=== PATIENT | female | born 1985 | race African-American/Black ===

== ENCOUNTER 2016-07-13 16:32 | Emergency (ER) | payer MEDICARE, MEDICAID ==
[~2016-07-13] VITALS: Ht 170.2 cm; Wt 107.0 kg
[~2016-07-13 16:32] MED LIST: DOXY100C PO; MACR100C2 PO; SULF1TAB23 PO
[2016-07-13 16:35] VITALS: BP 120/84; PULSE 108; RESP 16; TEMP 99.7; O2SAT 99
[2016-07-13] MEDS ORDERED: SODIUM CHLOR 0.9% 1000 ML INJ 1,000 ML IV ONE (16:54)
[2016-07-13] MEDS ORDERED: SODIUM CHLORIDE 0.9% FLUSH 5 ML FLUSH IVF PRN (17:00)
[2016-07-13] MEDS ORDERED: HYDROmorphone HCL PF 2 MG/ML VIAL IVS ONE (17:00)
[2016-07-13] MEDS ORDERED: PROM25TA5 PO (17:01)
[2016-07-13] MEDS ORDERED: XARE15TA PO (17:01)
[2016-07-13] MEDS ORDERED: METH10TA PO (17:01)
[2016-07-13] MEDS ORDERED: OXYC1CAP PO (17:01)
[2016-07-13] MEDS ORDERED: AMIT25TA9 PO (17:01)
[2016-07-13 17:02] VITALS: RESP 16; O2SAT 99
--- NOTE | 2016-07-13 17:09 | PD ---
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 Presents to the emergency department complaining of pain all over. States the past 2 days. States is consistent with her previous sickle cell pain. Does endorse some foul-smelling urine, no dysuria. History of UTIs. She also had some cough. Temperature 99.7. Occasional dizziness. No other complaints. No shortness of breath. No nausea vomiting. No chest pain. PFSH Past Medical History Narrative Medical Hemoglobin SC disease Hx Anticoagulant Therapy: Yes (XARELTO - PE) Arthritis: Yes (spine l4,l5,l7) Asthma: No Autoimmune Disease: No Blood Disorders: Yes (SICKLE CELL) Anxiety: Yes Depression: No Heart Rhythm Problems: No Cancer: No Cardiac Catheterization: Yes Cardiovascular Problems: Yes (MURMUR) High Cholesterol: No Chemotherapy: No Chest Pain: No Congestive Heart Failure: No COPD: No Cerebrovascular Accident: No Diabetes: Yes Patient Takes Glucophage: No Diminished Hearing: No Endocrine: No Gastrointestinal Disorders: Yes (HX GALLSTONES--CHOLECYSTECTOMY) Genetic Disorder: Yes (SICKLE CELL) GERD: No Glaucoma: Yes Genitourinary: No Headaches: No Hepatitis: No Hiatal Hernia: No Heparin Induced Thrombocytopen: No Hypertension: No Immune Disorder: No Implanted Vascular Access Dvce: Yes (RIGHT CHEST INFUSAPORT: SEPTEMBER 2014) Kidney Stones: No Medical other: Yes (SICKLE CELL ANEMIA) Musculoskeletal: Yes (ARTHRITIS) Neurologic: No Psychiatric: No Reproductive: No Respiratory: Yes (PULMONARY EMBOLISM) Immunizations Current: Yes Migraines: No Myocardial Infarction: No Pneumonia: Yes Radiation Therapy: No Renal Failure: No Seizures: No Sickle Cell Disease: Yes Sleep Apnea: No Thyroid Disease: No Ulcer: No Tetanus Vaccination: < 5 Years ?: Not LMP: 07/11/2016 : 10 Para: 4 Miscarriage: 6 : 0 Ectopic : No Ovarian Cysts: No Tubal Ligation: Yes Past Surgical History Abdominal Surgery: Yes AICD: No Arteriovenous Shunt: No Body Medical Devices: RIGHT INFUSAPORT (REMOVED 2012), LEFT REMOVED 2014, RIGHT POWER PORT 2014 Cardiac Surgery: No Section: Yes Cholecystectomy: Yes Ear Surgery: No Endocrine Surgery: No Eye Surgery: Yes (CORRECTIVE EYE SURGERY-LEFT) Genitourinary Surgery: No Gynecologic Surgery: Yes ( X 2, 2007 AND 2012) Hysterectomy: No Insulin Pump: No Joint Replacement: No Neurologic Surgery: No Oral Surgery: No Pacemaker: No Thoracic Surgery: Yes (MRSA INFUSAPORT R SIDE REMOVED 05/2013, L SIDE INFUSAPORT REMOVED 07/20) Other Surgery: Yes Social History Alcohol Use: No Tobacco Use: No Substance Use: No Allergies-Medications (Allergen,Severity, Reaction): Coded Allergies: Morphine (Verified Allergy, Severe, RASH, 07/13/16) Reglan (Verified Allergy, Severe, RASH, 07/13/16) Toradol (Verified Allergy, Severe, RASH, 07/13/16) Zofran (Verified Allergy, Severe, RASH,ITCH, 07/13/16) *MDRO Multi-Drug Resistant Organism (Verified Adverse Reaction, Unknown, ) MRSA (blood) - 05/2013 MRSA PCR Screen negative - 03/20/15 & 03/22/15 MRSA (scalp-05/26/16) Uncoded Allergies: CEFEPIME (Allergy, Severe, Hives., 07/13/16) Reported Meds & Prescriptions Reported Meds & Active Scripts Active Reported Phenergan (Promethazine HCl) 25 Mg Tab 25 Mg PO Q6H PRN Amitriptyline (Amitriptyline HCl) 25 Mg Tab 25 Mg PO HS Methadone (Methadone HCl) 10 Mg Tab 10 Mg PO DAILY Oxycodone (Oxycodone HCl) 5 Mg Cap 5 Mg PO BID PRN Xarelto (Rivaroxaban) 15 Mg Tab 15 Mg PO DAILY Review of Systems Except as stated in HPI: all other systems reviewed are Neg Physical Exam Narrative GENERAL: 30-year-old woman, no acute distress. SKIN: Warm and dry. CARDIOVASCULAR: Regular rate and rhythm. No murmur appreciated. RESPIRATORY: No accessory muscle use. Clear to auscultation. Breath sounds equal bilaterally. GASTROINTESTINAL: Abdomen soft, non-tender, nondistended. Hepatic and splenic margins not palpable. MUSCULOSKELETAL: No obvious deformities. No clubbing. No cyanosis. No edema. NEUROLOGICAL: Awake and alert. No obvious cranial nerve deficits. Motor grossly within normal limits. Normal speech. PSYCHIATRIC: Appropriate mood and affect; insight and judgment normal. Data Data Last Documented VS Vital Signs Date Time Temp Pulse Resp B/P Pulse Ox O2 Delivery O2 Flow Rate FiO2 07/13/16 17:02 16 99 Room Air 07/13/16 16:35 99.7 108 120/84 Orders Complete Blood Count With Diff (07/13/16 16:54) Comprehensive Metabolic Panel (07/13/16 16:54) Retic Count (07/13/16 16:54) Urinalysis - C+S If Indicated (07/13/16 16:54) Ecg Monitoring (07/13/16 16:54) Iv Access Insert/Monitor (07/13/16 16:54) Oximetry (07/13/16 16:54) Hydromorphone Pf Inj (Dilaudid Pf Inj) (07/13/16 17:00) Sodium Chloride 0.9% Flush (Ns Flush) (07/13/16 17:00) Sodium Chlor 0.9% 1000 Ml Inj (Ns 1000 M (07/13/16 16:54) Heparin Central Flush (Heparin Central F (07/13/16 17:00) Urine Culture (07/13/16 17:00) Hydromorphone Pf Inj (Dilaudid Pf Inj) (07/13/16 18:00) Labs Laboratory Tests Test 07/13/16 07/13/16 17:00 17:30 Urine Collection Type CLEAN CATCH Urine Color YELLOW Urine Turbidity CLOUDY Urine pH 6.5 Urine Specific [place] 1.014 Urine Protein NEG mg/dL Urine Glucose (UA) NEG mg/dL Urine Ketones NEG mg/dL Urine Occult Blood LARGE Urine Nitrite POS Urine Bilirubin NEG Urine Leukocyte Esterase LARGE Urine RBC 0-3 /hpf Urine WBC 20-24 /hpf Urine Squamous Epithelial 0-5 /hpf Cells Urine Amorphous Sediment FEW Urine Bacteria FEW /hpf Microscopic Urinalysis Comment CULTURE INDICATED White Blood Count 10.5 TH/MM3 Red Blood Count 4.00 MIL/MM3 Hemoglobin 11.1 GM/DL Hematocrit 34.2 % Mean Corpuscular Volume 85.4 FL Mean Corpuscular Hemoglobin 27.7 PG Mean Corpuscular Hemoglobin 32.4 % Concent Red Cell Distribution Width 19.5 % Platelet Count 480 TH/MM3 Mean Platelet Volume 8.1 FL Neutrophils (%) (Auto) 68.3 % Lymphocytes (%) (Auto) 28.2 % Monocytes (%) (Auto) 2.1 % Eosinophils (%) (Auto) 0.9 % Basophils (%) (Auto) 0.5 % Neutrophils # (Auto) 7.1 TH/MM3 Lymphocytes # (Auto) 3.0 TH/MM3 Monocytes # (Auto) 0.2 TH/MM3 Eosinophils # (Auto) 0.1 TH/MM3 Basophils # (Auto) 0.1 TH/MM3 CBC Comment DIFF FINAL Differential Comment Sodium Level 142 MEQ/L Potassium Level 5.0 MEQ/L Chloride Level 105 MEQ/L Carbon Dioxide Level 27.4 MEQ/L Anion Gap 10 MEQ/L Blood Urea Nitrogen 6 MG/DL Creatinine 1.10 MG/DL Estimat Glomerular Filtration 70 ML/MIN Rate Random Glucose 112 MG/DL Calcium Level 8.9 MG/DL Total Bilirubin 1.0 MG/DL Aspartate Amino Transf 31 U/L (AST/SGOT) Alanine Aminotransferase 19 U/L (ALT/SGPT) Alkaline Phosphatase 94 U/L Total Protein 8.9 GM/DL Albumin 4.0 GM/DL [facility] Medical Decision Making Medical Screen Exam Complete: Yes Emergency Medical Condition: Yes Interpretation(s) LABS: CBC remarkable for mild anemia. CMP unremarkable. Differential Diagnosis Sickle cell crisis, dehydration, other Narrative Course Medical decision making 30-year-old woman hemoglobin SC disease, frequent visits for pain crises, looks well, here at the same. Some concern for UTI given malodorous urine. A little bit of some URI symptoms. Normal pulmonary exam, and no source of breath, No evidence of acute chest syndrome or pneumonia. Plan labs, urinalysis, symptomatic treatment. Diagnosis Primary Impression: Sickle cell disease Qualified Code: D57.00 - Hb-SS disease with crisis Additional Impression: UTI (urinary tract infection) Qualified Code: N30.00 - Acute cystitis without hematuria Additional Instructions: Take antibiotics as prescribed. Follow-up with your behavioral sciences department chair as planned. Return to the emergency department for any new or worsening symptoms. Med/Other Pt SpecificInfo: Prescription(s) given Scripts Nitrofurantoin Monohydrate Macrocrystals (Macrobid)100 Mg Hdl562 Mg PO BID 5 Days Prov:Anderson Monge MD 07/13/16 Disposition: 01 DISCHARGE HOME Anderson Monge MD Jul 13, 2016 17:08
[2016-07-13 17:22] LABS: BLOOD, URINE LARGE (NEG); GLUCOSE,URINE NEG (NEG); KETONE, URINE NEG (NEG); PH, URINE 6.5 (5.0-8.5)
[2016-07-13 17:23] LABS: NITRITE,URINE POS (NEG)
[2016-07-13 17:24] LABS: METHOD OF COLLECTION CLEAN CATCH; URINE COLOR YELLOW (YELLW/STRAW)
[2016-07-13 17:26] LABS: BACTERIA, URINE FEW /hpf; COMMENT (UR) CULTURE INDICATED; CULTURE IF INDICATED CULTURE INDICATED; RBC, URINE 0-3 /hpf (0-3); SQUAMOUS EPITHELIAL CELL URINE 0-5 /hpf (0-5)
[2016-07-13 17:50] LABS: AUTOMATED NEUTROPHIL # 7.1 TH/MM3 (1.8-7.7); BASOPHIL # 0.1 TH/MM3 (0-0.2); BASOPHIL % 0.5 % (0.0-2.0); EOSINOPHIL # 0.1 TH/MM3 (0-0.4); EOSINOPHIL % 0.9 % (0.0-4.0); HEMATOCRIT 34.2 % (35.0-46.0); LYMPH % 28.2 % (9.0-44.0); MEAN CELL VOLUME 85.4 FL (80.0-100.0); MEAN CORPUSCULAR HEMOGLOBIN 27.7 PG (27.0-34.0); MEAN CORPUSCULAR HGB CONC 32.4 % (32.0-36.0); MONO % 2.1 % (0.0-8.0); NEUT % 68.3 % (16.0-70.0); PLATELET COUNT 480 TH/MM3 (150-450); RED CELL DISTRIBUTION WIDTH 19.5 % (11.6-17.2); WHITE BLOOD COUNT 10.5 TH/MM3 (4.0-11.0)
[2016-07-13 17:51] LABS: HEMO FLAGS DIFF FINAL
[2016-07-13] MEDS ORDERED: HYDROmorphone HCL PF 2 MG/ML VIAL IV PUSH ONE (18:00)
[2016-07-13 18:08] LABS: CHLORIDE 105 MEQ/L (98-107); SODIUM (NA) 142 MEQ/L (136-145)
[2016-07-13 18:11] LABS: ANION GAP 10 MEQ/L (5-15); BICARBONATE 27.4 MEQ/L (21.0-32.0); BLOOD UREA NITROGEN 6 MG/DL (7-18)
[2016-07-13 18:14] LABS: ALT (GPT) 19 U/L (10-53); AST (GOT) 31 U/L (15-37); GLOMERULAR FILTRATION RATE 70 ML/MIN (>89)
[2016-07-13 18:17] LABS: ALKALINE PHOSPHATASE 94 U/L (45-117)
[2016-07-13] MEDS ORDERED: MACR100C2 PO (18:30)
[2016-07-13 18:42] VITALS: BP 102/60
[2016-07-13 18:42] LABS: RETIC % 3.7 % (0.4-3.0); REVIEW FLAG FINAL
== END 2016-07-13 18:54 | disposition home or self-care (01) ==
LOC: PHED 16:32
DX: D57.1 Sickle-cell disease without crisis (principal); N39.0 Urinary tract infection, site not specified; Z79.01 Long term (current) use of anticoagulants; F41.9 Anxiety disorder, unspecified; B96.20 Unspecified Escherichia coli [E. coli] as the cause of diseases classified elsewhere
CPT/HCPCS: 80053; 81001; 85025; 85044; 87077; 87086; 87186; 96374; 96376; 99284; J1170; J7030

== ENCOUNTER 2016-08-09 17:29 | Emergency (ER) | payer MEDICARE, MEDICAID ==
[~2016-08-09] VITALS: Ht 170.2 cm; Wt 104.7 kg
[~2016-08-09 17:29] MED LIST changes: +AMIT25TA9 PO; -DOXY100C PO; +METH10TA PO; +OXYC1CAP PO; +PROM25TA5 PO; -SULF1TAB23 PO; +XARE15TA PO
[2016-08-09 17:48] VITALS: BP 118/84; PULSE 109; RESP 16; TEMP 99.9; O2SAT 97
--- NOTE | 2016-08-09 18:10 | PD ---
HPI Chief Complaint: Sickle Cell Time Seen by Provider: 17:57 Travel History International Travel<30 days: No Contact w/Intl Traveler<30days: No Traveled to known affect area: No History of Present Illness HPI The patient was seen and examined in the presence of the nurse. This patient complains of pain all over. She has runny nose and congestion and nausea as well. No diarrhea. Symptoms severity is mild to moderate. Duration one day. No alleviating factors PFSH Past Medical History Hx Anticoagulant Therapy: Yes (XARELTO - PE) Arthritis: Yes (spine l4,l5,l7) Asthma: No Autoimmune Disease: No Blood Disorders: Yes (SICKLE CELL) Anxiety: Yes Depression: No Heart Rhythm Problems: No Cancer: No Cardiac Catheterization: Yes Cardiovascular Problems: Yes (MURMUR) High Cholesterol: No Chemotherapy: No Chest Pain: No Congestive Heart Failure: No COPD: No Cerebrovascular Accident: No Diabetes: Yes Patient Takes Glucophage: No Diminished Hearing: No Endocrine: No Gastrointestinal Disorders: Yes (HX GALLSTONES--CHOLECYSTECTOMY) Genetic Disorder: Yes (SICKLE CELL) GERD: No Glaucoma: Yes Genitourinary: No Headaches: No Hepatitis: No Hiatal Hernia: No Heparin Induced Thrombocytopen: No Hypertension: No Immune Disorder: No Implanted Vascular Access Dvce: Yes (RIGHT CHEST INFUSAPORT: SEPTEMBER 2014) Kidney Stones: No Medical other: Yes (SICKLE CELL ANEMIA) Musculoskeletal: Yes (ARTHRITIS) Neurologic: No Psychiatric: No Reproductive: No Respiratory: Yes (PULMONARY EMBOLISM) Immunizations Current: Yes Migraines: No Myocardial Infarction: No Pneumonia: Yes Radiation Therapy: No Renal Failure: No Seizures: No Sickle Cell Disease: Yes Sleep Apnea: No Thyroid Disease: No Ulcer: No ?: Not LMP: 1 1/2 weeks ago : 10 Para: 4 Miscarriage: 6 : 0 Ectopic : No Ovarian Cysts: No Tubal Ligation: Yes Past Surgical History Abdominal Surgery: Yes AICD: No Arteriovenous Shunt: No Body Medical Devices: RIGHT INFUSAPORT (REMOVED 2012), LEFT REMOVED 2014, RIGHT POWER PORT 2014 Cardiac Surgery: No Section: Yes Cholecystectomy: Yes Ear Surgery: No Endocrine Surgery: No Eye Surgery: Yes (CORRECTIVE EYE SURGERY-LEFT) Genitourinary Surgery: No Gynecologic Surgery: Yes ( X 2, 2007 AND 2012) Hysterectomy: No Insulin Pump: No Joint Replacement: No Neurologic Surgery: No Oral Surgery: No Pacemaker: No Thoracic Surgery: Yes (MRSA INFUSAPORT R SIDE REMOVED 05/2013, L SIDE INFUSAPORT REMOVED 07/20) Other Surgery: Yes Social History Alcohol Use: No Tobacco Use: No Substance Use: No Allergies-Medications (Allergen,Severity, Reaction): Coded Allergies: Morphine (Verified Allergy, Severe, RASH, 08/09/16) Reglan (Verified Allergy, Severe, RASH, 08/09/16) Toradol (Verified Allergy, Severe, RASH, 08/09/16) Zofran (Verified Allergy, Severe, RASH,ITCH, 08/09/16) *MDRO Multi-Drug Resistant Organism (Verified Adverse Reaction, Unknown, ) 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 Reported Meds & Prescriptions Reported Meds & Active Scripts Active Reported Phenergan (Promethazine HCl) 25 Mg Tab 25 Mg PO Q6H PRN Amitriptyline (Amitriptyline HCl) 25 Mg Tab 25 Mg PO HS Methadone (Methadone HCl) 10 Mg Tab 10 Mg PO DAILY Oxycodone (Oxycodone HCl) 5 Mg Cap 5 Mg PO BID PRN Xarelto (Rivaroxaban) 15 Mg Tab 15 Mg PO DAILY Review of Systems General / Constitutional: No: Fever Eyes: No: Visual changes HENT: Positive: Rhinorrhea, Congestion, No: Headaches Cardiovascular: No: Chest Pain or Discomfort Respiratory: No: Shortness of Breath Gastrointestinal: Positive: Nausea, No: Abdominal Pain Genitourinary: No: Dysuria Musculoskeletal: Positive: Myalgias, Pain Skin: No Rash Neurologic: No: Weakness Psychiatric: No: Depression Endocrine: No: Polydipsia Hematologic/Lymphatic: No: Easy Bruising Physical Exam Narrative GENERAL: Well-nourished, well-developed patient in no apparent distress. SKIN: Warm and dry. HEAD: Atraumatic. Normocephalic. EYES: On the right is round and reactive. Her left cornea is clouded over. No scleral icterus. No injection or drainage. ENT: No nasal bleeding or discharge. Mucous membranes pink and moist. NECK: Trachea midline. No JVD. CARDIOVASCULAR: Regular rate and rhythm. No murmur appreciated. RESPIRATORY: No accessory muscle use. Clear to auscultation. Breath sounds equal bilaterally. GASTROINTESTINAL: Abdomen soft, non-tender, nondistended. Hepatic and splenic margins not palpable. MUSCULOSKELETAL: No obvious deformities. No clubbing. No cyanosis. No edema. NEUROLOGICAL: Awake and alert. No obvious cranial nerve deficits. Motor grossly within normal limits. Normal speech. PSYCHIATRIC: Appropriate mood and affect; insight and judgment normal. Data Data Last Documented VS Vital Signs Date Time Temp Pulse Resp B/P Pulse Ox O2 Delivery O2 Flow Rate FiO2 08/09/16 18:02 98 Nasal Cannula 2 08/09/16 17:48 99.9 109 16 118/84 Orders Complete Blood Count With Diff (08/09/16 18:05) Sodium Chlor 0.9% 1000 Ml Inj (Ns 1000 M (08/09/16 18:15) Heparin Central Flush (Heparin Central F (08/09/16 18:15) Promethazine Inj (Phenergan Inj) (08/09/16 18:15) Acetamin-Hydrocod 325-5 Mg ([place] 5-325 (08/09/16 18:15) Resp Lab Draw Arterial Punctur (08/09/16 ) Resp Lab Draw Arterial Punctur (08/09/16 ) Labs Laboratory Tests Test 08/09/16 19:05 White Blood Count 13.3 TH/MM3 Red Blood Count 4.00 MIL/MM3 Hemoglobin 11.3 GM/DL Hematocrit 35.1 % Mean Corpuscular Volume 87.8 FL Mean Corpuscular Hemoglobin 28.3 PG Mean Corpuscular Hemoglobin 32.3 % Concent Red Cell Distribution Width 19.7 % Platelet Count 525 TH/MM3 Mean Platelet Volume 8.1 FL Neutrophils (%) (Auto) 66.5 % Lymphocytes (%) (Auto) 27.1 % Monocytes (%) (Auto) 2.5 % Eosinophils (%) (Auto) 2.3 % Basophils (%) (Auto) 1.6 % Neutrophils # (Auto) 8.9 TH/MM3 Lymphocytes # (Auto) 3.6 TH/MM3 Monocytes # (Auto) 0.3 TH/MM3 Eosinophils # (Auto) 0.3 TH/MM3 Basophils # (Auto) 0.2 TH/MM3 CBC Comment AUTO DIFF MDM Medical Decision Making Medical Screen Exam Complete: Yes Emergency Medical Condition: Yes Medical Record Reviewed: Yes Differential Diagnosis Myalgias, chronic pain, flu syndrome, sickle cell crisis Narrative Course I have reviewed the patient's electronic medical record. Patient was seen here July 13 for similar presentation. She is a frequent visitor for pain complaints attributed to sickle cell Her port is accessed I gave her 1 L normal saline IV and intramuscular Phenergan CBC looks good for her with hemoglobin of 11.3 I gave HER-2 pain pills On recheck she appears asymptomatic. Stable for outpatient follow-up Diagnosis Primary Impression: Acute viral syndrome Additional Impression: Sickle cell disease Qualified Code: D57.1 - Hb-SS disease without crisis Additional Instructions: The patient was advised to follow up with their physician and return if they worsen. Med/Other Pt SpecificInfo: Other Disposition: 01 DISCHARGE HOME Condition: Stable Carlos Malagon MD Aug 09, 2016 18:10
[2016-08-09] MEDS ORDERED: SODIUM CHLOR 0.9% 1000 ML INJ 1,000 ML IV ONE (18:15)
[2016-08-09] MEDS ORDERED: ACETAMINOPHEN/HYDROcodone 325 MG/5 MG TAB PO ONE (18:15)
[2016-08-09] MEDS ORDERED: PROMETHAZINE INJ 25 MG/ML VIAL IM ONE (18:15)
[2016-08-09 19:20] LABS: AUTOMATED NEUTROPHIL # 8.9 TH/MM3 (1.8-7.7); BASOPHIL # 0.2 TH/MM3 (0-0.2); BASOPHIL % 1.6 % (0.0-2.0); EOSINOPHIL # 0.3 TH/MM3 (0-0.4); EOSINOPHIL % 2.3 % (0.0-4.0); HEMATOCRIT 35.1 % (35.0-46.0); LYMPH % 27.1 % (9.0-44.0); LYMPHOCYTE # 3.6 TH/MM3 (1.0-4.8); MEAN CELL VOLUME 87.8 FL (80.0-100.0); MEAN CORPUSCULAR HEMOGLOBIN 28.3 PG (27.0-34.0); MEAN CORPUSCULAR HGB CONC 32.3 % (32.0-36.0); MONO % 2.5 % (0.0-8.0); NEUT % 66.5 % (16.0-70.0); PLATELET COUNT 525 TH/MM3 (150-450); RED CELL DISTRIBUTION WIDTH 19.7 % (11.6-17.2); WHITE BLOOD COUNT 13.3 TH/MM3 (4.0-11.0)
[2016-08-09 19:26] LABS: HEMO FLAGS AUTO DIFF
[2016-08-09 19:56] LABS: OVALOCYTES 1+ (NORMAL); TARGET CELLS 3+ (NORMAL)
[2016-08-09 19:57] LABS: PLATELET ESTIMATE SMEAR HIGH (NORMAL); PLATELET MORPHOLOGY NORMAL (NORMAL); SCAN/DIFF AUTO DIFF CONFIRMED
[2016-08-09 20:43] VITALS: BP 119/78
== END 2016-08-09 20:47 | disposition home or self-care (01) ==
LOC: PHED 17:29
DX: B34.9 Viral infection, unspecified (principal); D57.1 Sickle-cell disease without crisis; R09.89 Other specified symptoms and signs involving the circulatory and respiratory systems; R11.0 Nausea; Z79.01 Long term (current) use of anticoagulants; E11.9 Type 2 diabetes mellitus without complications
CPT/HCPCS: 36600; 85025; 96360; 96372; 99283; J1642; J2550; J7030

== ENCOUNTER 2016-10-28 11:13 | Inpatient (IN) | payer MEDICARE, OTHER ==
[~2016-10-28] VITALS: Ht 170.2 cm; Wt 113.5 kg
[~2016-10-28 11:13] MED LIST changes: -MACR100C2 PO
[2016-10-28 11:17] VITALS: BP 138/89; PULSE 123; RESP 18; TEMP 99; O2SAT 92
[2016-10-28] MEDS ORDERED: SODIUM CHLOR 0.9% 1000 ML INJ 1,000 ML IV ONE (11:44)
[2016-10-28] MEDS ORDERED: HYDROmorphone HCL PF 1 MG/ML VIAL IVS ONE (11:45)
[2016-10-28] MEDS ORDERED: SODIUM CHLORIDE 0.9% FLUSH 10 ML FLUSH IVF PRN ×2 (11:45)
[2016-10-28] MEDS ORDERED: diphenhydrAMINE HCL 50 MG/ML VIAL IV PUSH ONE (11:45)
[2016-10-28 11:50] VITALS: RESP 22; O2SAT 92
[2016-10-28] MEDS ORDERED: PROCHLORPERAZINE INJ 10 MG/2 ML VIAL IV PUSH ONE (12:00)
--- NOTE | 2016-10-28 12:03 | PD ---
HPI Chief Complaint: Sickle Cell Time Seen by Provider: 11:36 Travel History International Travel<30 days: No Contact w/Intl Traveler<30days: No Traveled to known affect area: No History of Present Illness HPI The patient is a 30-year-old [place] female who presents to the emergency department for right arm and facial swelling. The patient notes a 2 day history of right arm and right facial swelling which is progressively worsening. 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 The patient does have a history of sickle cell disease and is followed by Dr. Silver. The patient notes increasing swelling of the right upper extremity and the right aspect of her face. The patient is currently anticoagulated with Xarelto for history of previous pulmonary embolism. The patient notes mild shortness of breath, a minimal dry nonproductive cough, but denies any fever. She denies any current nausea, vomiting, or abdominal pain. She does complain of mild chest tightness associated with her shortness of breath. 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 PFSH Past Medical History Hx Anticoagulant Therapy: Yes (XARELTO - PE) Asthma: No Autoimmune Disease: No Blood Disorders: Yes (SICKLE CELL) Anxiety: Yes Depression: No Heart Rhythm Problems: No Cancer: No Cardiac Catheterization: Yes Cardiovascular Problems: Yes (MURMUR) High Cholesterol: No Chemotherapy: No Chest Pain: No Congestive Heart Failure: No COPD: No Cerebrovascular Accident: No Diabetes: Yes Patient Takes Glucophage: No Diminished Hearing: No Endocrine: No Gastrointestinal Disorders: Yes (HX GALLSTONES--CHOLECYSTECTOMY) Genetic Disorder: Yes (SICKLE CELL) GERD: No Glaucoma: Yes Genitourinary: No Headaches: No Hepatitis: No Hiatal Hernia: No Heparin Induced Thrombocytopen: No Hypertension: No Immune Disorder: No Implanted Vascular Access Dvce: Yes (RIGHT CHEST INFUSAPORT: SEPTEMBER 2014) Kidney Stones: No Medical other: Yes (SICKLE CELL ANEMIA) Musculoskeletal: Yes (ARTHRITIS) Neurologic: No Psychiatric: No Reproductive: No Respiratory: Yes (PULMONARY EMBOLISM) Immunizations Current: Yes Migraines: No Myocardial Infarction: No Pneumonia: Yes Radiation Therapy: No Renal Failure: No Seizures: No Sickle Cell Disease: Yes Sleep Apnea: No Thyroid Disease: No Ulcer: No Tetanus Vaccination: > 5 Years Influenza Vaccination: No ?: Not LMP: 10/10/16 : 10 Para: 4 Miscarriage: 6 : 0 Ectopic : No Ovarian Cysts: No Tubal Ligation: Yes Past Surgical History Abdominal Surgery: Yes AICD: No Arteriovenous Shunt: No Body Medical Devices: RIGHT INFUSAPORT (REMOVED 2012), LEFT REMOVED 2014, RIGHT POWER PORT 2014 Cardiac Surgery: No Section: Yes Cholecystectomy: Yes Ear Surgery: No Endocrine Surgery: No Eye Surgery: Yes (CORRECTIVE EYE SURGERY-LEFT) Genitourinary Surgery: No Gynecologic Surgery: Yes ( X 2, 2007 AND 2012) Hysterectomy: No Insulin Pump: No Joint Replacement: No Neurologic Surgery: No Oral Surgery: No Pacemaker: No Thoracic Surgery: Yes (MRSA INFUSAPORT R SIDE REMOVED 05/2013, L SIDE INFUSAPORT REMOVED 07/20) Other Surgery: Yes Social History Alcohol Use: No Tobacco Use: No Substance Use: No Allergies-Medications (Allergen,Severity, Reaction): Coded Allergies: Morphine (Verified Allergy, Severe, RASH, 10/28/16) Reglan (Verified Allergy, Severe, RASH, 10/28/16) Toradol (Verified Allergy, Severe, RASH, 10/28/16) Zofran (Verified Allergy, Severe, RASH,ITCH, 10/28/16) *MDRO Multi-Drug Resistant Organism (Verified Adverse Reaction, Unknown, ) 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 Reported Meds & Prescriptions Reported Meds & Active Scripts Active Reported Phenergan (Promethazine HCl) 25 Mg Tab 25 Mg PO Q6H PRN Amitriptyline (Amitriptyline HCl) 25 Mg Tab 25 Mg PO HS Methadone (Methadone HCl) 10 Mg Tab 10 Mg PO DAILY Oxycodone (Oxycodone HCl) 5 Mg Cap 5 Mg PO BID PRN Review of Systems Except as stated in HPI: all other systems reviewed are Neg General / Constitutional: No: Fever HENT: No: Lightheadedness Cardiovascular: Positive: Chest Pain or Discomfort Respiratory: Positive: Cough, Shortness of Breath Gastrointestinal: No: Nausea, Vomiting, Abdominal Pain Musculoskeletal: Positive: Edema, Pain Neurologic: No: Paresthesia, Sensory Disturbance Physical Exam Narrative GENERAL: Awake, alert, pleasant 30-year-old female who appears her stated age and is in no acute respiratory distress. SKIN: Focused skin assessment warm/dry. HEAD: Atraumatic. Normocephalic. EYES: Right pupil is 3 mm and reactive. Left eye is blind. ENT: Patient has swelling of the right aspect of her face. NECK: Mild swelling to the right aspect of the neck. CARDIOVASCULAR: Regular, tachycardic with a heart rate of 105. RESPIRATORY: No accessory muscle use. Few scattered wheezes. GASTROINTESTINAL: Abdomen soft, non-tender, nondistended. No rebound tenderness. MUSCULOSKELETAL: Edema and swelling noted to the right upper extremity. Positive right radial pulse. NEUROLOGICAL: Awake and alert. No obvious cranial nerve deficits. Motor grossly within normal limits. Normal speech. Oriented 4. PSYCHIATRIC: Appropriate mood and affect; insight and judgment normal. Data Data Last Documented VS Vital Signs Date Time Temp Pulse Resp B/P Pulse Ox O2 Delivery O2 Flow Rate FiO2 10/28/16 11:50 22 92 Room Air 10/28/16 11:38 108 10/28/16 11:17 99.0 138/89 Orders Complete Blood Count With Diff (10/28/16 11:44) Comprehensive Metabolic Panel (10/28/16 11:44) Retic Count (10/28/16 11:44) Chest, Single Ap (10/28/16 11:44) Ecg Monitoring (10/28/16 11:44) Iv Access Insert/Monitor (10/28/16 11:44) Oximetry (10/28/16 11:44) Sodium Chloride 0.9% Flush (Ns Flush) (10/28/16 11:45) Sodium Chlor 0.9% 1000 Ml Inj (Ns 1000 M (10/28/16 11:44) Hydromorphone Pf Inj (Dilaudid Pf Inj) (10/28/16 11:45) Heparin Central Flush (Heparin Central F (10/28/16 11:45) Sodium Chloride 0.9% Flush (Ns Flush) (10/28/16 11:45) Heparin Central Flush (Heparin Central F (10/28/16 11:45) Diphenhydramine Inj (Benadryl Inj) (10/28/16 11:45) Prochlorperazine Inj (Compazine Inj) (10/28/16 12:00) Blood Culture (10/28/16 11:55) Admit Order (Ed Use Only) (10/28/16 12:50) Labs Laboratory Tests Test 10/28/16 10/28/16 12:00 12:20 White Blood Count 13.8 TH/MM3 Red Blood Count 3.30 MIL/MM3 Hemoglobin 9.3 GM/DL Hematocrit 28.8 % Mean Corpuscular Volume 87.3 FL Mean Corpuscular Hemoglobin 28.2 PG Mean Corpuscular Hemoglobin 32.3 % Concent Red Cell Distribution Width 20.6 % Platelet Count 398 TH/MM3 Mean Platelet Volume 8.4 FL Neutrophils (%) (Auto) 54.7 % Lymphocytes (%) (Auto) 30.5 % Monocytes (%) (Auto) 8.6 % Eosinophils (%) (Auto) 3.3 % Basophils (%) (Auto) 2.9 % Neutrophils # (Auto) 7.5 TH/MM3 Lymphocytes # (Auto) 4.2 TH/MM3 Monocytes # (Auto) 1.2 TH/MM3 Eosinophils # (Auto) 0.5 TH/MM3 Basophils # (Auto) 0.4 TH/MM3 CBC Comment AUTO DIFF Sodium Level 141 MEQ/L Potassium Level 4.9 MEQ/L Chloride Level 107 MEQ/L Carbon Dioxide Level 26.8 MEQ/L Anion Gap 7 MEQ/L Blood Urea Nitrogen 7 MG/DL Creatinine 1.00 MG/DL Estimat Glomerular Filtration 78 ML/MIN Rate Random Glucose 121 MG/DL Calcium Level 8.2 MG/DL Aspartate Amino Transf 41 U/L (AST/SGOT) Alanine Aminotransferase 26 U/L (ALT/SGPT) Albumin 3.4 GM/DL MDM Medical Decision Making Medical Screen Exam Complete: Yes Emergency Medical Condition: Yes Medical Record Reviewed: Yes Interpretation(s) Last Impressions Chest X-Ray 10/28/16 1144 Signed Impressions: Service Date/Time: Friday, October 28, 2016 11:47 - CONCLUSION: No acute disease. Chuy Li MD Differential Diagnosis Differential diagnosis includes SVC syndrome, DVT, pulmonary embolism, volume overload, pneumonia, pleural effusion, lymphoma, tumor. Narrative Course The patient's port was accessed, labs are drawn and sent, and the patient was placed on cardiac telemetry monitoring and continuous pulse oximetry monitoring. The patient was administered Dilaudid, Compazine, Benadryl, and IV fluids. Chest x-ray was obtained. I reviewed the EMR, the patient was seen by Dr. Medina, interventional radiologist, in September 2014 for superior vena cava syndrome. The patient had imaging performed and underwent angioplasty by interventional radiology for SVC syndrome. The patient has very similar symptoms with right upper extremity edema, right neck swelling, and right facial swelling. 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 I discussed the patient with Dr. Santana who states the patient has to be transferred to [facility], [facility], for intervention. The patient's hemoglobin was 9.3, chest x-ray is unremarkable. I discussed the patient with Dr. Almazan who agrees with admission , the patient will be transferred to [facility]. Physician Communication Physician Communication I discussed the patient with Dr. Almazan who agrees with admission. Diagnosis Primary Impression: SVC syndrome Additional Impression: Sickle cell disease Qualified Code: D57.00 - Hb-SS disease with crisis Admitting Information Admitting Physician Requests: Admit Condition: Stable Ari Conrad MD Oct 28, 2016 12:03
--- NOTE | 2016-10-28 12:26 | RADHPO ---
EXAM DATE/TIME: 10/28/2016 11:47 [facility] COMPARISON: CHEST SINGLE AP, October 27, 2015, 20:28. CHEST SINGLE AP, December 13, 2015, 18:08. INDICATIONS : Short of breath, wheezing, right upper extremity swelling. MEDICAL HISTORY : Sickle Cell disease. Renal calculi. Arthritis. Heart murmur. Pulmonary embolism. Diabetic. SURGICAL HISTORY : Cholecystectomy. section. Tubal ligation. Right infusaport. Left infusaport removal. Cardiac cath. ENCOUNTER: Initial ACUITY: 2 days PAIN SCORE: 5/10 LOCATION: chest FINDINGS: A single view of the chest demonstrates the lungs to be symmetrically aerated without evidence of mas s, infiltrate or effusion. The cardiomediastinal contours are unremarkable. Osseous structures are intact. The right-sided implantable port catheter remains in place. There are overlying electrocardio gram leads. CONCLUSION: No acute disease. Chuy Li MD on October 28, 2016 at 12:19 Board Certified Radiologist. This report was verified electronically.
[2016-10-28 12:34] LABS: AUTOMATED NEUTROPHIL # 7.5 TH/MM3 (1.8-7.7); BASOPHIL # 0.4 TH/MM3 (0-0.2); BASOPHIL % 2.9 % (0.0-2.0); EOSINOPHIL # 0.5 TH/MM3 (0-0.4); EOSINOPHIL % 3.3 % (0.0-4.0); HEMATOCRIT 28.8 % (35.0-46.0); LYMPH % 30.5 % (9.0-44.0); LYMPHOCYTE # 4.2 TH/MM3 (1.0-4.8); MEAN CELL VOLUME 87.3 FL (80.0-100.0); MEAN CORPUSCULAR HEMOGLOBIN 28.2 PG (27.0-34.0); MEAN CORPUSCULAR HGB CONC 32.3 % (32.0-36.0); MONO % 8.6 % (0.0-8.0); NEUT % 54.7 % (16.0-70.0); PLATELET COUNT 398 TH/MM3 (150-450); RED CELL DISTRIBUTION WIDTH 20.6 % (11.6-17.2); WHITE BLOOD COUNT 13.8 TH/MM3 (4.0-11.0)
[2016-10-28 12:36] LABS: HEMO FLAGS AUTO DIFF
[2016-10-28 12:44] LABS: CHLORIDE 107 MEQ/L (98-107); POTASSIUM 4.9 MEQ/L (3.5-5.1); SODIUM (NA) 141 MEQ/L (136-145)
[2016-10-28 12:47] LABS: ANION GAP 7 MEQ/L (5-15); BICARBONATE 26.8 MEQ/L (21.0-32.0)
[2016-10-28 12:48] LABS: BLOOD UREA NITROGEN 7 MG/DL (7-18)
[2016-10-28 12:50] LABS: ALT (GPT) 26 U/L (10-53); AST (GOT) 41 U/L (15-37)
[2016-10-28 12:51] LABS: GLOMERULAR FILTRATION RATE 78 ML/MIN (>89)
[2016-10-28 12:52] LABS: TOTAL BILIRUBIN ADULT 1.2 MG/DL (0.2-1.0)
[2016-10-28 12:53] LABS: ALKALINE PHOSPHATASE 102 U/L (45-117)
[2016-10-28] MEDS ORDERED: ACETAMINOPHEN 325 MG TAB PO PRN (13:00)
[2016-10-28] MEDS ORDERED: SODIUM CHLORIDE 0.9% FLUSH 10 ML FLUSH IV FLUSH PRN (13:00)
[2016-10-28] MEDS ORDERED: ONDANSETRON HCL 4 MG/2 ML VIAL IVP PRN (13:00)
[2016-10-28] MEDS ORDERED: NALOXONE HCL 0.4 MG/ML AMP IV PRN (13:00)
[2016-10-28] MEDS ORDERED: MAGNESIUM HYDROXIDE SUSP 30 ML CUP PO PRN (13:00)
[2016-10-28 13:05] VITALS: BP 102/82; PULSE 98; RESP 22; O2SAT 94
[2016-10-28 13:26] LABS: SICKLE CELLS 1+ (NORMAL); TARGET CELLS 2+ (NORMAL)
[2016-10-28 13:27] LABS: PLATELET ESTIMATE SMEAR NORMAL (NORMAL); PLATELET MORPHOLOGY NORMAL (NORMAL); SCAN/DIFF AUTO DIFF CONFIRMED
[2016-10-28 13:36] LABS: RETIC % 7.5 % (0.4-3.0)
[2016-10-28 13:38] LABS: REVIEW FLAG FINAL
[2016-10-28] MEDS ORDERED: PROCHLORPERAZINE INJ 10 MG/2 ML VIAL IM PRN (14:00)
--- NOTE | 2016-10-28 14:02 | HHI.HP ---
HPI Service [facility] Primary Care Physician Carline Silver MD Admission Diagnosis SVC syndrome, sickle cell disease Diagnoses: Chief Complaint: Right arm right side of the chest and right facial swelling. Travel History International Travel<30 Days: No Contact w/Intl Traveler <30 Da: No Traveled to Known Affected Are: No History of Present Illness Ms. Sullivan is a pleasant 30 year old female with a history of sickle cell disease, SVC syndrome who presented to the ED on 10/28/2016 due to right upper extremity swelling as well as right sided chest and facial swelling. She felt short of breath two days ago and this morning she felt her right hand was getting tight. She noticed also right side of her chest as well as right facial swelling. Patient denies any fever or chills. Denies any nausea vomiting or diarrhea. Denies any changes in bladder habits. Her scallop binder is Dr. Silver who she is is on a monthly basis. Patient had his visit syndrome 2 years ago and underwent angioplasty by interventional radiology. Emergency department contacted IR who advised ER to transfer patient to the main hospital for possible intervention. Review of Systems Except as stated in HPI: all other systems reviewed are Neg Past Family Social History Past Medical History Sickle cell disease SVC syndrome Pulmonary embolism Past Surgical History Corrective eye surgery on the left side due to sickle cell crisis. 2 Cholecystectomy Reported Medications Phenergan (Promethazine HCl) 25 Mg Tab 25 Mg PO Q6H PRN Amitriptyline (Amitriptyline HCl) 25 Mg Tab 25 Mg PO HS Methadone (Methadone HCl) 10 Mg Tab 10 Mg PO DAILY Oxycodone (Oxycodone HCl) 5 Mg Cap 5 Mg PO BID PRN Allergies: Coded Allergies: Morphine (Verified Allergy, Severe, RASH, 10/28/16) Reglan (Verified Allergy, Severe, RASH, 10/28/16) Toradol (Verified Allergy, Severe, RASH, 10/28/16) Zofran (Verified Allergy, Severe, RASH,ITCH, 10/28/16) *MDRO Multi-Drug Resistant Organism (Verified Adverse Reaction, Unknown, ) 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 Family History No family history of sickle cell disease. No family history of heart disease or diabetes. Social History Patient denies using alcohol, tobacco or illicit drugs. Physical Exam Vital Signs Vital Signs Date Time Temp Pulse Resp B/P Pulse Ox O2 Delivery O2 Flow Rate FiO2 10/28/16 13:05 98 22 102/82 94 Room Air 10/28/16 11:50 22 92 Room Air 10/28/16 11:38 108 22 92 Room Air 10/28/16 11:17 99.0 123 18 138/89 92 Physical Exam GENERAL: This is a well-nourished, well-developed patient, in no apparent distress. SKIN: No rashes, ecchymoses or lesions. Warm and dry. HEAD: Atraumatic. Normocephalic. No temporal or scalp tenderness. EYES: Right Pupil round and reactive. No injection or drainage. Left eye status post surgical correction. ENT: Nose without bleeding, purulent drainage or septal hematoma. Airway patent. NECK: Trachea midline. No lymphadenopathy. Supple, nontender, no meningeal signs. CARDIOVASCULAR: Regular rate and rhythm without murmurs, gallops, or rubs. No JVD. RESPIRATORY: Clear to auscultation. Breath sounds equal bilaterally. No wheezes , rales, or rhonchi. GASTROINTESTINAL: Abdomen soft, non-tender, nondistended. No guarding. MUSCULOSKELETAL: Extremities without clubbing, cyanosis. Right facial and right upper extremity swelling noted. NEUROLOGICAL: Awake and alert. Cranial nerves II through XII intact. No focal neurological deficits. Normal speech. Laboratory Laboratory Tests Test 10/28/16 10/28/16 12:00 12:20 White Blood Count 13.8 Red Blood Count 3.30 Hemoglobin 9.3 Hematocrit 28.8 Mean Corpuscular Volume 87.3 Mean Corpuscular Hemoglobin 28.2 Mean Corpuscular Hemoglobin 32.3 Concent Red Cell Distribution Width 20.6 Platelet Count 398 Mean Platelet Volume 8.4 Neutrophils (%) (Auto) 54.7 Lymphocytes (%) (Auto) 30.5 Monocytes (%) (Auto) 8.6 Eosinophils (%) (Auto) 3.3 Basophils (%) (Auto) 2.9 Neutrophils # (Auto) 7.5 Lymphocytes # (Auto) 4.2 Monocytes # (Auto) 1.2 Eosinophils # (Auto) 0.5 Basophils # (Auto) 0.4 CBC Comment AUTO DIFF Differential Comment AUTO DIFF CONFIRMED Platelet Estimate NORMAL Platelet Morphology Comment NORMAL Basophilic Stippling FAINT Sickle Cells 1+ Target Cells 2+ Sodium Level 141 Potassium Level 4.9 Chloride Level 107 Carbon Dioxide Level 26.8 Anion Gap 7 Blood Urea Nitrogen 7 Creatinine 1.00 Estimat Glomerular Filtration 78 Rate Random Glucose 121 Calcium Level 8.2 Total Bilirubin 1.2 Aspartate Amino Transf 41 (AST/SGOT) Alanine Aminotransferase 26 (ALT/SGPT) Alkaline Phosphatase 102 Total Protein 7.4 Albumin 3.4 Date/Time Procedure Status Source Growth 10/28/16 12:20 Aerobic Blood Culture Received Blood Peripheral Pending 10/28/16 12:20 Anaerobic Blood Culture Received Blood Peripheral Pending Result Diagram: 10/28/16 1200 10/28/16 1220 Imaging Last Impressions Chest X-Ray 10/28/16 1144 Signed Impressions: Service Date/Time: Friday, October 28, 2016 11:47 - CONCLUSION: No acute disease. Chuy Li MD Assessment and Plan Problem List: (1) SVC syndrome ICD Code: I87.1 Status: Acute (2) Sickle cell disease ICD Code: D57.1 Status: Chronic Assessment and Plan Ms. Sullivan is a pleasant 30-year-old female with a history of sickle cell disease, pulmonary embolism, SVC syndrome who presented to the emergency department today due to right-sided chest, upper extremity and facial swelling. Patient also reported shortness of breath 2 days ago. ED provider discussed with interventional radiology regarding SVC syndrome. IR performed angioplasty 2 years ago for similar symptoms. Patient is thus being transferred to the main hospital for possible intervention. - SVC syndrome - Sickle cell disease. - Patient is being transferred to the [facility] for possible intervention by IR. - Continue Methadone 10mg Qday and Oxycodone 5mg BID. - CXR reviewed by me on 10/28/2016. No acute findings. Mild leukocytosis could be reactive. - History of PE - Patient takes Xarelto which can be continued after IR procedure. Full code. Xarelto. Problem Qualifiers (1) Sickle cell disease: Qualified Code: D57.00 - Hb-SS disease with crisis Shira Almazan DO Oct 28, 2016 2:02 pm
[2016-10-28 14:59] VITALS: BP 112/72
[2016-10-28 15:30] VITALS: BP 109/67; PULSE 81; RESP 16; TEMP 97.3; O2SAT 94
[2016-10-28 20:00] VITALS: BP 120/68; PULSE 88; RESP 17; TEMP 97; O2SAT 95
[2016-10-28] MEDS: SODIUM CHLORIDE 0.9% FLUSH 10 ML FLUSH IV FLUSH SCH (22:24)
[2016-10-28] MEDS: AMITRIPTYLINE HCL 25 MG TAB PO SCH (23:57)
[2016-10-29] VITALS (7 sets, daily range): BP systolic 102–124; BP diastolic 56–77; PULSE 81–95; RESP 16–18; TEMP 96.2–98; O2SAT 95–100
[2016-10-29] MEDS: HEPARIN SODIUM - IV 10,000 UNITS/10 ML VIAL IV ONE ×2 (00:15→20:30)
[2016-10-29 06:20] LABS: AUTOMATED NEUTROPHIL # 5.5 TH/MM3 (1.8-7.7); BASOPHIL # 0.1 TH/MM3 (0-0.2); EOSINOPHIL # 0.4 TH/MM3 (0-0.4); HEMATOCRIT 29.3 % (35.0-46.0); LYMPH % 34.9 % (9.0-44.0); LYMPHOCYTE # 3.9 TH/MM3 (1.0-4.8); MEAN CELL VOLUME 84.9 FL (80.0-100.0); MEAN CORPUSCULAR HEMOGLOBIN 28.2 PG (27.0-34.0); MEAN CORPUSCULAR HGB CONC 33.3 % (32.0-36.0); MONO % 10.8 % (0.0-8.0); NEUT % 49.3 % (16.0-70.0); PLATELET COUNT 325 TH/MM3 (150-450); RED BLOOD COUNT 3.45 MIL/MM3 (4.00-5.30); RED CELL DISTRIBUTION WIDTH 20.7 % (11.6-17.2); WHITE BLOOD COUNT 11.2 TH/MM3 (4.0-11.0)
[2016-10-29 06:24] LABS: HEMO FLAGS AUTO DIFF
[2016-10-29 07:20] LABS: BICARBONATE 27.5 MEQ/L (21.0-32.0)
[2016-10-29 07:29] LABS: POTASSIUM 4.9 MEQ/L (3.5-5.1)
[2016-10-29 08:09] LABS: CORRECTED NUCLEATED RBC 3 /100 WBC (0-0); EOSINOPHILS 6 % (0-4); NEUTROPHIL # MANUAL DIFF 6.4 TH/MM3 (1.8-7.7); POLYS (SEG NEUTROPHILS) 57 % (16-70); WBC DIFF SAMPLE 100
[2016-10-29 08:10] LABS: PLATELET ESTIMATE SMEAR NORMAL (NORMAL); PLATELET MORPHOLOGY NORMAL (NORMAL); SCAN/DIFF FINAL DIFF MANUAL; SICKLE CELLS 1+ (NORMAL); TARGET CELLS 2+ (NORMAL)
[2016-10-29] MEDS: METHADONE HCL 10 MG TAB PO SCH (09:58)
[2016-10-29] MEDS: SODIUM CHLORIDE 0.9% FLUSH 10 ML FLUSH IV FLUSH SCH ×2 (09:59→20:30)
--- NOTE | 2016-10-29 15:48 | HHI.PR ---
Subjective Remarks F/u possible SVC. Complains of similar symptoms when she had SVC in the past with right upper extremity tingling sensation, swelling and pain as well as tightness involving the right chest and throat but no respiratory symptoms or swallowing difficulty. No fever, headache, dizziness, speech impediments. Discussed with RN and IR Objective Vitals Vital Signs Date Time Temp Pulse Resp B/P Pulse Ox O2 Delivery O2 Flow Rate FiO2 10/29/16 13:00 97.4 90 16 124/71 96 10/29/16 10:59 16 10/29/16 09:58 16 10/29/16 08:23 98 21 10/29/16 08:00 97.9 88 18 122/77 95 10/29/16 04:00 96.2 88 18 107/70 97 10/29/16 00:22 21 10/29/16 00:00 96.9 81 17 117/74 100 10/28/16 20:00 97.0 88 17 120/68 95 I/O 10/28/16 10/28/16 10/28/16 10/29/16 10/29/16 10/29/16 07:00 15:00 23:00 07:00 15:00 23:00 Intake Total 240 ml Balance 240 ml Intake Oral 240 ml # Voids 1 4 Result Diagram: 10/29/16 0534 10/29/16 0534 Imaging Last Impressions Chest X-Ray 10/28/16 1144 Signed Impressions: Service Date/Time: Friday, October 28, 2016 11:47 - CONCLUSION: No acute disease. Chuy Li MD Objective Remarks GENERAL: This is a well-nourished, well-developed patient, in no apparent distress. SKIN: No rashes, ecchymoses or lesions. Warm and dry. HEAD: Atraumatic. Normocephalic. No temporal or scalp tenderness. EYES: Right Pupil round and reactive. No injection or drainage. Left eye status post surgical correction. ENT: Nose without bleeding, purulent drainage or septal hematoma. Airway patent. NECK: Trachea midline. No lymphadenopathy. Supple, nontender, no meningeal signs. CARDIOVASCULAR: Regular rate and rhythm without murmurs, gallops, or rubs. No JVD. RESPIRATORY: Clear to auscultation. Breath sounds equal bilaterally. No wheezes , rales, or rhonchi. GASTROINTESTINAL: Abdomen soft, non-tender, nondistended. No guarding. MUSCULOSKELETAL: Extremities without clubbing, cyanosis. Right facial and right upper extremity swelling noted. NEUROLOGICAL: Awake and alert. Cranial nerves II through XII intact. No focal neurological deficits. Normal speech. A/P Problem List: (1) SVC syndrome ICD Code: I87.1 Status: Acute (2) Sickle cell disease ICD Code: D57.1 Status: Chronic Assessment and Plan Ms. Sullivan is a pleasant 30-year-old female with a history of sickle cell disease, pulmonary embolism, SVC syndrome who presented to the emergency department due to right upper extremity tingling sensation, pain and swelling, right-sided chest, and neck tightness similar to her symptoms when she had SVC that required stenting. - SVC syndrome, possible - Sickle cell disease. - Patient is being transferred to the [facility] for possible intervention by IR. Consult hematology - Continue Methadone 10mg Qday and Oxycodone 5mg BID. - CXR reviewed by me on 10/28/2016. No acute findings. Mild leukocytosis could be reactive. - History of PE - Patient takes Xarelto which can be continued after IR procedure. LMP 10/10/16 Problem Qualifiers (1) Sickle cell disease: Qualified Code: D57.00 - Hb-SS disease with crisis Onofre Vilchis MD Oct 29, 2016 15:48
[2016-10-29] MEDS ORDERED: HYDROmorphone HCL PF 2 MG/ML VIAL IV PUSH ONE (19:00)
[2016-10-29 20:11] LABS: PROTHROMBIN TIME - PATIENT 11.1 SEC (9.8-11.6)
[2016-10-29] MEDS: AMITRIPTYLINE HCL 25 MG TAB PO SCH (20:30)
[2016-10-30] VITALS (11 sets, daily range): BP systolic 107–132; BP diastolic 63–98; PULSE 86–100; RESP 16–20; TEMP 97.2–98.4; O2SAT 85–100
[2016-10-30] MEDS: HYDROmorphone HCL PF 1 MG/ML VIAL IV PUSH PRN ×5 (00:19→21:16)
[2016-10-30] MEDS: HEPARIN-D5W INJ 250 ML IV SCH (00:30)
[2016-10-30 02:30] LABS: APTT (PATIENT) 86.1 SEC (24.3-30.1)
--- NOTE | 2016-10-30 07:51 | MB ---
cc: ONOFRE VILCHIS MD, RUBY ANNE E. M.D. DATE OF CONSULTATION 10/29/2016 DATE OF [address] Onofre Vilchis CHIEF COMPLAINT Dr. Vilchis requested consultation for Ms. 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 HISTORY OF PRESENT ILLNESS Ms. Sullivan is a 30-year-old woman well-known patient with hemoglobin SC disease, unintentional weight gain/obesity, chronic anemia and history of venous thromboembolic event. Her course was complicated by a high-grade stenosis involving the low SVC situated above the tip of the patient's port catheter. This was diagnose September 18, 2014. She was admitted at that time and a radiology procedure was performed to confirm port patency in addition to angioplasty of the lesion. She did extremely well. She was on anticoagulant therapy for some time then stopped. On May 29, 2015, she had presentation of shortness of breath and nonocclusive subsegmental pulmonary emboli involving the right middle lobe and bilateral lower lobe pulmonary branches were noted. Since then, she was on anticoagulant therapy with Xarelto. Her Xarelto is held at times due to heavy menstrual bleeding. Otherwise, she has been compliant with her Xarelto and has had no recurrent event of her pulmonary embolism or superior vena cava syndrome. Over the last several weeks, Ms. Sullivan has had difficulty with her port. She required tPA infusion. She has had a problem with blood return. On the morning of presentation, she noted that her right arm was swelling. She noticed in the car that her face was swollen very similar to her presentation for the superior vena cava syndrome. He came into the emergency room, was seen by Dr. Conrad. She was transferred promptly to the [facility] for interventional radiology to evaluate her for angioplasty. She complains of crises type pain. She has chronic pain symptoms. She is on methadone. She denies any nausea or vomiting. She had some chest tightness earlier on. Her last dose of Xarelto was on Thursday. She did not take her Thursday dose as she was already in the hospital. She denies any other swelling. She denies any bleeding related to the Xarelto. She reports compliance with the Xarelto otherwise. PAST MEDICAL HISTORY 1. Hemoglobin SC disease 2. Chronic anemia 3. Depression 4. Glaucoma left eye 5. Chronic pain 6. Pulmonary embolism 7. 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 Port placement 2. Cholecystectomy 3. 4. Angioplasty superior vena cava stenosis ALLERGIES KETOROLAC, MORPHINE, REGLAN AND ZOFRAN CURRENT MEDICATIONS Include: 1. Methadone 1. Oxycodone p.r.n. 2. Phenergan 3. Amitriptyline FAMILY HISTORY A family history of hemoglobin S and hemoglobin C traits. SOCIAL HISTORY She lives with her fiance. She has five children. Denies any tobacco, alcohol or illicit drug use. PHYSICAL EXAMINATION VITAL SIGNS: Temperature 97.0, heart rate 95, respiratory rate 16, blood pressure 102/63, saturation 97%. GENERAL: Ms. Sullivan is a well-developed, well-nourished obese woman. She has facial swelling, neck swelling, bilateral arm swelling more prominent on the right. LUNGS: Clear to auscultation. CARDIOVASCULAR: Exam reveals mild tachycardia. ABDOMEN: Large and benign. EXTREMITIES: Lower extremities with no edema. Pneumatic compression stockings are in place. She has obesity. LABORATORY DATA Significant for a creatinine of 0.9, bilirubin mildly elevated at 1.2. Hemoglobin 9.7 slightly below her baseline, white blood cell count 11.2, platelet count is normal. ASSESSMENT/PLAN Ms. Sullivan is a 30-year-old woman with hemoglobin SC disease associated with chronic pain and chronic anemia. She comes in today with recurrence of her superior vena cava syndrome. She has abrupt onset of right arm swelling associated facial and neck swelling. She has some chest discomfort, tightness and shortness of breath. This is while on anticoagulant therapy with Xarelto. I had a lengthy discussion with Ms. Sullivan our plans to start on fractionated heparin. She is suspected to have recurrence of the stenosis versus a catheter related clot. This is quite concerning as she is already on anticoagulant therapy. I consider that she may have not been completely compliant with her anticoagulant therapy. There is no way for me to confirm that. We discussed proceeding with interventional radiology to assess the stenotic area. We will determine if there is stenosis versus development of clot. I defer to interventional radiology for angioplasty. I would like to defer stent placement given her young age. She is in need of the venous access in which case the port cannot be compromised as she will ultimately need some sort of axis eventually. No transfusion is needed. She has a rare need for transfusion for her sickle cell crises. Her chronic pain regimen will be continued. She has some more discomfort associated with the superior vena cava syndrome. The case will be discussed with radiology. MD SHELTON Fierro/STONEY /6:31 PM /7:36 AM MTDEne
[2016-10-30 08:13] LABS: APTT (PATIENT) 38.6 SEC (24.3-30.1)
[2016-10-30] MEDS: SODIUM CHLORIDE 0.9% FLUSH 10 ML FLUSH IV FLUSH SCH ×2 (08:40→21:00)
[2016-10-30] MEDS: METHADONE HCL 10 MG TAB PO SCH (08:40)
[2016-10-30] MEDS ORDERED: MIDAZOLAM HCL 5 MG/5 ML VIAL ONE (10:54)
[2016-10-30] MEDS ORDERED: fentaNYL CITRATE 250 MCG/5 ML AMP ONE (10:54)
[2016-10-30] MEDS ORDERED: HEPARIN SODIUM - IV 10,000 UNITS/10 ML VIAL ONE (11:40)
--- NOTE | 2016-10-30 11:59 | PD.RAD ---
Post Procedure Progress Note Pre Procedure Diagnosis: (1) Swelling Post Procedure Diagnosis: (1) Swelling Procedure Date: Oct 30, 2016 Supervising Radiologist: Harsh Santana Proceduralist/Assist: Rinku Lopez RT(R), RT Rashaun(R) Anesthesia: Conscious Sedation Plan of Activity Patient to Unit: Nursing Unit Patient Condition: Good See PACS Report for procedural detail/treatment Vascular-Venous Procedure Procedure 1 Procedure Site: Thoracic Procedure(s): Angioplasty (svc) Access Access Site(s): Right Jugular Vein Closure Site(s): Right manual pressure Harsh Santana MD Oct 30, 2016 11:59
[2016-10-30] MEDS ORDERED: IODIXANOL 320 MG/ML 10 ML VIAL (for RAD SPEC) IV ONE (12:06)
[2016-10-30] MEDS ORDERED: SODIUM CHLOR 0.9% 1000 ML INJ 1,000 ML IV SCH (13:00)
--- NOTE | 2016-10-30 14:58 | RADRPT ---
EXAM DATE/TIME: 10/30/2016 11:22 [facility] COMPARISON: VENOGRAM, SUPERIOR VENA CAVA, September 18, 2014, 9:43. INDICATIONS : Patient with a history of SVC syndrome. MEDICAL HISTORY : Hemoglobin SC disease Chronic anemia Depression Glaucome left eye Chronic pain PE SVC syndrome SURGICAL HISTORY : Port placement Cholecystectomy Angioplasty SVC ENCOUNTER: Subsequent ACUITY: 1 day PAIN SCORE: 7/10 LOCATION: Bilateral Low back FLUORO TIME: 6.4 minutes IMAGE SERIES: 10 ACCESS SITE: Right Internal jugular vein SEDATION TIME: 45 minutes CONTRAST: 1.) 40 cc Visipaque (iodixanol) MEDICATION(S): 1.) 4 mg midazolam (Versed) IV 2.) 200 mcg fentanyl (Sublimaze) IV DEVICE(S): 1.) Superior vena cava 12x4 PROBATION AGENT balloon 2.) Superior vena cava 16x4 PROBATION AGENT balloon PROCEDURE : 1. Ultrasound-guided puncture of the right jugular vein. 2. Conscious sedation with continuous EKG and Oximetry monitoring. 3. Angiography of the superior vena cava 4. angioplasty of the superior vena cava The risks, benefits and alternatives to the procedure were explained and verbal and written consent w as obtained. The site was prepped in sterile fashion. Full sterile technique was used, including ca p, mask, sterile gloves and gown and a large sterile sheet. Hand hygiene and 2% chlorhexidine and/or betadine/alcohol prep was utilized per protocol for cutaneous antisepsis. The skin and subcutaneous tissues were infiltrated with local anesthetic solution. With ultrasound and fluoroscopic guidance the right jugular vein was punctured and a vascular sheath was placed. Angiography of the superior cava demonstrates high-grade stenosis at the cavoatrial junction. Serial angioplasty was performed first with a 12 mm balloon and then with a 16 mm balloon. Followup angiogra phy demonstrates significant improvement in the flow rate following angioplasty. No extravasation of contrast was seen. The puncture site was closed with manual pressure and hemostasis was obtained. The patient tolerated the procedure well and there were no complications. Conscious sedation was performed with the prescribed dosages and duration as above in the presence of an independent trained radiology nurse to assist in the monitoring of the patient. EKG and oximetry remained stable throughout the procedure. CONCLUSION: Uncomplicated angioplasty of the superior vena cava Harsh Santana MD on October 30, 2016 at 14:54 Board Certified Radiologist. This report was verified electronically.
--- NOTE | 2016-10-30 17:19 | HHI.PR ---
Subjective Remarks Follow-up SPC. Tolerated angioplasty. Complains of improving throbbing discomfort of the chest and right upper extremity. Discussed with RN Objective Vitals Vital Signs Date Time Temp Pulse Resp B/P Pulse Ox O2 Delivery O2 Flow Rate FiO2 10/30/16 14:25 97.7 100 16 116/75 95 10/30/16 14:05 97.2 90 16 115/79 100 10/30/16 13:40 91 18 114/71 94 10/30/16 13:10 93 18 117/71 94 10/30/16 12:40 93 18 107/78 97 10/30/16 12:25 98.4 100 18 125/81 85 10/30/16 12:25 100 18 85 10/30/16 08:56 98.3 86 16 118/68 94 10/30/16 04:00 98.0 94 18 123/63 97 10/30/16 00:00 98.2 91 18 110/98 98 10/29/16 20:00 98.0 86 18 120/56 96 I/O 10/29/16 10/29/16 10/29/16 10/30/16 10/30/16 10/30/16 07:00 15:00 23:00 07:00 15:00 23:00 Intake Total 240 ml 360 ml Balance 240 ml 360 ml Intake Oral 240 ml 360 ml # Voids 4 3 2 # Bowel Movements 1 Result Diagram: 10/29/16 0534 10/29/16 0534 Imaging Last Impressions Vena Cavagram 10/30/16 0000 Signed Impressions: Service Date/Time: October 11:22 - CONCLUSION: Uncomplicated angioplasty of the superior vena cava Harsh Santana MD Chest X-Ray 10/28/16 1144 Signed Impressions: Service Date/Time: Friday, October 28, 2016 11:47 - CONCLUSION: No acute disease. Chuy Li MD Objective Remarks GENERAL: This is a well-nourished, well-developed patient, in no apparent distress. SKIN: No rashes, ecchymoses or lesions. Warm and dry. HEAD: Atraumatic. Normocephalic. No temporal or scalp tenderness. EYES: Right Pupil round and reactive. No injection or drainage. Left eye status post surgical correction. ENT: Nose without bleeding, purulent drainage or septal hematoma. Airway patent. NECK: Trachea midline. No lymphadenopathy. Supple, nontender, no meningeal signs. CARDIOVASCULAR: Regular rate and rhythm without murmurs, gallops, or rubs. No JVD. RESPIRATORY: Clear to auscultation. Breath sounds equal bilaterally. No wheezes , rales, or rhonchi. GASTROINTESTINAL: Abdomen soft, non-tender, nondistended. No guarding. MUSCULOSKELETAL: Extremities without clubbing, cyanosis. Right facial and right upper extremity swelling noted. NEUROLOGICAL: Awake and alert. Cranial nerves II through XII intact. No focal neurological deficits. Normal speech. Procedures Angioplasty A/P Problem List: (1) SVC syndrome ICD Code: I87.1 Status: Acute (2) Sickle cell disease ICD Code: D57.1 Status: Chronic Assessment and Plan Ms. Sullivan is a pleasant 30-year-old female with a history of sickle cell disease, pulmonary embolism, SVC syndrome who presented to the emergency department due to right upper extremity tingling sensation, pain and swelling, right-sided chest, and neck tightness similar to her symptoms when she had SVC that required stenting. - SVC syndrome - Sickle cell disease. - Status post angioplasty by IR. Consulted hematology - Continue Methadone 10mg Qday and Oxycodone 5mg BID. IV morphine for severe pain - CXR reviewed by me on 10/28/2016. No acute findings. Mild leukocytosis could be reactive. - History of PE - Patient takes Xarelto which can be continued after IR procedure. Continue IV heparin for now [facility] 10/10/16 Discharge Planning Discharge patient to home. She has significantly improved earlier than expected Condition on discharge: Improved Regular Diet as tolerated Ad Neyda activity no driving Rx written: None Follow-up with primary care physician in 3 days, hematology in one week Problem Qualifiers (1) Sickle cell disease: Qualified Code: D57.00 - Hb-SS disease with crisis Onofre Vilchis MD Oct 30, 2016 17:19
--- NOTE | 2016-10-30 17:21 | HHI.DCPOC ---
Discharge Care Plan Diagnosis: (1) SVC syndrome (2) Sickle cell disease Your Health Problems Are: Difficulty with ADL Exercise Tolerance Goals to Promote Your Health * To prevent worsening of your condition and complications * To maintain your health at the optimal level Directions to Meet Your Goals Take your medications as prescribed Follow your dietary instruction Follow activity as directed Keep your appointments as scheduled Take your immunizations and boosters as scheduled If your symptoms worsen call your PCP, if no PCP go to Urgent Care Center or Emergency Room Smoking is Dangerous to Your Health. Avoid second hand smoke Call the 24-hour hour crisis hotline for domestic abuse at Onofre Vilchis MD Oct 30, 2016 17:21
[2016-10-30] MEDS: AMITRIPTYLINE HCL 25 MG TAB PO SCH (21:16)
--- NOTE | 2016-10-30 22:45 | PD.ONC.PN ---
Subjective Subjective Remarks Pt still sleepy after procedure. Swelling decreased over arms and face. Objective Data Date Time Temp Pulse Resp B/P Pulse Ox O2 Delivery O2 Flow Rate FiO2 10/30/16 21:46 18 10/30/16 20:00 97.9 95 20 132/79 96 10/30/16 16:00 97.9 88 16 122/72 100 10/30/16 14:25 97.7 100 16 116/75 95 10/30/16 14:05 97.2 90 16 115/79 100 10/30/16 13:40 91 18 114/71 94 10/30/16 13:10 93 18 117/71 94 10/30/16 12:40 93 18 107/78 97 10/30/16 12:25 98.4 100 18 125/81 85 10/30/16 12:25 100 18 85 10/30/16 08:56 98.3 86 16 118/68 94 10/30/16 04:00 98.0 94 18 123/63 97 10/30/16 00:00 98.2 91 18 110/98 98 Result Diagram: 10/29/16 0534 10/29/16 0534 Laboratory Results Laboratory Tests Test 10/30/16 10/30/16 02:12 07:35 Activated Partial 86.1 SEC 38.6 SEC Thromboplast Time Culture Results Microbiology Date/Time Procedure Status Source Growth 10/28/16 12:00 Aerobic Blood Culture - Preliminary Resulted Blood Peripheral NO GROWTH IN 2 DAYS 10/28/16 12:00 Anaerobic Blood Culture - Preliminary Resulted Blood Peripheral NO GROWTH IN 2 DAYS 10/28/16 12:20 Aerobic Blood Culture - Preliminary Resulted Blood Peripheral NO GROWTH IN 2 DAYS 10/28/16 12:20 Anaerobic Blood Culture - Preliminary Resulted Blood Peripheral NO GROWTH IN 2 DAYS Imaging Studies Last 24 hours Impressions Vena Cavagram 10/30/16 0000 Signed Impressions: Service Date/Time: October 11:22 - CONCLUSION: Uncomplicated angioplasty of the superior vena cava Harsh Santana MD Administered Medications Medications (Trade) Dose Ordered Sig/Evi Route PRN Reason Start Time Stop Time Status Last Admin Dose Admin Heparin Sodium (Porcine) (Heparin Central Flush) 250 units UNSCH PRN IV FLUSH SEE PROTOCOL 10/28/16 11:45 10/29/16 22:36 Sodium Chloride (NS Flush) 2 ml BID IV FLUSH 10/28/16 21:00 10/30/16 08:40 Acetaminophen (Tylenol) 650 mg Q4H PRN PO FEVER, HEADACHE, PAIN 1-4 10/28/16 13:00 10/28/16 22:16 Amitriptyline HCl (Elavil) 25 mg HS PO 10/28/16 21:00 10/30/16 21:16 Methadone HCl (Dolophine) 10 mg DAILY PO 10/29/16 09:00 10/30/16 08:40 Oxycodone HCl 5 mg 5 mg BID PRN PO PAIN SCALE 1 TO 5 10/28/16 14:00 10/29/16 07:11 Heparin Sodium/ Dextrose (Heparin-D5W Inj) 250 ml @ 0 mls/hr TITRATE IV 10/29/16 18:45 10/30/16 00:30 Hydromorphone HCl 1 mg 1 mg Q4H PRN IV PUSH PAIN SCALE 6 TO 10 10/29/16 18:45 10/30/16 21:16 Sodium Chloride (NS 1000 ml Inj) 1,000 ml @ 100 mls/hr Q10H IV 10/30/16 13:00 10/30/16 22:59 10/30/16 14:05 Objective Remarks GENERAL: Well-nourished, well-developed patient. SKIN: Warm and dry. HEAD: Normocephalic. EYES: No scleral icterus. Opacified L eye. No injection or drainage. NECK: Supple, trachea midline. No JVD or lymphadenopathy. LYMPHATIC: No adenopathy. CARDIOVASCULAR: Regular rate and rhythm without murmurs. RESPIRATORY: Breath sounds equal bilaterally. No accessory muscle use. GASTROINTESTINAL: Abdomen soft, non-tender, nondistended. EXTREMITIES: No cyanosis, or edema. MUSCULOSKELETAL: Adequate muscle tone. Assessment/Plan Problem List: (1) SVC syndrome Status: Acute Plan: Recurrence of SVC syndrome. Discussed w/ Dr. Glover. Post procedule appear improved. Anticoagulant therapy with UFH. (2) Sickle cell disease Status: Chronic Plan: Hgb SC disease, chronic anemia. Chronic pain. Monitor for crisis exacerbation after procedure. Assessment 30 y/o woman with Hgb SC disease, chronic anemia, h/o VTE/PE, admitted with SVC syndrome. Plan 1. Monitor post procedure. 2. Cont UFH over night 3. Anticipate DC on LMWH rather than Xarelto. 4. Monitor for crisis symptoms. Problem Qualifiers (1) Sickle cell disease: Qualified Code: D57.00 - Hb-SS disease with crisis Carline Silver MD Oct 30, 2016 22:45
[2016-10-31] VITALS: BP 116/75; PULSE 56; RESP 17; TEMP 98.2; O2SAT 92
[2016-10-31] MEDS: HEPARIN-D5W INJ 250 ML IV SCH ×2 (01:25→14:50)
[2016-10-31] MEDS: HYDROmorphone HCL PF 1 MG/ML VIAL IV PUSH PRN ×5 (01:27→23:11)
[2016-10-31 04:00] VITALS: BP 112/71; PULSE 92; RESP 18; TEMP 97.7; O2SAT 92
[2016-10-31] MEDS: SODIUM CHLORIDE 0.9% FLUSH 10 ML FLUSH IV FLUSH SCH ×2 (09:00→20:34)
[2016-10-31 09:24] LABS: APTT (PATIENT) 52.3 SEC (24.3-30.1)
[2016-10-31] MEDS: METHADONE HCL 10 MG TAB PO SCH (09:35)
[2016-10-31 09:42] VITALS: BP 96/57; PULSE 98
--- NOTE | 2016-10-31 11:58 | PD.ONC.PN ---
Subjective Subjective Remarks Afebrile overnight. patient concerned that she still has significant upper extremity and facial and neck swelling. She states sometimes it appears the swelling is improving and other times it feels like it is worsening. complaining of foul odor to urination. denies dysuria frequency or urgency. Objective Data Date Time Temp Pulse Resp B/P Pulse Ox O2 Delivery O2 Flow Rate FiO2 10/31/16 09:42 98 96/57 10/31/16 04:27 18 10/31/16 04:00 97.7 92 18 112/71 92 10/31/16 01:57 18 10/31/16 00:00 98.2 56 17 116/75 92 10/30/16 20:00 97.9 95 20 132/79 96 10/30/16 16:00 97.9 88 16 122/72 100 10/30/16 14:25 97.7 100 16 116/75 95 10/30/16 14:05 97.2 90 16 115/79 100 10/30/16 13:40 91 18 114/71 94 10/30/16 13:10 93 18 117/71 94 10/30/16 12:40 93 18 107/78 97 10/30/16 12:25 98.4 100 18 125/81 85 10/30/16 12:25 100 18 85 10/31/16 10/31/16 10/31/16 07:00 15:00 23:00 Intake Total 480 ml Balance 480 ml Result Diagram: 10/29/16 0534 10/29/16 0534 Laboratory Results Laboratory Tests Test 10/31/16 09:06 Activated Partial 52.3 SEC Thromboplast Time Culture Results Microbiology Date/Time Procedure Status Source Growth 10/28/16 12:00 Aerobic Blood Culture - Preliminary Resulted Blood Peripheral NO GROWTH IN 3 DAYS 10/28/16 12:00 Anaerobic Blood Culture - Preliminary Resulted Blood Peripheral NO GROWTH IN 3 DAYS 10/28/16 12:20 Aerobic Blood Culture - Preliminary Resulted Blood Peripheral NO GROWTH IN 3 DAYS 10/28/16 12:20 Anaerobic Blood Culture - Preliminary Resulted Blood Peripheral NO GROWTH IN 3 DAYS Administered Medications Medications (Trade) Dose Ordered Sig/Evi Route PRN Reason Start Time Stop Time Status Last Admin Dose Admin Heparin Sodium (Porcine) (Heparin Central Flush) 250 units UNSCH PRN IV FLUSH SEE PROTOCOL 10/28/16 11:45 10/29/16 22:36 Sodium Chloride (NS Flush) 2 ml BID IV FLUSH 10/28/16 21:00 10/30/16 08:40 Acetaminophen (Tylenol) 650 mg Q4H PRN PO FEVER, HEADACHE, PAIN 1-4 10/28/16 13:00 10/28/16 22:16 Amitriptyline HCl (Elavil) 25 mg HS PO 10/28/16 21:00 10/30/16 21:16 Methadone HCl (Dolophine) 10 mg DAILY PO 10/29/16 09:00 10/31/16 09:35 Oxycodone HCl 5 mg 5 mg BID PRN PO PAIN SCALE 1 TO 5 10/28/16 14:00 10/31/16 03:27 Heparin Sodium/ Dextrose (Heparin-D5W Inj) 250 ml @ 0 mls/hr TITRATE IV 10/29/16 18:45 10/31/16 01:25 Hydromorphone HCl (Dilaudid Pf Inj) 1 mg Q4H PRN IV PUSH PAIN SCALE 6 TO 10 10/29/16 18:45 10/31/16 09:36 Objective Remarks GENERAL: Young woman with upper extremity and facial swelling SKIN: Warm and dry. HEAD: Normocephalic. EYES: left eye opacified. NECK: Supple, trachea midline. CARDIOVASCULAR: Regular rate and rhythm RESPIRATORY: Breath sounds equal bilaterally. No accessory muscle use. GASTROINTESTINAL: Abdomen soft, non-tender, nondistended. EXTREMITIES: No cyanosis MUSCULOSKELETAL: Adequate muscle tone. NEUROLOGICAL: awake and alert, normal speech. Assessment/Plan Problem List: (1) SVC syndrome Status: Acute Plan: Recurrence of SVC syndrome. s/p angioplasty on 10/30 in IR currently on heparin gtt (2) Sickle cell disease Status: Chronic Plan: Hgb SC disease, chronic anemia. Chronic pain. Monitor for crisis exacerbation after procedure. Assessment 30 y/o woman with Hgb SC disease, chronic anemia, h/o VTE/PE, admitted with SVC syndrome. Plan 1. monitor swelling 2. continue anticoagulation (plan to d/c home on Lovenox) 3. monitor for crisis symptoms 4. check u/a Problem Qualifiers (1) Sickle cell disease: Qualified Code: D57.00 - Hb-SS disease with crisis Crystal Mora Oct 31, 2016 11:58
[2016-10-31 12:00] VITALS: BP 115/73; PULSE 100; RESP 16; TEMP 97.3; O2SAT 90
[2016-10-31 13:02] LABS: AUTOMATED NEUTROPHIL # 6.7 TH/MM3 (1.8-7.7); BASOPHIL # 0.1 TH/MM3 (0-0.2); BASOPHIL % 0.9 % (0.0-2.0); EOSINOPHIL # 0.5 TH/MM3 (0-0.4); EOSINOPHIL % 4.1 % (0.0-4.0); HEMATOCRIT 24.9 % (35.0-46.0); LYMPHOCYTE # 4.3 TH/MM3 (1.0-4.8); MEAN CELL VOLUME 82.9 FL (80.0-100.0); MEAN CORPUSCULAR HGB CONC 33.8 % (32.0-36.0); MONO % 9.7 % (0.0-8.0); NEUT % 52.3 % (16.0-70.0); PLATELET COUNT 322 TH/MM3 (150-450); RED CELL DISTRIBUTION WIDTH 21.1 % (11.6-17.2); WHITE BLOOD COUNT 12.9 TH/MM3 (4.0-11.0)
[2016-10-31 13:05] LABS: HEMO FLAGS AUTO DIFF
[2016-10-31 13:32] LABS: BASOPHILS 1 % (0-2); CORRECTED NUCLEATED RBC 1 /100 WBC (0-0); EOSINOPHILS 3 % (0-4); NEUTROPHIL # MANUAL DIFF 6.7 TH/MM3 (1.8-7.7); POLYS (SEG NEUTROPHILS) 52 % (16-70); WBC DIFF SAMPLE 100
[2016-10-31 13:34] LABS: POLYCHROMASIA 2.5 % (0.0-1.9); TARGET CELLS 2+ (NORMAL)
[2016-10-31 13:35] LABS: PLATELET ESTIMATE SMEAR NORMAL (NORMAL); PLATELET MORPHOLOGY NORMAL (NORMAL); SCAN/DIFF FINAL DIFF MANUAL; SICKLE CELLS 1+ (NORMAL)
--- NOTE | 2016-10-31 14:43 | HHI.PR ---
Subjective Remarks Follow-up SVC. Tolerating heparin drip agrees with lovenox she used before. Discussed with the hematology, hold discharge today secondary to facial and right upper extremity swelling. Improving pain. Discussed with RN in case management Objective Vitals Vital Signs Date Time Temp Pulse Resp B/P Pulse Ox O2 Delivery O2 Flow Rate FiO2 10/31/16 09:42 98 96/57 10/31/16 04:27 18 10/31/16 04:00 97.7 92 18 112/71 92 10/31/16 01:57 18 10/31/16 00:00 98.2 56 17 116/75 92 10/30/16 20:00 97.9 95 20 132/79 96 10/30/16 16:00 97.9 88 16 122/72 100 I/O 10/30/16 10/30/16 10/30/16 10/31/16 10/31/16 10/31/16 07:00 15:00 23:00 07:00 15:00 23:00 Intake Total 480 ml Balance 480 ml Intake Oral 480 ml # Voids 2 2 Result Diagram: 10/31/16 1207 10/29/16 0534 Imaging Last Impressions Vena Cavagram 10/30/16 0000 Signed Impressions: Service Date/Time: October 11:22 - CONCLUSION: Uncomplicated angioplasty of the superior vena cava Harsh Santana MD Chest X-Ray 10/28/16 1144 Signed Impressions: Service Date/Time: Friday, October 28, 2016 11:47 - CONCLUSION: No acute disease. Chuy Li MD Objective Remarks GENERAL: This is a well-nourished, well-developed patient, in no apparent distress. SKIN: No rashes, ecchymoses or lesions. Warm and dry. HEAD: Atraumatic. Normocephalic. No temporal or scalp tenderness. EYES: Right Pupil round and reactive. No injection or drainage. Left eye status post surgical correction. ENT: Nose without bleeding, purulent drainage or septal hematoma. Airway patent. NECK: Trachea midline. No lymphadenopathy. Supple, nontender, no meningeal signs. CARDIOVASCULAR: Regular rate and rhythm without murmurs, gallops, or rubs. No JVD. RESPIRATORY: Clear to auscultation. Breath sounds equal bilaterally. No wheezes , rales, or rhonchi. GASTROINTESTINAL: Abdomen soft, non-tender, nondistended. No guarding. MUSCULOSKELETAL: Extremities without clubbing, cyanosis. Improving Right facial and right upper extremity swelling noted. NEUROLOGICAL: Awake and alert. Cranial nerves II through XII intact. No focal neurological deficits. Normal speech. Procedures Angioplasty A/P Problem List: (1) SVC syndrome ICD Code: I87.1 Status: Acute (2) Sickle cell disease ICD Code: D57.1 Status: Chronic Assessment and Plan Ms. Sullivan is a pleasant 30-year-old female with a history of sickle cell disease, pulmonary embolism, SVC syndrome who presented to the emergency department due to right upper extremity tingling sensation, pain and swelling, right-sided chest, and neck tightness similar to her symptoms when she had SVC that required stenting. - SVC syndrome - Sickle cell disease. - Status post angioplasty by IR. Consulted hematology who recommended IV heparin and transition to Lovenox - Continue Methadone 10mg Qday and Oxycodone 5mg BID. IV morphine for severe pain - CXR reviewed by me on 10/28/2016. No acute findings. Mild leukocytosis could be reactive. - History of PE - Patient takes Xarelto which she failed. As above - UTI suspected. Urinalysis ordered LMP 10/10/16 Discharge Planning Discharge in morning when cleared by hematology Problem Qualifiers (1) Sickle cell disease: Qualified Code: D57.00 - Hb-SS disease with crisis Onofre Vilchis MD Oct 31, 2016 14:43
[2016-10-31 16:00] VITALS: BP 122/77; PULSE 99; RESP 16; TEMP 97.9; O2SAT 95
[2016-10-31 19:10] LABS: APTT (PATIENT) 40.8 SEC (24.3-30.1); PROTHROMBIN TIME - PATIENT 11.1 SEC (9.8-11.6)
[2016-10-31 20:00] VITALS: BP 113/69; PULSE 101; RESP 20; TEMP 99; O2SAT 90
[2016-10-31] MEDS: AMITRIPTYLINE HCL 25 MG TAB PO SCH (20:37)
[2016-10-31 21:28] LABS: BACTERIA, URINE MOD /hpf; BLOOD, URINE TRACE (NEG); COMMENT (UR) CULTURE INDICATED; CULTURE IF INDICATED CULTURE INDICATED; GLUCOSE,URINE NEG (NEG); KETONE, URINE NEG (NEG); NITRITE,URINE NEG (NEG); PH, URINE 6.5 (5.0-8.5); SQUAMOUS EPITHELIAL CELL URINE 2 /hpf (0-5); URINE COLOR YELLOW (YELLW/STRAW)
[2016-11-01] VITALS: BP 123/76; PULSE 93; RESP 18; TEMP 98.3; O2SAT 93
[2016-11-01] MEDS: HEPARIN-D5W INJ 250 ML IV SCH (06:51)
[2016-11-01] MEDS: HYDROmorphone HCL PF 1 MG/ML VIAL IV PUSH PRN ×4 (06:56→21:19)
--- NOTE | 2016-11-01 09:11 | HHI.FPPN ---
Subjective Remarks No acute events overnight, vital signs have remained stable. Patient endorses continued left sided face and arm swelling w/o improvement s/p IR intervention. She does not feel these areas are worsening. She denies any warmth or redness. No difficulty breathing or reports of focal weakness. She does note a blister on the right side of her neck which has popped. She states she does not feel comfortable going home today because due to concern that her condition is not improving. Objective Vitals Vital Signs Date Time Temp Pulse Resp B/P Pulse Ox O2 Delivery O2 Flow Rate FiO2 11/01/16 00:00 98.3 93 18 123/76 93 10/31/16 23:40 18 10/31/16 21:40 18 10/31/16 20:00 99.0 101 20 113/69 90 10/31/16 16:00 97.9 99 16 122/77 95 10/31/16 12:00 97.3 100 16 115/73 90 10/31/16 09:42 98 96/57 I/O 10/31/16 10/31/16 10/31/16 11/01/16 11/01/16 11/01/16 07:00 15:00 23:00 07:00 15:00 23:00 Intake Total 480 ml 600 ml 480 ml 480 ml Balance 480 ml 600 ml 480 ml 480 ml Intake Oral 480 ml 600 ml 480 ml 480 ml # Voids 2 3 # Bowel Movements 0 Result Diagram: 10/31/16 1207 10/29/16 0534 Objective Remarks GENERAL: This is a well-nourished, well-developed patient, in no apparent distress. SKIN: No rashes, erythema, or ecchymoses. Warm and dry. One, very small blister near right port, ruptured and non-infected appearing. HEAD: Atraumatic. Normocephalic. Face appears symmetric. EYES: Right Pupil round and reactive. No injection or drainage. Left eye status post surgical correction. ENT: Nose without bleeding, purulent drainage or septal hematoma. Airway patent. NECK: Trachea midline. No lymphadenopathy. Supple, nontender, no meningeal signs. CARDIOVASCULAR: Regular rate and rhythm without murmurs, gallops, or rubs. No JVD. RESPIRATORY: Clear to auscultation. Breath sounds equal bilaterally. No wheezes , rales, or rhonchi. GASTROINTESTINAL: Abdomen soft, non-tender, nondistended. No guarding. MUSCULOSKELETAL: Extremities without clubbing, cyanosis. Moderate right facial and right upper extremity swelling noted when compared to left. NEUROLOGICAL: Awake and alert. Cranial nerves II through XII intact. No focal neurological deficits. Normal speech. 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 #) SVC syndrome: * Status post angioplasty on 10/30 by IR * Overall symptoms stable from yesterday, but patient denies any improvement and has persistence of right arm swelling * Hematology following, appreciate rec's #) Sickle Cell disease: * Chronic, stable * Continue Oxycodone prn pain * Monitor H&H's #) UTI * Follow culture * Cipro 500mg BID Discharge Planning Pending hematology rec's and management. If improvement in symptoms, could proceed with discharge as early as tomorrow New Dougherty MD R3 Nov 01, 2016 09:11
[2016-11-01 09:40] VITALS: BP 143/85; PULSE 120; RESP 18; TEMP 99.1; O2SAT 92
[2016-11-01] MEDS: ENOXAPARIN SODIUM 120 MG/0.8 ML SYRINGE SQ SCH ×2 (09:44→20:47)
[2016-11-01] MEDS: METHADONE HCL 10 MG TAB PO SCH (09:45)
[2016-11-01] MEDS: SODIUM CHLORIDE 0.9% FLUSH 10 ML FLUSH IV FLUSH SCH ×2 (11:08→20:47)
--- NOTE | 2016-11-01 12:16 | PD.ONC.PN ---
Subjective Subjective Remarks Afebrile overnight. Patient concerned swelling is worsening. She states it is not improving at all. She noticed a few blisters forming on her shoulders/ chest wall and has developed a right-sided headache. Objective Data Date Time Temp Pulse Resp B/P Pulse Ox O2 Delivery O2 Flow Rate FiO2 11/01/16 09:40 99.1 120 18 143/85 92 11/01/16 00:00 98.3 93 18 123/76 93 10/31/16 23:40 18 10/31/16 21:40 18 10/31/16 20:00 99.0 101 20 113/69 90 10/31/16 16:00 97.9 99 16 122/77 95 11/01/16 11/01/16 11/01/16 07:00 15:00 23:00 Intake Total 480 ml Balance 480 ml Result Diagram: 10/31/16 1207 10/29/16 0534 Laboratory Results Laboratory Tests Test 10/31/16 10/31/16 11/01/16 15:30 18:45 06:49 Urine Color YELLOW Urine Turbidity HAZY Urine pH 6.5 Urine Specific [place] 1.008 Urine Protein NEG mg/dL Urine Glucose (UA) NEG mg/dL Urine Ketones NEG mg/dL Urine Occult Blood TRACE Urine Nitrite NEG Urine Bilirubin NEG Urine Urobilinogen 4.0 MG/DL Urine Leukocyte Esterase LARGE Urine RBC 1 /hpf Urine WBC 75 /hpf Urine WBC Clumps RARE Urine Squamous Epithelial 2 /hpf Cells Urine Amorphous Sediment RARE Urine Bacteria MOD /hpf Microscopic Urinalysis Comment CULTURE INDICATED Prothrombin Time 11.1 SEC Prothromb Time International 1.0 RATIO Ratio Activated Partial 40.8 SEC 54.0 SEC Thromboplast Time Culture Results Microbiology Date/Time Procedure Status Source Growth 10/31/16 15:30 Urine Culture Received Urine Clean Catch Pending Administered Medications Medications (Trade) Dose Ordered Sig/Evi Route PRN Reason Start Time Stop Time Status Last Admin Dose Admin Heparin Sodium (Porcine) (Heparin Central Flush) 250 units UNSCH PRN IV FLUSH SEE PROTOCOL 10/28/16 11:45 10/29/16 22:36 Sodium Chloride (NS Flush) 2 ml BID IV FLUSH 10/28/16 21:00 11/01/16 11:08 Acetaminophen (Tylenol) 650 mg Q4H PRN PO FEVER, HEADACHE, PAIN 1-4 10/28/16 13:00 4/25/17 22:16 Amitriptyline HCl (Elavil) 25 mg HS PO 10/28/16 21:00 10/31/16 20:37 Methadone HCl (Dolophine) 10 mg DAILY PO 10/29/16 09:00 11/01/16 09:45 Oxycodone HCl (Roxicodone) 5 mg BID PRN PO PAIN SCALE 1 TO 5 10/28/16 14:00 10/31/16 20:40 Hydromorphone HCl (Dilaudid Pf Inj) 1 mg Q4H PRN IV PUSH PAIN SCALE 6 TO 10 10/29/16 18:45 11/01/16 11:08 Enoxaparin Sodium (Lovenox Inj) 110 mg Q12H SQ 11/01/16 09:00 11/01/16 09:44 Objective Remarks GENERAL: Young woman sitting up in bed, edema noted in face, neck and upper extremities. SKIN: Warm and dry. HEAD: Normocephalic. EYES: left eye opacification. NECK: Supple, trachea midline. CARDIOVASCULAR: Regular rate and rhythm RESPIRATORY: Breath sounds equal bilaterally. No accessory muscle use. GASTROINTESTINAL: Abdomen soft, non-tender, nondistended. EXTREMITIES: No cyanosis MUSCULOSKELETAL: Adequate muscle tone. NEUROLOGICAL: awake and alert, normal speech. moving all extremities. Assessment/Plan Problem List: (1) SVC syndrome Status: Acute Plan: 11/01: on Lovenox 110mg SQ BID. will d/w Dr. Santana of IR about whether the patient should have port removed, stent placed, or watchful waiting. Recurrence of SVC syndrome. s/p angioplasty on 10/30 in IR (2) Sickle cell disease Status: Chronic Plan: Hgb SC disease, chronic anemia. Chronic pain. Monitor for crisis exacerbation after procedure. (3) UTI (urinary tract infection) Status: Acute Plan: --on Cipro 500mg PO BID Assessment 30 y/o woman with Hgb SC disease, chronic anemia, h/o VTE/PE, admitted with SVC syndrome. Attending Statement c/o ALLEN, blisters of skin around the port. Head and face swelling same. d/w Dr Santana. He does not recommend to remove the port prior to stent. Dr Silver wants stent as last resort. Continue Lovenox and observe. will follow. Problem Qualifiers (1) Sickle cell disease: Qualified Code: D57.00 - Hb-SS disease with crisis Crystal Mora Nov 01, 2016 12:16 Carina Cheema MD Nov 01, 2016 17:36
[2016-11-01 13:35] LABS: AUTOMATED NEUTROPHIL # 8.3 TH/MM3 (1.8-7.7); BASOPHIL # 0.3 TH/MM3 (0-0.2); BASOPHIL % 1.9 % (0.0-2.0); EOSINOPHIL # 0.8 TH/MM3 (0-0.4); EOSINOPHIL % 5.2 % (0.0-4.0); HEMATOCRIT 24.3 % (35.0-46.0); HEMO FLAGS AUTO DIFF; LYMPHOCYTE # 4.8 TH/MM3 (1.0-4.8); MEAN CELL VOLUME 82.5 FL (80.0-100.0); MEAN CORPUSCULAR HEMOGLOBIN 28.9 PG (27.0-34.0); MONO % 8.8 % (0.0-8.0); NEUT % 53.1 % (16.0-70.0); PLATELET COUNT 318 TH/MM3 (150-450); RED BLOOD COUNT 2.95 MIL/MM3 (4.00-5.30); RED CELL DISTRIBUTION WIDTH 21.4 % (11.6-17.2); WHITE BLOOD COUNT 15.5 TH/MM3 (4.0-11.0)
[2016-11-01] MEDS: CIPROFLOXACIN 500 MG TAB PO SCH ×2 (14:12→20:47)
[2016-11-01 14:17] VITALS: BP 129/81; PULSE 90; RESP 16; TEMP 98; O2SAT 92
[2016-11-01 14:26] LABS: EOSINOPHILS 3 % (0-4); NEUTROPHIL # MANUAL DIFF 7.3 TH/MM3 (1.8-7.7); PLATELET ESTIMATE SMEAR NORMAL (NORMAL); POLYS (SEG NEUTROPHILS) 47 % (16-70); SICKLE CELLS 1+ (NORMAL); TARGET CELLS 1+ (NORMAL); WBC DIFF SAMPLE 100
[2016-11-01 14:27] LABS: PLATELET MORPHOLOGY NORMAL (NORMAL); SCAN/DIFF FINAL DIFF MANUAL
[2016-11-01 16:00] VITALS: BP 119/80; PULSE 84; RESP 20; TEMP 97.4; O2SAT 94
[2016-11-01 20:00] VITALS: BP 96/59; PULSE 85; RESP 17; TEMP 98; O2SAT 94
[2016-11-01] MEDS: AMITRIPTYLINE HCL 25 MG TAB PO SCH (20:47)
[2016-11-02] VITALS (7 sets, daily range): BP systolic 99–116; BP diastolic 52–72; PULSE 86–100; RESP 16–20; TEMP 97.3–98.6; O2SAT 90–96
[2016-11-02] MEDS: HYDROmorphone HCL PF 1 MG/ML VIAL IV PUSH PRN ×3 (03:25→20:48)
[2016-11-02] MEDS: ENOXAPARIN SODIUM 120 MG/0.8 ML SYRINGE SQ SCH ×2 (08:36→20:46)
[2016-11-02] MEDS: CIPROFLOXACIN 500 MG TAB PO SCH ×2 (08:36→20:46)
[2016-11-02] MEDS: SODIUM CHLORIDE 0.9% FLUSH 10 ML FLUSH IV FLUSH SCH ×2 (08:36→20:50)
[2016-11-02] MEDS: METHADONE HCL 10 MG TAB PO SCH (08:38)
--- NOTE | 2016-11-02 08:42 | HHI.PR ---
Subjective Remarks VSS. Pt reports right upper extremity swelling and right neck swelling is mildly improved from yesterday. No knew questions or concerns today. Denies chest pain, shortness of breath, difficulty swallowing, or calf pain. No fevers. Objective Vitals Vital Signs Date Time Temp Pulse Resp B/P Pulse Ox O2 Delivery O2 Flow Rate FiO2 11/02/16 04:53 98.6 100 20 116/72 92 11/02/16 00:53 98.3 96 18 113/61 90 11/01/16 20:00 98.0 85 17 96/59 94 11/01/16 16:00 97.4 84 20 119/80 94 11/01/16 14:17 98.0 90 16 129/81 92 11/01/16 09:40 99.1 120 18 143/85 92 I/O 11/01/16 11/01/16 11/01/16 11/02/16 11/02/16 11/02/16 07:00 15:00 23:00 07:00 15:00 23:00 Intake Total 480 ml 480 ml 480 ml 720 ml Balance 480 ml 480 ml 480 ml 720 ml Intake Oral 480 ml 480 ml 480 ml 720 ml # Voids 4 1 3 Result Diagram: 11/01/16 1315 10/29/16 0534 Objective Remarks GENERAL: This is a well-nourished, well-developed patient, in no apparent distress. SKIN: No rashes, erythema, or ecchymoses. Warm and dry. One, very small blister near right port, non-infected appearing. HEAD: Atraumatic. Normocephalic. Face appears symmetric. EYES: Right Pupil round and reactive. No injection or drainage. Left eye status post surgical correction. ENT: Nose without bleeding, purulent drainage or septal hematoma. Airway patent. NECK: Trachea midline. No lymphadenopathy. Supple, nontender, no meningeal signs. Right neck swelling appears slightly improved. CARDIOVASCULAR: Regular rate and rhythm without murmurs, gallops, or rubs. No JVD. RESPIRATORY: Clear to auscultation. Breath sounds equal bilaterally. No wheezes , rales, or rhonchi. GASTROINTESTINAL: Abdomen soft, non-tender, nondistended. No guarding. MUSCULOSKELETAL: Extremities without clubbing, cyanosis. Moderate right upper extremity swelling noted when compared to left, slightly improved from yesterday. NEUROLOGICAL: Awake and alert. Cranial nerves II through XII intact. No focal neurological deficits. Normal speech. 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 #) SVC syndrome: * Status post angioplasty on 10/30 by IR * Overall symptoms stable/improving from yesterday * Hematology following, appreciate rec's - Will continue to monitor closely - No stent or port removal at this time #) Sickle Cell disease: * Chronic, stable * Continue Oxycodone prn pain * Monitor H&H's #) UTI * Follow culture, gram neg rods, sensitivities pending * Continue cipro 500mg BID Discharge Planning Pending hematology rec's and clinical improvement by patient. If improvement in symptoms, could proceed with discharge as early as today or tomorrow. Problem Qualifiers (1) Sickle cell disease: Qualified Code: D57.00 - Hb-SS disease with crisis (2) UTI (urinary tract infection): Qualified Code: N30.00 - Acute cystitis without hematuria New Dougherty MD R3 Nov 02, 2016 08:42
[2016-11-02 10:36] LABS: AUTOMATED NEUTROPHIL # 8.3 TH/MM3 (1.8-7.7); BASOPHIL # 0.1 TH/MM3 (0-0.2); BASOPHIL % 0.6 % (0.0-2.0); EOSINOPHIL # 0.8 TH/MM3 (0-0.4); EOSINOPHIL % 5.4 % (0.0-4.0); LYMPH % 27.4 % (9.0-44.0); MEAN CELL VOLUME 83.7 FL (80.0-100.0); MEAN CORPUSCULAR HEMOGLOBIN 28.7 PG (27.0-34.0); MEAN CORPUSCULAR HGB CONC 34.3 % (32.0-36.0); MONO % 9.4 % (0.0-8.0); NEUT % 57.2 % (16.0-70.0); PLATELET COUNT 328 TH/MM3 (150-450); RED CELL DISTRIBUTION WIDTH 21.8 % (11.6-17.2); WHITE BLOOD COUNT 14.5 TH/MM3 (4.0-11.0)
[2016-11-02 10:47] LABS: HEMO FLAGS AUTO DIFF
[2016-11-02 11:07] LABS: BICARBONATE 31.2 MEQ/L (21.0-32.0); POTASSIUM 3.9 MEQ/L (3.5-5.1)
[2016-11-02 11:10] LABS: INDIRECT BILIRUBIN 0.9 MG/DL (0.0-0.8); TOTAL BILIRUBIN ADULT 1.1 MG/DL (0.2-1.0)
--- NOTE | 2016-11-02 12:21 | PD.ONC.PN ---
Subjective Subjective Remarks Afebrile overnight. Patient resting comfortably. She states she has seen a tiny amount of improvement in the swelling. Still has intermittent headache, no worsening. Objective Data Date Time Temp Pulse Resp B/P Pulse Ox O2 Delivery O2 Flow Rate FiO2 11/02/16 12:01 97.3 99 16 106/65 95 11/02/16 08:00 98.1 90 20 105/64 90 11/02/16 04:53 98.6 100 20 116/72 92 11/02/16 00:53 98.3 96 18 113/61 90 11/01/16 20:00 98.0 85 17 96/59 94 11/01/16 16:00 97.4 84 20 119/80 94 11/01/16 14:17 98.0 90 16 129/81 92 11/02/16 11/02/16 11/02/16 07:00 15:00 23:00 Intake Total 720 ml Balance 720 ml Result Diagram: 11/02/16 1000 11/02/16 1000 Laboratory Results Laboratory Tests Test 11/01/16 11/02/16 13:15 10:00 White Blood Count 15.5 TH/MM3 14.5 TH/MM3 Red Blood Count 2.95 MIL/MM3 3.10 MIL/MM3 Hemoglobin 8.5 GM/DL 8.9 GM/DL Hematocrit 24.3 % 26.0 % Mean Corpuscular Volume 82.5 FL 83.7 FL Mean Corpuscular Hemoglobin 28.9 PG 28.7 PG Mean Corpuscular Hemoglobin 35.0 % 34.3 % Concent Red Cell Distribution Width 21.4 % 21.8 % Platelet Count 318 TH/MM3 328 TH/MM3 Mean Platelet Volume 8.2 FL 8.0 FL Neutrophils (%) (Auto) 53.1 % 57.2 % Lymphocytes (%) (Auto) 31.0 % 27.4 % Monocytes (%) (Auto) 8.8 % 9.4 % Eosinophils (%) (Auto) 5.2 % 5.4 % Basophils (%) (Auto) 1.9 % 0.6 % Neutrophils # (Auto) 8.3 TH/MM3 8.3 TH/MM3 Lymphocytes # (Auto) 4.8 TH/MM3 4.0 TH/MM3 Monocytes # (Auto) 1.4 TH/MM3 1.4 TH/MM3 Eosinophils # (Auto) 0.8 TH/MM3 0.8 TH/MM3 Basophils # (Auto) 0.3 TH/MM3 0.1 TH/MM3 CBC Comment AUTO DIFF AUTO DIFF Differential Total Cells 100 Counted Neutrophils % (Manual) 47 % Lymphocytes % 41 % Monocytes % 9 % Eosinophils % 3 % Neutrophils # (Manual) 7.3 TH/MM3 Differential Comment FINAL DIFF MANUAL Platelet Estimate NORMAL Platelet Morphology Comment NORMAL Sickle Cells 1+ Target Cells 1+ Hematology Comments Sodium Level 137 MEQ/L Potassium Level 3.9 MEQ/L Chloride Level 100 MEQ/L Carbon Dioxide Level 31.2 MEQ/L Anion Gap 6 MEQ/L Blood Urea Nitrogen 5 MG/DL Creatinine 1.06 MG/DL Estimat Glomerular Filtration 73 ML/MIN Rate Random Glucose 139 MG/DL Calcium Level 8.8 MG/DL Total Bilirubin 1.1 MG/DL Direct Bilirubin 0.2 MG/DL Indirect Bilirubin 0.9 MG/DL Aspartate Amino Transf 14 U/L (AST/SGOT) Alanine Aminotransferase 24 U/L (ALT/SGPT) Alkaline Phosphatase 92 U/L Total Protein 7.6 GM/DL Albumin 3.6 GM/DL Culture Results Microbiology Date/Time Procedure Status Source Growth 10/31/16 15:30 Urine Culture - Final Complete Urine Clean Catch Escherichia Coli Administered Medications Medications (Trade) Dose Ordered Sig/Evi Route PRN Reason Start Time Stop Time Status Last Admin Dose Admin Heparin Sodium (Porcine) (Heparin Central Flush) 250 units UNSCH PRN IV FLUSH SEE PROTOCOL 10/28/16 11:45 10/29/16 22:36 Sodium Chloride (NS Flush) 2 ml BID IV FLUSH 10/28/16 21:00 11/02/16 08:36 Acetaminophen (Tylenol) 650 mg Q4H PRN PO FEVER, HEADACHE, PAIN 1-4 10/28/16 13:00 10/28/16 22:16 Amitriptyline HCl (Elavil) 25 mg HS PO 10/28/16 21:00 11/01/16 20:47 Methadone HCl (Dolophine) 10 mg DAILY PO 10/29/16 09:00 11/02/16 08:38 Oxycodone HCl (Roxicodone) 5 mg BID PRN PO PAIN SCALE 1 TO 5 10/28/16 14:00 11/02/16 12:04 Hydromorphone HCl (Dilaudid Pf Inj) 1 mg Q4H PRN IV PUSH PAIN SCALE 6 TO 10 10/29/16 18:45 11/02/16 07:22 Enoxaparin Sodium (Lovenox Inj) 110 mg Q12H SQ 11/01/16 09:00 11/02/16 08:36 Ciprofloxacin (Cipro) 500 mg Q12HR PO 11/01/16 13:00 11/02/16 08:36 Objective Remarks GENERAL: Young lady, sitting up in bed, watching TV. edema noted in face, neck and upper extremities. SKIN: Warm and dry. port in place, right chest wall. HEAD: Normocephalic. EYES: left eye opacification. NECK: Supple, trachea midline. CARDIOVASCULAR: Regular rate and rhythm RESPIRATORY: Breath sounds equal bilaterally. No accessory muscle use. GASTROINTESTINAL: Abdomen soft, non-tender, nondistended. EXTREMITIES: No cyanosis MUSCULOSKELETAL: Adequate muscle tone. NEUROLOGICAL: aox3. normal speech. moving all extremities. Assessment/Plan Problem List: (1) SVC syndrome Status: Acute Plan: 11/02: continue Lovenox. may need to have port removed tomorrow if edema persists. Recurrence of SVC syndrome. s/p angioplasty on 10/30 in IR (2) Sickle cell disease Status: Chronic Plan: Hgb SC disease, chronic anemia. Chronic pain. Monitor for crisis exacerbation after procedure. (3) UTI (urinary tract infection) Status: Acute Plan: --on Cipro 500mg PO BID Assessment 30 y/o woman with Hgb SC disease, chronic anemia, h/o VTE/PE, admitted with SVC syndrome. Attending Statement pt still has ALLEN but no more skin blisters. She noticed decrease face and arm swelling. Continue Lovenox. Port may need to come out. No sickle crisis. The exam, history, and the medical decision-making described in the above note were completed with the assistance of the mid-level provider. I reviewed and agree with the findings presented. I attest that I had a [id number] encounter with the patient on the same day, and personally performed and documented my assessment and findings in the medical record. Problem Qualifiers (1) Sickle cell disease: Qualified Code: D57.00 - Hb-SS disease with crisis (2) UTI (urinary tract infection): Qualified Code: N30.00 - Acute cystitis without hematuria Crystal Mora Nov 02, 2016 12:21 Carina Cheema MD Nov 02, 2016 22:51
[2016-11-02 12:24] LABS: APTT (PATIENT) 32.6 SEC (24.3-30.1)
[2016-11-02 16:35] LABS: CORRECTED NUCLEATED RBC 4 /100 WBC (0-0); EOSINOPHILS 6 % (0-4); MYELOCYTES 2 % (0-0); NEUTROPHIL # MANUAL DIFF 8.1 TH/MM3 (1.8-7.7); POLYS (SEG NEUTROPHILS) 54 % (16-70); WBC DIFF SAMPLE 100
[2016-11-02 16:36] LABS: KERATOCYTES 1+ (NORMAL); PLATELET ESTIMATE SMEAR NORMAL (NORMAL); PLATELET MORPHOLOGY NORMAL (NORMAL); SCAN/DIFF FINAL DIFF MANUAL; SICKLE CELLS 1+ (NORMAL); TARGET CELLS 1+ (NORMAL)
[2016-11-02] MEDS: AMITRIPTYLINE HCL 25 MG TAB PO SCH (20:46)
[2016-11-03] MEDS: HYDROmorphone HCL PF 1 MG/ML VIAL IV PUSH PRN ×5 (01:05→20:33)
[2016-11-03 04:00] VITALS: BP 116/64; PULSE 94; RESP 18; TEMP 98; O2SAT 96
[2016-11-03 06:17] LABS: HEMATOCRIT 24.3 % (35.0-46.0); MEAN CELL VOLUME 83.7 FL (80.0-100.0); MEAN CORPUSCULAR HEMOGLOBIN 29.1 PG (27.0-34.0); MEAN CORPUSCULAR HGB CONC 34.8 % (32.0-36.0); PLATELET COUNT 297 TH/MM3 (150-450); RED CELL DISTRIBUTION WIDTH 21.3 % (11.6-17.2); REVIEW FLAG FINAL; WHITE BLOOD COUNT 13.9 TH/MM3 (4.0-11.0)
[2016-11-03 06:37] LABS: BICARBONATE 28.4 MEQ/L (21.0-32.0); POTASSIUM 3.8 MEQ/L (3.5-5.1)
[2016-11-03 08:55] VITALS: BP 121/74; PULSE 98; RESP 16; TEMP 99; O2SAT 95
[2016-11-03] MEDS: ENOXAPARIN SODIUM 120 MG/0.8 ML SYRINGE SQ SCH (09:00)
[2016-11-03] MEDS: CIPROFLOXACIN 500 MG TAB PO SCH ×2 (09:00→20:28)
[2016-11-03] MEDS: METHADONE HCL 10 MG TAB PO SCH (09:00)
[2016-11-03] MEDS: SODIUM CHLORIDE 0.9% FLUSH 10 ML FLUSH IV FLUSH SCH ×2 (09:01→20:34)
--- NOTE | 2016-11-03 12:43 | PD.ONC.PN ---
Subjective Subjective Remarks Afebrile overnight. patient reports no improvement in swelling. intermittent right sided headache is persistent. No vomiting. blisters drying out. Objective Data Date Time Temp Pulse Resp B/P Pulse Ox O2 Delivery O2 Flow Rate FiO2 11/03/16 08:55 99.0 98 16 121/74 95 11/03/16 04:00 98.0 94 18 116/64 96 11/02/16 23:53 98.6 93 18 109/66 94 11/02/16 20:00 98.4 95 17 106/52 96 11/02/16 17:06 98.1 86 16 99/67 95 Result Diagram: 11/03/16 0538 11/03/16 0538 Laboratory Results Laboratory Tests Test 11/03/16 05:38 White Blood Count 13.9 TH/MM3 Red Blood Count 2.90 MIL/MM3 Hemoglobin 8.5 GM/DL Hematocrit 24.3 % Mean Corpuscular Volume 83.7 FL Mean Corpuscular Hemoglobin 29.1 PG Mean Corpuscular Hemoglobin 34.8 % Concent Red Cell Distribution Width 21.3 % Platelet Count 297 TH/MM3 Mean Platelet Volume 8.0 FL Sodium Level 139 MEQ/L Potassium Level 3.8 MEQ/L Chloride Level 103 MEQ/L Carbon Dioxide Level 28.4 MEQ/L Anion Gap 8 MEQ/L Blood Urea Nitrogen 5 MG/DL Creatinine 0.86 MG/DL Estimat Glomerular Filtration 93 ML/MIN Rate Random Glucose 136 MG/DL Calcium Level 8.1 MG/DL Culture Results Microbiology Date/Time Procedure Status Source Growth 10/31/16 15:30 Urine Culture - Final Complete Urine Clean Catch Escherichia Coli Administered Medications Medications (Trade) Dose Ordered Sig/Evi Route PRN Reason Start Time Stop Time Status Last Admin Dose Admin Heparin Sodium (Porcine) (Heparin Central Flush) 250 units UNSCH PRN IV FLUSH SEE PROTOCOL 10/28/16 11:45 10/29/16 22:36 Sodium Chloride (NS Flush) 2 ml BID IV FLUSH 10/28/16 21:00 11/03/16 09:01 Acetaminophen (Tylenol) 650 mg Q4H PRN PO FEVER, HEADACHE, PAIN 1-4 10/28/16 13:00 10/28/16 22:16 Amitriptyline HCl (Elavil) 25 mg HS PO 10/28/16 21:00 11/02/16 20:46 Methadone HCl (Dolophine) 10 mg DAILY PO 10/29/16 09:00 11/03/16 09:00 Oxycodone HCl (Roxicodone) 5 mg BID PRN PO PAIN SCALE 1 TO 5 10/28/16 14:00 11/02/16 12:04 Hydromorphone HCl (Dilaudid Pf Inj) 1 mg Q4H PRN IV PUSH PAIN SCALE 6 TO 10 10/29/16 18:45 11/03/16 10:02 Enoxaparin Sodium (Lovenox Inj) 110 mg Q12H SQ 11/01/16 09:00 11/03/16 09:00 Ciprofloxacin (Cipro) 500 mg Q12HR PO 11/01/16 13:00 11/03/16 09:00 Objective Remarks GENERAL: Young lady, lying in bed sleeping on approach. Edematous upper extremities face and neck SKIN: Warm and dry. port, right chest wall. HEAD: Normocephalic. EYES: left eye opacification. NECK: Supple, trachea midline. CARDIOVASCULAR: Regular rate and rhythm RESPIRATORY: Breath sounds equal bilaterally. No accessory muscle use. GASTROINTESTINAL: Abdomen soft, non-tender, nondistended. EXTREMITIES: No cyanosis MUSCULOSKELETAL: Adequate muscle tone. NEUROLOGICAL: awake and alert, normal speech. moving all extremities. Assessment/Plan Problem List: (1) SVC syndrome Status: Acute Plan: --on Lovenox 110kgSQ BID Recurrence of SVC syndrome. s/p angioplasty on 10/30 in IR (2) Sickle cell disease Status: Chronic Plan: Hgb SC disease, chronic anemia. Chronic pain. Monitor for crisis exacerbation after procedure. (3) UTI (urinary tract infection) Status: Acute Plan: --on Cipro 500mg PO BID Assessment 30 y/o woman with Hgb SC disease, chronic anemia, h/o VTE/PE, admitted with SVC syndrome. Plan 1. UPDATE: dr. silver d/w Dr. Peace. will stop Lovenox and start heparin gtt tonight. Remove port tomorrow. Attending Statement The exam, history, and the medical decision-making described in the above note were completed with the assistance of the mid-level provider. I reviewed and agree with the findings presented. I attest that I had a [id number] encounter with the patient on the same day, and personally performed and documented my assessment and findings in the medical record. Pt seen and examined. Discussed with Dr. Peace, few options for SVC syndrome associated with catheter and stenosis/thrombus. Pt agree to Port removal, possible angioplasty repeat which will be deferred to interventionalist. Trial anticoagulant therapy, when swelling resolved, it's possible to consider placement of port. Stop LMWH, start UFH. Problem Qualifiers (1) Sickle cell disease: Qualified Code: D57.00 - Hb-SS disease with crisis (2) UTI (urinary tract infection): Qualified Code: N30.00 - Acute cystitis without hematuria Crystal Mora November 03, 2016 12:43 Carline Silver MD November 03, 2016 18:27
[2016-11-03 13:03] VITALS: BP 92/56; PULSE 96; RESP 16; TEMP 97.8; O2SAT 95
[2016-11-03 15:32] VITALS: BP 148/82; PULSE 90; RESP 16; TEMP 97.8; O2SAT 99
[2016-11-03 15:48] VITALS: BP 99/58; PULSE 102; RESP 16; TEMP 98; O2SAT 95
--- NOTE | 2016-11-03 17:46 | HHI.PR ---
Subjective Remarks Patient reports right upper extremity swelling is unchanged. Still having intermittent headache. No other pain issues. No shortness of breath. Objective Vitals Vital Signs Date Time Temp Pulse Resp B/P Pulse Ox O2 Delivery O2 Flow Rate FiO2 11/03/16 15:48 98.0 102 16 99/58 95 11/03/16 13:03 97.8 96 16 92/56 95 11/03/16 08:55 99.0 98 16 121/74 95 11/03/16 04:00 98.0 94 18 116/64 96 11/02/16 23:53 98.6 93 18 109/66 94 11/02/16 20:00 98.4 95 17 106/52 96 I/O 11/02/16 11/02/16 11/02/16 11/03/16 11/03/16 11/03/16 07:00 15:00 23:00 07:00 15:00 23:00 Intake Total 720 ml 840 ml 480 ml 720 ml Balance 720 ml 840 ml 480 ml 720 ml Intake Oral 720 ml 840 ml 480 ml 720 ml # Voids 3 3 3 3 # Bowel Movements 0 0 Result Diagram: 11/03/16 0538 11/03/16 0538 Imaging Last Impressions Vena Cavagram 10/30/16 0000 Signed Impressions: Service Date/Time: October 11:22 - CONCLUSION: Uncomplicated angioplasty of the superior vena cava Harsh Santana MD Chest X-Ray 10/28/16 1144 Signed Impressions: Service Date/Time: Friday, October 28, 2016 11:47 - CONCLUSION: No acute disease. Chuy Li MD Objective Remarks GENERAL: Obese female in no apparent distress. CARDIOVASCULAR: Regular rate and rhythm without murmurs, gallops, or rubs. RESPIRATORY: Clear to auscultation. Breath sounds equal bilaterally. No wheezes , rales, or rhonchi. GASTROINTESTINAL: Abdomen soft, non-tender, nondistended. Normal active bowel sounds MUSCULOSKELETAL: RUE is edematous compared to the left. NEURO: Alert & Oriented x4 to person, place, time, situation. 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 SVC syndrome: -Status post angioplasty on 10/30 by IR without significant improvement. - Hematology following, appreciate rec's. Dr. Silver discussed with Dr. Peace, IR. Plan for port removal tomorrow. - Patient will be transitioned to Heparin Sickle Cell disease: -Chronic, stable -Continue Oxycodone prn pain -Monitor H&H's UTI, e. coli -Treated with CIproX3 days - DC antibiotics DVT PPx: On Heparin Discharge Planning Pending clinical improvement. Problem Qualifiers (1) Sickle cell disease: Qualified Code: D57.00 - Hb-SS disease with crisis (2) UTI (urinary tract infection): Qualified Code: N30.00 - Acute cystitis without hematuria Rachel Persaud MD November 03, 2016 17:46
[2016-11-03] MEDS: AMITRIPTYLINE HCL 25 MG TAB PO SCH (20:28)
[2016-11-03] MEDS: diphenhydrAMINE HCL 50 MG/ML VIAL IV PUSH PRN (20:28)
[2016-11-03 20:53] VITALS: BP 94/63; PULSE 92; RESP 18; TEMP 98.8; O2SAT 94
[2016-11-03 21:26] LABS: HEMATOCRIT 26.8 % (35.0-46.0); MEAN CELL VOLUME 84.4 FL (80.0-100.0); MEAN CORPUSCULAR HEMOGLOBIN 29.2 PG (27.0-34.0); MEAN CORPUSCULAR HGB CONC 34.6 % (32.0-36.0); PLATELET COUNT 332 TH/MM3 (150-450); RED BLOOD COUNT 3.18 MIL/MM3 (4.00-5.30); RED CELL DISTRIBUTION WIDTH 21.2 % (11.6-17.2); REVIEW FLAG FINAL; WHITE BLOOD COUNT 15.1 TH/MM3 (4.0-11.0)
[2016-11-03 21:35] LABS: APTT (PATIENT) 27.3 SEC (24.3-30.1); PROTHROMBIN TIME - PATIENT 10.6 SEC (9.8-11.6)
[2016-11-03] MEDS: HEPARIN-D5W INJ 250 ML IV SCH (21:46)
[2016-11-04] VITALS (13 sets, daily range): BP systolic 91–135; BP diastolic 50–82; PULSE 82–120; RESP 18–20; TEMP 97.8–99; O2SAT 92–100
[2016-11-04] MEDS: diphenhydrAMINE HCL 50 MG/ML VIAL IV PUSH PRN ×5 (03:36→22:04)
[2016-11-04] MEDS: HYDROmorphone HCL PF 1 MG/ML VIAL IV PUSH PRN ×5 (03:41→22:04)
[2016-11-04 03:48] LABS: MEAN CELL VOLUME 84.4 FL (80.0-100.0); MEAN CORPUSCULAR HEMOGLOBIN 29.5 PG (27.0-34.0); MEAN CORPUSCULAR HGB CONC 34.9 % (32.0-36.0); PLATELET COUNT 318 TH/MM3 (150-450); RED BLOOD COUNT 3.08 MIL/MM3 (4.00-5.30); RED CELL DISTRIBUTION WIDTH 21.6 % (11.6-17.2); REVIEW FLAG FINAL; WHITE BLOOD COUNT 17.1 TH/MM3 (4.0-11.0)
[2016-11-04 03:59] LABS: APTT (PATIENT) 74.4 SEC (24.3-30.1)
[2016-11-04 04:19] LABS: BICARBONATE 29.6 MEQ/L (21.0-32.0); POTASSIUM 4.1 MEQ/L (3.5-5.1)
[2016-11-04] MEDS: METHADONE HCL 10 MG TAB PO SCH (08:08)
[2016-11-04] MEDS: SODIUM CHLORIDE 0.9% FLUSH 10 ML FLUSH IV FLUSH SCH ×2 (08:10→20:15)
[2016-11-04] MEDS: HEPARIN-D5W INJ 250 ML IV SCH (09:32)
[2016-11-04 10:18] LABS: APTT (PATIENT) 60.4 SEC (24.3-30.1)
--- NOTE | 2016-11-04 12:06 | HHI.PR ---
Subjective Remarks RUE swelling unchanged. Awaiting port removal procedure today. She has no other complaints. Objective Vitals Vital Signs Date Time Temp Pulse Resp B/P Pulse Ox O2 Delivery O2 Flow Rate FiO2 11/04/16 08:00 98.1 97 20 91/50 94 11/04/16 04:53 98.9 95 18 115/59 92 11/04/16 04:11 16 11/04/16 00:53 98.7 120 20 106/69 92 11/03/16 20:53 98.8 92 18 94/63 94 11/03/16 15:48 98.0 102 16 99/58 95 11/03/16 13:03 97.8 96 16 92/56 95 I/O 11/03/16 11/03/16 11/03/16 11/04/16 11/04/16 11/04/16 07:00 15:00 23:00 07:00 15:00 23:00 Intake Total 720 ml 720 ml 720 ml 960 ml Balance 720 ml 720 ml 720 ml 960 ml Intake Oral 720 ml 720 ml 720 ml 960 ml # Voids 3 4 3 # Bowel Movements 0 1 Result Diagram: 11/04/16 0330 11/04/16 0330 Objective Remarks GENERAL: Obese female in no apparent distress. CARDIOVASCULAR: Regular rate and rhythm without murmurs, gallops, or rubs. RESPIRATORY: Clear to auscultation. Breath sounds equal bilaterally. No wheezes , rales, or rhonchi. GASTROINTESTINAL: Abdomen soft, non-tender, nondistended. Normal active bowel sounds MUSCULOSKELETAL: RUE is edematous compared to the left. NEURO: Alert & Oriented x4 to person, place, time, situation. 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 SVC syndrome: -Status post angioplasty on 10/30 by IR without significant improvement. - Hematology following, appreciate rec's. Dr. Silver discussed with Dr. Peace, IR. Plan for port removal today. - Patient currently on Heparin. DARIA RN. Sickle Cell disease: -Chronic, stable -Continue Oxycodone prn pain -Monitor H&H's UTI, e. coli -Treated with Cipro X3 days - DC antibiotics DVT PPx: On Heparin Discharge Planning Pending clinical improvement. Problem Qualifiers (1) Sickle cell disease: Qualified Code: D57.00 - Hb-SS disease with crisis (2) UTI (urinary tract infection): Qualified Code: N30.00 - Acute cystitis without hematuria Rachel Persaud MD November 04, 2016 12:06
[2016-11-04] MEDS ORDERED: MIDAZOLAM HCL 5 MG/5 ML VIAL ONE (13:31)
[2016-11-04] MEDS ORDERED: fentaNYL CITRATE 250 MCG/5 ML AMP ONE (13:31)
[2016-11-04] MEDS ORDERED: LIDOCAINE 1%/EPINEPHrine 1:100,000 SOLN 20 ML VIAL ONE (13:35)
[2016-11-04] MEDS ORDERED: LORazepam 2 MG/ML VIAL ONE (14:16)
--- NOTE | 2016-11-04 14:56 | PD.RAD ---
Post Procedure Progress Note Pre Procedure Diagnosis: (1) Sickle cell anemia (2) SVC syndrome Post Procedure Diagnosis: (1) Sickle cell anemia (2) SVC syndrome Procedure Date: November 04, 2016 Supervising Radiologist: Christo Glover Proceduralist/Assist: Martina Villela, RT(R), Liz Yeh RT(R)() Anesthesia: Local, Analgesia, Conscious Sedation Plan of Activity Patient to Unit: [facility] Patient Condition: Good See PACS Report for procedural detail/treatment Central Venous Access Device Procedure 1 Right Internal Jugular Infusaport Removal single lumen Christo Glover MD November 04, 2016 14:55
--- NOTE | 2016-11-04 15:27 | PD.ONC.PN ---
Subjective Subjective Remarks Afebrile overnight. Patient seen in [facility] after port removal. Resting comfortably without complaint. Objective Data Date Time Temp Pulse Resp B/P Pulse Ox O2 Delivery O2 Flow Rate FiO2 11/04/16 14:40 99.0 104 20 135/79 93 11/04/16 14:40 99.0 104 20 135/79 93 11/04/16 12:00 99.0 89 18 118/65 97 11/04/16 08:00 98.1 97 20 91/50 94 11/04/16 04:53 98.9 95 18 115/59 92 11/04/16 04:11 16 11/04/16 00:53 98.7 120 20 106/69 92 11/03/16 20:53 98.8 92 18 94/63 94 11/03/16 15:48 98.0 102 16 99/58 95 11/04/16 11/04/16 11/04/16 07:00 15:00 23:00 Intake Total 960 ml Balance 960 ml Result Diagram: 11/04/16 0330 11/04/16 0330 Laboratory Results Laboratory Tests Test 11/03/16 11/04/16 11/04/16 20:55 03:30 09:45 White Blood Count 15.1 TH/MM3 17.1 TH/MM3 Red Blood Count 3.18 MIL/MM3 3.08 MIL/MM3 Hemoglobin 9.3 GM/DL 9.1 GM/DL Hematocrit 26.8 % 26.0 % Mean Corpuscular Volume 84.4 FL 84.4 FL Mean Corpuscular Hemoglobin 29.2 PG 29.5 PG Mean Corpuscular Hemoglobin 34.6 % 34.9 % Concent Red Cell Distribution Width 21.2 % 21.6 % Platelet Count 332 TH/MM3 318 TH/MM3 Mean Platelet Volume 8.3 FL 8.0 FL Prothrombin Time 10.6 SEC Prothromb Time International 1.0 RATIO Ratio Activated Partial 27.3 SEC 74.4 SEC 60.4 SEC Thromboplast Time Sodium Level 137 MEQ/L Potassium Level 4.1 MEQ/L Chloride Level 101 MEQ/L Carbon Dioxide Level 29.6 MEQ/L Anion Gap 6 MEQ/L Blood Urea Nitrogen 5 MG/DL Creatinine 0.93 MG/DL Estimat Glomerular Filtration 85 ML/MIN Rate Random Glucose 154 MG/DL Calcium Level 8.5 MG/DL Culture Results Microbiology Date/Time Procedure Status Source Growth 11/03/16 23:25 Stool Occult Blood ([facility]AND) - Final Complete Stool Stool HEMOCCULT NEGATIVE Administered Medications Medications (Trade) Dose Ordered Sig/Evi Route PRN Reason Start Time Stop Time Status Last Admin Dose Admin Heparin Sodium (Porcine) (Heparin Central Flush) 250 units UNSCH PRN IV FLUSH SEE PROTOCOL 10/28/16 11:45 10/29/16 22:36 Sodium Chloride (NS Flush) 2 ml BID IV FLUSH 10/28/16 21:00 11/03/16 20:34 Acetaminophen (Tylenol) 650 mg Q4H PRN PO FEVER, HEADACHE, PAIN 1-4 10/28/16 13:00 10/28/16 22:16 Prochlorperazine Edisylate (Compazine Inj) 10 mg Q6H PRN IM NAUSEA OR VOMITING 10/28/16 14:00 11/03/16 15:43 Amitriptyline HCl (Elavil) 25 mg HS PO 10/28/16 21:00 11/03/16 20:28 Methadone HCl (Dolophine) 10 mg DAILY PO 10/29/16 09:00 11/04/16 08:08 Oxycodone HCl (Roxicodone) 5 mg BID PRN PO PAIN SCALE 1 TO 5 10/28/16 14:00 11/02/16 12:04 Hydromorphone HCl (Dilaudid Pf Inj) 1 mg Q4H PRN IV PUSH PAIN SCALE 6 TO 10 10/29/16 18:45 11/04/16 11:57 Diphenhydramine HCl 25 mg 25 mg Q4H PRN IV PUSH itching 11/03/16 12:30 11/04/16 11:56 Heparin Sodium/ Dextrose (Heparin-D5W Inj) 250 ml @ 0 mls/hr TITRATE IV 11/03/16 21:00 11/04/16 09:32 Objective Remarks GENERAL: Young woman, sitting [facility]. SKIN: Warm and dry. bandage, right chest wall HEAD: Normocephalic. EYES: No injection or drainage. NECK: Supple, trachea midline. CARDIOVASCULAR: Regular rate and rhythm RESPIRATORY: Breath sounds equal bilaterally. No accessory muscle use. GASTROINTESTINAL: Abdomen soft, non-tender, nondistended. EXTREMITIES: No cyanosis NEUROLOGICAL: No obvious focal deficit. Awake, alert, and oriented x3. Assessment/Plan Problem List: (1) SVC syndrome Status: Acute Plan: --on heparin gtt Recurrence of SVC syndrome. s/p angioplasty on 10/30 in IR s/p port removal 11/04 in IR (2) Sickle cell disease Status: Chronic Plan: Hgb SC disease, chronic anemia. Chronic pain. Monitor for crisis exacerbation after procedure. (3) UTI (urinary tract infection) Status: Acute Plan: --on Cipro 500mg PO BID Assessment 30 y/o woman with Hgb SC disease, chronic anemia, h/o VTE/PE, admitted with SVC syndrome. Plan 1. s/p port removal today. resume heparin this evening at 1800 per radiology 2. will keep overnight for further observation 3. monitor CBC 4. d/c home on Lovenox Attending Statement The exam, history, and the medical decision-making described in the above note were completed with the assistance of the mid-level provider. I reviewed and agree with the findings presented. I attest that I had a yhci-fm-[id number] encounter with the patient on the same day, and personally performed and documented my assessment and findings in the medical record. Pt seen and examined. Retold her hardship during port removal, she did not have access. Feels swelling better. No bleeding. Blister over neck resolved. Problem Qualifiers (1) Sickle cell disease: Qualified Code: D57.00 - Hb-SS disease with crisis (2) UTI (urinary tract infection): Qualified Code: N30.00 - Acute cystitis without hematuria Crystal Mora November 04, 2016 15:27 Carline Silver MD November 04, 2016 18:28
--- NOTE | 2016-11-04 17:07 | RADRPT ---
EXAM DATE/TIME: 11/04/2016 00:00 [place] COMPARISON: FOHGE-A-CJIN REMOVAL, W/O FLUORO, RIGHT, June 04, 2013, 18:29. INDICATIONS : Patient with history of sickle cell disease in need of Ystch-m-Mvzd removal. MEDICAL HISTORY : SVC Syndrome, Sickle cell disease, Pulmonary embolism, Anemia SURGICAL HISTORY : Cholecystectomy, Port placement and removal, SVC Angioplasty ENCOUNTER: Subsequent ACUITY: > 1 year PAIN SCORE: 0/10 SEDATION TIME: 40 minutes 1.) 4 mg midazolam (Versed) IV 2.) 200 mcg fentanyl (Sublimaze) IV 3.) 2 mg lorazepam (Ativan) IM Prophylactic antibiotics were administered with appropriate pre-procedure timing. Vancomycin within 2 hrs of procedure, Ancef (or alternative) within 1 hr of procedure. PROCEDURE : 1. Removal of Eltdwz-n-ueig. 2. Conscious sedation with continuous EKG and oximetry monitoring. The risk, benefits and potential complications of Llbehp-h-Buvv removal were discussed. Written conse nt was obtained. The patient was placed supine. The chest wall was prepped in sterile fashion. Full sterile techniqu e was used, including cap, mask, sterile gloves and gown, and a large sterile sheet. Hand hygiene an d 2% chlorhexidine and/or Betadine/alcohol prep was utilized per protocol for cutaneous antisepsis. The skin and subcutaneous tissues were infiltrated with local anesthetic solution. A small incision w as made, the subcutaneous pocket was opened. The port was dissected from the subcutaneous tissues and easily removed in one piece. The pocket incision was closed with subcuticular Vicryl suture. Steri -Strips were applied. Conscious sedation was performed with the prescribed dosages and duration as above in the presence of an independent trained radiology nurse to assist in the monitoring of the patient. EKG and oximetry remained stable throughout the procedure. The patient tolerated the procedure well and there were no complications. The patient was sent to post anesthesia recovery in stable condition. CONCLUSION: Uncomplicated port removal as above. Christo Glover MD on November 04, 2016 at 17:04 Board Certified Radiologist. This report was verified electronically.
[2016-11-04] MEDS: AMITRIPTYLINE HCL 25 MG TAB PO SCH (20:15)
[2016-11-04 21:16] LABS: APTT (PATIENT) 40.8 SEC (24.3-30.1)
[2016-11-05 00:10] VITALS: BP 95/65; PULSE 96; RESP 16; TEMP 98.8; O2SAT 93
[2016-11-05 00:34] LABS: APTT (PATIENT) 45.6 SEC (24.3-30.1)
[2016-11-05] MEDS: HYDROmorphone HCL PF 1 MG/ML VIAL IV PUSH PRN ×5 (03:30→20:51)
[2016-11-05] MEDS: diphenhydrAMINE HCL 50 MG/ML VIAL IV PUSH PRN ×5 (03:30→20:51)
[2016-11-05 03:44] LABS: HEMATOCRIT 28.3 % (35.0-46.0); MEAN CELL VOLUME 84.5 FL (80.0-100.0); MEAN CORPUSCULAR HEMOGLOBIN 29.1 PG (27.0-34.0); MEAN CORPUSCULAR HGB CONC 34.5 % (32.0-36.0); PLATELET COUNT 314 TH/MM3 (150-450); RED BLOOD COUNT 3.35 MIL/MM3 (4.00-5.30); REVIEW FLAG FINAL; WHITE BLOOD COUNT 18.4 TH/MM3 (4.0-11.0)
[2016-11-05 03:51] LABS: BICARBONATE 28.6 MEQ/L (21.0-32.0); POTASSIUM 4.4 MEQ/L (3.5-5.1)
[2016-11-05 04:20] VITALS: BP 107/66; PULSE 99; RESP 16; TEMP 97.5; O2SAT 95
[2016-11-05 05:31] LABS: APTT (PATIENT) 51.2 SEC (24.3-30.1)
[2016-11-05] MEDS: HEPARIN-D5W INJ 250 ML IV SCH (05:47)
[2016-11-05 08:00] VITALS: BP 118/69; PULSE 100; RESP 18; TEMP 98.1; O2SAT 94
[2016-11-05] MEDS: SODIUM CHLORIDE 0.9% FLUSH 10 ML FLUSH IV FLUSH SCH ×2 (09:00→20:51)
[2016-11-05] MEDS: METHADONE HCL 10 MG TAB PO SCH (09:05)
[2016-11-05 12:00] VITALS: BP 92/68; PULSE 102; RESP 18; TEMP 97.8; O2SAT 95
--- NOTE | 2016-11-05 12:15 | HHI.PR ---
Subjective Remarks comfortable, denies any nausea or vomiting no pain complains related to me Objective Vitals Vital Signs Date Time Temp Pulse Resp B/P Pulse Ox O2 Delivery O2 Flow Rate FiO2 11/05/16 08:00 98.1 100 18 118/69 94 11/05/16 04:20 97.5 99 16 107/66 95 11/05/16 00:10 98.8 96 16 95/65 93 11/04/16 20:50 97.8 101 18 115/64 97 11/04/16 17:44 98.2 88 18 120/78 100 11/04/16 17:00 98.6 82 18 118/82 99 11/04/16 16:30 98.6 86 18 118/68 11/04/16 16:00 98.2 117 20 117/82 95 11/04/16 15:30 98 20 122/63 95 11/04/16 15:15 20 93 11/04/16 15:00 103 20 122/66 93 11/04/16 14:40 99.0 104 20 135/79 93 11/04/16 14:40 99.0 104 20 135/79 93 I/O 11/04/16 11/04/16 11/04/16 11/05/16 11/05/16 11/05/16 07:00 15:00 23:00 07:00 15:00 23:00 Intake Total 960 ml 450 ml 450 ml 216 ml Balance 960 ml 450 ml 450 ml 216 ml Intake Oral 960 ml 400 ml 450 ml IV Total 50 ml 216 ml # Voids 3 1 1 # Bowel Movements 1 0 0 Result Diagram: 11/05/16 0322 11/05/16 0322 Imaging Last Impressions Port Line Revision 11/04/16 0000 Signed Impressions: Service Date/Time: Friday, November 04, 2016 00:00 - CONCLUSION: Uncomplicated port removal as above. Christo Glover MD Vena Cavagram 10/30/16 0000 Signed Impressions: Service Date/Time: October 11:22 - CONCLUSION: Uncomplicated angioplasty of the superior vena cava Harsh Santana MD Chest X-Ray 10/28/16 1144 Signed Impressions: Service Date/Time: Friday, October 28, 2016 11:47 - CONCLUSION: No acute disease. Chuy Li MD Objective Remarks awake and alert, lungs clear right chest wall- post port removal site- no erythema regular rhythm abdomen soft, nontender extremities no edema, no calf swelling or tenderness Procedures Angioplasty 11/04- port removal A/P Problem List: (1) SVC syndrome ICD Code: I87.1 Status: Acute (2) Sickle cell disease ICD Code: D57.1 Status: Chronic (3) UTI (urinary tract infection) ICD Code: N39.0 Status: Acute Assessment and Plan 30-year-old female with PMH of sickle cell disease presents with SVC syndrome. SVC syndrome: -Status post angioplasty on 10/30 by IR without significant improvement. S/P Port removal 11/04 - Hematology following, - Patient currently on Heparin. Lovenox on DC Sickle Cell disease: -Chronic, stable -Continue Oxycodone prn pain -Monitor H&H's Leukocytosis- reactive UTI, e. coli -Levaquin x 4 more days advise increase activity Per patient- Dr. Silver is her PCP since she was 15 years old Problem Qualifiers (1) Sickle cell disease: Qualified Code: D57.00 - Hb-SS disease with crisis (2) UTI (urinary tract infection): Qualified Code: N30.00 - Acute cystitis without hematuria Brittany Renae MD November 05, 2016 12:15
[2016-11-05] MEDS: LEVOFLOXACIN 500 MG TAB PO SCH (12:33)
[2016-11-05 16:00] VITALS: BP 90/54; PULSE 101; TEMP 98.2; O2SAT 93
--- NOTE | 2016-11-05 20:04 | PD.ONC.PN ---
Subjective Subjective Remarks Feel better. Swelling in ARm still present. Ready to go home. Objective Data Date Time Temp Pulse Resp B/P Pulse Ox O2 Delivery O2 Flow Rate FiO2 11/05/16 16:00 98.2 101 90/54 93 11/05/16 12:00 97.8 102 18 92/68 95 11/05/16 08:00 98.1 100 18 118/69 94 11/05/16 04:20 97.5 99 16 107/66 95 11/05/16 00:10 98.8 96 16 95/65 93 11/04/16 20:50 97.8 101 18 115/64 97 11/05/16 11/05/16 11/05/16 07:00 15:00 23:00 Intake Total 450 ml 1176 ml 200 ml Balance 450 ml 1176 ml 200 ml Result Diagram: 11/05/16 0322 11/05/16 0322 Laboratory Results Laboratory Tests Test 11/04/16 11/04/16 11/05/16 11/05/16 20:50 23:43 03:22 04:37 Activated Partial 40.8 SEC 45.6 SEC 51.2 SEC Thromboplast Time White Blood Count 18.4 TH/MM3 Red Blood Count 3.35 MIL/MM3 Hemoglobin 9.7 GM/DL Hematocrit 28.3 % Mean Corpuscular Volume 84.5 FL Mean Corpuscular Hemoglobin 29.1 PG Mean Corpuscular Hemoglobin 34.5 % Concent Red Cell Distribution Width 22.0 % Platelet Count 314 TH/MM3 Mean Platelet Volume 8.6 FL Hematology Comments Sodium Level 137 MEQ/L Potassium Level 4.4 MEQ/L Chloride Level 99 MEQ/L Carbon Dioxide Level 28.6 MEQ/L Anion Gap 9 MEQ/L Blood Urea Nitrogen 4 MG/DL Creatinine 0.91 MG/DL Estimat Glomerular Filtration 87 ML/MIN Rate Random Glucose 190 MG/DL Calcium Level 8.6 MG/DL Culture Results Microbiology Date/Time Procedure Status Source Growth 11/03/16 23:25 Stool Occult Blood ([facility]) - Final Complete Stool Stool HEMOCCULT NEGATIVE Administered Medications Medications (Trade) Dose Ordered Sig/Evi Route PRN Reason Start Time Stop Time Status Last Admin Dose Admin Heparin Sodium (Porcine) (Heparin Central Flush) 250 units UNSCH PRN IV FLUSH SEE PROTOCOL 10/28/16 11:45 10/29/16 22:36 Sodium Chloride (NS Flush) 2 ml BID IV FLUSH 10/28/16 21:00 11/03/16 20:34 Acetaminophen (Tylenol) 650 mg Q4H PRN PO FEVER, HEADACHE, PAIN 1-4 10/28/16 13:00 10/28/16 22:16 Prochlorperazine Edisylate (Compazine Inj) 10 mg Q6H PRN IM NAUSEA OR VOMITING 10/28/16 14:00 11/03/16 15:43 Amitriptyline HCl (Elavil) 25 mg HS PO 10/28/16 21:00 11/04/16 20:15 Methadone HCl (Dolophine) 10 mg DAILY PO 10/29/16 09:00 11/05/16 09:05 Oxycodone HCl (Roxicodone) 5 mg BID PRN PO PAIN SCALE 1 TO 5 10/28/16 14:00 11/02/16 12:04 Hydromorphone HCl (Dilaudid Pf Inj) 1 mg Q4H PRN IV PUSH PAIN SCALE 6 TO 10 10/29/16 18:45 11/05/16 16:56 Diphenhydramine HCl 25 mg 25 mg Q4H PRN IV PUSH itching 11/03/16 12:30 11/05/16 16:56 Heparin Sodium/ Dextrose (Heparin-D5W Inj) 250 ml @ 0 mls/hr TITRATE IV 11/03/16 21:00 11/05/16 05:47 Levofloxacin (Levaquin) 500 mg DAILY PO 11/05/16 12:00 11/09/16 11:59 11/05/16 12:33 Objective Remarks GENERAL: Obese, well-developed patient. SKIN: Warm and dry. HEAD: Normocephalic. EYES: No scleral icterus. L opacified sclera. NECK: Supple, trachea midline. No JVD or lymphadenopathy. LYMPHATIC: No adenopathy. CARDIOVASCULAR: Regular rate and rhythm without murmurs. RESPIRATORY: Breath sounds equal bilaterally. No accessory muscle use. GASTROINTESTINAL: Abdomen soft, non-tender, nondistended. EXTREMITIES: R arm swelling decreased but still present, facial swelling less. MUSCULOSKELETAL: Adequate muscle tone. NEUROLOGICAL: No obvious focal deficit. Awake, alert, and oriented x3. PSYCHIATRIC: Appropriate mood and affect; insight and judgment normal. Assessment/Plan Problem List: (1) SVC syndrome Status: Acute Plan: 11/05/16. s/p port removal, swelling improve. Switch to LMWH. Anticipate cont LMWh at home. Follow up in clinic. --on heparin gtt Recurrence of SVC syndrome. s/p angioplasty on 10/30 in IR s/p port removal 11/04 in IR (2) Sickle cell disease Status: Chronic Plan: 11/05/16. Pt pain controlled. Hgb SC disease stable. Hgb stable. No acute exacerbation. Hgb SC disease, chronic anemia. Chronic pain. Monitor for crisis exacerbation after procedure. Assessment 30 y/o woman with Hgb SC disease, chronic anemia, h/o VTE/PE, admitted with SVC syndrome. Plan 1. s/p port removal 2. Switch to LMWH 3. monitor CBC 4. OK to DC home w/ hematology follow up on Thursday at [facility] Problem Qualifiers (1) Sickle cell disease: Qualified Code: D57.00 - Hb-SS disease with crisis Carline Silver MD November 05, 2016 20:04
[2016-11-05 20:28] VITALS: BP 105/64; PULSE 94; RESP 16; TEMP 98.6; O2SAT 92
[2016-11-05] MEDS: AMITRIPTYLINE HCL 25 MG TAB PO SCH (20:51)
[2016-11-05] MEDS: ENOXAPARIN SODIUM 100 MG/ML SYRINGE SQ SCH (22:31)
[2016-11-06 00:04] VITALS: BP 111/62; PULSE 102; RESP 16; TEMP 98.3; O2SAT 94
[2016-11-06] MEDS: diphenhydrAMINE HCL 50 MG/ML VIAL IV PUSH PRN ×4 (01:23→13:55)
[2016-11-06] MEDS: HYDROmorphone HCL PF 1 MG/ML VIAL IV PUSH PRN ×4 (01:23→13:55)
[2016-11-06 05:27] VITALS: BP 109/78; PULSE 108; RESP 16; TEMP 98.8; O2SAT 94
[2016-11-06 08:00] VITALS: BP 110/69; PULSE 98; RESP 16; TEMP 97.9; O2SAT 95
[2016-11-06] MEDS: METHADONE HCL 10 MG TAB PO SCH (09:29)
[2016-11-06] MEDS: LEVOFLOXACIN 500 MG TAB PO SCH (09:29)
[2016-11-06] MEDS: SODIUM CHLORIDE 0.9% FLUSH 10 ML FLUSH IV FLUSH SCH (09:30)
[2016-11-06] MEDS: ENOXAPARIN SODIUM 100 MG/ML SYRINGE SQ SCH (09:31)
[2016-11-06 12:00] VITALS: BP 105/61; PULSE 98; RESP 16; TEMP 98.1; O2SAT 91
--- NOTE | 2016-11-06 13:55 | HHI.PR ---
Subjective Remarks no complains right upper arm- swelling decreased and softer good pulses Objective Vitals Vital Signs Date Time Temp Pulse Resp B/P Pulse Ox O2 Delivery O2 Flow Rate FiO2 11/06/16 12:00 98.1 98 16 105/61 91 11/06/16 08:00 97.9 98 16 110/69 95 11/06/16 05:27 98.8 108 16 109/78 94 11/06/16 00:04 98.3 102 16 111/62 94 11/05/16 20:28 98.6 94 16 105/64 92 11/05/16 16:00 98.2 101 90/54 93 I/O 11/05/16 11/05/16 11/05/16 11/06/16 11/06/16 11/06/16 07:00 15:00 23:00 07:00 15:00 23:00 Intake Total 450 ml 1176 ml 700 ml 600 ml Balance 450 ml 1176 ml 700 ml 600 ml Intake Oral 450 ml 960 ml 500 ml 600 ml IV Total 216 ml 200 ml # Voids 1 3 2 2 # Bowel Movements 0 1 0 0 Result Diagram: 11/05/16 0322 11/05/16 0322 Imaging Last Impressions Port Line Revision 11/04/16 0000 Signed Impressions: Service Date/Time: Friday, November 04, 2016 00:00 - CONCLUSION: Uncomplicated port removal as above. Christo Glover MD Vena Cavagram 10/30/16 0000 Signed Impressions: Service Date/Time: October 11:22 - CONCLUSION: Uncomplicated angioplasty of the superior vena cava Harsh Santana MD Chest X-Ray 10/28/16 1144 Signed Impressions: Service Date/Time: Friday, October 28, 2016 11:47 - CONCLUSION: No acute disease. Chuy Li MD Objective Remarks awake and alert, lungs clear right chest wall- post port removal site- no erythema regular rhythm abdomen soft, nontender Right UE- decrease induration, no erythema lower extremities no edema, no calf swelling or tenderness Procedures Angioplasty 11/04- port removal A/P Problem List: (1) SVC syndrome ICD Code: I87.1 Status: Acute (2) Sickle cell disease ICD Code: D57.1 Status: Chronic (3) UTI (urinary tract infection) ICD Code: N39.0 Status: Acute Assessment and Plan 30-year-old female with PMH of sickle cell disease presents with SVC syndrome. SVC syndrome: -Status post angioplasty on 10/30 by IR without significant improvement. S/P Port removal 11/04 - Hematology following, - Patient currently on Heparin. Lovenox 100 mg SQ q12 on DC x 2 weeks then switch to Xarelto as OP Sickle Cell disease: -Chronic, stable -Continue Oxycodone prn pain -Monitor H&H's Leukocytosis- reactive UTI, e. coli -Levaquin x 3 more days advise increase activity Per patient- Dr. Silver is her PCP since she was 15 years old DC today once clered with hematology Problem Qualifiers (1) Sickle cell disease: Qualified Code: D57.00 - Hb-SS disease with crisis (2) UTI (urinary tract infection): Qualified Code: N30.00 - Acute cystitis without hematuria Brittany Renae MD November 06, 2016 13:55
[2016-11-06] MEDS ORDERED: LEVA500T PO (13:56)
[2016-11-06] MEDS ORDERED: ENOX100P SQ (14:26)
[2016-11-06] MEDS ORDERED: HYDROmorphone HCL PF 1 MG/ML VIAL IV PUSH PRN (14:45)
--- NOTE | 2016-11-06 18:42 | PD.ONC.PN ---
Subjective Subjective Remarks Wants to go home. Feels better. Objective Data Date Time Temp Pulse Resp B/P Pulse Ox O2 Delivery O2 Flow Rate FiO2 11/06/16 12:00 98.1 98 16 105/61 91 11/06/16 08:00 97.9 98 16 110/69 95 11/06/16 05:27 98.8 108 16 109/78 94 11/06/16 00:04 98.3 102 16 111/62 94 11/05/16 20:28 98.6 94 16 105/64 92 11/06/16 11/06/16 11/06/16 07:00 15:00 23:00 Intake Total 600 ml 720 ml Balance 600 ml 720 ml Result Diagram: 11/05/16 0322 11/05/16 0322 Culture Results Microbiology Date/Time Procedure Status Source Growth 11/03/16 23:25 Stool Occult Blood (ROLAND) - Final Complete Stool Stool HEMOCCULT NEGATIVE Administered Medications Medications (Trade) Dose Ordered Sig/Evi Route PRN Reason Start Time Stop Time Status Last Admin Dose Admin Heparin Sodium (Porcine) (Heparin Central Flush) 250 units UNSCH PRN IV FLUSH SEE PROTOCOL 10/28/16 11:45 10/29/16 22:36 Sodium Chloride (NS Flush) 2 ml BID IV FLUSH 10/28/16 21:00 11/06/16 09:30 Acetaminophen (Tylenol) 650 mg Q4H PRN PO FEVER, HEADACHE, PAIN 1-4 10/28/16 13:00 10/28/16 22:16 Prochlorperazine Edisylate (Compazine Inj) 10 mg Q6H PRN IM NAUSEA OR VOMITING 10/28/16 14:00 11/03/16 15:43 Amitriptyline HCl (Elavil) 25 mg HS PO 10/28/16 21:00 11/05/16 20:51 Methadone HCl (Dolophine) 10 mg DAILY PO 10/29/16 09:00 11/06/16 09:29 Oxycodone HCl (Roxicodone) 5 mg BID PRN PO PAIN SCALE 1 TO 5 10/28/16 14:00 11/02/16 12:04 Diphenhydramine HCl (Benadryl Inj) 25 mg Q4H PRN IV PUSH itching 11/03/16 12:30 11/06/16 13:55 Levofloxacin (Levaquin) 500 mg DAILY PO 11/05/16 12:00 11/09/16 11:59 11/06/16 09:29 Enoxaparin Sodium (Lovenox Inj) 100 mg Q12H SQ 11/05/16 22:00 11/06/16 09:31 Objective Remarks GENERAL: Obese, well-developed patient. SKIN: Warm and dry. Facial swelling improve. HEAD: Normocephalic. EYES: No scleral icterus. L opacified sclera. NECK: Supple, trachea midline. No JVD or lymphadenopathy. LYMPHATIC: No adenopathy. CARDIOVASCULAR: Regular rate and rhythm without murmurs. RESPIRATORY: Breath sounds equal bilaterally. No accessory muscle use. GASTROINTESTINAL: Abdomen soft, non-tender, nondistended. EXTREMITIES: R arm swelling decreased but still present, facial swelling less. MUSCULOSKELETAL: Adequate muscle tone. NEUROLOGICAL: No obvious focal deficit. Awake, alert, and oriented x3. Assessment/Plan Problem List: (1) SVC syndrome Status: Acute Plan: 11/06/16. Feels ready to go home. Discussed w/Dr. Renae. Cont Lovenox for ~2 weeks. FU with hematology at PO in 1 week. Monitor facial swelling. 11/05/16. s/p port removal, swelling improve. Switch to LMWH. Anticipate cont LMWh at home. Follow up in clinic. --on heparin gtt Recurrence of SVC syndrome. s/p angioplasty on 10/30 in IR s/p port removal 11/04 in IR (2) Sickle cell disease Status: Chronic Plan: 11/06/16. No acute exacerbation. Pt comfortable. Stable hgb. Ok to Dc home. 11/05/16. Pt pain controlled. Hgb SC disease stable. Hgb stable. No acute exacerbation. Hgb SC disease, chronic anemia. Chronic pain. Monitor for crisis exacerbation after procedure. Assessment 30 y/o woman with Hgb SC disease, chronic anemia, h/o VTE/PE, admitted with SVC syndrome. Plan 1. s/p port removal 2. Continue LMWH x 2 weeks, transition to Xarelto as out pt. 3.Ok to DC home. Problem Qualifiers (1) Sickle cell disease: Qualified Code: D57.00 - Hb-SS disease with crisis Carline Silver MD November 06, 2016 18:42
== END 2016-11-06 18:51 | disposition home or self-care (01) | DRG 300 ==
LOC: PHED 11:13 → PHEDA 12:52 → HOCB 15:29 → OBSVTOIN 10-29 09:02
PROVIDERS: ADMIT Internal Medicine; ATTEND Internal Medicine
DX: I87.1 Compression of vein (principal); N39.0 Urinary tract infection, site not specified; H40.9 Unspecified glaucoma; G89.29 Other chronic pain; D57.20 Sickle-cell/Hb-C disease without crisis; E66.9 Obesity, unspecified; B96.20 Unspecified Escherichia coli [E. coli] as the cause of diseases classified elsewhere; Z68.39 Body mass index [BMI] 39.0-39.9, adult; Z86.711 Personal history of pulmonary embolism
CPT/HCPCS: 36010; 36590; 71010; 75827; 76937; 80048; 80053; 80076; 81001; 82272; 85007; 85025; 85027; 85044; 85610; 85730; 87040; 87077; 87086; 87186; 96374; 96375; 99152; 99153; C1725; C1769; C1894; J0780; J1170; J1200; J1642; J1644; J1650; J2060; J2250; J3010; J7030; Q9967

== ENCOUNTER 2016-12-14 15:25 | Emergency (ER) | payer MEDICARE, OTHER ==
[~2016-12-14] VITALS: Ht 170.2 cm; Wt 105.0 kg
[~2016-12-14 15:25] MED LIST changes: +ENOX100P SQ; +LEVA500T PO; -XARE15TA PO
[2016-12-14 15:28] VITALS: BP 120/79; PULSE 106; RESP 16; TEMP 98.9; O2SAT 97
[2016-12-14] MEDS ORDERED: SODIUM CHLOR 0.9% 1000 ML INJ 1,000 ML IV ONE (15:49)
--- NOTE | 2016-12-14 15:55 | PD ---
HPI Chief Complaint: Sickle Cell Time Seen by Provider: 15:44 Travel History International Travel<30 days: No Contact w/Intl Traveler<30days: No Traveled to known affect area: No History of Present Illness HPI This 31-year-old female is complaining of pain all over. She has a history of sickle cell anemia and says this is her usual crisis. She has been taking methadone and oxycodone at home without much response. She is not aware of fever or chills. 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 She has a history of proliferative retinopathy involving her left eye which resulted in blindness PFSH Past Medical History Hx Anticoagulant Therapy: Yes (XARELTO - PE) Asthma: No Autoimmune Disease: No Blood Disorders: Yes (SICKLE CELL) Anxiety: Yes Depression: No Heart Rhythm Problems: No Cancer: No Cardiac Catheterization: Yes Cardiovascular Problems: Yes (MURMUR) High Cholesterol: No Chemotherapy: No Chest Pain: No Congestive Heart Failure: No COPD: No Cerebrovascular Accident: No Diabetes: Yes Patient Takes Glucophage: No Diminished Hearing: No Endocrine: No Gastrointestinal Disorders: Yes (HX GALLSTONES--CHOLECYSTECTOMY) Genetic Disorder: Yes (SICKLE CELL) GERD: No Glaucoma: Yes Genitourinary: No Headaches: No Hepatitis: No Hiatal Hernia: No Heparin Induced Thrombocytopen: No Hypertension: No Immune Disorder: No Implanted Vascular Access Dvce: Yes (RIGHT CHEST INFUSAPORT: SEPTEMBER 2014) Kidney Stones: No Medical other: Yes (SICKLE CELL ANEMIA) Musculoskeletal: Yes (ARTHRITIS) Neurologic: No Psychiatric: No Reproductive: No Respiratory: Yes (PULMONARY EMBOLISM) Immunizations Current: Yes Migraines: No Myocardial Infarction: No Pneumonia: Yes Radiation Therapy: No Renal Failure: No Seizures: No Sickle Cell Disease: Yes Sleep Apnea: No Thyroid Disease: No Ulcer: No Tetanus Vaccination: < 5 Years ?: Not LMP: 11/24/2016 : 10 Para: 4 Miscarriage: 6 : 0 Ectopic : No Ovarian Cysts: No Tubal Ligation: Yes Past Surgical History Abdominal Surgery: Yes AICD: No Arteriovenous Shunt: No Body Medical Devices: RIGHT INFUSAPORT (REMOVED 2012), LEFT REMOVED 2014, RIGHT POWER PORT 2014 Cardiac Surgery: No Section: Yes Cholecystectomy: Yes Ear Surgery: No Endocrine Surgery: No Eye Surgery: Yes (CORRECTIVE EYE SURGERY-LEFT) Genitourinary Surgery: No Gynecologic Surgery: Yes ( X 2, 2007 AND 2012) Hysterectomy: No Insulin Pump: No Joint Replacement: No Neurologic Surgery: No Oral Surgery: No Pacemaker: No Thoracic Surgery: Yes (MRSA INFUSAPORT R SIDE REMOVED 05/2013, L SIDE INFUSAPORT REMOVED 07/20) Other Surgery: Yes Social History Alcohol Use: No Tobacco Use: No Substance Use: No Allergies-Medications (Allergen,Severity, Reaction): Coded Allergies: Morphine (Verified Allergy, Severe, RASH, 12/14/16) Reglan (Verified Allergy, Severe, RASH, 12/14/16) Toradol (Verified Allergy, Severe, RASH, 12/14/16) Zofran (Verified Allergy, Severe, RASH,ITCH, 12/14/16) *MDRO Multi-Drug Resistant Organism (Verified Adverse Reaction, Unknown, ) 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 Reported Meds & Prescriptions Reported Meds & Active Scripts Active Lovenox Inj (Enoxaparin Sodium) 100 Mg/Ml Syr 100 Mg SQ Q12H 14 Days Reported Amitriptyline (Amitriptyline HCl) 25 Mg Tab 25 Mg PO HS Methadone (Methadone HCl) 10 Mg Tab 10 Mg PO DAILY Oxycodone (Oxycodone HCl) 5 Mg Cap 5 Mg PO BID PRN Review of Systems General / Constitutional: No: Fever, Chills Eyes: No: Diploplia HENT: No: Headaches, Vertigo Cardiovascular: No: Chest Pain or Discomfort, Palpitations Respiratory: No: Shortness of Breath Gastrointestinal: No: Nausea, Vomiting Genitourinary: No: Urgency Musculoskeletal: Positive: Myalgias, Pain Skin: No Itching, No Dryness Neurologic: No: Dizziness Physical Exam Narrative GENERAL: Well-developed female SKIN: Focused skin assessment warm/dry. HEAD: Atraumatic. Normocephalic. EYES: Left cornea is opacified ENT: No nasal bleeding or discharge. Mucous membranes pink and moist. NECK: Trachea midline. No JVD. CARDIOVASCULAR: Regular rate and rhythm. No murmur appreciated. RESPIRATORY: No accessory muscle use. Clear to auscultation. Breath sounds equal bilaterally. GASTROINTESTINAL: Abdomen soft, non-tender, nondistended. Hepatic and splenic margins not palpable. MUSCULOSKELETAL: No obvious deformities. No clubbing. No cyanosis. No edema. NEUROLOGICAL: Awake and alert. No obvious cranial nerve deficits. Motor grossly within normal limits. Normal speech. PSYCHIATRIC: Appropriate mood and affect; insight and judgment normal. Data Data Last Documented VS Vital Signs Date Time Temp Pulse Resp B/P Pulse Ox O2 Delivery O2 Flow Rate FiO2 12/14/16 16:30 103 16 160/74 95 Room Air 12/14/16 15:28 98.9 Orders Complete Blood Count With Diff (12/14/16 15:49) Comprehensive Metabolic Panel (12/14/16 15:49) Urinalysis - C+S If Indicated (12/14/16 15:49) Ecg Monitoring (12/14/16 15:49) Iv Access Insert/Monitor (12/14/16 15:49) Oximetry (12/14/16 15:49) Hydromorphone Pf Inj (Dilaudid Pf Inj) (12/14/16 16:00) Sodium Chloride 0.9% Flush (Ns Flush) (12/14/16 16:00) Sodium Chlor 0.9% 1000 Ml Inj (Ns 1000 M (12/14/16 15:49) Diphenhydramine Inj (Benadryl Inj) (12/14/16 16:00) Prochlorperazine Inj (Compazine Inj) (12/14/16 16:00) Hydromorphone Pf Inj (Dilaudid Pf Inj) (12/14/16 17:45) Prochlorperazine Inj (Compazine Inj) (12/14/16 17:45) Diphenhydramine Inj (Benadryl Inj) (12/14/16 17:45) Labs Laboratory Tests Test 12/14/16 16:15 White Blood Count 10.8 TH/MM3 Red Blood Count 3.80 MIL/MM3 Hemoglobin 10.7 GM/DL Hematocrit 32.6 % Mean Corpuscular Volume 85.8 FL Mean Corpuscular Hemoglobin 28.2 PG Mean Corpuscular Hemoglobin 32.8 % Concent Red Cell Distribution Width 19.3 % Platelet Count 448 TH/MM3 Mean Platelet Volume 8.4 FL Neutrophils (%) (Auto) 52.8 % Lymphocytes (%) (Auto) 36.2 % Monocytes (%) (Auto) 6.5 % Eosinophils (%) (Auto) 1.1 % Basophils (%) (Auto) 3.4 % Neutrophils # (Auto) 5.7 TH/MM3 Lymphocytes # (Auto) 3.9 TH/MM3 Monocytes # (Auto) 0.7 TH/MM3 Eosinophils # (Auto) 0.1 TH/MM3 Basophils # (Auto) 0.4 TH/MM3 CBC Comment AUTO DIFF Differential Total Cells 100 Counted Neutrophils % (Manual) 55 % Lymphocytes % 38 % Monocytes % 6 % Basophils % 1 % Neutrophils # (Manual) 5.9 TH/MM3 Nucleated Red Blood Cells 2 /100 WBC Differential Comment FINAL DIFF MANUAL Platelet Estimate HIGH Platelet Morphology Comment NORMAL Sickle Cells 1+ Target Cells 2+ Tear Drop Cells 1+ Ovalocytes 1+ Rouleau PRESENT Keratocytes OCC Sodium Level 142 MEQ/L Potassium Level 4.6 MEQ/L Chloride Level 111 MEQ/L Carbon Dioxide Level 22.4 MEQ/L Anion Gap 9 MEQ/L Blood Urea Nitrogen 8 MG/DL Creatinine 1.20 MG/DL Estimat Glomerular Filtration 63 ML/MIN Rate Random Glucose 94 MG/DL Calcium Level 9.1 MG/DL Total Bilirubin 0.9 MG/DL Aspartate Amino Transf 31 U/L (AST/SGOT) Alanine Aminotransferase 25 U/L (ALT/SGPT) Alkaline Phosphatase 93 U/L Total Protein 8.6 GM/DL Albumin 4.1 GM/DL [facility] Medical Decision Making Medical Screen Exam Complete: Yes Emergency Medical Condition: Yes Medical Record Reviewed: Yes Differential Diagnosis Differential includes sickle cell crisis, anemia Narrative Course Hemoglobin today is 10.7. White count is 10.8. Patient is given IV fluids and pain medication. She reports improvement in symptoms. She is stable for discharge Diagnosis Primary Impression: Sickle cell disease Qualified Code: D57.00 - Hb-SS disease with crisis Additional Impression: Vaso-occlusive sickle cell crisis Disposition: 01 DISCHARGE HOME Condition: Stable Daniel Mon MD Dec 14, 2016 15:55
[2016-12-14] MEDS ORDERED: diphenhydrAMINE HCL 50 MG/ML VIAL IV ONE (16:00)
[2016-12-14] MEDS ORDERED: SODIUM CHLORIDE 0.9% FLUSH 10 ML FLUSH IVF PRN (16:00)
[2016-12-14] MEDS ORDERED: HYDROmorphone HCL PF 2 MG/ML VIAL IVS ONE (16:00)
[2016-12-14] MEDS ORDERED: PROCHLORPERAZINE INJ 10 MG/2 ML VIAL IV PUSH ONE ×2 (16:00→17:45)
[2016-12-14 16:29] VITALS: RESP 16; O2SAT 98
[2016-12-14 16:30] VITALS: BP 160/74; PULSE 103; RESP 16; O2SAT 95
[2016-12-14 16:39] LABS: CHLORIDE 111 MEQ/L (98-107); SODIUM (NA) 142 MEQ/L (136-145)
[2016-12-14 16:42] LABS: ANION GAP 9 MEQ/L (5-15); BICARBONATE 22.4 MEQ/L (21.0-32.0); BLOOD UREA NITROGEN 8 MG/DL (7-18)
[2016-12-14 16:44] LABS: POTASSIUM 4.6 MEQ/L (3.5-5.1)
[2016-12-14 16:45] LABS: ALT (GPT) 25 U/L (10-53); AST (GOT) 31 U/L (15-37)
[2016-12-14 16:46] LABS: GLOMERULAR FILTRATION RATE 63 ML/MIN (>89)
[2016-12-14 16:47] LABS: TOTAL BILIRUBIN ADULT 0.9 MG/DL (0.2-1.0)
[2016-12-14 16:48] LABS: ALKALINE PHOSPHATASE 93 U/L (45-117)
[2016-12-14 16:52] LABS: AUTOMATED NEUTROPHIL # 5.7 TH/MM3 (1.8-7.7); BASOPHIL # 0.4 TH/MM3 (0-0.2); BASOPHIL % 3.4 % (0.0-2.0); EOSINOPHIL # 0.1 TH/MM3 (0-0.4); EOSINOPHIL % 1.1 % (0.0-4.0); HEMATOCRIT 32.6 % (35.0-46.0); LYMPH % 36.2 % (9.0-44.0); LYMPHOCYTE # 3.9 TH/MM3 (1.0-4.8); MEAN CELL VOLUME 85.8 FL (80.0-100.0); MEAN CORPUSCULAR HEMOGLOBIN 28.2 PG (27.0-34.0); MEAN CORPUSCULAR HGB CONC 32.8 % (32.0-36.0); MONO % 6.5 % (0.0-8.0); NEUT % 52.8 % (16.0-70.0); PLATELET COUNT 448 TH/MM3 (150-450); RED CELL DISTRIBUTION WIDTH 19.3 % (11.6-17.2); WHITE BLOOD COUNT 10.8 TH/MM3 (4.0-11.0)
[2016-12-14 17:05] LABS: HEMO FLAGS AUTO DIFF
[2016-12-14 17:20] LABS: BASOPHILS 1 % (0-2); CORRECTED NUCLEATED RBC 2 /100 WBC (0-0); NEUTROPHIL # MANUAL DIFF 5.9 TH/MM3 (1.8-7.7); POLYS (SEG NEUTROPHILS) 55 % (16-70); WBC DIFF SAMPLE 100
[2016-12-14 17:22] LABS: KERATOCYTES OCC (NORMAL); OVALOCYTES 1+ (NORMAL); ROULEAUX PRESENT (NORMAL); SICKLE CELLS 1+ (NORMAL); TARGET CELLS 2+ (NORMAL); TEARDROP RBCS 1+ (NORMAL)
[2016-12-14 17:23] LABS: PLATELET ESTIMATE SMEAR HIGH (NORMAL); PLATELET MORPHOLOGY NORMAL (NORMAL); SCAN/DIFF FINAL DIFF MANUAL
[2016-12-14] MEDS ORDERED: diphenhydrAMINE HCL 50 MG/ML VIAL IV PUSH ONE (17:45)
[2016-12-14] MEDS ORDERED: HYDROmorphone HCL PF 2 MG/ML VIAL IV PUSH ONE (17:45)
[2016-12-14 18:39] VITALS: BP 135/72
== END 2016-12-14 18:54 | disposition home or self-care (01) ==
LOC: PHED 15:25
DX: D57.00 Hb-SS disease with crisis, unspecified (principal); R01.1 Cardiac murmur, unspecified; E11.9 Type 2 diabetes mellitus without complications; Z79.01 Long term (current) use of anticoagulants; Z86.711 Personal history of pulmonary embolism
CPT/HCPCS: 80053; 85007; 85027; 96361; 96374; 96375; 96376; 99284; J0780; J1170; J1200; J7030

== ENCOUNTER 2016-12-18 07:07 | Day surgery (SDC) | payer MEDICARE, OTHER ==
[~2016-12-18 07:07] MED LIST changes: -LEVA500T PO; -PROM25TA5 PO
[2016-12-18 07:19] VITALS: BP 135/99; PULSE 100; RESP 20; TEMP 98.5; O2SAT 97
[2016-12-18] MEDS ORDERED: SODIUM CHLORIDE 0.9% 1000 ML IV SCH (07:30)
[2016-12-18] MEDS ORDERED: VANCOMYCIN 1000 MG/NS 250 ML - implanted port/tunneled catheter IV SCH ×2 (07:30)
[2016-12-18] MEDS ORDERED: CHLORHEXIDINE GLUCONATE 2 % 1 PACK (2 CLOTHS) TOPICAL SCH (07:30)
[2016-12-18] MEDS ORDERED: POVIDONE IODINE 5% (ANTISEPSIS KIT) 4 APPLICATIONS EACH NARE SCH (07:30)
[2016-12-19] MEDS ORDERED: XARE15TA PO (09:44)
[2016-12-19] MEDS ORDERED: PROM25TA10 PO (09:44)
== END 2016-12-18 07:40 | disposition home or self-care (01) ==
LOC: HROP 07:07 → HRIP 07:10 → HROP 07:40
PROVIDERS: ATTEND Internal Medicine Hematology & Oncology
DX: I87.1 Compression of vein (principal)

== ENCOUNTER 2016-12-19 09:21 | Day surgery (SDC) | payer MEDICARE, OTHER ==
[2016-12-19 09:42] VITALS: BP 141/80; PULSE 120; RESP 20; TEMP 99.2; O2SAT 91
[2016-12-19] MEDS ORDERED: XARE15TA PO (09:44)
[2016-12-19] MEDS ORDERED: PROM25TA10 PO (09:44)
[2016-12-19 09:45] VITALS: BP 88/18; PULSE 84; RESP 18; O2SAT 93
[2016-12-19] MEDS ORDERED: VANCOMYCIN 1000 MG/NS 250 ML - implanted port/tunneled catheter IV SCH ×2 (09:45)
[2016-12-19] MEDS ORDERED: SODIUM CHLORIDE 0.9% 1000 ML IV SCH (09:45)
[2016-12-19] MEDS ORDERED: POVIDONE IODINE 5% (ANTISEPSIS KIT) 4 APPLICATIONS EACH NARE SCH (09:45)
[2016-12-19] MEDS ORDERED: CHLORHEXIDINE GLUCONATE 2 % 1 PACK (2 CLOTHS) TOPICAL SCH (09:45)
[2016-12-19] MEDS ORDERED: ceFAZolin 2 GM PREMIX 50 ML - implanted port/tunneled catheter insertion IV SCH (09:45)
[2016-12-19 10:00] VITALS: BP 98/50; PULSE 84; RESP 18; O2SAT 94
[2016-12-19] MEDS ORDERED: fentaNYL CITRATE 250 MCG/5 ML AMP ONE (10:29)
[2016-12-19] MEDS ORDERED: MIDAZOLAM HCL 5 MG/5 ML VIAL ONE (10:29)
--- NOTE | 2016-12-19 10:58 | PD.RAD ---
Post Procedure Progress Note Pre Procedure Diagnosis: (1) SVC syndrome Post Procedure Diagnosis: (1) SVC syndrome Procedure Date: Dec 19, 2016 Supervising Radiologist: Frank Rhodes Proceduralist/Assist: Radha Flores, RT(R)(), Addie Carlisle RT(R) Anesthesia: Conscious Sedation Plan of Activity Patient to Unit: ROPU Patient Condition: Good Additional Comments: Continued moderate distal SVC stenosis near the ACJ. No port was placed. See PACS Report for procedural detail/treatment Frank Rhodes MD Dec 19, 2016 10:58
[2016-12-19 11:00] VITALS: BP 125/79; PULSE 96; RESP 18; TEMP 99.2; O2SAT 100
[2016-12-19] MEDS ORDERED: IOHEXOL 350 MG/ML 50 ML BTL (for RAD DIAG) IV ONE (11:05)
[2016-12-19 11:30] VITALS: BP 131/78; PULSE 95; RESP 20; O2SAT 100
--- NOTE | 2016-12-19 13:19 | RADRPT ---
EXAM DATE/TIME: 12/19/2016 10:29 [facility] COMPARISON: VENOGRAM, SUPERIOR VENA CAVA, September 16, 2014, 10:19. VENOGRAM, JUGULAR, RIGHT, September 16, 2014, 0:00. INDICATIONS : 31-year-old female with history of sickle cell and frequent crisis with very difficult IV access. Pat ient has had a surgically placed left subclavian [id number]-f-[id number] which was removed due to poor function and a right internal jugular Vpjcyk-[id number] which was eventually removed due to recurrent SVC syndrom e despite SVC balloon angioplasty. Patient is referred for SVC angiography and possible port placemen t. MEDICAL HISTORY : 1. Sickle cell 2. lt eye blindness 3. glaucoma 4. PE 5. depression SURGICAL HISTORY : 1. Port insertion/removal. 2.Ashleigh 3. C sec. ENCOUNTER: Subsequent ACUITY: >1 year PAIN SCORE: 0/10 FLUORO TIME: 0.6 minutes IMAGE SERIES: 1 ACCESS SITE: Right Internal jugular vein SEDATION TIME: 30 minutes CONTRAST: 1.) 8 cc Omnipaque (iohexol) 350 MEDICATION(S): 1.) 1 mg midazolam (Versed) IV 2.) 50 mcg fentanyl (Sublimaze) IV PROCEDURE : 1. Ultrasound-guided puncture of the right jugular vein. 2. Conscious sedation with continuous EKG and Oximetry monitoring. 3. SVC cavogram The risks, benefits and alternatives to the procedure were explained and verbal and written consent w as obtained. The site was prepped in sterile fashion. Full sterile technique was used, including ca p, mask, sterile gloves and gown and a large sterile sheet. Hand hygiene and 2% chlorhexidine and/or betadine/alcohol prep was utilized per protocol for cutaneous antisepsis. The skin and subcutaneous tissues were infiltrated with local anesthetic solution. With ultrasound and fluoroscopic guidance the right jugular vein was punctured and a vascular sheath was placed. Contrast was then injected through the sheath and DSA images obtained centered over the c hest. This demonstrates an approximately 4 cm length region of moderate stenosis in the central SVC a t the atriocaval junction. No significant chest wall collaterals are demonstrated. Therefore, decisio n was made not to proceed with port placement. Intervention was also not performed as patient is curr ently asymptomatic and there is lack of collateral vessels suggesting sufficient outflow. Sheath was then removed and hemostasis obtained with manual compression. The patient tolerated the procedure wel l and there were no complications. Conscious sedation was performed with the prescribed dosages and duration as above in the presence of an independent trained radiology nurse to assist in the monitoring of the patient. EKG and oximetry remained stable throughout the procedure. CONCLUSION: 1. Approximately 4 cm length moderate stenosis of the central SVC at the atriocaval junction, therefo re port placement was deferred. 2. SVC intervention was not performed as patient is currently asymptomatic and there are no significa nt chest wall collaterals suggesting adequate outflow. 1. Findings and management plan were personally discussed with Dr. Silver. Frank Rhodes MD on December 19, 2016 at 12:08 Board Certified Radiologist. This report was verified electronically.
== END 2016-12-19 11:30 | disposition home or self-care (01) ==
LOC: HROP 09:21 → HRIP 09:25 → HROP 11:30
PROVIDERS: ATTEND Internal Medicine Hematology & Oncology
DX: I87.1 Compression of vein (principal); D57.00 Hb-SS disease with crisis, unspecified; F32.9 Major depressive disorder, single episode, unspecified; H54.42 Blindness, left eye, normal vision right eye; Z86.711 Personal history of pulmonary embolism
CPT/HCPCS: 36005; 36010; 75827; 75860; 76937; 99152; 99153; C1894; J2250; J3010; Q9967

== ENCOUNTER 2017-01-19 08:05 | Emergency (ER) | payer MEDICARE, OTHER ==
[~2017-01-19] VITALS: Ht 170.2 cm; Wt 109.0 kg
[~2017-01-19 08:05] MED LIST changes: -ENOX100P SQ; +PROM25TA10 PO; +XARE15TA PO
[2017-01-19 08:12] VITALS: BP 106/80; PULSE 98; RESP 14; TEMP 99.2; O2SAT 97
[2017-01-19] MEDS ORDERED: SODIUM CHLOR 0.9% 1000 ML INJ 1,000 ML IV ONE (08:33)
[2017-01-19 08:39] VITALS: O2SAT 98
--- NOTE | 2017-01-19 08:42 | PD ---
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 Silver, here for evaluation of sickle cell pain. The patient reports that pain has been going on for the last couple of days and is located in her joints and is typical for her usual sickle cell crisis. She tried her methadone and oxycodone at home without improvement in symptoms. Patient also reports that when she woke up this morning her left eye was closed shut and there was crusty discharge. She applied a warm compress and is now able to open her eye. She describes a and itchiness sensation in the left eye. Of note she is blind in this eye as she apparently had a competition with glaucoma and retinal surgery in 2004. She denies pain in this eye. Vision in her right eye is normal and she denies pain or burning in her right eye. She has not had fevers. No chest pain or dyspnea. No cough. She does report feeling nauseous and having vomiting and loose bowel movements yesterday. She was recently admitted to the hospital for SVC syndrome with stenosis of this vessel. At that time she had her Port-A- Cath removed as well as angioplasty of the SVC. PFSH Past Medical History Hx Anticoagulant Therapy: Yes (XARELTO - PE) Asthma: No Autoimmune Disease: No Blood Disorders: Yes (SICKLE CELL) Anxiety: Yes Depression: No Heart Rhythm Problems: No Cancer: No Cardiac Catheterization: Yes Cardiovascular Problems: Yes (MURMUR) High Cholesterol: No Chemotherapy: No Chest Pain: No Congestive Heart Failure: No COPD: No Cerebrovascular Accident: No Diabetes: Yes Patient Takes Glucophage: No Diminished Hearing: No Endocrine: No Gastrointestinal Disorders: Yes (HX GALLSTONES--CHOLECYSTECTOMY) Genetic Disorder: Yes (SICKLE CELL) GERD: No Glaucoma: Yes Genitourinary: No Headaches: No Hepatitis: No Hiatal Hernia: No Heparin Induced Thrombocytopen: No Hypertension: No Immune Disorder: No Implanted Vascular Access Dvce: Yes (RIGHT CHEST INFUSAPORT: SEPTEMBER 2014 REMOVED ) Kidney Stones: No Medical other: Yes (SICKLE CELL ANEMIA) Musculoskeletal: Yes (ARTHRITIS) Neurologic: No Psychiatric: No Reproductive: No Respiratory: Yes (PULMONARY EMBOLISM) Immunizations Current: Yes Migraines: No Myocardial Infarction: No Pneumonia: Yes Radiation Therapy: No Renal Failure: No Seizures: No Sickle Cell Disease: Yes Sleep Apnea: No Thyroid Disease: No Ulcer: No Tetanus Vaccination: < 5 Years Influenza Vaccination: Yes ?: Not : 10 Para: 4 Miscarriage: 6 : 0 Ectopic : No Ovarian Cysts: No Tubal Ligation: Yes Past Surgical History Abdominal Surgery: Yes AICD: No Arteriovenous Shunt: No Body Medical Devices: RIGHT INFUSAPORT (REMOVED 2012), LEFT REMOVED 2014, RIGHT POWER PORT 2015 R Cardiac Surgery: No Section: Yes Cholecystectomy: Yes Ear Surgery: No Endocrine Surgery: No Eye Surgery: Yes (CORRECTIVE EYE SURGERY-LEFT) Genitourinary Surgery: No Gynecologic Surgery: Yes ( X 2, 2007 AND 2012) Hysterectomy: No Insulin Pump: No Joint Replacement: No Neurologic Surgery: No Oral Surgery: No Pacemaker: No Thoracic Surgery: Yes (MRSA INFUSAPORT R SIDE REMOVED 05/2013, L SIDE INFUSAPORT REMOVED 07/20) Other Surgery: Yes Social History Alcohol Use: No Tobacco Use: No Substance Use: No Allergies-Medications (Allergen,Severity, Reaction): Coded Allergies: Morphine (Verified Allergy, Severe, RASH, 01/19/17) Reglan (Verified Allergy, Severe, RASH, 01/19/17) Toradol (Verified Allergy, Severe, RASH, 01/19/17) Zofran (Verified Allergy, Severe, RASH,ITCH, 01/19/17) *MDRO Multi-Drug Resistant Organism (Verified Adverse Reaction, Unknown, ) 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 Reported Meds & Prescriptions Reported Meds & Active Scripts Active Polytrim Opth Drops (Polymyxin/Trimethoprim Sulfate) 10,000-0.1 Unit/Ml-% Soln 1 Drop LEFT EYE Q6HR Reported Phenergan (Promethazine HCl) 25 Mg Tablet 25 Mg PO Q6H PRN Xarelto (Rivaroxaban) 15 Mg Tab 15 Mg PO Q12HR Amitriptyline (Amitriptyline HCl) 25 Mg Tab 25 Mg PO HS Methadone (Methadone HCl) 10 Mg Tab 10 Mg PO DAILY Oxycodone (Oxycodone HCl) 5 Mg Cap 5 Mg PO BID PRN Review of Systems Except as stated in HPI: all other systems reviewed are Neg Physical Exam Narrative GENERAL: Well-developed, well-nourished, comfortable, on cell phone, no apparent distress. SKIN: Focused skin assessment warm/dry. No rash. HEAD: Atraumatic. Normocephalic. EYES: Left eye with cornea with bluish hue and abnormal appearance to the iris with scleral injection and slight yellowish discharge. There is also slight periorbital edema on the left. No proptosis. Right eye with normal sclera, normal hernia, normal pupil. ENT: Mucous membranes pink and moist. NECK: Trachea midline. No JVD. CARDIOVASCULAR: Regular rate and rhythm. RESPIRATORY: No accessory muscle use. Clear to auscultation. Breath sounds equal bilaterally. GASTROINTESTINAL: Abdomen soft, non-tender, nondistended. MUSCULOSKELETAL: No obvious deformities. No clubbing. No cyanosis. No edema. No dactylitis. No warmth or erythema to any of her joints. NEUROLOGICAL: Awake and alert. No obvious cranial nerve deficits. Motor grossly within normal limits. Normal speech. PSYCHIATRIC: Appropriate mood and affect; insight and judgment normal. Data Data Last Documented VS Vital Signs Date Time Temp Pulse Resp B/P Pulse Ox O2 Delivery O2 Flow Rate FiO2 01/19/17 08:39 98 Room Air 01/19/17 08:31 01/19/17 08:12 99.2 98 14 Orders Complete Blood Count With Diff (01/19/17 08:33) Comprehensive Metabolic Panel (01/19/17 08:33) Retic Count (01/19/17 08:33) Chest, Single Ap (01/19/17 08:33) Ecg Monitoring (01/19/17 08:33) Iv Access Insert/Monitor (01/19/17 08:33) Oximetry (01/19/17 08:33) Sodium Chloride 0.9% Flush (Ns Flush) (01/19/17 08:45) Sodium Chlor 0.9% 1000 Ml Inj (Ns 1000 M (01/19/17 08:33) Hydromorphone Pf Inj (Dilaudid Pf Inj) (01/19/17 08:45) Diphenhydramine Inj (Benadryl Inj) (01/19/17 08:45) Beta Hcg (Quant/Titer) (01/19/17 08:33) Promethazine Inj (Phenergan Inj) (01/19/17 08:45) Polymyxin/Trimethop Opht Soln (Polytrim (01/19/17 09:15) Hydromorphone Pf Inj (Dilaudid Pf Inj) (01/19/17 10:15) Diphenhydramine Inj (Benadryl Inj) (01/19/17 10:15) Labs Laboratory Tests Test 01/19/17 08:55 White Blood Count 13.6 TH/MM3 Red Blood Count 3.47 MIL/MM3 Hemoglobin 9.8 GM/DL Hematocrit 30.3 % Mean Corpuscular Volume 87.2 FL Mean Corpuscular Hemoglobin 28.3 PG Mean Corpuscular Hemoglobin 32.5 % Concent Red Cell Distribution Width 18.1 % Platelet Count 384 TH/MM3 Mean Platelet Volume 8.4 FL Neutrophils (%) (Auto) 57.4 % Lymphocytes (%) (Auto) 29.7 % Monocytes (%) (Auto) 6.7 % Eosinophils (%) (Auto) 2.9 % Basophils (%) (Auto) 3.3 % Neutrophils # (Auto) 7.9 TH/MM3 Lymphocytes # (Auto) 4.0 TH/MM3 Monocytes # (Auto) 0.9 TH/MM3 Eosinophils # (Auto) 0.4 TH/MM3 Basophils # (Auto) 0.4 TH/MM3 CBC Comment AUTO DIFF Differential Comment AUTO DIFF CONFIRMED Platelet Estimate NORMAL Platelet Morphology Comment NORMAL Sickle Cells 1+ Target Cells 3+ Ovalocytes 1+ Reticulocyte Count 4.1 % Absolute Reticulocyte Count 141.8 MIL/L Sodium Level 140 MEQ/L Potassium Level 4.1 MEQ/L Chloride Level 106 MEQ/L Carbon Dioxide Level 26.0 MEQ/L Anion Gap 8 MEQ/L Blood Urea Nitrogen 11 MG/DL Creatinine 1.20 MG/DL Estimat Glomerular Filtration 63 ML/MIN Rate Random Glucose 177 MG/DL Calcium Level 8.3 MG/DL Total Bilirubin 0.7 MG/DL Aspartate Amino Transf 23 U/L (AST/SGOT) Alanine Aminotransferase 26 U/L (ALT/SGPT) Alkaline Phosphatase 124 U/L Total Protein 7.5 GM/DL Albumin 3.7 GM/DL Human Chorionic Gonadotropin, LESS THAN 1 Quant MIU/ML [facility] Medical Decision Making Medical Screen Exam Complete: Yes Emergency Medical Condition: Yes Medical Record Reviewed: Yes Differential Diagnosis Vaso-occlusive crisis, anemia, conjunctivitis, acute angle-closure glaucoma less likely, gastroenteritis, metabolic abnormality, preseptal cellulitis, orbital cellulitis unlikely Narrative Course Vital signs reviewed. CBC shows WBC 13.6, hemoglobin 9.8, hematocrit 30.3, platelets 384. CMP is remarkable for creatinine 1.2, GFR 63, random glucose 177, otherwise unremarkable. Beta hCG is negative. Reticulocyte count is 4.1% Chest x-ray: Bibasilar subsegmental atelectasis versus scarring. No consolidation. Patient was given a liter normal saline IV, IV Dilaudid, Benadryl, and IM Phenergan, and on reassessment she is sleeping comfortably. She is feeling a lot better, however is requesting another dose of pain medication. She was made aware of all findings. She was given Polytrim eyedrops in her left eye for likely conjunctivitis. Patient describes a itching/burning sensation in the left eye. No eye pain. There are chronic changes to the eye which the patient states are unchanged. She has no vision in this eye, and has not been able to see out of this eye since 2004. Patient is stable for discharge home with outpatient follow-up with her door machine operator Dr. Silver this week. She was informed on when to return to the emergency department. She verbalizes understanding and agreement with plan. Diagnosis Primary Impression: Vaso-occlusive sickle cell crisis Additional Impression: Conjunctivitis Qualified Code: H10.32 - Acute conjunctivitis of left eye, unspecified acute conjunctivitis type Referrals: Carline Silver MD 3 days Additional Instructions: Follow-up with your door machine operator Dr. Silver this week. Return to the emergency department for worsening symptoms or any other concerns. Scripts Polymyxin B-Trimethoprim Opth Drops (Polytrim Opth Drops)10,000-0.1 Unit/Ml-% Soln1 Drop LEFT EYE Q6HR #1 BOTTLE Ref 0 Prov:Rafy Ramirez MD 01/19/17 Disposition: 01 DISCHARGE HOME Condition: Stable Rafy Ramirez MD Jan 19, 2017 08:42
[2017-01-19] MEDS ORDERED: diphenhydrAMINE HCL 50 MG/ML VIAL IV ONE (08:45)
[2017-01-19] MEDS ORDERED: HYDROmorphone HCL PF 1 MG/ML VIAL IVS ONE (08:45)
[2017-01-19] MEDS ORDERED: PROMETHAZINE INJ 25 MG/ML VIAL IM ONE (08:45)
[2017-01-19] MEDS ORDERED: SODIUM CHLORIDE 0.9% FLUSH 10 ML FLUSH IVF PRN (08:45)
--- NOTE | 2017-01-19 09:00 | RADRPT ---
EXAM DATE/TIME: 01/19/2017 08:42 [facility] COMPARISON: CHEST SINGLE AP, October 28, 2016, 11:47. INDICATIONS : Short of breath. MEDICAL HISTORY : Cardiovascular disease. Sickle Cell disease. heart murmur SURGICAL HISTORY : Cholecystectomy. infusaport ENCOUNTER: Initial ACUITY: 3 days PAIN SCORE: 1/10 LOCATION: Bilateral chest FINDINGS: A single view of the chest demonstrates the lungs to be symmetrically aerated without evidence of mas s, infiltrate or effusion. Minimal scarring in the lower lobes. The cardiomediastinal contours are u nremarkable. Osseous structures are intact. CONCLUSION: 1. Bibasilar subsegmental atelectasis versus scarring. 2. No consolidation. Rene Villela MD on January 19, 2017 at 8:58 Board Certified Radiologist. This report was verified electronically.
[2017-01-19 09:01] LABS: AUTOMATED NEUTROPHIL # 7.9 TH/MM3 (1.8-7.7); BASOPHIL # 0.4 TH/MM3 (0-0.2); BASOPHIL % 3.3 % (0.0-2.0); EOSINOPHIL # 0.4 TH/MM3 (0-0.4); EOSINOPHIL % 2.9 % (0.0-4.0); HEMATOCRIT 30.3 % (35.0-46.0); LYMPH % 29.7 % (9.0-44.0); MEAN CELL VOLUME 87.2 FL (80.0-100.0); MEAN CORPUSCULAR HEMOGLOBIN 28.3 PG (27.0-34.0); MEAN CORPUSCULAR HGB CONC 32.5 % (32.0-36.0); MONO % 6.7 % (0.0-8.0); NEUT % 57.4 % (16.0-70.0); PLATELET COUNT 384 TH/MM3 (150-450); RED BLOOD COUNT 3.47 MIL/MM3 (4.00-5.30); RED CELL DISTRIBUTION WIDTH 18.1 % (11.6-17.2); WHITE BLOOD COUNT 13.6 TH/MM3 (4.0-11.0)
[2017-01-19 09:04] LABS: HEMO FLAGS AUTO DIFF
[2017-01-19 09:09] LABS: CHLORIDE 106 MEQ/L (98-107); POTASSIUM 4.1 MEQ/L (3.5-5.1); SODIUM (NA) 140 MEQ/L (136-145)
[2017-01-19 09:13] LABS: ANION GAP 8 MEQ/L (5-15); BLOOD UREA NITROGEN 11 MG/DL (7-18)
[2017-01-19] MEDS ORDERED: POLYMYXIN/TRIMETHOPRIM OPHT SOLN 10 ML BTL LEFT EYE ONE (09:15)
[2017-01-19 09:16] LABS: ALT (GPT) 26 U/L (10-53); AST (GOT) 23 U/L (15-37); GLOMERULAR FILTRATION RATE 63 ML/MIN (>89)
[2017-01-19 09:17] LABS: TOTAL BILIRUBIN ADULT 0.7 MG/DL (0.2-1.0)
[2017-01-19 09:19] LABS: ALKALINE PHOSPHATASE 124 U/L (45-117)
[2017-01-19 09:21] LABS: BETA HCG QUANT LESS THAN 1 MIU/ML (0-5)
[2017-01-19 10:07] LABS: OVALOCYTES 1+ (NORMAL); PLATELET ESTIMATE SMEAR NORMAL (NORMAL); PLATELET MORPHOLOGY NORMAL (NORMAL); SCAN/DIFF AUTO DIFF CONFIRMED; SICKLE CELLS 1+ (NORMAL); TARGET CELLS 3+ (NORMAL)
[2017-01-19] MEDS ORDERED: POLY10O LEFT EYE (10:12)
[2017-01-19 10:13] LABS: RETIC % 4.1 % (0.4-3.0); REVIEW FLAG FINAL
[2017-01-19] MEDS ORDERED: HYDROmorphone HCL PF 1 MG/ML VIAL IV PUSH ONE (10:15)
[2017-01-19] MEDS ORDERED: diphenhydrAMINE HCL 50 MG/ML VIAL IV PUSH ONE (10:15)
[2017-01-19 10:49] VITALS: BP 146/73; PULSE 98; RESP 16; O2SAT 94
== END 2017-01-19 11:05 | disposition home or self-care (01) ==
LOC: PHED 08:05
DX: D57.00 Hb-SS disease with crisis, unspecified (principal); H10.32 Unspecified acute conjunctivitis, left eye; E11.9 Type 2 diabetes mellitus without complications; H40.9 Unspecified glaucoma; Z86.711 Personal history of pulmonary embolism
CPT/HCPCS: 71010; 80053; 84702; 85025; 85044; 96361; 96372; 96374; 96375; 96376; 99284; J1170; J1200; J2550; J7030

== ENCOUNTER 2017-02-13 12:25 | Emergency (ER) | payer MEDICARE, OTHER ==
[~2017-02-13] VITALS: Ht 170.2 cm; Wt 105.2 kg
[~2017-02-13 12:25] MED LIST changes: +POLY10O LEFT EYE
[2017-02-13] MEDS ORDERED: SODIUM CHLOR 0.9% 1000 ML INJ 1,000 ML IV ONE ×2 (12:43→14:37)
[2017-02-13] MEDS ORDERED: ONDANSETRON HCL 4 MG/2 ML VIAL IVP ONE (12:45)
[2017-02-13] MEDS ORDERED: diphenhydrAMINE HCL 50 MG/ML VIAL IV ONE ×2 (12:45→14:45)
[2017-02-13] MEDS ORDERED: SODIUM CHLORIDE 0.9% FLUSH 10 ML FLUSH IVF PRN (12:45)
[2017-02-13] MEDS ORDERED: HYDROmorphone HCL PF 1 MG/ML VIAL IVS ONE ×2 (12:45→14:45)
[2017-02-13 12:49] VITALS: BP 119/78; PULSE 84; RESP 18; TEMP 99.3; O2SAT 98
[2017-02-13 12:52] VITALS: O2SAT 98
[2017-02-13 13:30] LABS: AUTOMATED NEUTROPHIL # 7.3 TH/MM3 (1.8-7.7); BASOPHIL # 0.1 TH/MM3 (0-0.2); BASOPHIL % 1.1 % (0.0-2.0); EOSINOPHIL # 0.1 TH/MM3 (0-0.4); HEMATOCRIT 34.6 % (35.0-46.0); LYMPH % 30.1 % (9.0-44.0); LYMPHOCYTE # 3.5 TH/MM3 (1.0-4.8); MEAN CELL VOLUME 86.4 FL (80.0-100.0); MEAN CORPUSCULAR HEMOGLOBIN 27.6 PG (27.0-34.0); MEAN CORPUSCULAR HGB CONC 31.9 % (32.0-36.0); NEUT % 63.8 % (16.0-70.0); PLATELET COUNT 525 TH/MM3 (150-450); RED BLOOD COUNT 4.01 MIL/MM3 (4.00-5.30); RED CELL DISTRIBUTION WIDTH 18.7 % (11.6-17.2); WHITE BLOOD COUNT 11.5 TH/MM3 (4.0-11.0)
[2017-02-13 13:32] LABS: HEMO FLAGS AUTO DIFF
--- NOTE | 2017-02-13 13:43 | PD ---
HPI Chief Complaint: Sickle Cell Time Seen by Provider: 12:39 Travel History International Travel<30 days: No Contact w/Intl Traveler<30days: No Traveled to known affect area: No History of Present Illness HPI 31-year-old female with history of sickle cell disease arrives complaining of total body pain though her dominantly in the region of the lumbar spine. She also describes pleuritic chest pain. Typically the sickle cell crises accompany menstruation as is the case with today's visit. She denies fever. There has been no cough. Patient states that more or less her symptoms today are typical for a sickle cell type pain crisis. She follows with Dr. Silver however was unable to go to her clinic today due to scheduling. PFSH Past Medical History Hx Anticoagulant Therapy: Yes (XARELTO - PE) Asthma: No Autoimmune Disease: No Blood Disorders: Yes (SICKLE CELL) Anxiety: Yes Depression: No Heart Rhythm Problems: No Cancer: No Cardiac Catheterization: Yes Cardiovascular Problems: Yes (MURMUR) High Cholesterol: No Chemotherapy: No Chest Pain: No Congestive Heart Failure: No COPD: No Cerebrovascular Accident: No Diabetes: Yes Patient Takes Glucophage: No Diminished Hearing: No Endocrine: No Gastrointestinal Disorders: Yes (HX GALLSTONES--CHOLECYSTECTOMY) Genetic Disorder: Yes (SICKLE CELL) GERD: No Glaucoma: Yes Genitourinary: No Headaches: No Hepatitis: No Hiatal Hernia: No Heparin Induced Thrombocytopen: No Hypertension: No Immune Disorder: No Implanted Vascular Access Dvce: Yes (RIGHT CHEST INFUSAPORT: SEPTEMBER 2014 REMOVED ) Kidney Stones: No Medical other: Yes (SICKLE CELL ANEMIA) Musculoskeletal: Yes (ARTHRITIS) Neurologic: No Psychiatric: No Reproductive: No Respiratory: Yes (PULMONARY EMBOLISM) Immunizations Current: Yes Migraines: No Myocardial Infarction: No Pneumonia: Yes Radiation Therapy: No Renal Failure: No Seizures: No Sickle Cell Disease: Yes Sleep Apnea: No Thyroid Disease: No Ulcer: No Influenza Vaccination: Yes ?: Not LMP: 02/13/17 : 10 Para: 4 Miscarriage: 6 : 0 Ectopic : No Ovarian Cysts: No Tubal Ligation: Yes Past Surgical History Abdominal Surgery: Yes AICD: No Arteriovenous Shunt: No Body Medical Devices: RIGHT INFUSAPORT (REMOVED 2012), LEFT REMOVED 2014, RIGHT POWER PORT 2014 R Cardiac Surgery: No Section: Yes (x2) Cholecystectomy: Yes Ear Surgery: No Endocrine Surgery: No Eye Surgery: Yes (CORRECTIVE EYE SURGERY-LEFT) Genitourinary Surgery: No Gynecologic Surgery: Yes ( X 2, 2007 AND 2012) Hysterectomy: No Insulin Pump: No Joint Replacement: No Neurologic Surgery: No Oral Surgery: No Pacemaker: No Thoracic Surgery: Yes (MRSA INFUSAPORT R SIDE REMOVED 05/2013, L SIDE INFUSAPORT REMOVED 07/20) Other Surgery: Yes Social History Alcohol Use: No Tobacco Use: No Substance Use: No Allergies-Medications (Allergen,Severity, Reaction): Coded Allergies: Morphine (Verified Allergy, Severe, RASH, 01/19/17) Reglan (Verified Allergy, Severe, RASH, 01/19/17) Toradol (Verified Allergy, Severe, RASH, 01/19/17) Zofran (Verified Allergy, Severe, RASH,ITCH, 01/19/17) *MDRO Multi-Drug Resistant Organism (Verified Adverse Reaction, Unknown, ) 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 Reported Meds & Prescriptions Reported Meds & Active Scripts Active Polytrim Opth Drops (Polymyxin/Trimethoprim Sulfate) 10,000-0.1 Unit/Ml-% Soln 1 Drop LEFT EYE Q6HR Reported Phenergan (Promethazine HCl) 25 Mg Tablet 25 Mg PO Q6H PRN Xarelto (Rivaroxaban) 15 Mg Tab 15 Mg PO Q12HR Amitriptyline (Amitriptyline HCl) 25 Mg Tab 25 Mg PO HS Methadone (Methadone HCl) 10 Mg Tab 10 Mg PO DAILY Oxycodone (Oxycodone HCl) 5 Mg Cap 5 Mg PO BID PRN Review of Systems Except as stated in HPI: all other systems reviewed are Neg General / Constitutional: No: Fever Cardiovascular: Positive: Chest Pain or Discomfort Respiratory: No: Shortness of Breath Physical Exam Narrative GENERAL: 31-year-old female well-nourished well-developed minimal distress due to pain SKIN: Warm and dry. HEAD: Atraumatic. Normocephalic. EYES: Pupils equal and round. No scleral icterus. No injection or drainage. ENT: No nasal bleeding or discharge. Mucous membranes pink and moist. NECK: Trachea midline. No JVD. CARDIOVASCULAR: Regular rate and rhythm. RESPIRATORY: No accessory muscle use. Clear to auscultation. Breath sounds equal bilaterally. GASTROINTESTINAL: Abdomen soft, non-tender, nondistended. Hepatic and splenic margins not palpable. MUSCULOSKELETAL: Extremities without clubbing, cyanosis, or edema. No obvious deformities. NEUROLOGICAL: Awake and alert. No obvious cranial nerve deficits. Motor grossly within normal limits. Five out of 5 muscle strength in the arms and legs. Normal speech. PSYCHIATRIC: Appropriate mood and affect; insight and judgment normal. Data Data Last Documented VS Vital Signs Date Time Temp Pulse Resp B/P Pulse Ox O2 Delivery O2 Flow Rate FiO2 02/13/17 14:48 77 16 111/74 96 Nasal Cannula 2 02/13/17 12:49 99.3 Vital signs reviewed Orders Basic Metabolic Panel (Bmp) (02/13/17 12:43) Complete Blood Count With Diff (02/13/17 12:43) Retic Count (02/13/17 12:43) Chest, Single Ap (02/13/17 12:43) Ecg Monitoring (02/13/17 12:43) Iv Access Insert/Monitor (02/13/17 12:43) Oximetry (02/13/17 12:43) Oxygen Administration (02/13/17 12:43) Ondansetron Inj (Zofran Inj) (02/13/17 12:45) Sodium Chloride 0.9% Flush (Ns Flush) (02/13/17 12:45) Sodium Chlor 0.9% 1000 Ml Inj (Ns 1000 M (02/13/17 12:43) Hydromorphone Pf Inj (Dilaudid Pf Inj) (02/13/17 12:45) Diphenhydramine Inj (Benadryl Inj) (02/13/17 12:45) Beta Hcg (Quant/Titer) (02/13/17 12:43) Sodium Chlor 0.9% 1000 Ml Inj (Ns 1000 M (02/13/17 14:37) Hydromorphone Pf Inj (Dilaudid Pf Inj) (02/13/17 14:45) Diphenhydramine Inj (Benadryl Inj) (02/13/17 14:45) Labs Laboratory Tests Test 02/13/17 13:15 White Blood Count 11.5 TH/MM3 Red Blood Count 4.01 MIL/MM3 Hemoglobin 11.1 GM/DL Hematocrit 34.6 % Mean Corpuscular Volume 86.4 FL Mean Corpuscular Hemoglobin 27.6 PG Mean Corpuscular Hemoglobin 31.9 % Concent Red Cell Distribution Width 18.7 % Platelet Count 525 TH/MM3 Mean Platelet Volume 8.4 FL Neutrophils (%) (Auto) 63.8 % Lymphocytes (%) (Auto) 30.1 % Monocytes (%) (Auto) 4.0 % Eosinophils (%) (Auto) 1.0 % Basophils (%) (Auto) 1.1 % Neutrophils # (Auto) 7.3 TH/MM3 Lymphocytes # (Auto) 3.5 TH/MM3 Monocytes # (Auto) 0.5 TH/MM3 Eosinophils # (Auto) 0.1 TH/MM3 Basophils # (Auto) 0.1 TH/MM3 CBC Comment AUTO DIFF Differential Comment AUTO DIFF CONFIRMED Sickle Cells 1+ Target Cells 3+ Reticulocyte Count 3.4 % Absolute Reticulocyte Count 134.0 MIL/L Sodium Level 139 MEQ/L Potassium Level 4.1 MEQ/L Chloride Level 105 MEQ/L Carbon Dioxide Level 25.4 MEQ/L Anion Gap 9 MEQ/L Blood Urea Nitrogen 7 MG/DL Creatinine 1.00 MG/DL Estimat Glomerular Filtration 78 ML/MIN Rate Random Glucose 108 MG/DL Calcium Level 9.0 MG/DL Human Chorionic Gonadotropin, LESS THAN 1 Quant MIU/ML MDM Medical Decision Making Medical Screen Exam Complete: Yes Emergency Medical Condition: Yes Medical Record Reviewed: Yes Differential Diagnosis Sepsis, pneumonia, acute anemia, septic arthritis, avascular necrosis, acute chest syndrome Narrative Course CBC & BMP Diagram 02/13/17 13:15 Beta hCG less than 1 Last 24 hours Impressions Chest X-Ray 02/13/17 1243 Signed Impressions: Service Date/Time: Monday, February 13, 2017 13:20 - CONCLUSION: No acute disease. Sam Medina MD Patient received 2 L saline coupled with 2 mg hydromorphone and 1 mg divided doses along with 25 mg 2 of Benadryl. The time of reassessment, 2:35 PM, patient reports marked improvement. She believes she should be okay to go home and that this presentation is began to feel more like a typical sickle cell pain -related crisis. She is to follow-up with hematology. Return precautions discussed. Diagnosis Primary Impression: Sickle cell disease Qualified Code: D57.00 - Hb-SS disease with crisis Referrals: Carline Silver MD 3 days Additional Instructions: You have a choice when it comes to health care, and we are glad that you chose [facility]. Hopefully, we have met your expectations on today's visit. You are welcome to return to [facility] at any time, as we are committed to meeting the health care needs of our community. You develop any fever or persistent chest pain or difficulty breathing please return to the ER right away. Med/Other Pt SpecificInfo: No Change to Meds Disposition: 01 DISCHARGE HOME Condition: Stable Adria Amezcua MD Feb 13, 2017 13:43
--- NOTE | 2017-02-13 13:46 | RADRPT ---
EXAM DATE/TIME: 02/13/2017 13:20 [facility] COMPARISON: CHEST SINGLE AP, January 19, 2017, 8:42. INDICATIONS : Chest pain, shortness of breath. MEDICAL HISTORY : Cardiovascular disease. Sickle Cell disease. heart murmur. SURGICAL HISTORY : Cholecystectomy. infusaport. ENCOUNTER: Initial ACUITY: 3 days PAIN SCORE: 8/10 LOCATION: Bilateral chest FINDINGS: A single view of the chest demonstrates the lungs to be symmetrically aerated without evidence of mas s, infiltrate or effusion. The cardiomediastinal contours are unremarkable. Osseous structures are intact. CONCLUSION: No acute disease. Sam Medina MD on February 13, 2017 at 13:44 Board Certified Radiologist. This report was verified electronically.
[2017-02-13 13:52] LABS: SCAN/DIFF AUTO DIFF CONFIRMED; SICKLE CELLS 1+ (NORMAL); TARGET CELLS 3+ (NORMAL)
[2017-02-13 14:23] LABS: RETIC % 3.4 % (0.4-3.0); REVIEW FLAG FINAL
[2017-02-13 14:25] LABS: CHLORIDE 105 MEQ/L (98-107); POTASSIUM 4.1 MEQ/L (3.5-5.1); SODIUM (NA) 139 MEQ/L (136-145)
[2017-02-13 14:28] LABS: ANION GAP 9 MEQ/L (5-15); BICARBONATE 25.4 MEQ/L (21.0-32.0); BLOOD UREA NITROGEN 7 MG/DL (7-18)
[2017-02-13 14:31] LABS: GLOMERULAR FILTRATION RATE 78 ML/MIN (>89)
[2017-02-13 14:36] LABS: BETA HCG QUANT LESS THAN 1 MIU/ML (0-5)
[2017-02-13 14:48] VITALS: BP 111/74; PULSE 77; RESP 16; O2SAT 96
[2017-02-13 15:57] VITALS: RESP 18
== END 2017-02-13 16:10 | disposition home or self-care (01) ==
LOC: PHED 12:25
DX: D57.00 Hb-SS disease with crisis, unspecified (principal); R07.81 Pleurodynia; Z79.01 Long term (current) use of anticoagulants
CPT/HCPCS: 71010; 80048; 84702; 85025; 85044; 96361; 96374; 96375; 96376; 99284; J1170; J1200; J7030

== ENCOUNTER 2017-02-25 07:16 | Day surgery (SDC) | payer MEDICARE, OTHER ==
[2017-02-25] VITALS (7 sets, daily range): BP systolic 102–150; BP diastolic 54–90; PULSE 88–117; RESP 18–20; TEMP 98.8–99.6; O2SAT 94–99
[~2017-02-25] VITALS: Ht 170.2 cm; Wt 105.0 kg
[2017-02-25] MEDS ORDERED: IOHEXOL 350 MG/ML 100 ML BTL (for RAD DIAG) IVCONTRAST ONE ×2 (07:17→11:00)
[2017-02-25] MEDS ORDERED: SODIUM CHLOR 0.9% 1000 ML INJ 1,000 ML IV SCH (08:00)
[2017-02-25 09:52] LABS: APTT (PATIENT) 26.5 SEC (24.3-30.1); PROTHROMBIN TIME - PATIENT 10.7 SEC (9.8-11.6)
[2017-02-25] MEDS ORDERED: MIDAZOLAM HCL 2 MG/2 ML VIAL ONE ×2 (10:36→11:00)
[2017-02-25] MEDS ORDERED: fentaNYL CITRATE 250 MCG/5 ML AMP ONE (10:36)
--- NOTE | 2017-02-25 11:30 | PD.RAD ---
Post Procedure Progress Note Pre Procedure Diagnosis: (1) Chest pain (2) SVC syndrome (3) Sickle cell disease Post Procedure Diagnosis: (1) Swelling (2) SVC syndrome (3) Sickle cell disease Procedure Date: Feb 25, 2017 Supervising Radiologist: Christo Glover Proceduralist/Assist: Daiana Giles, RT(R), Mojgan Terry RT(R)() Anesthesia: Local, Analgesia, Conscious Sedation Plan of Activity Patient to Unit: ROPU Patient Condition: Good See PACS Report for procedural detail/treatment Vascular-Venous Procedure Procedure 1 Procedure Site: Cervical (SVC) Procedure(s): Angioplasty, Venogram Access Access Site(s): Right Jugular Vein Closure Site(s): Right manual pressure Findings: Mild stenosis central SVC with no collaterals. HANDLE ROUNDER OPERATOR to 16mm with little change in diameter. Again, no collaterals Christo Glover MD Feb 25, 2017 11:30
--- NOTE | 2017-02-25 12:41 | RADRPT ---
EXAM DATE/TIME: 02/25/2017 10:40 [facility] COMPARISON: VENOGRAM, JUGULAR, RIGHT, December 19, 2016, 10:29. VENOGRAM, SUPERIOR VENA CAVA, December 19, 2016, 0:00. INDICATIONS : Patient is in need of a SVC venogram with angioplsty due to stenosis. MEDICAL HISTORY : History of SVC syndrome, sickle osn anemia, PE, DM, pneumonia, glaucoma, renal stones, thrombocytosis . SURGICAL HISTORY : History of cardiac catheterization, SVC venogram with angioplasty, cholecystectomy, caesarean section , port placement and removal. ENCOUNTER: Subsequent ACUITY: 4 - 6 months PAIN SCORE: 6/10 LOCATION: lower back FLUORO TIME: 3.2 minutes IMAGE SERIES: 10 ACCESS SITE: Right Internal jugular vein SEDATION TIME: 60 minutes CONTRAST: 50 cc Omnipaque (iohexol) 350 MEDICATION(S): 1.) 3.5 mg midazolam (Versed) IV 2.) 200 mcg fentanyl (Sublimaze) IV DEVICE(S): 1.) superior vena cava LANDSCAPE ARCHITECT AND PLANNER balloon BS XXL 16mm x 4mm x 75cm PROCEDURE : 1. Ultrasound-guided puncture of the right internal jugular vein. 2. Conscious sedation with continuous EKG and Oximetry monitoring. 3. Angiography of the SVC 4. 16 mm angioplasty of the SVC several for an no is sheath was The risks, benefits and alternatives to the procedure were explained and verbal and written consent w as obtained. The site was prepped in sterile fashion. Full sterile technique was used, including ca p, mask, sterile gloves and gown and a large sterile sheet. Hand hygiene and 2% chlorhexidine and/or betadine/alcohol prep was utilized per protocol for cutaneous antisepsis. The skin and subcutaneous tissues were infiltrated with local anesthetic solution. With ultrasound and fluoroscopic guidance the right internal jugular vein was punctured and a vascula r sheath was placed. Angiography of the brachiocephalic and SVC demonstrate a central stenosis of the SVC near the right a trial junction. However, there were no significant collateral vessels. Through an 8 [place] side-port sheath, a 16mm I4 centimeter balloon was introduced. Balloon angioplasty was performed until the ayden ent was symptomatic(complained of some fullness in her head). The balloon was deflated. Repeat venogr aphy showed minimal improvement but again, no significant collateral circulation suggesting insignifi cant stenosis The puncture site was closed with manual pressure and hemostasis was obtained. The patient tolerated the procedure well and there were no complications. Conscious sedation was performed with the prescribed dosages and duration as above in the presence of an independent trained radiology nurse to assist in the monitoring of the patient. EKG and oximetry remained stable throughout the procedure. CONCLUSION: 1. SVC stenosis. 2. 16mm balloon angioplasty the same with improvement of the luminal diameter. No collateral circulat ion pre-or post balloon angioplasty. Christo Glover MD on February 25, 2017 at 12:32 Board Certified Radiologist. This report was verified electronically.
== END 2017-02-25 14:13 | disposition home or self-care (01) ==
LOC: HROP 07:16 → HRIP 07:17 → HROP 14:13
PROVIDERS: ATTEND Internal Medicine Hematology & Oncology
DX: I87.1 Compression of vein (principal); M79.89 Other specified soft tissue disorders; D57.1 Sickle-cell disease without crisis; E11.9 Type 2 diabetes mellitus without complications; H40.9 Unspecified glaucoma; D47.3 Essential (hemorrhagic) thrombocythemia; Z87.442 Personal history of urinary calculi
CPT/HCPCS: 36010; 37248; 75820; 75827; 76937; 85610; 85730; 99152; 99153; C1725; C1769; C1894; J2250; J3010; J7030; Q9967

== ENCOUNTER 2017-03-21 11:13 | Emergency (ER) | payer MEDICARE, OTHER ==
[2017-03-21] VITALS (8 sets, daily range): BP systolic 97–139; BP diastolic 50–65; PULSE 82–96; RESP 16; TEMP 98.9; O2SAT 95–100
[~2017-03-21] VITALS: Ht 170.2 cm; Wt 107.0 kg
[~2017-03-21 11:13] MED LIST changes: -POLY10O LEFT EYE
[2017-03-21] MEDS ORDERED: SODIUM CHLOR 0.9% 1000 ML INJ 1,000 ML IV ONE (12:07)
[2017-03-21] MEDS ORDERED: diphenhydrAMINE HCL 50 MG/ML VIAL IV ONE (12:15)
[2017-03-21] MEDS ORDERED: HYDROmorphone HCL PF 1 MG/ML VIAL IVS ONE ×2 (12:15→15:30)
[2017-03-21 13:25] LABS: GLUCOSE,URINE NEG (NEG); KETONE, URINE NEG (NEG); NITRITE,URINE NEG (NEG)
[2017-03-21 13:26] LABS: AUTOMATED NEUTROPHIL # 6.7 TH/MM3 (1.8-7.7); BASOPHIL # 0.7 TH/MM3 (0-0.2); BASOPHIL % 5.7 % (0.0-2.0); EOSINOPHIL # 0.2 TH/MM3 (0-0.4); EOSINOPHIL % 1.7 % (0.0-4.0); HEMATOCRIT 31.8 % (35.0-46.0); LYMPHOCYTE # 4.2 TH/MM3 (1.0-4.8); MEAN CELL VOLUME 87.3 FL (80.0-100.0); MEAN CORPUSCULAR HGB CONC 32.1 % (32.0-36.0); MONO % 9.4 % (0.0-8.0); NEUT % 51.2 % (16.0-70.0); PLATELET COUNT 484 TH/MM3 (150-450); RED BLOOD COUNT 3.64 MIL/MM3 (4.00-5.30); RED CELL DISTRIBUTION WIDTH 18.7 % (11.6-17.2)
[2017-03-21 13:27] LABS: BLOOD, URINE TRACE (NEG)
[2017-03-21 13:28] LABS: METHOD OF COLLECTION CLEAN CATCH; URINE COLOR YELLOW (YELLW/STRAW)
[2017-03-21 13:29] LABS: BACTERIA, URINE MANY /hpf; COMMENT (UR) CULTURE INDICATED; CULTURE IF INDICATED CULTURE INDICATED; RBC, URINE 0-3 /hpf (0-3)
[2017-03-21 13:31] LABS: POTASSIUM 4.1 MEQ/L (3.5-5.1)
[2017-03-21 13:34] LABS: BICARBONATE 27.5 MEQ/L (21.0-32.0)
[2017-03-21 13:39] LABS: HEMO FLAGS AUTO DIFF
[2017-03-21] MEDS: SODIUM CHLORIDE 0.9% FLUSH 10 ML FLUSH IVF PRN ×2 (13:57→15:38)
[2017-03-21] MEDS ORDERED: CIPROFLOXACIN 500 MG TAB PO ONE (14:15)
[2017-03-21] MEDS ORDERED: CIPR-9 PO (14:23)
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
[2017-03-21 14:25] LABS: EOSINOPHILS 1 % (0-4); NEUTROPHIL # MANUAL DIFF 7.4 TH/MM3 (1.8-7.7); POLYS (SEG NEUTROPHILS) 57 % (16-70); SCAN/DIFF FINAL DIFF MANUAL; TARGET CELLS 2+ (NORMAL); WBC DIFF SAMPLE 100
== END 2017-03-21 16:30 | disposition home or self-care (01) ==
LOC: PHED 11:13 → PHEFT 16:30
DX: D57.1 Sickle-cell disease without crisis (principal); N39.0 Urinary tract infection, site not specified; R31.9 Hematuria, unspecified; H40.9 Unspecified glaucoma; Z86.711 Personal history of pulmonary embolism; M19.90 Unspecified osteoarthritis, unspecified site; B96.20 Unspecified Escherichia coli [E. coli] as the cause of diseases classified elsewhere
CPT/HCPCS: 80048; 81001; 85007; 85027; 87077; 87086; 87186; 96361; 96374; 96375; 99285; J1170; J1200; J7030

== ENCOUNTER 2017-04-14 16:33 | Emergency (ER) | payer MEDICARE, OTHER ==
[~2017-04-14] VITALS: Ht 170.2 cm; Wt 103.3 kg
[~2017-04-14 16:33] MED LIST changes: +CIPR-9 PO; -XARE15TA PO
[2017-04-14 16:36] VITALS: BP 133/73; PULSE 87; RESP 16; TEMP 99; O2SAT 96
[2017-04-14] MEDS ORDERED: SODIUM CHLOR 0.9% 1000 ML INJ 1,000 ML IV ONE (17:05)
[2017-04-14] MEDS ORDERED: HYDROmorphone HCL PF 1 MG/ML VIAL IVS ONE (17:15)
[2017-04-14] MEDS ORDERED: diphenhydrAMINE HCL 50 MG/ML VIAL IV PUSH ONE ×2 (17:15→19:30)
[2017-04-14] MEDS ORDERED: SODIUM CHLORIDE 0.9% FLUSH 10 ML FLUSH IVF PRN (17:15)
--- NOTE | 2017-04-14 17:23 | PD ---
HPI Chief Complaint: Sickle Cell Time Seen by Provider: 16:58 Travel History International Travel<30 days: No Contact w/Intl Traveler<30days: No Traveled to known affect area: No History of Present Illness HPI Patient is a 31-year-old female with history of chronic anemia, hemoglobin sickle cell disease, chronic pain, who was sent to the ER by her home appliance technician, Araceli Vázquez for treatment of sickle cell crisis. Patient reports that she has having a flareup of her sickle cell crisis over the past week. Reports that she was at Dr. Silver office today for treatment of sickle cell crisis, reports that they were unable to obtain IV line so they were unable to give her her Dilaudid, IV fluids as well as Benadryl. She reports that she has typical sickle cell pain today. She reports that her joints are achy, patient denies any fevers or chills. Patient denies any chest pain or shortness of breath. 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 Patient reports that she is here for treatment of her typical sickle cell crisis pain PFSH Past Medical History Hx Anticoagulant Therapy: Yes (XARELTO - PE) Asthma: No Autoimmune Disease: No Blood Disorders: Yes (SICKLE CELL) Anxiety: Yes Depression: No Heart Rhythm Problems: No Cancer: No Cardiac Catheterization: Yes Cardiovascular Problems: Yes (MURMUR) High Cholesterol: No Chemotherapy: No Chest Pain: No Congestive Heart Failure: No COPD: No Cerebrovascular Accident: No Diabetes: No Diminished Hearing: No Endocrine: No Gastrointestinal Disorders: Yes (HX GALLSTONES--CHOLECYSTECTOMY) Genetic Disorder: Yes (SICKLE CELL) GERD: No Glaucoma: Yes Genitourinary: No Headaches: No Hepatitis: No Hiatal Hernia: No Heparin Induced Thrombocytopen: No Hypertension: No Immune Disorder: No Implanted Vascular Access Dvce: Yes (RIGHT CHEST INFUSAPORT: SEPTEMBER 2014 REMOVED ) Kidney Stones: No Medical other: Yes (SICKLE CELL ANEMIA) Musculoskeletal: Yes (ARTHRITIS) Neurologic: No Psychiatric: No Reproductive: No Respiratory: Yes (PULMONARY EMBOLISM) Immunizations Current: Yes Migraines: No Myocardial Infarction: No Pneumonia: Yes Radiation Therapy: No Renal Failure: No Seizures: No Sickle Cell Disease: Yes Sleep Apnea: No Thyroid Disease: No Ulcer: No ?: Not : 10 Para: 4 Miscarriage: 6 : 0 Ectopic : No Ovarian Cysts: No Tubal Ligation: Yes Past Surgical History Abdominal Surgery: Yes AICD: No Arteriovenous Shunt: No Body Medical Devices: RIGHT INFUSAPORT (REMOVED 2012), LEFT REMOVED 2014, RIGHT POWER PORT 2014 R Cardiac Surgery: No Section: Yes (x2) Cholecystectomy: Yes Ear Surgery: No Endocrine Surgery: No Eye Surgery: Yes (CORRECTIVE EYE SURGERY-LEFT) Genitourinary Surgery: No Gynecologic Surgery: Yes ( X 2, 2007 AND 2012) Hysterectomy: No Insulin Pump: No Joint Replacement: No Neurologic Surgery: No Oral Surgery: No Pacemaker: No Thoracic Surgery: Yes (MRSA INFUSAPORT R SIDE REMOVED 05/2013, L SIDE INFUSAPORT REMOVED 07/20) Other Surgery: Yes (balloon to open up subclavian ?) Social History Alcohol Use: Yes (occas. wine) Tobacco Use: No Substance Use: No Allergies-Medications (Allergen,Severity, Reaction): Coded Allergies: ketorolac (Unverified Allergy, Severe, RASH, 04/14/17) metoclopramide (Unverified Allergy, Severe, RASH, 04/14/17) morphine (Unverified Allergy, Severe, RASH, 04/14/17) ondansetron (Unverified Allergy, Severe, RASH,ITCH, 04/14/17) *MDRO Multi-Drug Resistant Organism (Verified Adverse Reaction, Unknown, 04/14/17) 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 Reported Meds & Prescriptions Reported Meds & Active Scripts Active Reported Phenergan (Promethazine HCl) 25 Mg Tablet 25 Mg PO Q6H PRN Amitriptyline (Amitriptyline HCl) 25 Mg Tab 25 Mg PO HS Methadone (Methadone HCl) 10 Mg Tab 10 Mg PO DAILY Oxycodone (Oxycodone HCl) 5 Mg Cap 5 Mg PO BID PRN Review of Systems General / Constitutional: No: Fever Eyes: No: Visual changes HENT: No: Headaches Cardiovascular: No: Chest Pain or Discomfort Respiratory: No: Shortness of Breath Gastrointestinal: No: Abdominal Pain Genitourinary: No: Dysuria Musculoskeletal: Positive: Other (joint pain), No: Pain Skin: No Rash Neurologic: No: Weakness Psychiatric: No: Depression Endocrine: No: Polydipsia Hematologic/Lymphatic: No: Easy Bruising Physical Exam Narrative GENERAL: mild distress SKIN: Focused skin assessment warm/dry. HEAD: Atraumatic. Normocephalic. EYES: Pupils equal and round. No scleral icterus. No injection or drainage. ENT: No nasal bleeding or discharge. Mucous membranes pink and moist. NECK: Trachea midline. No JVD. CARDIOVASCULAR: Regular rate and rhythm. No murmur appreciated. RESPIRATORY: No accessory muscle use. Clear to auscultation. Breath sounds equal bilaterally. GASTROINTESTINAL: Abdomen soft, non-tender, nondistended. Hepatic and splenic margins not palpable. MUSCULOSKELETAL: No obvious deformities. No clubbing. No cyanosis. No edema. NEUROLOGICAL: Awake and alert. No obvious cranial nerve deficits. Motor grossly within normal limits. Normal speech. PSYCHIATRIC: Appropriate mood and affect; insight and judgment normal. Data Data Last Documented VS Vital Signs Date Time Temp Pulse Resp B/P (MAP) Pulse Ox O2 Delivery O2 Flow Rate FiO2 04/14/17 16:36 99.0 87 16 133/73 (93) 96 Orders Orders Basic Metabolic Panel (Bmp) (04/14/17 17:05) Complete Blood Count With Diff (04/14/17 17:05) Retic Count (04/14/17 17:05) Urinalysis - C+S If Indicated (04/14/17 17:05) Ecg Monitoring (04/14/17 17:05) Iv Access Insert/Monitor (04/14/17 17:05) Oximetry (04/14/17 17:05) Sodium Chloride 0.9% Flush (Ns Flush) (04/14/17 17:15) Sodium Chlor 0.9% 1000 Ml Inj (Ns 1000 M (04/14/17 17:05) Hydromorphone Pf Inj (Dilaudid Pf Inj) (04/14/17 17:15) Diphenhydramine Inj (Benadryl Inj) (04/14/17 17:15) MDM Medical Decision Making Medical Screen Exam Complete: Yes Emergency Medical Condition: Yes Medical Record Reviewed: Yes Interpretation(s) Vital Signs Date Time Temp Pulse Resp B/P (MAP) Pulse Ox O2 Delivery O2 Flow Rate FiO2 04/14/17 16:36 99.0 87 16 133/73 (93) 96 Differential Diagnosis Differential includes acute chest syndrome though unlikely, sickle cell crisis, anemia, electrolyte abnormality Narrative Course 31-year-old female who presents to emergency room with complaints of typical sickle cell crisis. Patient was placed on a insulation worker apprentice upon arrival to the emergency room. Lab work including retic count ordered. IV fluids, IV Benadryl as well as IV Dilaudid ordered for patient. Vital Signs Date Time Temp Pulse Resp B/P (MAP) Pulse Ox O2 Delivery O2 Flow Rate FiO2 04/14/17 16:36 99.0 87 16 133/73 (93) 96 Patient signed out to oncoming physician at change of shift. Patient pending re- evaluation and disposition. Procedures Procedure Narrative ultrasound guided peripheral line Using ultrasonic guidance, a 20-gauge IV needle was placed to the right AC without any difficulty. Patient tolerated procedure well Diagnosis Primary Impression: Vaso-occlusive sickle cell crisis Patient Instructions: General Instructions, Narcotic given in the ED Additional Instructions: Please follow up with Dr. Silver in the office Return to ER as needed Rochelle Gee DO Apr 14, 2017 17:23
[2017-04-14 18:00] VITALS: BP 116/74; PULSE 82; RESP 18; O2SAT 97
[2017-04-14 19:06] LABS: BLOOD, URINE NEG (NEG); GLUCOSE,URINE NEG (NEG); HEMATOCRIT 32.5 % (35.0-46.0); KETONE, URINE NEG (NEG); MEAN CELL VOLUME 85.5 FL (80.0-100.0); MEAN CORPUSCULAR HEMOGLOBIN 28.6 PG (27.0-34.0); MEAN CORPUSCULAR HGB CONC 33.4 % (32.0-36.0); NITRITE,URINE POS (NEG); PLATELET COUNT 494 TH/MM3 (150-450); WHITE BLOOD COUNT 11.9 TH/MM3 (4.0-11.0)
[2017-04-14 19:08] LABS: HEMO FLAGS AUTO DIFF
[2017-04-14 19:15] LABS: POTASSIUM 3.5 MEQ/L (3.5-5.1)
[2017-04-14 19:18] LABS: BICARBONATE 28.4 MEQ/L (21.0-32.0)
[2017-04-14 19:26] LABS: URINE COLOR YELLOW (YELLW/STRAW)
[2017-04-14 19:27] LABS: BACTERIA, URINE MANY /hpf; SQUAMOUS EPITHELIAL CELL URINE > 8 /hpf (0-5)
[2017-04-14 19:28] LABS: COMMENT (UR) CULTURE INDICATED; CULTURE IF INDICATED CULTURE INDICATED
[2017-04-14] MEDS ORDERED: HYDROmorphone HCL PF 1 MG/ML VIAL IV PUSH ONE (19:30)
[2017-04-14] MEDS ORDERED: PROCHLORPERAZINE INJ 10 MG/2 ML VIAL IV PUSH ONE (20:00)
[2017-04-14 20:12] VITALS: RESP 16
[2017-04-14 20:14] LABS: REVIEW FLAG FINAL
[2017-04-14] MEDS ORDERED: MACR100C2 PO (20:45)
--- NOTE | 2017-04-14 20:45 | PD ---
Physical Exam Time Seen by Provider: 20:[address] Gee left this patient with me to check the laboratory, administer more pain medications if necessary and likely discharge. Data Data Last Documented VS Vital Signs Date Time Temp Pulse Resp B/P (MAP) Pulse Ox O2 Delivery O2 Flow Rate FiO2 04/14/17 20:12 16 04/14/17 18:47 Room Air 04/14/17 18:00 82 116/74 (88) 97 04/14/17 16:36 99.0 Orders Orders Basic Metabolic Panel (Bmp) (04/14/17 17:05) Complete Blood Count With Diff (04/14/17 17:05) Retic Count (04/14/17 17:05) Urinalysis - C+S If Indicated (04/14/17 17:05) Ecg Monitoring (04/14/17 17:05) Iv Access Insert/Monitor (04/14/17 17:05) Oximetry (04/14/17 17:05) Sodium Chloride 0.9% Flush (Ns Flush) (04/14/17 17:15) Sodium Chlor 0.9% 1000 Ml Inj (Ns 1000 M (04/14/17 17:05) Hydromorphone Pf Inj (Dilaudid Pf Inj) (04/14/17 17:15) Diphenhydramine Inj (Benadryl Inj) (04/14/17 17:15) Hydromorphone Pf Inj (Dilaudid Pf Inj) (04/14/17 19:30) Diphenhydramine Inj (Benadryl Inj) (04/14/17 19:30) Urine Culture (04/14/17 18:30) Prochlorperazine Inj (Compazine Inj) (04/14/17 20:00) Labs Laboratory Tests Test 04/14/17 18:30 White Blood Count 11.9 TH/MM3 Red Blood Count 3.80 MIL/MM3 Hemoglobin 10.8 GM/DL Hematocrit 32.5 % Mean Corpuscular Volume 85.5 FL Mean Corpuscular Hemoglobin 28.6 PG Mean Corpuscular Hemoglobin Concent 33.4 % Red Cell Distribution Width 18.0 % Platelet Count 494 TH/MM3 Mean Platelet Volume 8.4 FL CBC Comment AUTO DIFF Reticulocyte Count 3.0 % Absolute Reticulocyte Count 114.8 MIL/L Urine Color YELLOW Urine Turbidity MOD Urine pH 6.0 Urine Specific [place] 1.010 Urine Protein NEG mg/dL Urine Glucose (UA) NEG mg/dL Urine Ketones NEG mg/dL Urine Occult Blood NEG Urine Nitrite POS Urine Bilirubin NEG Urine Leukocyte Esterase NEG Urine WBC 3-5 /hpf Urine WBC Clumps RARE Urine Squamous Epithelial Cells > 8 /hpf Urine Bacteria MANY /hpf Microscopic Urinalysis Comment CULTURE INDICATED Blood Urea Nitrogen 5 MG/DL Creatinine 1.00 MG/DL Random Glucose 95 MG/DL Calcium Level 8.8 MG/DL Sodium Level 137 MEQ/L Potassium Level 3.5 MEQ/L Chloride Level 103 MEQ/L Carbon Dioxide Level 28.4 MEQ/L Anion Gap 6 MEQ/L Estimat Glomerular Filtration Rate 78 ML/MIN MDM Medical Record Reviewed: Yes Supervised Visit with HÉCTOR: No Differential Diagnosis Sickle cell pain crisis, drug seeking behavior, urinary tract infection, electrolyte disorder, dehydration, anemia, renal insufficiency Narrative Course It is now 845 and the patient wants to go home, she feels much better. She says she does have frequency and urgency of urination. He denies any dysuria, nausea, vomiting, flank pain or fever. Impressions: Sickle cell with vaso-occlusive crisis and cystitis Diagnosis Primary Impression: Vaso-occlusive sickle cell crisis Additional Impression: Cystitis Patient Instructions: General Instructions, Narcotic given in the ED Additional Instruction: Please follow up with Dr. Silver in the office Return to ER as needed Increase your liquid intake both for your sickle cell disease and for your urinary tract infection. It is important to establish a good urine flow across her kidneys when you have a urinary infection. The Macrobid is one tablet twice daily for 10 days. Med/Other Pt SpecificInfo: Prescription(s) given Scripts Nitrofurantoin Monohydrate Macrocrystals (Macrobid) 100 Mg Capsule 100 MG PO BID for Infection for 10 Days, #20 CAP 0 Refills Prov: Stone Tapia MD 04/14/17 Disposition: 01 DISCHARGE HOME Condition: Stable Stone Tapia MD Apr 14, 2017 20:45
[2017-04-14 20:54] LABS: CORRECTED NUCLEATED RBC 2 /100 WBC (0-0); KERATOCYTES 1+ (NORMAL); OVALOCYTES 1+ (NORMAL); POLYS (SEG NEUTROPHILS) 42 % (16-70); SICKLE CELLS 1+ (NORMAL); TARGET CELLS 2+ (NORMAL); TEARDROP RBCS 1+ (NORMAL); WBC DIFF SAMPLE 100
[2017-04-14 20:55] LABS: PLATELET ESTIMATE SMEAR HIGH (NORMAL); PLATELET MORPHOLOGY NORMAL (NORMAL); SCAN/DIFF FINAL DIFF MANUAL
[2017-04-14 20:59] VITALS: BP 114/71
[2017-04-14] MEDS ORDERED: NITROFURANTOIN MONOHYD MACROCR 100 MG CAP PO ONE (21:00)
== END 2017-04-14 21:02 | disposition home or self-care (01) ==
LOC: PHED 16:33
DX: D57.00 Hb-SS disease with crisis, unspecified (principal); N30.90 Cystitis, unspecified without hematuria; H40.9 Unspecified glaucoma; Z86.711 Personal history of pulmonary embolism; Z79.01 Long term (current) use of anticoagulants; Z79.899 Other long term (current) drug therapy; N39.0 Urinary tract infection, site not specified
CPT/HCPCS: 80048; 81001; 85007; 85027; 85044; 87077; 87086; 87186; 96361; 96374; 96375; 96376; 99284; J0780; J1170; J1200; J7030

== ENCOUNTER 2017-04-18 15:25 | Inpatient (IN) | payer MEDICARE, OTHER ==
[~2017-04-18] VITALS: Ht 170.2 cm; Wt 114.0 kg
[~2017-04-18 15:25] MED LIST changes: -CIPR-9 PO; +MACR100C2 PO
[2017-04-18 15:33] VITALS: BP 131/84; PULSE 111; RESP 20; TEMP 99.9; O2SAT 95
[2017-04-18] MEDS ORDERED: HYDR500C PO (16:37)
[2017-04-18 16:47] LABS: HEMATOCRIT 35.5 % (35.0-46.0); MEAN CELL VOLUME 85.7 FL (80.0-100.0); MEAN CORPUSCULAR HEMOGLOBIN 27.2 PG (27.0-34.0); MEAN CORPUSCULAR HGB CONC 31.7 % (32.0-36.0); PLATELET COUNT 358 TH/MM3 (150-450); RED BLOOD COUNT 4.14 MIL/MM3 (4.00-5.30)
[2017-04-18 16:51] LABS: HEMO FLAGS AUTO DIFF
[2017-04-18 16:58] LABS: CHLORIDE 103 MEQ/L (98-107); SODIUM (NA) 135 MEQ/L (136-145)
[2017-04-18 17:02] LABS: ANION GAP 7 MEQ/L (5-15); BICARBONATE 24.9 MEQ/L (21.0-32.0); BLOOD UREA NITROGEN 11 MG/DL (7-18)
[2017-04-18 17:04] LABS: POTASSIUM 5.1 MEQ/L (3.5-5.1)
[2017-04-18 17:05] LABS: ALT (GPT) 28 U/L (10-53)
[2017-04-18 17:07] LABS: AST (GOT) 49 U/L (15-37); GLOMERULAR FILTRATION RATE 70 ML/MIN (>89); TOTAL BILIRUBIN ADULT 1.2 MG/DL (0.2-1.0)
[2017-04-18 17:08] LABS: ALKALINE PHOSPHATASE 98 U/L (45-117)
[2017-04-18 17:28] LABS: BANDS 1 % (0-6); EOSINOPHILS 5 % (0-4); NEUTROPHIL # MANUAL DIFF 10.6 TH/MM3 (1.8-7.7); POLYS (SEG NEUTROPHILS) 58 % (16-70); WBC DIFF SAMPLE 100
[2017-04-18 17:30] LABS: ACANTHOCYTES OCC (NORMAL); KERATOCYTES 1+ (NORMAL); OVALOCYTES 1+ (NORMAL); ROULEAUX PRESENT (NORMAL); SICKLE CELLS 1+ (NORMAL); SPHEROCYTES OCC (NORMAL); STOMATOCYTES 1+ (NORMAL); TARGET CELLS 3+ (NORMAL)
[2017-04-18 17:31] LABS: PLATELET ESTIMATE SMEAR NORMAL (NORMAL); PLATELET MORPHOLOGY NORMAL (NORMAL); SCAN/DIFF FINAL DIFF MANUAL
[2017-04-18 17:44] LABS: RETIC % 2.8 % (0.4-3.0)
[2017-04-18 17:45] LABS: REVIEW FLAG FINAL
[2017-04-18 17:55] VITALS: BP 101/71; PULSE 99; RESP 18; O2SAT 96
--- NOTE | 2017-04-18 18:19 | PD ---
HPI Chief Complaint: Sickle Cell Time Seen by Provider: 16:24 Travel History International Travel<30 days: No Contact w/Intl Traveler<30days: No Traveled to known affect area: No History of Present Illness HPI This is a 31-year-old female who presents to the emergency department with a history of sickle cell disease and superior vena cava syndrome who presents to the emergency department with 2 days of increasing pain and swelling in her right upper extremity, constant, moderate severity with no numbness or tingling of the hand. She says this feels very similar to when she's had exacerbations of SVC syndrome in the past. The last exacerbation was in February. She had angioplasty and her symptoms improved after. PFSH Past Medical History Hx Anticoagulant Therapy: Yes (XARELTO - PE) Asthma: No Autoimmune Disease: No Blood Disorders: Yes (SICKLE CELL) Anxiety: Yes Depression: No Heart Rhythm Problems: No Cancer: No Cardiac Catheterization: Yes Cardiovascular Problems: Yes (heart murmur) High Cholesterol: No Chemotherapy: No Chest Pain: No Congestive Heart Failure: No COPD: No Cerebrovascular Accident: No Diabetes: No Diminished Hearing: No Endocrine: No Gastrointestinal Disorders: Yes (HX GALLSTONES--CHOLECYSTECTOMY) Genetic Disorder: Yes (SICKLE CELL) GERD: No Glaucoma: Yes Genitourinary: No Headaches: No Hepatitis: No Hiatal Hernia: No Heparin Induced Thrombocytopen: No Hypertension: No Immune Disorder: No Implanted Vascular Access Dvce: Yes (RIGHT CHEST INFUSAPORT: SEPTEMBER 2014 REMOVED ) Kidney Stones: No Medical other: Yes (SICKLE CELL ANEMIA) Musculoskeletal: Yes (ARTHRITIS) Neurologic: No Psychiatric: No Reproductive: No Respiratory: Yes (PULMONARY EMBOLISM) Immunizations Current: Yes Migraines: No Myocardial Infarction: No Pneumonia: Yes Radiation Therapy: No Renal Failure: No Seizures: No Sickle Cell Disease: Yes Sleep Apnea: No Thyroid Disease: No Ulcer: No ?: Not LMP: 04/08/17 : 10 Para: 4 Miscarriage: 6 : 0 Ectopic : No Ovarian Cysts: No Tubal Ligation: Yes Past Surgical History Abdominal Surgery: Yes AICD: No Arteriovenous Shunt: No Body Medical Devices: RIGHT INFUSAPORT (REMOVED 2012), LEFT REMOVED 2014, RIGHT POWER PORT 2014 R Cardiac Surgery: No Section: Yes (x2) Cholecystectomy: Yes Ear Surgery: No Endocrine Surgery: No Eye Surgery: Yes (CORRECTIVE EYE SURGERY-LEFT) Genitourinary Surgery: No Gynecologic Surgery: Yes ( X 2, 2007 AND 2012) Hysterectomy: No Insulin Pump: No Joint Replacement: No Neurologic Surgery: No Oral Surgery: No Pacemaker: No Thoracic Surgery: Yes (MRSA INFUSAPORT R SIDE REMOVED 05/2013, L SIDE INFUSAPORT REMOVED 07/20) Other Surgery: Yes (balloon to open up subclavian ?) Social History Alcohol Use: Yes (occas. wine) Tobacco Use: No Substance Use: No Allergies-Medications (Allergen,Severity, Reaction): Coded Allergies: ketorolac (Verified Allergy, Severe, RASH, 04/18/17) metoclopramide (Verified Allergy, Severe, RASH, 04/18/17) morphine (Verified Allergy, Severe, RASH, 04/18/17) ondansetron (Verified Allergy, Severe, RASH,ITCH, 04/18/17) *MDRO Multi-Drug Resistant Organism (Verified Adverse Reaction, Unknown, 04/18/17) 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 Reported Meds & Prescriptions Reported Meds & Active Scripts Active Macrobid (Nitrofurantoin Monohydrate Macrocrystals) 100 Mg Capsule 100 Mg PO BID 10 Days Reported Hydrea (Hydroxyurea) 500 Mg Cap 500 Mg PO DAILY Phenergan (Promethazine HCl) 25 Mg Tablet 25 Mg PO Q6H PRN Amitriptyline (Amitriptyline HCl) 25 Mg Tab 25 Mg PO HS Methadone (Methadone HCl) 10 Mg Tab 10 Mg PO DAILY Oxycodone (Oxycodone HCl) 5 Mg Cap 5 Mg PO BID PRN Review of Systems Except as stated in HPI: all other systems reviewed are Neg Physical Exam Narrative GENERAL:Well appearing, no acute distress SKIN: Focused skin assessment warm and dry. HEAD: Atraumatic. Normocephalic. EYES: Pupils equal and round. No injection or drainage. ENT: Moist mucous membranes NECK: Trachea midline. CARDIOVASCULAR: Regular rate and rhythm. No murmur appreciated. Plus right radial pulse with normal capillary refill. RESPIRATORY: Clear to auscultation. Breath sounds equal bilaterally. GASTROINTESTINAL: Abdomen soft, non-tender, nondistended. MUSCULOSKELETAL: Edema and swelling of the right upper extremity. NEUROLOGICAL: Awake and alert. No obvious cranial nerve deficits. Moving all extremities. PSYCHIATRIC: Appropriate mood and affect; insight and judgment normal. Data Data Last Documented VS Vital Signs Date Time Temp Pulse Resp B/P (MAP) Pulse Ox O2 Delivery O2 Flow Rate FiO2 04/18/17 19:15 16 04/18/17 19:00 98 Room Air 04/18/17 19:00 98 109/63 (78) 04/18/17 15:33 99.9 Orders Orders Complete Blood Count With Diff (04/18/17 16:29) Comprehensive Metabolic Panel (04/18/17 16:29) ^ Insert Iv (04/18/17 16:29) Retic Count (04/18/17 16:29) Prothrombin Time / Inr (Pt) (04/18/17 16:29) Act Partial Throm Time (Ptt) (04/18/17 16:29) Vascular Access Team Consult/P PRN (04/18/17 17:01) Vascular Poc Ultrasound (04/18/17 ) Hydromorphone Pf Inj (Dilaudid Pf Inj) (04/18/17 18:45) Promethazine Inj (Phenergan Inj) (04/18/17 18:45) Diphenhydramine Inj (Benadryl Inj) (04/18/17 18:45) Admit Order (Ed Use Only) (04/18/17 19:18) Labs Laboratory Tests Test 04/18/17 16:20 04/18/17 18:34 White Blood Count 18.0 TH/MM3 Red Blood Count 4.14 MIL/MM3 Hemoglobin 11.3 GM/DL Hematocrit 35.5 % Mean Corpuscular Volume 85.7 FL Mean Corpuscular Hemoglobin 27.2 PG Mean Corpuscular Hemoglobin Concent 31.7 % Red Cell Distribution Width 19.0 % Platelet Count 358 TH/MM3 Mean Platelet Volume 9.0 FL CBC Comment AUTO DIFF Differential Total Cells Counted 100 Neutrophils % (Manual) 58 % Band Neutrophils % 1 % Lymphocytes % 28 % Monocytes % 8 % Eosinophils % 5 % Neutrophils # (Manual) 10.6 TH/MM3 Differential Comment FINAL DIFF MANUAL Platelet Estimate NORMAL Platelet Morphology Comment NORMAL Spherocytes OCC Sickle Cells 1+ Target Cells 3+ Ovalocytes 1+ Stomatocytes 1+ Acanthocytes OCC Rouleau PRESENT Keratocytes 1+ Reticulocyte Count 2.8 % Absolute Reticulocyte Count 108.6 MIL/L Blood Urea Nitrogen 11 MG/DL Creatinine 1.10 MG/DL Random Glucose 78 MG/DL Total Protein 9.1 GM/DL Albumin 4.4 GM/DL Calcium Level 8.8 MG/DL Alkaline Phosphatase 98 U/L Aspartate Amino Transf (AST/SGOT) 49 U/L Alanine Aminotransferase (ALT/SGPT) 28 U/L Total Bilirubin 1.2 MG/DL Sodium Level 135 MEQ/L Potassium Level 5.1 MEQ/L Chloride Level 103 MEQ/L Carbon Dioxide Level 24.9 MEQ/L Anion Gap 7 MEQ/L Estimat Glomerular Filtration Rate 70 ML/MIN Prothrombin Time 10.9 SEC Prothromb Time International Ratio 1.0 RATIO Activated Partial Thromboplast Time 28.2 SEC MDM Medical Decision Making Medical Screen Exam Complete: Yes Emergency Medical Condition: Yes Interpretation(s) Low-grade temperature, tachycardia, no hypoxia Leukocytosis Electrolytes are reassuring Chest x-rays reassuring Urinalysis is negative for infection Differential Diagnosis Pneumonia, acute chest syndrome, SVC syndrome, DVT Narrative Course This is a 31-year-old female who has a history of sickle cell disease and SVC syndrome. She presents today with 2 days of increasing swelling in her right arm. She has required angioplasty to the SVC in the past. Labs were obtained which demonstrate a leukocytosis. She has a temperature 99.9 and is a little tachycardic. She doesn't localize any symptoms. I would observe this and if she develops a higher temperature than cultures can be obtained. I spoke to Dr. Bunch who recommended the patient be transported to the [facility] for intervention tomorrow morning by interventional radiology. Physician Communication Physician Communication Discussed with Dr. Bunch and Dr. Kothari Diagnosis Primary Impression: SVC syndrome Admitting Information Admitting Physician Requests: Admit Neetu Fink MD Apr 18, 2017 18:19
[2017-04-18] MEDS ORDERED: HYDROmorphone HCL PF 1 MG/ML VIAL IV PUSH ONE (18:45)
[2017-04-18] MEDS ORDERED: PROMETHAZINE INJ 25 MG/ML VIAL IM ONE (18:45)
[2017-04-18] MEDS ORDERED: diphenhydrAMINE HCL 50 MG/ML VIAL IV PUSH ONE (18:45)
[2017-04-18 19:00] VITALS: BP 109/63; PULSE 98; RESP 16; O2SAT 98
[2017-04-18 19:13] LABS: APTT (PATIENT) 28.2 SEC (24.3-30.1); PROTHROMBIN TIME - PATIENT 10.9 SEC (9.8-11.6)
[2017-04-18] MEDS ORDERED: HYDROmorphone HCL PF 1 MG/ML VIAL IV PUSH PRN (19:30)
[2017-04-18] MEDS ORDERED: MAGNESIUM HYDROXIDE SUSP 30 ML CUP PO PRN (19:30)
[2017-04-18] MEDS ORDERED: BISACODYL 10 MG SUPP RECTAL PRN (19:30)
[2017-04-18] MEDS ORDERED: ACETAMINOPHEN 325 MG TAB PO PRN (19:30)
[2017-04-18] MEDS ORDERED: LACTULOSE SYRUP 20 GM/30 ML CUP PO PRN (19:30)
[2017-04-18] MEDS ORDERED: SENNOSIDES 8.6 MG TAB PO PRN (19:30)
--- NOTE | 2017-04-18 20:16 | RADRPT ---
EXAM DATE/TIME: 04/18/2017 19:53 [facility] COMPARISON: CHEST SINGLE AP, February 13, 2017, 13:20. INDICATIONS : Swelling of right arm. MEDICAL HISTORY : Sickle Cell disease. Cardiovascular disease. SURGICAL HISTORY : Cholecystectomy. Infusaport ENCOUNTER: Initial ACUITY: 3 days PAIN SCORE: 2/10 LOCATION: Bilateral chest FINDINGS: A single view of the chest demonstrates the lungs to be symmetrically aerated without evidence of mas s, infiltrate or effusion. The cardiomediastinal contours are unremarkable. Osseous structures are intact. CONCLUSION: No acute disease. Antonio Bunch MD on April 18, 2017 at 20:14 Board Certified Radiologist. This report was verified electronically.
[2017-04-18] MEDS: SODIUM CHLOR 0.9% 1000 ML INJ 1,000 ML IV SCH (20:17)
[2017-04-18 20:24] LABS: BLOOD, URINE NEG (NEG); GLUCOSE,URINE NEG (NEG); KETONE, URINE NEG (NEG); NITRITE,URINE NEG (NEG); PH, URINE 5.5 (5.0-8.5)
[2017-04-18 20:34] VITALS: BP 113/66; PULSE 106; RESP 16; O2SAT 96
[2017-04-18 20:43] LABS: BETA HCG QUANT LESS THAN 1 MIU/ML (0-5)
[2017-04-18 20:55] LABS: METHOD OF COLLECTION CLEAN CATCH; URINE COLOR YELLOW (YELLW/STRAW)
[2017-04-18 21:00] LABS: COMMENT (UR) CULT NOT INDICATED; CULTURE IF INDICATED CULT NOT INDICATED
[2017-04-18] MEDS: AMITRIPTYLINE HCL 25 MG TAB PO SCH (21:33)
[2017-04-18] MEDS: DOCUSATE SODIUM 50 MG/SENNA 8.6 MG TAB PO SCH (21:33)
[2017-04-18] MEDS: SODIUM CHLORIDE 0.9% FLUSH 10 ML FLUSH IV FLUSH SCH (21:33)
[2017-04-19] VITALS (7 sets, daily range): BP systolic 102–118; BP diastolic 60–71; PULSE 87–102; RESP 16–18; TEMP 96.7–98.9; O2SAT 95–100
[2017-04-19] MEDS: diphenhydrAMINE HCL 50 MG/ML VIAL IV PUSH PRN ×4 (01:46→20:01)
[2017-04-19] MEDS: HYDROmorphone HCL PF 1 MG/ML VIAL IV PUSH PRN ×5 (01:47→20:01)
[2017-04-19] MEDS: SODIUM CHLOR 0.9% 1000 ML INJ 1,000 ML IV SCH ×3 (04:49→20:10)
[2017-04-19] MEDS: METHADONE HCL 10 MG TAB PO SCH (08:11)
[2017-04-19] MEDS: SODIUM CHLORIDE 0.9% FLUSH 10 ML FLUSH IV FLUSH SCH ×2 (08:13→20:01)
[2017-04-19 08:43] LABS: ANION GAP 9 MEQ/L (5-15); AST (GOT) 39 U/L (15-37); BICARBONATE 23.6 MEQ/L (21.0-32.0); CHLORIDE 104 MEQ/L (98-107); GLOMERULAR FILTRATION RATE 94 ML/MIN (>89); POTASSIUM 4.9 MEQ/L (3.5-5.1); SODIUM (NA) 137 MEQ/L (136-145)
--- NOTE | 2017-04-19 08:43 | HHI.HP ---
[facility] Carline Silver MD Admission Diagnosis svc syndrome Diagnoses: (1) SVC syndrome Diagnosis: Principal Chief Complaint: swelling and pain of the right upper extremity Travel History International Travel<30 Days: No Contact w/Intl Traveler <30 Da: No Traveled to Known Affected Are: No History of Present Illness patient is a 31 y/o female with history of sickle cell disease and SVC syndrome presented to ER with pain and swelling of the right upper extremity. she says that it's been going on for two days and it seems that the swelling is getting worse. pain was moderate. she's also complaining of generalized body ache. she denies any chest pain. is afebrile. Review of Systems Constitutional: DENIES: Fever, Weight loss, Chills, Night Sweats Eyes: DENIES: Blurred vision, Diplopia, Vision loss, Double Vision Ears, nose, mouth, throat: DENIES: Tinnitus, Vertigo, Throat pain, Epistaxis Respiratory: DENIES: Apneas, Cough, Snoring, Wheezing, Hemoptysis, Sputum production, Shortness of breath Cardiovascular: DENIES: Chest pain, Palpitations, Syncope, Dyspnea on Exertion , PND, Lower Extremity Edema, Orthopnea, Claudication Gastrointestinal: DENIES: Abdominal pain, Black stools, Bloody stools, Constipation, Diarrhea, Nausea, Vomiting, Difficulty Swallowing, Anorexia Genitourinary: DENIES: Urinary frequency, Urgency, Hematuria, Dysuria Musculoskeletal: COMPLAINS OF: Muscle aches (right arm), DENIES: Joint pain, Stiffness Integumentary: DENIES: Rash Neurologic: DENIES: Abnormal gait, Headache, Localized weakness, Paresthesias, Seizures, Speech Problems, Tremor, Poor Balance Psychiatric: DENIES: Anxiety, Confusion, Mood changes, Depression, Hallucinations, Agitation, Suicidal Ideation, Homicidal Ideation, Delusions swelling of the right arm. Past Family Social History Past Medical History sickle cell disease SVC syndrome PE retinal detachment Past Surgical History cholecystectomy port placement Reported Medications Hydrea (Hydroxyurea) 500 Mg Cap 500 Mg PO DAILY Phenergan (Promethazine HCl) 25 Mg Tablet 25 Mg PO Q6H PRN Amitriptyline (Amitriptyline HCl) 25 Mg Tab 25 Mg PO HS Methadone (Methadone HCl) 10 Mg Tab 10 Mg PO DAILY Oxycodone (Oxycodone HCl) 5 Mg Cap 5 Mg PO BID PRN Allergies: Coded Allergies: ketorolac (Verified Allergy, Severe, RASH, 04/18/17) metoclopramide (Verified Allergy, Severe, RASH, 04/18/17) morphine (Verified Allergy, Severe, RASH, 04/18/17) ondansetron (Verified Allergy, Severe, RASH,ITCH, 04/18/17) *MDRO Multi-Drug Resistant Organism (Verified Adverse Reaction, Unknown, 04/18/17) 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 Active Ordered Medications Current Medications Hydromorphone HCl (Dilaudid Pf Inj) 1 mg ONCE ONCE IV PUSH Last administered on 04/18/17 18:45; Start 04/18/17 at 18:45; Stop 04/18/17 at 18:46; Status DC Promethazine HCl (Phenergan Inj) 25 mg ONCE ONCE IM Last administered on 04/18 18:44; Start 04/18/17 at 18:45; Stop 04/18/17 at 18:46; Status DC Diphenhydramine HCl (Benadryl Inj) 25 mg ONCE ONCE IV PUSH Last administered on 04/18/17 18:44; Start 04/18/17 at 18:45; Stop 04/18/17 at 18:46; Status DC Diphenhydramine HCl (Benadryl Inj) 25 mg Q4H PRN IV PUSH ITCHING Last administered on 04/19/17 08:16; Start 04/18/17 at 19:30 Amitriptyline HCl (Elavil) 25 mg HS PO Last administered on 04/18/17 21:33; Start 04/18/17 at 21:00 Hydroxyurea (Hydrea) 500 mg DAILY PO ; Start 04/19/17 at 09:00 Methadone HCl (Dolophine) 10 mg DAILY PO Last administered on 04/19/17 08:11 ; Start 04/19/17 at 09:00 Sodium Chloride 1,000 ml @ 100 mls/hr Q10H IV Last administered on 04/19/17 04:49; Start 04/18/17 at 19:30 Sodium Chloride (NS Flush) 2 ml UNSCH PRN IV FLUSH FLUSH AFTER USING IV ACCESS ; Start 04/18/17 at 19:30 Sodium Chloride (NS Flush) 2 ml BID IV FLUSH Last administered on 04/19/17 08 :13; Start 04/18/17 at 21:00 Acetaminophen (Tylenol) 650 mg Q6H PRN PO FEVER/PAIN SCALE 1 TO 2; Start 04/18 at 19:30 Hydromorphone HCl (Dilaudid Pf Inj) 1 mg Q3H PRN IV PUSH Pain 3-5 Last administered on 04/18/17 22:49; Start 04/18/17 at 19:30 Hydromorphone HCl (Dilaudid Pf Inj) 2 mg Q3H PRN IV PUSH Pain 6-10 Last administered on 04/19/17 08:12; Start 04/18/17 at 19:30 Senna/Docusate Sodium (Mirna-Colace) 1 tab BID PO Last administered on 21:33; Start 04/18/17 at 21:00 Magnesium Hydroxide (Milk Of Magnesia Liq) 30 ml Q12H PRN PO Mild constipation ; Start 04/18/17 at 19:30 Sennosides (Senokot) 17.2 mg Q12H PRN PO Moderate constipation; Start at 19:30 Bisacodyl (Dulcolax Supp) 10 mg DAILY PRN RECTAL SEVERE CONSITIPATION; Start 04/18/17 at 19:30 Lactulose (Lactulose Liq) 30 ml DAILY PRN PO SEVERE CONSITIPATION; Start 04/18 at 19:30 Promethazine HCl (Phenergan Inj) 25 mg Q4H PRN IM NAUSEA/VOMITING; Start 04/18 at 19:30 Social History no smoking/ drinking. Physical Exam Vital Signs Vital Signs Date Time Temp Pulse Resp B/P (MAP) Pulse Ox O2 Delivery O2 Flow Rate FiO2 04/19/17 08:09 98.3 92 16 115/68 (84) 100 04/19/17 06:31 92 Nasal Cannula 2.00 04/19/17 01:00 98.5 102 16 118/71 (87) 98 04/19/17 01:00 92 04/19/17 00:00 97 16 102/60 (74) 95 04/18/17 23:19 16 04/18/17 20:34 106 16 113/66 (82) 96 Room Air 04/18/17 19:15 16 04/18/17 19:00 16 98 Room Air 04/18/17 19:00 98 16 109/63 (78) 98 Room Air 04/18/17 17:55 99 18 101/71 (81) 96 04/18/17 15:33 99.9 111 20 131/84 (100) 95 Physical Exam GENERAL: This is a well-nourished, well-developed patient, in no apparent distress. SKIN: No rashes, ecchymoses or lesions. Cool and dry. HEAD: Atraumatic. Normocephalic. No temporal or scalp tenderness. EYES: Pupils equal round and reactive. Extraocular motions intact. No scleral icterus. No injection or drainage. ENT: Nose without bleeding, purulent drainage or septal hematoma. Throat without erythema, tonsillar hypertrophy or exudate. Uvula midline. Airway patent. NECK: Trachea midline. No JVD or lymphadenopathy. Supple, nontender, no meningeal signs. CARDIOVASCULAR: Regular rate and rhythm without murmurs, gallops, or rubs. RESPIRATORY: Clear to auscultation. Breath sounds equal bilaterally. No wheezes , rales, or rhonchi. GASTROINTESTINAL: Abdomen soft, non-tender, nondistended. No hepato-splenomegaly , or palpable masses. No guarding. MUSCULOSKELETAL: swelling of the right upper extremity. NEUROLOGICAL: Awake and alert. Cranial nerves II through XII intact. Motor and sensory grossly within normal limits. Five out of 5 muscle strength in all muscle groups. Normal speech. Laboratory Laboratory Tests Test 04/18/17 16:20 04/18/17 18:34 04/18/17 19:54 04/18/17 20:05 White Blood Count 18.0 Red Blood Count 4.14 Hemoglobin 11.3 Hematocrit 35.5 Mean Corpuscular Volume 85.7 Mean Corpuscular Hemoglobin 27.2 Mean Corpuscular Hemoglobin Concent 31.7 Red Cell Distribution Width 19.0 Platelet Count 358 Mean Platelet Volume 9.0 CBC Comment AUTO DIFF Differential Total Cells Counted 100 Neutrophils % (Manual) 58 Band Neutrophils % 1 Lymphocytes % 28 Monocytes % 8 Eosinophils % 5 Neutrophils # (Manual) 10.6 Differential Comment FINAL DIFF MANUAL Platelet Estimate NORMAL Platelet Morphology Comment NORMAL Spherocytes OCC Sickle Cells 1+ Target Cells 3+ Ovalocytes 1+ Stomatocytes 1+ Acanthocytes OCC Rouleau PRESENT Keratocytes 1+ Reticulocyte Count 2.8 Absolute Reticulocyte Count 108.6 Blood Urea Nitrogen 11 Creatinine 1.10 Random Glucose 78 Total Protein 9.1 Albumin 4.4 Calcium Level 8.8 Alkaline Phosphatase 98 Aspartate Amino Transf (AST/SGOT) 49 Alanine Aminotransferase (ALT/SGPT) 28 Total Bilirubin 1.2 Sodium Level 135 Potassium Level 5.1 Chloride Level 103 Carbon Dioxide Level 24.9 Anion Gap 7 Estimat Glomerular Filtration Rate 70 Prothrombin Time 10.9 Prothromb Time International Ratio 1.0 Activated Partial Thromboplast Time 28.2 Human Chorionic Gonadotropin, Quant LESS THAN 1 Urine Collection Type CLEAN CATCH Urine Color YELLOW Urine Turbidity CLEAR Urine pH 5.5 Urine Specific [place] 1.010 Urine Protein NEG Urine Glucose (UA) NEG Urine Ketones NEG Urine Occult Blood NEG Urine Nitrite NEG Urine Bilirubin NEG Urine Leukocyte Esterase NEG Urine WBC 3-5 Urine Squamous Epithelial Cells 3-5 Microscopic Urinalysis Comment CULT NOT INDICATED Test 04/19/17 01:12 04/19/17 08:00 Nasal Screen MRSA (PCR) MRSA NOT DETECTED Result Diagram: 04/18/17 16204/[id number]/171619 Caprini VTE Risk Assessment Caprini VTE Risk Assessment: Mod/High Risk (score >= 2) Caprini Risk Assessment Model Point Value = 1 Point Value = 2 Point Value = 3 Point Value = 5 Age 41-60 Minor surgery BMI > 25 kg/m2 Swollen legs Varicose veins or History of unexplained or recurrent spontaneous Oral contraceptives or hormone replacement Sepsis (< 1 month) Serious lung disease, including pneumonia (< 1 month) Abnormal pulmonary function Acute myocardial infarction Congestive heart failure (< 1 month) History of inflammatory bowel disease Medical patient at bed rest Age 61-74 Arthroscopic surgery Major open surgery (> 45 min) Laparoscopic surgery (> 45 min) Malignancy Confined to bed (> 72 hours) Immobilizing plaster cast Central venous access Age >= 75 History of VTE Family history of VTE Factor V Leiden Prothrombin [id number] Lupus anticoagulant Anticardiolipin antibodies Elevated serum homocysteine Heparin-induced thrombocytopenia Other congenital or acquired thrombophilia Stroke (< 1 month) Elective arthroplasty Hip, pelvis, or leg fracture Acute spinal cord injury (< 1 month) Prophylaxis Regimen Total Risk Factor Score Risk Level Prophylaxis Regimen 0-1 Low Early ambulation 2 Moderate Order ONE of the following: *Sequential Compression Device (SCD) *Heparin 5000 units SQ BID 3-4 Higher Order ONE of the following medications: *Heparin 5000 units SQ TID *Enoxaparin/Lovenox 40 mg SQ daily (WT < 150 kg, CrCl > 30 mL/min) *Enoxaparin/Lovenox 30 mg SQ daily (WT < 150 kg, CrCl > 10-29 mL/min) *Enoxaparin/Lovenox 30 mg SQ BID (WT < 150 kg, CrCl > 30 mL/min) AND/OR *Sequential Compression Device (SCD) 5 or more Highest Order ONE of the following medications: *Heparin 5000 units SQ TID (Preferred with Epidurals) *Enoxaparin/Lovenox 40 mg SQ daily (WT < 150 kg, CrCl > 30 mL/min) *Enoxaparin/Lovenox 30 mg SQ daily (WT < 150 kg, CrCl > 10-29 mL/min) *Enoxaparin/Lovenox 30 mg SQ BID (WT < 150 kg, CrCl > 30 mL/min) AND *Sequential Compression Device (SCD) Assessment and Plan Assessment and Plan A/P - SVC syndrome IR consulted. continue with pain control. -sickle cell disease continue Hydroxyurea and pain control with methadone. hematology consulted. -DVT prophylaxis; SCD's for now- awaiting IR procedure- Discussed Condition With the patient and RN. Physician Certification 2 Midnight Certification Type: Admission for Inpatient Services Order for Inpatient Services The services are ordered in accordance with Medicare regulations or non- Medicare payer requirements, as applicable. In the case of services not specified as inpatient-only, they are appropriately provided as inpatient services in accordance with the 2-midnight benchmark. Estimated LOS (days): 2 days is the estimated time the patient will need to remain in the hospital, assuming treatment plan goals are met and no additional complications. Post-Hospital Plan: Home Physician Certification 2 Midnight Certification Type: Admission for Inpatient Services Order for Inpatient Services The services are ordered in accordance with Medicare regulations or non- Medicare payer requirements, as applicable. In the case of services not specified as inpatient-only, they are appropriately provided as inpatient services in accordance with the 2-midnight benchmark. Estimated LOS (days): 2 days is the estimated time the patient will need to remain in the hospital, assuming treatment plan goals are met and no additional complications. Post-Hospital Plan: Home Juan Salinas MD Apr 19, 2017 08:43
[2017-04-19 08:44] LABS: ALT (GPT) 28 U/L (10-53)
[2017-04-19 08:46] LABS: ALKALINE PHOSPHATASE 83 U/L (45-117)
[2017-04-19 08:47] LABS: BLOOD UREA NITROGEN 7 MG/DL (7-18)
[2017-04-19] MEDS: HYDROXYUREA 500 MG CAP PO SCH (08:50)
[2017-04-19] MEDS: DOCUSATE SODIUM 50 MG/SENNA 8.6 MG TAB PO SCH ×2 (09:00→20:01)
[2017-04-19 09:57] LABS: AUTOMATED NEUTROPHIL # 9.5 TH/MM3 (1.8-7.7); BASOPHIL # 0.1 TH/MM3 (0-0.2); BASOPHIL % 0.8 % (0.0-2.0); EOSINOPHIL # 0.2 TH/MM3 (0-0.4); EOSINOPHIL % 1.8 % (0.0-4.0); HEMATOCRIT 26.6 % (35.0-46.0); LYMPH % 17.6 % (9.0-44.0); LYMPHOCYTE # 2.4 TH/MM3 (1.0-4.8); MEAN CELL VOLUME 80.5 FL (80.0-100.0); MEAN CORPUSCULAR HEMOGLOBIN 27.6 PG (27.0-34.0); MEAN CORPUSCULAR HGB CONC 34.4 % (32.0-36.0); MONO % 10.6 % (0.0-8.0); NEUT % 69.2 % (16.0-70.0); PLATELET COUNT 382 TH/MM3 (150-450); RED BLOOD COUNT 3.31 MIL/MM3 (4.00-5.30); RED CELL DISTRIBUTION WIDTH 19.7 % (11.6-17.2); WHITE BLOOD COUNT 13.7 TH/MM3 (4.0-11.0)
[2017-04-19 10:03] LABS: HEMO FLAGS AUTO DIFF
[2017-04-19 11:06] LABS: TARGET CELLS 3+ (NORMAL)
[2017-04-19 11:07] LABS: KERATOCYTES OCC (NORMAL); SCAN/DIFF AUTO DIFF CONFIRMED
--- NOTE | 2017-04-19 19:38 | MB ---
cc: HAWA CARMICHAEL M.D., ABDUL J. M.D. DATE OF CONSULTATION: 04/19/2017. REASON FOR CONSULTATION: Consult requested by the hospitalist for followup of sickle-cell anemia in a patient who is admitted with swelling of the right upper extremity. HISTORY OF PRESENT ILLNESS: This is a 31-year-old very pleasant female. She is under the care of Dr. Carmichael for sickle-cell anemia. She was recently found to have SVC syndrome due to SVC stenosis. She underwent angioplasty by the interventional radiologist. However, there was no significant change noted. She was also evaluated by vascular surgeon Dr. Solano. The patient was recommended for observation. The patient came to the emergency room with severe swelling of the right upper extremity. She stated that she cannot even bend her elbow and it is so painful. The patient came to the [facility] Emergency Room where she was transferred to the [facility] hospital for the interventional radiologist to do the procedure. The patient has been n.p.o. since yesterday and she has been waiting for interventional radiology to do the procedure. She states she is very hungry and she wants to know when the procedure would be done. She has been complaining of headaches and heaviness. She is c/o swelling of the face. She denies any nausea or vomiting. Her appetite is poor. She denies any nausea, vomiting or weight loss. She denies any bleeding episodes. PAST MEDICAL HISTORY: 1. Sickle-cell anemia with multiple painful crises. 2. 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 3. Glaucoma. PAST SURGICAL HISTORY: 1. section. 2. Cholecystectomy. 3. Angioplasty. 4. Infusaport placement which was subsequently removed. ALLERGIES: 1. CEFEPIME. 2. TITRALAC. 3. MORPHINE. 4. REGLAN. 5. ZOFRAN. MEDICATIONS: 1. Amitriptyline. 2. Methadone. 3. Naprosyn. 4. Oxycodone. 5. Promethazine. FAMILY HISTORY: Family history is noncontributory. SOCIAL HISTORY: The patient does not smoke cigarettes and does not drink alcohol. PHYSICAL EXAMINATION: GENERAL: This is a well-developed, well-nourished -[place] female. VITAL SIGNS: Temperature 98.9, heart rate is 88, blood pressure 107/62, 02 saturation 95%. HEAD, EYES, EARS, NOSE, THROAT: The left pupil is opacified. No oral lesions noted. Face is swollen NECK: No lymphadenopathy. LUNGS: Clear. No wheezes, rales or rhonchi. HEART: Regular rate and rhythm. ABDOMEN: Abdomen soft and nontender. EXTREMITIES: Significant swelling noted in the right upper extremity which is very tender to touch. NEUROLOGY: Awake, alert and oriented times three. SKIN: No significant lesions noted. ASSESSMENT: 1. Severe swelling of the right upper extremity and face due to superior vena cava syndrome. 2. Sickle-cell disease with no painful crisis at the present time. PLAN: I have discussed with the patient and her caregiver regarding further treatment plan. The patient is waiting for interventional radiology to do the angioplasty today. She has been NPO since yesterday and she is very hungry. I have notified the nurse to find out what time the procedure would be done by the interventional radiologist. If they are not going to do it today, then the patient can eat. She had a blood test today, which showed white count 13.7, hemoglobin 9.1, hematocrit 26.6 and platelet count 382,000. The patient does not require any blood transfusions. She is not in painful crisis. The patient needs the interventional radiologist's help to do the angioplasty and improve the superior vena cava stenosis. Dr. Carmichael, her combination saw operator, will see her tomorrow and will make further recommendations. Thank you for asking my opinion. MD MIGUEL Beal/HAM /6:26 PM /7:25 PM ZA
[2017-04-19] MEDS: AMITRIPTYLINE HCL 25 MG TAB PO SCH (20:01)
[2017-04-19] MEDS: PROMETHAZINE INJ 25 MG/ML VIAL IM PRN (20:57)
[2017-04-20] VITALS (7 sets, daily range): BP systolic 103–127; BP diastolic 64–77; PULSE 74–100; RESP 18–20; TEMP 98.4–98.8; O2SAT 94–100
[2017-04-20] MEDS: diphenhydrAMINE HCL 50 MG/ML VIAL IV PUSH PRN ×5 (01:34→21:14)
[2017-04-20] MEDS: HYDROmorphone HCL PF 1 MG/ML VIAL IV PUSH PRN ×5 (01:35→21:13)
[2017-04-20] MEDS: SODIUM CHLOR 0.9% 1000 ML INJ 1,000 ML IV SCH ×2 (05:13→21:15)
[2017-04-20] MEDS: PROMETHAZINE INJ 25 MG/ML VIAL IM PRN ×2 (05:37→21:20)
--- NOTE | 2017-04-20 08:39 | HHI.PR ---
Subjective Remarks f/u; SVC syndrome still complaining of some swelling and pain to the right am. d/w the RN; noted that her O2 sat dropped to 88 on RA last night and the patient mentions that while walking she's having exertional dyspnea. remains afebrile. Objective Vitals Vital Signs Date Time Temp Pulse Resp B/P (MAP) Pulse Ox O2 Delivery O2 Flow Rate FiO2 04/20/17 05:59 18 04/20/17 04:05 98.6 96 18 107/64 (78) 100 04/20/17 00:05 98.7 100 20 120/71 (87) 96 04/19/17 21:31 91 04/19/17 21:26 Nasal Cannula 2.00 04/19/17 20:00 96.7 91 18 111/66 (81) 95 04/19/17 18:04 98.9 88 16 107/62 (77) 95 04/19/17 09:30 87 I/O 04/19/17 04/19/17 04/19/17 04/20/17 04/20/17 04/20/17 07:00 15:00 23:00 07:00 15:00 23:00 Intake Total 1460 ml 500 ml 2440 ml Output Total 2000 ml Balance 1460 ml 500 ml 440 ml Intake Oral 1440 ml IV Total 1460 ml 500 ml 1000 ml Output Urine Total 2000 ml # Voids 2 Result Diagram: 04/19/17 0943 04/19/17 0800 Imaging Last Impressions Chest X-Ray 04/18/17 0000 Signed Impressions: Service Date/Time: Tuesday, April 18, 2017 19:53 - CONCLUSION: No acute disease. Antonio Bunch MD Objective Remarks GENERAL: This is a well-nourished, well-developed patient, in no apparent distress. CARDIOVASCULAR: Regular rate and regular rhythm without murmurs, gallops, or rubs. RESPIRATORY: Clear to auscultation. Breath sounds equal bilaterally. No wheezes , rales, or rhonchi. GASTROINTESTINAL: Abdomen soft, non-tender, nondistended. Normal, active bowel sounds MUSCULOSKELETAL: right arm is swollen and tender NEURO: Alert & Oriented x4 to person, place, time, situation. Moves all ext x4 Medications and IVs Current Medications Hydromorphone HCl (Dilaudid Pf Inj) 1 mg ONCE ONCE IV PUSH Last administered on 04/18/17 18:45; Start 04/18/17 at 18:45; Stop 04/18/17 at 18:46; Status DC Promethazine HCl (Phenergan Inj) 25 mg ONCE ONCE IM Last administered on 04/18 18:44; Start 04/18/17 at 18:45; Stop 04/18/17 at 18:46; Status DC Diphenhydramine HCl (Benadryl Inj) 25 mg ONCE ONCE IV PUSH Last administered on 04/18/17 18:44; Start 04/18/17 at 18:45; Stop 04/18/17 at 18:46; Status DC Diphenhydramine HCl (Benadryl Inj) 25 mg Q4H PRN IV PUSH ITCHING Last administered on 04/20/17 05:29; Start 04/18/17 at 19:30 Amitriptyline HCl (Elavil) 25 mg HS PO Last administered on 04/19/17 20:01; Start 04/18/17 at 21:00 Hydroxyurea (Hydrea) 500 mg DAILY PO Last administered on 04/19/17 08:50; Start 04/19/17 at 09:00 Methadone HCl (Dolophine) 10 mg DAILY PO Last administered on 04/19/17 08:11 ; Start 04/19/17 at 09:00 Sodium Chloride 1,000 ml @ 100 mls/hr Q10H IV Last administered on 04/20/17 05:13; Start 04/18/17 at 19:30 Sodium Chloride (NS Flush) 2 ml UNSCH PRN IV FLUSH FLUSH AFTER USING IV ACCESS ; Start 04/18/17 at 19:30 Sodium Chloride (NS Flush) 2 ml BID IV FLUSH Last administered on 04/19/17 20 :01; Start 04/18/17 at 21:00 Acetaminophen (Tylenol) 650 mg Q6H PRN PO FEVER/PAIN SCALE 1 TO 2; Start 04/18 at 19:30 Hydromorphone HCl (Dilaudid Pf Inj) 1 mg Q3H PRN IV PUSH Pain 3-5 Last administered on 04/18/17 22:49; Start 04/18/17 at 19:30 Hydromorphone HCl (Dilaudid Pf Inj) 2 mg Q3H PRN IV PUSH Pain 6-10 Last administered on 04/20/17 05:29; Start 04/18/17 at 19:30 Senna/Docusate Sodium (Mirna-Colace) 1 tab BID PO Last administered on 20:01; Start 04/18/17 at 21:00 Magnesium Hydroxide (Milk Of Magnesia Liq) 30 ml Q12H PRN PO Mild constipation ; Start 04/18/17 at 19:30 Sennosides (Senokot) 17.2 mg Q12H PRN PO Moderate constipation; Start at 19:30 Bisacodyl (Dulcolax Supp) 10 mg DAILY PRN RECTAL SEVERE CONSITIPATION; Start 04/18/17 at 19:30 Lactulose (Lactulose Liq) 30 ml DAILY PRN PO SEVERE CONSITIPATION; Start 04/18 at 19:30 Promethazine HCl (Phenergan Inj) 25 mg Q4H PRN IM NAUSEA/VOMITING Last administered on 04/20/17 05:37; Start 04/18/17 at 19:30 A/P Assessment and Plan A/P - SVC syndrome IR consulted. continue with pain control. -sickle cell disease continue Hydroxyurea and pain control with methadone. hematology consulted. -hypoxemia with history of PE; will check CTA chest- keep on oxygen via N/C to keep O2 sat >90%- will add neb treatment as needed. -DVT prophylaxis; SCD's for now- awaiting IR procedure- d/w the RN and hematology. Juan Salinas MD Apr 20, 2017 08:39
[2017-04-20] MEDS ORDERED: RESP: ALBUTEROL 0.63 MG/3 ML NEB (PRN) NEB (08:45)
[2017-04-20] MEDS: SODIUM CHLORIDE 0.9% FLUSH 10 ML FLUSH IV FLUSH SCH ×2 (09:00→19:34)
[2017-04-20] MEDS: HYDROXYUREA 500 MG CAP PO SCH (10:18)
[2017-04-20] MEDS: DOCUSATE SODIUM 50 MG/SENNA 8.6 MG TAB PO SCH ×2 (10:19→20:52)
[2017-04-20] MEDS: METHADONE HCL 10 MG TAB PO SCH (10:19)
--- NOTE | 2017-04-20 10:57 | PD.ONC.PN ---
Subjective Subjective Remarks Afebrile overnight. Patient resting in bed. Frustrated that she is having more incidences of SVC syndrome. Doesn't understand why it keeps happening. Continued swelling in RUQ. Reporting dyspnea with exertion. Objective Data Date Time Temp Pulse Resp B/P (MAP) Pulse Ox O2 Delivery O2 Flow Rate FiO2 04/20/17 05:59 18 04/20/17 04:05 98.6 96 18 107/64 (78) 100 04/20/17 00:05 98.7 100 20 120/71 (87) 96 04/19/17 21:31 91 04/19/17 21:26 Nasal Cannula 2.00 04/19/17 20:00 96.7 91 18 111/66 (81) 95 04/19/17 18:04 98.9 88 16 107/62 (77) 95 04/20/17 04/20/17 04/20/17 07:00 15:00 23:00 Intake Total 2440 ml Output Total 2000 ml Balance 440 ml Result Diagram: 04/19/17 0943 04/19/17 0800 Administered Medications Medications (Trade) Dose Ordered Sig/Evi Route PRN Reason Start Time Stop Time Status Last Admin Dose Admin Diphenhydramine HCl (Benadryl Inj) 25 mg Q4H PRN IV PUSH ITCHING 04/18/17 19:30 04/20/17 10:16 Amitriptyline HCl (Elavil) 25 mg HS PO 04/18/17 21:00 04/19/17 20:01 Hydroxyurea (Hydrea) 500 mg DAILY PO 04/19/17 09:00 04/20/17 10:18 Methadone HCl (Dolophine) 10 mg DAILY PO 04/19/17 09:00 04/20/17 10:19 Sodium Chloride 1,000 ml @ 100 mls/hr Q10H IV 04/18/17 19:30 04/20/17 05:13 Sodium Chloride (NS Flush) 2 ml BID IV FLUSH 04/18/17 21:00 04/20/17 09:00 Hydromorphone HCl (Dilaudid Pf Inj) 1 mg Q3H PRN IV PUSH Pain 3-5 04/18/17 19:30 04/18/17 22:49 Hydromorphone HCl (Dilaudid Pf Inj) 2 mg Q3H PRN IV PUSH Pain 6-10 04/18/17 19:30 04/20/17 10:16 Senna/Docusate Sodium (Mirna-Colace) 1 tab BID PO 04/18/17 21:00 04/20/17 10:19 Promethazine HCl (Phenergan Inj) 25 mg Q4H PRN IM NAUSEA/VOMITING 04/18/17 19:30 04/20/17 05:37 Objective Remarks GENERAL: Young woman, lying in bed in NAD. On 2L O2 via NC SKIN: Warm and dry. HEAD: Normocephalic. EYES: No injection or drainage. NECK: Supple, trachea midline. CARDIOVASCULAR: Regular rate and rhythm RESPIRATORY: Breath sounds equal bilaterally. No accessory muscle use. GASTROINTESTINAL: Abdomen soft, non-tender, nondistended. EXTREMITIES: No cyanosis. RUE with edema. fingertips warm and well perfused. NEUROLOGICAL: awake and alert, normal speech. Assessment/Plan Problem List: (1) Sickle cell anemia ICD Codes: D57.1 - Sickle cell anemia Status: Acute (2) SVC syndrome ICD Codes: I87.1 - SVC syndrome Status: Acute Plan: --Severe swelling of the right upper extremity and face due to superior vena cava syndrome. --(previous hospitalization) underwent angioplasty by the interventional radiologist. no significant change noted. --also evaluated by vascular surgeon Dr. Solano (past hospitalization). patient was recommended for observation. Assessment 31y/o female with sickle-cell anemia admitted with swelling of the right upper extremity. h/o Glaucoma. Plan 1. await invasive radiology assessment 2. monitor CBC 3. continue supportive care 4. CTA Attending Statement The exam, history, and the medical decision-making described in the above note were completed with the assistance of the mid-level provider. I reviewed and agree with the findings presented. I attest that I had a [id number] encounter with the patient on the same day, and personally performed and documented my assessment and findings in the medical record. Pt seen and examined. Last dose Xarelto on Thursday. Express her compliance. With missed dose Thu and Thursday in anticipate of angioplasty for SVC syndrome, pt developed PE and hypoxia. As discussed, UFH will be started to be stopped 2 hours prior to angioplasty procedure. Concerning symptoms of SVC obstruction, arm swelling while on Xarelto. Monitor hgb, chronic anemia secondary to sickle cell disease. Chronic pain , cont meds and breakthrough. Crystal Mora Apr 20, 2017 10:57 Carline Silver MD Apr 20, 2017 18:56
[2017-04-20 12:57] LABS: AUTOMATED NEUTROPHIL # 6.5 TH/MM3 (1.8-7.7); BASOPHIL # 0.1 TH/MM3 (0-0.2); BASOPHIL % 1.1 % (0.0-2.0); EOSINOPHIL # 0.4 TH/MM3 (0-0.4); EOSINOPHIL % 3.5 % (0.0-4.0); HEMATOCRIT 26.1 % (35.0-46.0); HEMO FLAGS DIFF FINAL; LYMPH % 31.1 % (9.0-44.0); LYMPHOCYTE # 3.6 TH/MM3 (1.0-4.8); MEAN CELL VOLUME 80.6 FL (80.0-100.0); MEAN CORPUSCULAR HEMOGLOBIN 28.2 PG (27.0-34.0); MONO % 8.4 % (0.0-8.0); NEUT % 55.9 % (16.0-70.0); PLATELET COUNT 409 TH/MM3 (150-450); RED BLOOD COUNT 3.24 MIL/MM3 (4.00-5.30); RED CELL DISTRIBUTION WIDTH 19.1 % (11.6-17.2); WHITE BLOOD COUNT 11.7 TH/MM3 (4.0-11.0)
[2017-04-20 13:16] LABS: ANION GAP 8 MEQ/L (5-15); BICARBONATE 27.4 MEQ/L (21.0-32.0); BLOOD UREA NITROGEN 5 MG/DL (7-18); CHLORIDE 104 MEQ/L (98-107); GLOMERULAR FILTRATION RATE 105 ML/MIN (>89); POTASSIUM 3.9 MEQ/L (3.5-5.1); SODIUM (NA) 139 MEQ/L (136-145)
[2017-04-20 13:18] LABS: ALT (GPT) 34 U/L (10-53); AST (GOT) 22 U/L (15-37)
[2017-04-20 13:20] LABS: ALKALINE PHOSPHATASE 104 U/L (45-117); TOTAL BILIRUBIN ADULT 0.7 MG/DL (0.2-1.0)
[2017-04-20] MEDS ORDERED: IOHEXOL 350 MG/ML 10 ML VIAL (for RAD DIAG) IVCONTRAST ONE (15:52)
--- NOTE | 2017-04-20 16:37 | RADRPT ---
EXAM DATE/TIME: 04/20/2017 15:39 [facility] COMPARISON: CT PULMONARY ANGIOGRAM, May 29, 2015, 14:33. INDICATIONS : Exertional dyspnea; evaluate for thrombosis. IV CONTRAST: 50 cc Omnipaque 350 (iohexol) IV RADIATION DOSE: 17.05 CTDIvol (mGy) MEDICAL HISTORY : Cardiovascular disease. Sickle Cell disease. SVC Syndrome. SURGICAL HISTORY : Tubal ligation. ENCOUNTER: Initial ACUITY: 2 days PAIN SCALE: 0/10 LOCATION: chest TECHNIQUE: Volumetric scanning of the chest was performed using a pulmonary embolism protocol MIP images were re constructed. Using automated exposure control and adjustment of the mA and/or kV according to patien t size, radiation dose was kept as low as reasonably achievable to obtain optimal diagnostic quality images. DICOM format image data is available electronically for review and comparison. Follow-up recommendations for detected pulmonary nodules are based at a minimum on nodule size and pa tient risk factors according to Fleischner Society Guidelines. FINDINGS: PULMONARY ARTERIES: There is less than optimal opacification of the pulmonary arteries. A single filling defect is visual ized centrally within the right lower lobe pulmonary artery. LUNGS: There is a stable scar in the right upper lobe. Mild atelectasis is present at the lung bases. PLEURAE: There is no pleural thickening or pleural effusion. MEDIASTINUM: Main pulmonary artery measures 3.4 cm compared to the adjacent ascending aorta which measures 3.3 cm. No lymphadenopathy is visualized. MUSCULOSKELETAL: There is stable sclerosis and lucency in the humeral heads bilaterally characteristic of osteonecrosi s. No acute osseous abnormality is identified. MISCELLANEOUS: The visualized upper abdominal organs demonstrate no acute abnormality. CONCLUSION: 1. There is a single filling defect in the right lower lobar pulmonary artery characteristic of acute PE. No other PE is visualized. 2. Main pulmonary arteries are at the upper limits for normal in size. 3. 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 Sam Arroyo MD on April 20, 2017 at 16:31 Board Certified Radiologist. This report was verified electronically.
[2017-04-20] MEDS ORDERED: HEPARIN SODIUM - IV 10,000 UNITS/10 ML VIAL IV ONE (18:30)
[2017-04-20] MEDS ORDERED: HEPARIN-D5W 25,000 U/250 ML 250 ML IV PRN (19:00)
[2017-04-20] MEDS ORDERED: HEPARIN SODIUM - IV 10,000 UNITS/10 ML VIAL IV PUSH ONE (19:00)
[2017-04-20 20:08] LABS: HEMATOCRIT 26.2 % (35.0-46.0); MEAN CELL VOLUME 81.6 FL (80.0-100.0); MEAN CORPUSCULAR HGB CONC 34.3 % (32.0-36.0); PLATELET COUNT 378 TH/MM3 (150-450); RED BLOOD COUNT 3.21 MIL/MM3 (4.00-5.30); RED CELL DISTRIBUTION WIDTH 19.8 % (11.6-17.2); REVIEW FLAG FINAL; WHITE BLOOD COUNT 12.1 TH/MM3 (4.0-11.0)
[2017-04-20 20:18] LABS: APTT (PATIENT) 27.4 SEC (24.3-30.1); PROTHROMBIN TIME - PATIENT 10.6 SEC (9.8-11.6)
[2017-04-20] MEDS: AMITRIPTYLINE HCL 25 MG TAB PO SCH (21:14)
[2017-04-21] VITALS (13 sets, daily range): BP systolic 102–165; BP diastolic 51–88; PULSE 79–104; RESP 18–20; TEMP 97.7–98.6; O2SAT 92–100
[2017-04-21 02:02] LABS: AUTOMATED NEUTROPHIL # 6.4 TH/MM3 (1.8-7.7); BASOPHIL # 0.1 TH/MM3 (0-0.2); BASOPHIL % 0.7 % (0.0-2.0); EOSINOPHIL # 0.5 TH/MM3 (0-0.4); EOSINOPHIL % 3.8 % (0.0-4.0); HEMATOCRIT 27.1 % (35.0-46.0); HEMO FLAGS DIFF FINAL; LYMPHOCYTE # 4.3 TH/MM3 (1.0-4.8); MEAN CELL VOLUME 81.1 FL (80.0-100.0); MEAN CORPUSCULAR HEMOGLOBIN 27.8 PG (27.0-34.0); MEAN CORPUSCULAR HGB CONC 34.3 % (32.0-36.0); MONO % 8.1 % (0.0-8.0); NEUT % 52.4 % (16.0-70.0); PLATELET COUNT 399 TH/MM3 (150-450); RED BLOOD COUNT 3.34 MIL/MM3 (4.00-5.30); RED CELL DISTRIBUTION WIDTH 19.6 % (11.6-17.2); WHITE BLOOD COUNT 12.2 TH/MM3 (4.0-11.0)
[2017-04-21 02:12] LABS: APTT (PATIENT) 41.5 SEC (24.3-30.1)
[2017-04-21 02:46] LABS: BICARBONATE 27.5 MEQ/L (21.0-32.0)
[2017-04-21] MEDS: diphenhydrAMINE HCL 50 MG/ML VIAL IV PUSH PRN ×4 (03:07→19:38)
[2017-04-21] MEDS: HYDROmorphone HCL PF 1 MG/ML VIAL IV PUSH PRN ×2 (03:08→07:26)
[2017-04-21 07:11] LABS: APTT (PATIENT) 30.2 SEC (24.3-30.1)
[2017-04-21] MEDS: PROMETHAZINE INJ 25 MG/ML VIAL IM PRN ×3 (07:25→19:38)
--- NOTE | 2017-04-21 07:52 | HHI.PR ---
Subjective Remarks f/u; SVC syndrome/ PE in no acute distress. however still with exertional dyspnea. on oxygen via N/C. still with pain and swelling of the right arm. Objective Vitals Vital Signs Date Time Temp Pulse Resp B/P (MAP) Pulse Ox O2 Delivery O2 Flow Rate FiO2 04/21/17 06:34 98.6 86 18 102/51 (68) 97 04/21/17 03:59 16 04/20/17 21:44 98.4 91 18 114/69 (84) 98 04/20/17 21:15 Nasal Cannula 2.00 04/20/17 16:00 95 20 127/77 (94) 98 04/20/17 14:50 Nasal Cannula 2.00 04/20/17 12:00 96 20 123/75 (91) 97 04/20/17 10:00 98.8 74 20 103/65 (78) 94 I/O 04/20/17 04/20/17 04/20/17 04/21/17 04/21/17 04/21/17 07:00 15:00 23:00 07:00 15:00 23:00 Intake Total 2440 ml 1460 ml 51 ml Output Total 2000 ml Balance 440 ml 1460 ml 51 ml Intake Oral 1440 ml 480 ml IV Total 1000 ml 980 ml 51 ml Output Urine Total 2000 ml Result Diagram: 04/21/17 0138 04/21/17 [address] Angiography 04/20/17 0000 Signed Impressions: Service Date/Time: Thursday, April 20, 2017 15:39 - CONCLUSION: 1. There is a single filling defect in the right lower lobar pulmonary artery characteristic of acute PE. No other PE is visualized. 2. Main pulmonary arteries are at the upper limits for normal in size. 3. 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 Sam Arroyo MD Chest X-Ray 04/18/17 0000 Signed Impressions: Service Date/Time: Tuesday, April 18, 2017 19:53 - CONCLUSION: No acute disease. Antonio Bunch MD Objective Remarks GENERAL: This is a well-nourished, well-developed patient, in no apparent distress. CARDIOVASCULAR: Regular rate and regular rhythm without murmurs, gallops, or rubs. RESPIRATORY: Clear to auscultation. Breath sounds equal bilaterally. No wheezes , rales, or rhonchi. GASTROINTESTINAL: Abdomen soft, non-tender, nondistended. Normal, active bowel sounds MUSCULOSKELETAL: right arm is swollen and tender NEURO: Alert & Oriented x4 to person, place, time, situation. Moves all ext x4 Medications and IVs Current Medications Hydromorphone HCl (Dilaudid Pf Inj) 1 mg ONCE ONCE IV PUSH Last administered on 04/18/17 18:45; Start 04/18/17 at 18:45; Stop 04/18/17 at 18:46; Status DC Promethazine HCl (Phenergan Inj) 25 mg ONCE ONCE IM Last administered on 04/18 18:44; Start 04/18/17 at 18:45; Stop 04/18/17 at 18:46; Status DC Diphenhydramine HCl (Benadryl Inj) 25 mg ONCE ONCE IV PUSH Last administered on 04/18/17 18:44; Start 04/18/17 at 18:45; Stop 04/18/17 at 18:46; Status DC Diphenhydramine HCl (Benadryl Inj) 25 mg Q4H PRN IV PUSH ITCHING Last administered on 04/21/17 07:25; Start 04/18/17 at 19:30 Amitriptyline HCl (Elavil) 25 mg HS PO Last administered on 04/20/17 21:14; Start 04/18/17 at 21:00 Hydroxyurea (Hydrea) 500 mg DAILY PO Last administered on 04/20/17 10:18; Start 04/19/17 at 09:00 Methadone HCl (Dolophine) 10 mg DAILY PO Last administered on 04/20/17 10:19 ; Start 04/19/17 at 09:00 Sodium Chloride 1,000 ml @ 100 mls/hr Q10H IV Last administered on 04/20/17 21:15; Start 04/18/17 at 19:30 Sodium Chloride (NS Flush) 2 ml UNSCH PRN IV FLUSH FLUSH AFTER USING IV ACCESS ; Start 04/18/17 at 19:30 Sodium Chloride (NS Flush) 2 ml BID IV FLUSH Last administered on 04/20/17 09 :00; Start 04/18/17 at 21:00 Acetaminophen (Tylenol) 650 mg Q6H PRN PO FEVER/PAIN SCALE 1 TO 2; Start 04/18 at 19:30 Hydromorphone HCl (Dilaudid Pf Inj) 1 mg Q3H PRN IV PUSH Pain 3-5 Last administered on 04/18/17 22:49; Start 04/18/17 at 19:30 Hydromorphone HCl (Dilaudid Pf Inj) 2 mg Q3H PRN IV PUSH Pain 6-10 Last administered on 04/21/17 07:26; Start 04/18/17 at 19:30 Senna/Docusate Sodium (Mirna-Colace) 1 tab BID PO Last administered on 10:19; Start 04/18/17 at 21:00 Magnesium Hydroxide (Milk Of Magnesia Liq) 30 ml Q12H PRN PO Mild constipation ; Start 04/18/17 at 19:30 Sennosides (Senokot) 17.2 mg Q12H PRN PO Moderate constipation; Start at 19:30 Bisacodyl (Dulcolax Supp) 10 mg DAILY PRN RECTAL SEVERE CONSITIPATION; Start 04/18/17 at 19:30 Lactulose (Lactulose Liq) 30 ml DAILY PRN PO SEVERE CONSITIPATION; Start 04/18 at 19:30 Promethazine HCl (Phenergan Inj) 25 mg Q4H PRN IM NAUSEA/VOMITING Last administered on 04/21/17 07:25; Start 04/18/17 at 19:30 Albuterol Sulfate (Albuterol Neb) 0.63 mg Q4HR NEB PRN NEB SHORTNESS OF BREATH ; Start 04/20/17 at 08:45 Iohexol (Omnipaque 350 Inj) 50 ml STK-MED ONCE IVCONTRAST Last administered on 04/20/17 15:52; Start 04/20/17 at 15:52; Stop 04/20/17 at 15:53; Status DC Heparin Sodium (Porcine) (Heparin Inj) 9,000 units NOW ONCE IV ; Start at 18:30; Stop 04/20/17 at 18:31; Status DC Heparin Sodium (Porcine) (Heparin Inj) 8,000 units ONCE ONCE IV PUSH Last administered on 04/20/17 21:13; Start 04/20/17 at 19:00; Stop 04/20/17 at 19 :18; Status DC Heparin Sodium/ Dextrose 250 ml @ 18 mls/hr TITRATE PRN IV Coagulation management Last administered on 04/21/17t 00:02; Start 04/20/17 at 19:00 A/P Assessment and Plan A/P - SVC syndrome IR consulted;awaiting angiogram. continue with pain control. -acute PE started on heparin drip- keep on oxygen to keep O2 sat > 90%. hematology following. -sickle cell disease continue Hydroxyurea and pain control with methadone. hematology following. -DVT prophylaxis;on Heparin drip. Juan Salinas MD Apr 21, 2017 07:52
[2017-04-21] MEDS: SODIUM CHLORIDE 0.9% FLUSH 10 ML FLUSH IV FLUSH SCH ×2 (09:00→19:39)
[2017-04-21] MEDS: DOCUSATE SODIUM 50 MG/SENNA 8.6 MG TAB PO SCH ×2 (09:00→19:40)
[2017-04-21] MEDS: METHADONE HCL 10 MG TAB PO SCH (09:09)
[2017-04-21] MEDS: HYDROXYUREA 500 MG CAP PO SCH (09:15)
[2017-04-21] MEDS: SODIUM CHLOR 0.9% 1000 ML INJ 1,000 ML IV SCH ×2 (09:16→17:30)
--- NOTE | 2017-04-21 10:15 | PD.ONC.PN ---
Subjective Subjective Remarks Afebrile overnight. Patient resting in bed. Continue swelling in upper extremities, RUE>LUE. short of breath with exertion. waiting to go for procedure today. Objective Data Date Time Temp Pulse Resp B/P (MAP) Pulse Ox O2 Delivery O2 Flow Rate FiO2 04/21/17 08:11 98.4 86 18 102/62 (75) 96 04/21/17 06:34 98.6 86 18 102/51 (68) 97 04/21/17 04:08 79 04/21/17 03:59 16 04/21/17 00:01 104 04/20/17 21:44 98.4 91 18 114/69 (84) 98 04/20/17 21:15 Nasal Cannula 2.00 04/20/17 20:09 89 04/20/17 16:00 95 20 127/77 (94) 98 04/20/17 14:50 Nasal Cannula 2.00 04/20/17 12:00 96 20 123/75 (91) 97 04/21/17 04/21/17 04/21/17 07:00 15:00 23:00 Intake Total 51 ml Balance 51 ml Result Diagram: 04/21/17 0138 04/21/17 0138 Laboratory Results Laboratory Tests Test 04/20/17 12:20 04/20/17 19:30 04/21/17 01:38 04/21/17 06:24 White Blood Count 11.7 TH/MM3 12.1 TH/MM3 12.2 TH/MM3 Red Blood Count 3.24 MIL/MM3 3.21 MIL/MM3 3.34 MIL/MM3 Hemoglobin 9.1 GM/DL 9.0 GM/DL 9.3 GM/DL Hematocrit 26.1 % 26.2 % 27.1 % Mean Corpuscular Volume 80.6 FL 81.6 FL 81.1 FL Mean Corpuscular Hemoglobin 28.2 PG 28.0 PG 27.8 PG Mean Corpuscular Hemoglobin Concent 35.0 % 34.3 % 34.3 % Red Cell Distribution Width 19.1 % 19.8 % 19.6 % Platelet Count 409 TH/MM3 378 TH/MM3 399 TH/MM3 Mean Platelet Volume 8.2 FL 8.1 FL 8.0 FL Neutrophils (%) (Auto) 55.9 % 52.4 % Lymphocytes (%) (Auto) 31.1 % 35.0 % Monocytes (%) (Auto) 8.4 % 8.1 % Eosinophils (%) (Auto) 3.5 % 3.8 % Basophils (%) (Auto) 1.1 % 0.7 % Neutrophils # (Auto) 6.5 TH/MM3 6.4 TH/MM3 Lymphocytes # (Auto) 3.6 TH/MM3 4.3 TH/MM3 Monocytes # (Auto) 1.0 TH/MM3 1.0 TH/MM3 Eosinophils # (Auto) 0.4 TH/MM3 0.5 TH/MM3 Basophils # (Auto) 0.1 TH/MM3 0.1 TH/MM3 CBC Comment DIFF FINAL DIFF FINAL Differential Comment Blood Urea Nitrogen 5 MG/DL 5 MG/DL Creatinine 0.77 MG/DL 0.86 MG/DL Random Glucose 124 MG/DL 124 MG/DL Total Protein 7.1 GM/DL Albumin 3.4 GM/DL Calcium Level 9.1 MG/DL 8.8 MG/DL Alkaline Phosphatase 104 U/L Aspartate Amino Transf (AST/SGOT) 22 U/L Alanine Aminotransferase (ALT/SGPT) 34 U/L Total Bilirubin 0.7 MG/DL Sodium Level 139 MEQ/L 138 MEQ/L Potassium Level 3.9 MEQ/L 4.0 MEQ/L Chloride Level 104 MEQ/L 104 MEQ/L Carbon Dioxide Level 27.4 MEQ/L 27.5 MEQ/L Anion Gap 8 MEQ/L 7 MEQ/L Estimat Glomerular Filtration Rate 105 ML/MIN 93 ML/MIN Prothrombin Time 10.6 SEC Prothromb Time International Ratio 1.0 RATIO Activated Partial Thromboplast Time 27.4 SEC 41.5 SEC 30.2 SEC Lactate Dehydrogenase 186 U/L Administered Medications Medications (Trade) Dose Ordered Sig/Evi Route PRN Reason Start Time Stop Time Status Last Admin Dose Admin Diphenhydramine HCl (Benadryl Inj) 25 mg Q4H PRN IV PUSH ITCHING 04/18/17 19:30 04/21/17 07:25 Amitriptyline HCl (Elavil) 25 mg HS PO 04/18/17 21:00 04/20/17 21:14 Hydroxyurea (Hydrea) 500 mg DAILY PO 04/19/17 09:00 04/21/17 09:15 Methadone HCl (Dolophine) 10 mg DAILY PO 04/19/17 09:00 04/21/17 09:09 Sodium Chloride 1,000 ml @ 100 mls/hr Q10H IV 04/18/17 19:30 04/21/17 09:16 Sodium Chloride (NS Flush) 2 ml BID IV FLUSH 04/18/17 21:00 04/20/17 09:00 Hydromorphone HCl (Dilaudid Pf Inj) 1 mg Q3H PRN IV PUSH Pain 3-5 04/18/17 19:30 04/18/17 22:49 Hydromorphone HCl (Dilaudid Pf Inj) 2 mg Q3H PRN IV PUSH Pain 6-10 04/18/17 19:30 04/21/17 07:26 Senna/Docusate Sodium (Mirna-Colace) 1 tab BID PO 04/18/17 21:00 04/20/17 10:19 Promethazine HCl (Phenergan Inj) 25 mg Q4H PRN IM NAUSEA/VOMITING 04/18/17 19:30 04/21/17 07:25 Heparin Sodium/ Dextrose 250 ml @ 18 mls/hr TITRATE PRN IV Coagulation management 04/20/17 19:00 04/21/17 00:02 Objective Remarks GENERAL: Young woman, lying in bed watching TV SKIN: Warm and dry. peripheral IV's noted in left arm without bleeding HEAD: Normocephalic. EYES: No injection or drainage. NECK: Supple, trachea midline. CARDIOVASCULAR: Regular rhythm, mildly tachycardic RESPIRATORY: diminished at bases, anterior garner clear. on 2L O2 via [place] GASTROINTESTINAL: Abdomen soft, non-tender, nondistended. EXTREMITIES: No cyanosis. bilateral upper extremity edema noted, right UE> left UE. fingertips warm and well perfused. NEUROLOGICAL: No obvious focal deficit. Awake, alert, and oriented x3. Assessment/Plan Problem List: (1) SVC syndrome ICD Codes: I87.1 - SVC syndrome Status: Acute Plan: 04/21: going to invasive radiology for angioplasty today. 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 --(previous hospitalization) underwent angioplasty by the interventional radiologist. no significant change noted. --also evaluated by vascular surgeon Dr. Solano (past hospitalization). patient was recommended for observation. (2) Sickle cell anemia ICD Codes: D57.1 - Sickle cell anemia Status: Acute Plan: --on hydrea Assessment 31y/o female with sickle-cell anemia admitted with swelling of the right upper extremity. h/o Glaucoma. Plan 1. monitor CBC 2. consult field case manager for assistance with social issues, patient needs notes for sons for school/work 3. angioplasty in invasive radiology today. Attending Statement The exam, history, and the medical decision-making described in the above note were completed with the assistance of the mid-level provider. I reviewed and agree with the findings presented. I attest that I had a [id number] encounter with the patient on the same day, and personally performed and documented my assessment and findings in the medical record. Pt feeling better, swelling less. Discussed plan to continue UFH until AM, anticipate DC and resume NOAC. Consider Eliquis which is twice a day which may improve anticoagulant effect in light of recurrent PE. Cont fu as out pt for sickle cell and chronic pain. HU started to increase hgb F levels, reduce end organ damage from chronic sickling, pending evaluation for response. Problem Qualifiers (1) Sickle cell anemia: Qualified Codes: D57.1 - Sickle-cell disease without crisis Crystal Mora Apr 21, 2017 10:15 Carline Silver MD Apr 21, 2017 19:08
[2017-04-21] MEDS ORDERED: MIDAZOLAM HCL 5 MG/5 ML VIAL ONE (11:34)
[2017-04-21] MEDS ORDERED: HYDROmorphone HCL PF 2 MG/ML VIAL IV PRN (11:45)
--- NOTE | 2017-04-21 12:48 | PD.RAD ---
Post Procedure Progress Note Pre Procedure Diagnosis: (1) SVC syndrome Post Procedure Diagnosis: (1) SVC syndrome Procedure Date: Apr 21, 2017 Supervising Radiologist: Christo Glover Proceduralist/Assist: Martina Villela RT(R), RT Darrick(R)() Anesthesia: Local, Analgesia, Conscious Sedation Plan of Activity Patient to Unit: ROPU Patient Condition: Good See PACS Report for procedural detail/treatment Vascular-Venous Procedure Procedure 1 Procedure Site: Thoracic (SVC) Procedure(s): Angioplasty (18mm), Venogram Access Access Site(s): Right Jugular Vein Closure Site(s): Right manual pressure Findings: Mild central SVC stenosis. No collaterals. MAIL PROCESSING CLERK to 18mm Christo Glover MD Apr 21, 2017 12:48
[2017-04-21] MEDS ORDERED: IOHEXOL 350 MG/ML 50 ML BTL (for RAD DIAG) OTHER ONE (13:38)
[2017-04-21] MEDS: HYDROmorphone HCL PF 2 MG/ML VIAL IV PRN ×2 (14:56→19:38)
--- NOTE | 2017-04-21 16:51 | RADRPT ---
EXAM DATE/TIME: 04/21/2017 11:33 [facility] COMPARISON: VENOGRAM, SUPERIOR VENA CAVA, February 25, 2017, 10:40. INDICATIONS : Patient with history of SVC syndrome in need of venogram with angioplasty. MEDICAL HISTORY : Sickle cell anemia, Diabetes, Renal stones, SVC syndrome, PE, Retinal detachment SURGICAL HISTORY : Cholecystectomy, Port placement and removal, SVC angioplasty, Cardiac cath ENCOUNTER: Subsequent ACUITY: 4 - 6 days PAIN SCORE: 6/10 LOCATION: Right upper arm FLUORO TIME: 2.6 minutes IMAGE SERIES: 2 ACCESS SITE: Right Internal jugular vein SEDATION TIME: 45 minutes CONTRAST: 1.) 20 cc Omnipaque (iohexol) 350 MEDICATION(S): 1.) 4 mg midazolam (Versed) IV 2.) 150 mcg fentanyl (Sublimaze) IV DEVICE(S): 1.) Superior vena cava XXL Balloon [id number] 75CM MOTEL MANAGER balloon PROCEDURE : 1. Ultrasound-guided puncture of the right femoral vein. 2. Conscious sedation with continuous EKG and Oximetry monitoring. 3. Angiography of the SVC 4. 18 mm balloon angioplasty, SVC The risks, benefits and alternatives to the procedure were explained and verbal and written consent w as obtained. The site was prepped in sterile fashion. Full sterile technique was used, including ca p, mask, sterile gloves and gown and a large sterile sheet. Hand hygiene and 2% chlorhexidine and/or betadine/alcohol prep was utilized per protocol for cutaneous antisepsis. Sterile gel and sterile p robe cover were utilized for ultrasound guidance. The skin and subcutaneous tissues were infiltrated with local anesthetic solution. With ultrasound and fluoroscopic guidance the right femoral vein was punctured and a vascular sheath was placed. Angiography of the SVC showed a mild central stenosis at the junction with the right atrium. No colla teral circulation to suggest a significant stenosis. However, as the patient reports return of SVC sy mptoms, 18 mm balloon angioplasty was performed with a small central waist which partially resolved. Postprocedural venography showed a small residual stenosis but again, no flow restriction. The puncture site was closed with manual pressure and hemostasis was obtained. The patient tolerated the procedure well and there were no complications. Conscious sedation was performed with the prescribed dosages and duration as above in the presence of an independent trained radiology nurse to assist in the monitoring of the patient. EKG and oximetry remained stable throughout the procedure. CONCLUSION: 1. 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 No collateral circulation. 2. 18 mm balloon angioplasty of the same stenosis with some interval improvement. Christo Glover MD on April 21, 2017 at 16:44 Board Certified Radiologist. This report was verified electronically.
[2017-04-21] MEDS: AMITRIPTYLINE HCL 25 MG TAB PO SCH (19:37)
[2017-04-22] VITALS (7 sets, daily range): BP systolic 102–148; BP diastolic 65–78; PULSE 90–101; RESP 14–18; TEMP 98–98.7; O2SAT 97–100
[2017-04-22] MEDS: PROMETHAZINE INJ 25 MG/ML VIAL IM PRN ×4 (00:42→22:42)
[2017-04-22] MEDS: diphenhydrAMINE HCL 50 MG/ML VIAL IV PUSH PRN ×6 (00:42→22:41)
[2017-04-22] MEDS: HYDROmorphone HCL PF 2 MG/ML VIAL IV PRN ×6 (00:43→22:41)
[2017-04-22 03:07] LABS: AUTOMATED NEUTROPHIL # 5.4 TH/MM3 (1.8-7.7); BASOPHIL # 0.1 TH/MM3 (0-0.2); BASOPHIL % 1.1 % (0.0-2.0); EOSINOPHIL # 0.5 TH/MM3 (0-0.4); HEMO FLAGS DIFF FINAL; LYMPH % 37.6 % (9.0-44.0); LYMPHOCYTE # 4.2 TH/MM3 (1.0-4.8); MEAN CELL VOLUME 80.7 FL (80.0-100.0); MEAN CORPUSCULAR HEMOGLOBIN 27.7 PG (27.0-34.0); MEAN CORPUSCULAR HGB CONC 34.3 % (32.0-36.0); MONO % 8.9 % (0.0-8.0); NEUT % 48.4 % (16.0-70.0); PLATELET COUNT 356 TH/MM3 (150-450); RED BLOOD COUNT 3.09 MIL/MM3 (4.00-5.30); RED CELL DISTRIBUTION WIDTH 19.8 % (11.6-17.2); WHITE BLOOD COUNT 11.2 TH/MM3 (4.0-11.0)
[2017-04-22 03:15] LABS: APTT (PATIENT) 31.4 SEC (24.3-30.1)
[2017-04-22 03:38] LABS: BICARBONATE 29.1 MEQ/L (21.0-32.0); POTASSIUM 4.2 MEQ/L (3.5-5.1)
[2017-04-22] MEDS: SODIUM CHLOR 0.9% 1000 ML INJ 1,000 ML IV SCH ×3 (05:31→21:00)
--- NOTE | 2017-04-22 08:23 | HHI.PR ---
Subjective Remarks in no acute distress. pain and swelling of the right arm is better. still with some exertional dyspnea. Objective Vitals Vital Signs Date Time Temp Pulse Resp B/P (MAP) Pulse Ox O2 Delivery O2 Flow Rate FiO2 04/22/17 06:18 16 04/22/17 05:21 98.1 94 16 121/78 (92) 97 04/22/17 04:06 90 04/22/17 00:37 98.0 93 16 138/71 (93) 98 04/22/17 00:06 96 04/21/17 20:11 95 04/21/17 20:00 Nasal Cannula 2.00 04/21/17 19:42 97.7 96 18 130/80 (97) 100 04/21/17 16:49 98.2 90 18 150/68 (95) 95 04/21/17 14:30 98.0 92 18 165/72 (103) 94 04/21/17 14:05 96 20 115/74 (88) 92 04/21/17 13:35 96 20 108/70 (83) 92 04/21/17 13:05 92 20 129/88 (102) 96 04/21/17 12:50 98 20 129/88 (102) 97 04/21/17 10:09 18 I/O 04/21/17 04/21/17 04/21/17 04/22/17 04/22/17 04/22/17 07:00 15:00 23:00 07:00 15:00 23:00 Intake Total 51 ml 600 ml 2220 ml Output Total 1000 ml Balance 51 ml -400 ml 2220 ml Intake Oral 600 ml 480 ml IV Total 51 ml 1740 ml Output Urine Total 1000 ml # Voids 4 Result Diagram: 04/22/179 04/22/179 Imaging Last Impressions Vena Cavagram 04/21/172005 Signed Impressions: Service Date/Time: Friday, April 21, 2017 11:33 - CONCLUSION: 1. 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 No collateral circulation. 2. 18 mm balloon angioplasty of the same stenosis with some interval improvement. Christo Glover MD CT Angiography 04/20/17 Signed Impressions: Service Date/Time: Thursday, April 20, 2017 15:39 - CONCLUSION: 1. There is a single filling defect in the right lower lobar pulmonary artery characteristic of acute PE. No other PE is visualized. 2. Main pulmonary arteries are at the upper limits for normal in size. 3. 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 Sam Arroyo MD Chest X-Ray 04/18/17 0000 Signed Impressions: Service Date/Time: Tuesday, April 18, 2017 19:53 - CONCLUSION: No acute disease. Antonio Bunch MD Objective Remarks GENERAL: This is a well-nourished, well-developed patient, in no apparent distress. CARDIOVASCULAR: Regular rate and regular rhythm without murmurs, gallops, or rubs. RESPIRATORY: Clear to auscultation. Breath sounds equal bilaterally. No wheezes , rales, or rhonchi. GASTROINTESTINAL: Abdomen soft, non-tender, nondistended. Normal, active bowel sounds MUSCULOSKELETAL: right arm is swollen and tender NEURO: Alert & Oriented x4 to person, place, time, situation. Moves all ext x4 Procedures angioplasty Medications and IVs Current Medications Hydromorphone HCl (Dilaudid Pf Inj) 1 mg ONCE ONCE IV PUSH Last administered on 04/18/17 18:45; Start 04/18/17 at 18:45; Stop 04/18/17 at 18:46; Status DC Promethazine HCl (Phenergan Inj) 25 mg ONCE ONCE IM Last administered on 04/18 18:44; Start 04/18/17 at 18:45; Stop 04/18/17 at 18:46; Status DC Diphenhydramine HCl (Benadryl Inj) 25 mg ONCE ONCE IV PUSH Last administered on 04/18/17 18:44; Start 04/18/17 at 18:45; Stop 04/18/17 at 18:46; Status DC Diphenhydramine HCl (Benadryl Inj) 25 mg Q4H PRN IV PUSH ITCHING Last administered on 04/22/17 05:30; Start 04/18/17 at 19:30 Amitriptyline HCl (Elavil) 25 mg HS PO Last administered on 04/21/17 19:37; Start 04/18/17 at 21:00 Hydroxyurea (Hydrea) 500 mg DAILY PO Last administered on 04/21/17 09:15; Start 04/19/17 at 09:00 Methadone HCl (Dolophine) 10 mg DAILY PO Last administered on 04/21/17 09:09 ; Start 04/19/17 at 09:00 Sodium Chloride 1,000 ml @ 100 mls/hr Q10H IV Last administered on 04/22/17 05:31; Start 04/18/17 at 19:30 Sodium Chloride (NS Flush) 2 ml UNSCH PRN IV FLUSH FLUSH AFTER USING IV ACCESS ; Start 04/18/17 at 19:30 Sodium Chloride (NS Flush) 2 ml BID IV FLUSH Last administered on 04/21/17 19 :39; Start 04/18/17 at 21:00 Acetaminophen (Tylenol) 650 mg Q6H PRN PO FEVER/PAIN SCALE 1 TO 2; Start 04/18 at 19:30 Hydromorphone HCl (Dilaudid Pf Inj) 1 mg Q3H PRN IV PUSH Pain 3-5 Last administered on 04/18/17 22:49; Start 04/18/17 at 19:30; Stop 04/21/17 at 11 :44; Status DC Hydromorphone HCl (Dilaudid Pf Inj) 2 mg Q3H PRN IV PUSH Pain 6-10 Last administered on 04/21/17 07:26; Start 04/18/17 at 19:30; Stop 04/21/17 at 11 :45; Status DC Senna/Docusate Sodium (Mirna-Colace) 1 tab BID PO Last administered on 19:40; Start 04/18/17 at 21:00 Magnesium Hydroxide (Milk Of Magnesia Liq) 30 ml Q12H PRN PO Mild constipation ; Start 04/18/17 at 19:30 Sennosides (Senokot) 17.2 mg Q12H PRN PO Moderate constipation; Start at 19:30 Bisacodyl (Dulcolax Supp) 10 mg DAILY PRN RECTAL SEVERE CONSITIPATION; Start 04/18/17 at 19:30 Lactulose (Lactulose Liq) 30 ml DAILY PRN PO SEVERE CONSITIPATION; Start 04/18 at 19:30 Promethazine HCl (Phenergan Inj) 25 mg Q4H PRN IM NAUSEA/VOMITING Last administered on 04/22/17 05:30; Start 04/18/17 at 19:30 Albuterol Sulfate (Albuterol Neb) 0.63 mg Q4HR NEB PRN NEB SHORTNESS OF BREATH ; Start 04/20/17 at 08:45 Iohexol (Omnipaque 350 Inj) 50 ml STK-MED ONCE IVCONTRAST Last administered on 04/20/17 15:52; Start 04/20/17 at 15:52; Stop 04/20/17 at 15:53; Status DC Heparin Sodium (Porcine) (Heparin Inj) 9,000 units NOW ONCE IV ; Start at 18:30; Stop 04/20/17 at 18:31; Status DC Heparin Sodium (Porcine) (Heparin Inj) 8,000 units ONCE ONCE IV PUSH Last administered on 04/20/17 21:13; Start 04/20/17 at 19:00; Stop 04/20/17 at 19 :18; Status DC Heparin Sodium/ Dextrose 250 ml @ 18 mls/hr TITRATE PRN IV Coagulation management Last administered on 04/21/17 00:02; Start 04/20/17 at 19:00 Midazolam HCl (Versed Inj) 5 mg STK-MED ONCE .ROUTE Last administered on 11:55; Start 04/21/17 at 11:34; Stop 04/21/17 at 11:35; Status DC Fentanyl Citrate (fentaNYL INJ) 200 mcg STK-MED ONCE .ROUTE Last administered on 04/21/17 11:55; Start 04/21/17 at 11:35; Stop 04/21/17 at 11:36; Status DC Hydromorphone HCl (Dilaudid Pf Inj) 1 mg Q3H PRN IV PAIN 3-5; Start 04/21/17 at 11:45 Hydromorphone HCl (Dilaudid Pf Inj) 2 mg Q3H PRN IV PAIN 6-10 Last administered on 04/22/17 05:30; Start 04/21/17 at 12:00 Iohexol (Omnipaque 350 Inj) 20 ml STK-MED ONCE OTHER Last administered on 04/21 12:15; Start 04/21/17 at 13:38; Stop 04/21/17 at 13:39; Status DC A/P Problem List: (1) 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 continue with pain control. -acute PE started on heparin drip- keep on oxygen to keep O2 sat > 90%. will start on po anticoagulation soon- per hematology. walk test today. -sickle cell disease continue Hydroxyurea and pain control with methadone. hematology following. -DVT prophylaxis;on Heparin drip. Discharge Planning possible discharge within the next 24 hrs. f/u; pcp and hematology as outpatient. Juan Salinas MD Apr 22, 2017 08:23
[2017-04-22] MEDS: METHADONE HCL 10 MG TAB PO SCH (09:40)
[2017-04-22] MEDS: DOCUSATE SODIUM 50 MG/SENNA 8.6 MG TAB PO SCH ×2 (09:40→21:00)
[2017-04-22] MEDS: HYDROXYUREA 500 MG CAP PO SCH (09:46)
[2017-04-22] MEDS: SODIUM CHLORIDE 0.9% FLUSH 10 ML FLUSH IV FLUSH SCH ×2 (09:48→21:00)
[2017-04-22] MEDS ORDERED: OXYGENDME NAS.CANULA (11:54)
--- NOTE | 2017-04-22 11:55 | HHI.FF ---
Face to Face Verification Diagnosis: (1) Pulmonary embolism Home Health Nursing Order: Medical education Signs/symptoms of disease process Oxygen administration education Medication education-adverse effect Nursing assessment with vital signs I have seen patient Carrie Sullivan on 04/22/17. My clinical findings support the need for the requested home health care services because: Patient has SOB I certify that my clinical findings support that this patient is homebound because: Hx COPD- exertion dyspnea/weakness Juan Salinas MD Apr 22, 2017 11:55
--- NOTE | 2017-04-22 11:57 | PD.ONC.PN ---
Subjective Subjective Remarks Afebrile overnight. Patient resting in bed in nad. Swelling starting to improve since angioplasty yesterday. still requiring supplemental O2. Objective Data Date Time Temp Pulse Resp B/P (MAP) Pulse Ox O2 Delivery O2 Flow Rate FiO2 04/22/17 10:28 3.00 04/22/17 10:13 96 Nasal Cannula 2.00 04/22/17 09:00 98.1 101 18 148/76 (100) 98 04/22/17 06:18 16 04/22/17 05:21 98.1 94 16 121/78 (92) 97 04/22/17 04:06 90 04/22/17 00:37 98.0 93 16 138/71 (93) 98 04/22/17 00:06 96 04/21/17 20:11 95 04/21/17 20:00 Nasal Cannula 2.00 04/21/17 19:42 97.7 96 18 130/80 (97) 100 04/21/17 16:49 98.2 90 18 150/68 (95) 95 04/21/17 14:30 98.0 92 18 165/72 (103) 94 04/21/17 14:05 96 20 115/74 (88) 92 04/21/17 13:35 96 20 108/70 (83) 92 04/21/17 13:05 92 20 129/88 (102) 96 04/21/17 12:50 98 20 129/88 (102) 97 04/22/17 04/22/17 04/22/17 06:59 14:59 22:59 Intake Total 2220 ml Balance 2220 ml Result Diagram: 04/22/1724804/22/17248 Laboratory Results Laboratory Tests Test 04/22/17 02:49 White Blood Count 11.2 TH/MM3 Red Blood Count 3.09 MIL/MM3 Hemoglobin 8.6 GM/DL Hematocrit 25.0 % Mean Corpuscular Volume 80.7 FL Mean Corpuscular Hemoglobin 27.7 PG Mean Corpuscular Hemoglobin Concent 34.3 % Red Cell Distribution Width 19.8 % Platelet Count 356 TH/MM3 Mean Platelet Volume 8.1 FL Neutrophils (%) (Auto) 48.4 % Lymphocytes (%) (Auto) 37.6 % Monocytes (%) (Auto) 8.9 % Eosinophils (%) (Auto) 4.0 % Basophils (%) (Auto) 1.1 % Neutrophils # (Auto) 5.4 TH/MM3 Lymphocytes # (Auto) 4.2 TH/MM3 Monocytes # (Auto) 1.0 TH/MM3 Eosinophils # (Auto) 0.5 TH/MM3 Basophils # (Auto) 0.1 TH/MM3 CBC Comment DIFF FINAL Differential Comment Activated Partial Thromboplast Time 31.4 SEC Blood Urea Nitrogen 5 MG/DL Creatinine 0.88 MG/DL Random Glucose 162 MG/DL Calcium Level 8.5 MG/DL Lactate Dehydrogenase 163 U/L Sodium Level 138 MEQ/L Potassium Level 4.2 MEQ/L Chloride Level 103 MEQ/L Carbon Dioxide Level 29.1 MEQ/L Anion Gap 6 MEQ/L Estimat Glomerular Filtration Rate 90 ML/MIN Imaging Studies Last 24 hours Impressions Vena Cavagram 04/21/172005 Signed Impressions: Service Date/Time: Friday, April 21, 2017 11:33 - CONCLUSION: 1. 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 No collateral circulation. 2. 18 mm balloon angioplasty of the same stenosis with some interval improvement. Christo Glover MD Administered Medications Medications (Trade) Dose Ordered Sig/Evi Route PRN Reason Start Time Stop Time Status Last Admin Dose Admin Diphenhydramine HCl (Benadryl Inj) 25 mg Q4H PRN IV PUSH ITCHING 04/18/17 19:30 04/22/17 09:39 Amitriptyline HCl (Elavil) 25 mg HS PO 04/18/17 21:00 04/21/17 19:37 Hydroxyurea (Hydrea) 500 mg DAILY PO 04/19/17 09:00 04/22/17 09:46 Methadone HCl (Dolophine) 10 mg DAILY PO 04/19/17 09:00 04/22/17 09:40 Sodium Chloride 1,000 ml @ 100 mls/hr Q10H IV 04/18/17 19:30 04/22/17 05:31 Sodium Chloride (NS Flush) 2 ml BID IV FLUSH 04/18/17 21:00 04/22/17 09:48 Senna/Docusate Sodium (Mirna-Colace) 1 tab BID PO 04/18/17 21:00 04/22/17 09:40 Promethazine HCl (Phenergan Inj) 25 mg Q4H PRN IM NAUSEA/VOMITING 10/14/17 19:30 04/22/17 05:30 Hydromorphone HCl (Dilaudid Pf Inj) 2 mg Q3H PRN IV PAIN 6-10 04/21/17 12:00 04/22/17 09:40 Objective Remarks GENERAL: Young woman, supine in bed in nad. SKIN: Warm and dry. peripheral IV's noted in left arm without bleeding HEAD: Normocephalic. EYES: No injection or drainage. NECK: Supple, trachea midline. CARDIOVASCULAR: +S1/S2 RESPIRATORY: diminished at bases, anterior garner clear. on 3L O2 via NC GASTROINTESTINAL: Abdomen soft, non-tender, nondistended. EXTREMITIES: No cyanosis. upper extremity edema noted bilaterally. NEUROLOGICAL: No obvious focal deficit. Awake, alert, and oriented x3. Assessment/Plan Problem List: (1) SVC syndrome ICD Codes: I87.1 - SVC syndrome Status: Acute Plan: 04/22: start Eliquis. ok to d/c home when home arrangements for O2 made. 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 --(previous hospitalization) underwent angioplasty by the interventional radiologist. no significant change noted. --also evaluated by vascular surgeon Dr. Solano (past hospitalization). patient was recommended for observation. (2) Sickle cell anemia ICD Codes: D57.1 - Sickle cell anemia Status: Acute Plan: --on hydrea Assessment 31y/o female with sickle-cell anemia admitted with swelling of the right upper extremity. h/o Glaucoma. Plan 1. stop heparin, start Eliquis 2. monitor edema. 3. hematology clear for discharge. Attending Statement The exam, history, and the medical decision-making described in the above note were completed with the assistance of the mid-level provider. I reviewed and agree with the findings presented. I attest that I had a [id number] encounter with the patient on the same day, and personally performed and documented my assessment and findings in the medical record. Pt seen and examined. Tolerating anticoagulant therapy well. Discussed plan to switch to Eliquis, at bedside. No bleeding, arm feels better, no facial swelling. Problem Qualifiers (1) Sickle cell anemia: Qualified Codes: D57.1 - Sickle-cell disease without crisis Crystal Mora Apr 22, 2017 11:57 Carline Silver MD Apr 22, 2017 17:41
[2017-04-22] MEDS: APIXABAN 5 MG TABLET PO SCH ×2 (12:35→21:03)
[2017-04-22] MEDS: SODIUM CHLORIDE 0.9% FLUSH 10 ML FLUSH IV FLUSH PRN ×2 (12:36→14:07)
[2017-04-22] MEDS ORDERED: APIX2.5T PO (15:08)
[2017-04-22] MEDS: AMITRIPTYLINE HCL 25 MG TAB PO SCH (21:00)
[2017-04-23] VITALS: BP 116/71; PULSE 76; PULSE 98; RESP 18; TEMP 98.2; O2SAT 98
[2017-04-23] MEDS: HYDROmorphone HCL PF 2 MG/ML VIAL IV PRN ×5 (03:36→22:19)
[2017-04-23] MEDS: PROMETHAZINE INJ 25 MG/ML VIAL IM PRN ×5 (03:36→22:18)
[2017-04-23] MEDS: diphenhydrAMINE HCL 50 MG/ML VIAL IV PUSH PRN ×5 (03:37→22:18)
[2017-04-23 04:00] VITALS: BP 130/72; PULSE 101; PULSE 115; RESP 18; TEMP 98.2; O2SAT 97
[2017-04-23] MEDS: SODIUM CHLOR 0.9% 1000 ML INJ 1,000 ML IV SCH ×2 (05:53→16:13)
[2017-04-23 07:11] LABS: AUTOMATED NEUTROPHIL # 7.6 TH/MM3 (1.8-7.7); BASOPHIL # 0.2 TH/MM3 (0-0.2); BASOPHIL % 1.2 % (0.0-2.0); EOSINOPHIL # 0.6 TH/MM3 (0-0.4); EOSINOPHIL % 4.8 % (0.0-4.0); HEMATOCRIT 25.3 % (35.0-46.0); HEMO FLAGS DIFF FINAL; LYMPHOCYTE # 3.3 TH/MM3 (1.0-4.8); MEAN CORPUSCULAR HEMOGLOBIN 28.5 PG (27.0-34.0); MEAN CORPUSCULAR HGB CONC 35.2 % (32.0-36.0); MONO % 8.3 % (0.0-8.0); NEUT % 59.7 % (16.0-70.0); PLATELET COUNT 399 TH/MM3 (150-450); RED BLOOD COUNT 3.12 MIL/MM3 (4.00-5.30); RED CELL DISTRIBUTION WIDTH 20.3 % (11.6-17.2); WHITE BLOOD COUNT 12.7 TH/MM3 (4.0-11.0)
[2017-04-23 07:12] LABS: BICARBONATE 25.6 MEQ/L (21.0-32.0); POTASSIUM 4.3 MEQ/L (3.5-5.1)
[2017-04-23] MEDS: HYDROXYUREA 500 MG CAP PO SCH (07:38)
[2017-04-23] MEDS: DOCUSATE SODIUM 50 MG/SENNA 8.6 MG TAB PO SCH ×2 (07:39→22:16)
[2017-04-23] MEDS: METHADONE HCL 10 MG TAB PO SCH (07:39)
[2017-04-23] MEDS: APIXABAN 5 MG TABLET PO SCH ×2 (07:39→22:16)
[2017-04-23] MEDS: SODIUM CHLORIDE 0.9% FLUSH 10 ML FLUSH IV FLUSH SCH ×2 (07:40→21:00)
[2017-04-23] MEDS ORDERED: APIX2.5T PO (07:56)
[2017-04-23 08:00] VITALS: BP 144/85; PULSE 116; RESP 16; TEMP 99.2; O2SAT 98
--- NOTE | 2017-04-23 08:05 | HHI.PR ---
Subjective Remarks in no distress. no chest pain. pain to the right arm is better. no new complaints. Objective Vitals Vital Signs Date Time Temp Pulse Resp B/P (MAP) Pulse Ox O2 Delivery O2 Flow Rate FiO2 04/23/17 04:06 20 04/23/17 04:00 101 04/23/17 04:00 97 Nasal Cannula 2.00 04/23/17 04:00 98.2 115 18 130/72 (91) 97 04/23/17 00:00 98 04/23/17 00:00 98.2 76 18 116/71 (86) 98 04/23/17 00:00 98 Nasal Cannula 2.00 04/22/17 20:00 100 Nasal Cannula 2.00 04/22/17 20:00 98.6 94 18 102/65 (77) 100 04/22/17 20:00 95 04/22/17 12:27 98.7 90 14 122/71 (88) 04/22/17 10:28 3.00 04/22/17 10:13 96 Nasal Cannula 2.00 04/22/17 09:00 98.1 101 18 148/76 (100) 98 I/O 04/22/17 04/22/17 04/22/17 04/23/17 04/23/17 04/23/17 07:00 15:00 23:00 07:00 15:00 23:00 Intake Total 2220 ml 1813 ml 1341 ml Output Total 800 ml Balance 2220 ml 1013 ml 1341 ml Intake Oral 480 ml 680 ml 480 ml IV Total 1740 ml 1133 ml 861 ml Output Urine Total 800 ml # Voids 1 2 Result Diagram: 04/23/177 04/23/177 Imaging Last Impressions Vena Cavagram 04/21/172005 Signed Impressions: Service Date/Time: Friday, April 21, 2017 11:33 - CONCLUSION: 1. 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 No collateral circulation. 2. 18 mm balloon angioplasty of the same stenosis with some interval improvement. Christo Glover MD CT Angiography 04/20/17 0000 Signed Impressions: Service Date/Time: Thursday, April 20, 2017 15:39 - CONCLUSION: 1. There is a single filling defect in the right lower lobar pulmonary artery characteristic of acute PE. No other PE is visualized. 2. Main pulmonary arteries are at the upper limits for normal in size. 3. 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 Sam Arroyo MD Chest X-Ray 04/18/17 0000 Signed Impressions: Service Date/Time: Tuesday, April 18, 2017 19:53 - CONCLUSION: No acute disease. Antonio Bunch MD Objective Remarks GENERAL: This is a well-nourished, well-developed patient, in no apparent distress. CARDIOVASCULAR: Regular rate and regular rhythm without murmurs, gallops, or rubs. RESPIRATORY: Clear to auscultation. Breath sounds equal bilaterally. No wheezes , rales, or rhonchi. GASTROINTESTINAL: Abdomen soft, non-tender, nondistended. Normal, active bowel sounds MUSCULOSKELETAL: right arm with improved swelling and tenderness NEURO: Alert & Oriented x4 to person, place, time, situation. Moves all ext x4 Procedures angioplasty Medications and IVs Current Medications Hydromorphone HCl (Dilaudid Pf Inj) 1 mg ONCE ONCE IV PUSH Last administered on 04/18/17 18:45; Start 04/18/17 at 18:45; Stop 04/18/17 at 18:46; Status DC Promethazine HCl (Phenergan Inj) 25 mg ONCE ONCE IM Last administered on 04/18 18:44; Start 04/18/17 at 18:45; Stop 04/18/17 at 18:46; Status DC Diphenhydramine HCl (Benadryl Inj) 25 mg ONCE ONCE IV PUSH Last administered on 04/18/17 18:44; Start 04/18/17 at 18:45; Stop 04/18/17 at 18:46; Status DC Diphenhydramine HCl (Benadryl Inj) 25 mg Q4H PRN IV PUSH ITCHING Last administered on 04/23/17 07:37; Start 04/18/17 at 19:30 Amitriptyline HCl (Elavil) 25 mg HS PO Last administered on 04/22/17 21:00; Start 04/18/17 at 21:00 Hydroxyurea (Hydrea) 500 mg DAILY PO Last administered on 04/23/17 07:38; Start 04/19/17 at 09:00 Methadone HCl (Dolophine) 10 mg DAILY PO Last administered on 04/23/17 07:39 ; Start 04/19/17 at 09:00 Sodium Chloride 1,000 ml @ 100 mls/hr Q10H IV Last administered on 04/23/17 05:53; Start 04/18/17 at 19:30 Sodium Chloride (NS Flush) 2 ml UNSCH PRN IV FLUSH FLUSH AFTER USING IV ACCESS Last administered on 04/22/17 14:07; Start 04/18/17 at 19:30 Sodium Chloride (NS Flush) 2 ml BID IV FLUSH Last administered on 04/23/17 07 :40; Start 04/18/17 at 21:00 Acetaminophen (Tylenol) 650 mg Q6H PRN PO FEVER/PAIN SCALE 1 TO 2; Start 04/18 at 19:30 Hydromorphone HCl (Dilaudid Pf Inj) 1 mg Q3H PRN IV PUSH Pain 3-5 Last administered on 04/18/17 22:49; Start 04/18/17 at 19:30; Stop 04/21/17 at 11 :44; Status DC Hydromorphone HCl (Dilaudid Pf Inj) 2 mg Q3H PRN IV PUSH Pain 6-10 Last administered on 04/21/17 07:26; Start 04/18/17 at 19:30; Stop 04/21/17 at 11 :45; Status DC Senna/Docusate Sodium (Mirna-Colace) 1 tab BID PO Last administered on 07:39; Start 04/18/17 at 21:00 Magnesium Hydroxide (Milk Of Magnesia Liq) 30 ml Q12H PRN PO Mild constipation ; Start 04/18/17 at 19:30 Sennosides (Senokot) 17.2 mg Q12H PRN PO Moderate constipation; Start at 19:30 Bisacodyl (Dulcolax Supp) 10 mg DAILY PRN RECTAL SEVERE CONSITIPATION; Start 04/18/17 at 19:30 Lactulose (Lactulose Liq) 30 ml DAILY PRN PO SEVERE CONSITIPATION; Start 04/18 at 19:30 Promethazine HCl (Phenergan Inj) 25 mg Q4H PRN IM NAUSEA/VOMITING Last administered on 04/23/17 07:37; Start 04/18/17 at 19:30 Albuterol Sulfate (Albuterol Neb) 0.63 mg Q4HR NEB PRN NEB SHORTNESS OF BREATH ; Start 04/20/17 at 08:45 Iohexol (Omnipaque 350 Inj) 50 ml STK-MED ONCE IVCONTRAST Last administered on 04/20/17 15:52; Start 04/20/17 at 15:52; Stop 04/20/17 at 15:53; Status DC Heparin Sodium (Porcine) (Heparin Inj) 9,000 units NOW ONCE IV ; Start at 18:30; Stop 04/20/17 at 18:31; Status DC Heparin Sodium (Porcine) (Heparin Inj) 8,000 units ONCE ONCE IV PUSH Last administered on 04/20/17 21:13; Start 04/20/17 at 19:00; Stop 04/20/17 at 19 :18; Status DC Heparin Sodium/ Dextrose 250 ml @ 18 mls/hr TITRATE PRN IV Coagulation management Last administered on 04/21/17 00:02; Start 04/20/17 at 19:00; Stop 04/22/17 at 10:12; Status DC Midazolam HCl (Versed Inj) 5 mg STK-MED ONCE .ROUTE Last administered on 11:55; Start 04/21/17 at 11:34; Stop 04/21/17 at 11:35; Status DC Fentanyl Citrate (fentaNYL INJ) 200 mcg STK-MED ONCE .ROUTE Last administered on 04/21/17 11:55; Start 04/21/17 at 11:35; Stop 04/21/17 at 11:36; Status DC Hydromorphone HCl (Dilaudid Pf Inj) 1 mg Q3H PRN IV PAIN 3-5; Start 04/21/17 at 11:45 Hydromorphone HCl (Dilaudid Pf Inj) 2 mg Q3H PRN IV PAIN 6-10 Last administered on 04/23/17 07:40; Start 04/21/17 at 12:00 Iohexol (Omnipaque 350 Inj) 20 ml STK-MED ONCE OTHER Last administered on 04/21 12:15; Start 04/21/17 at 13:38; Stop 04/21/17 at 13:39; Status DC Apixaban (Eliquis) 10 mg BID PO Last administered on 04/23/17t 07:39; Start 04/22/17 at 12:00; Stop 04/29/17 at 08:59 Apixaban (Eliquis) 5 mg BID PO ; Start 04/29/17 at 09:00 A/P Problem List: (1) 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 continue with pain control. previously d/w and patient cleared for discharge. -acute PE started on eliquis- keep on oxygen to keep O2 sat > 90%. hematology signed off- failed the walk test and needs home oxygen. -sickle cell disease continue Hydroxyurea and pain control with methadone. f/u with hematology as outpatient. -DVT prophylaxis;on Heparin drip. Discharge Planning mildly tachycardic earlier today. continue to monitor the HR . possible dc home later this evening if stable and when home oxygen has been set up. f/u; pcp and hematology. d/w the patient and hematology. previously d/w . time spent 31 min. Juan Salinas MD Apr 23, 2017 08:05
[2017-04-23] MEDS ORDERED: OXYC1CAP PO (08:06)
--- NOTE | 2017-04-23 08:06 | HHI.DS ---
Discharge Summary Admission Date Apr 18, 2017 at 19:19 Discharge Date: Apr 23, 2017 Admitting Diagnosis svc syndrome (1) SVC syndrome ICD Code: I87.1 - SVC syndrome Diagnosis: Principal Status: Acute Procedures angioplasty Brief History - From Admission patient is a 31 y/o female with history of sickle cell disease and SVC syndrome presented to ER with pain and swelling of the right upper extremity. she says that it's been going on for two days and it seems that the swelling is getting worse. pain was moderate. she's also complaining of generalized body ache. she denies any chest pain. is afebrile. CBC/BMP: 04/23/17 0457 04/23/17 0457 Significant Findings Laboratory Tests Test 04/20/17 12:20 04/20/17 19:30 04/21/17 01:38 04/21/17 06:24 White Blood Count 11.7 TH/MM3 (4.0-11.0) 12.1 TH/MM3 (4.0-11.0) 12.2 TH/MM3 (4.0-11.0) Red Blood Count 3.24 MIL/MM3 (4.00-5.30) 3.21 MIL/MM3 (4.00-5.30) 3.34 MIL/MM3 (4.00-5.30) Hemoglobin 9.1 GM/DL (11.6-15.3) 9.0 GM/DL (11.6-15.3) 9.3 GM/DL (11.6-15.3) Hematocrit 26.1 % (35.0-46.0) 26.2 % (35.0-46.0) 27.1 % (35.0-46.0) Red Cell Distribution Width 19.1 % (11.6-17.2) 19.8 % (11.6-17.2) 19.6 % (11.6-17.2) Monocytes (%) (Auto) 8.4 % (0.0-8.0) 8.1 % (0.0-8.0) Monocytes # (Auto) 1.0 TH/MM3 (0-0.9) 1.0 TH/MM3 (0-0.9) Blood Urea Nitrogen 5 MG/DL (7-18) 5 MG/DL (7-18) Random Glucose 124 MG/DL (74-106) 124 MG/DL (74-106) Eosinophils # (Auto) 0.5 TH/MM3 (0-0.4) Activated Partial Thromboplast Time 41.5 SEC (24.3-30.1) 30.2 SEC (24.3-30.1) Test 04/21/17 11:19 04/22/17 02:49 04/23/17 04:57 White Blood Count 11.2 TH/MM3 (4.0-11.0) 12.7 TH/MM3 (4.0-11.0) Red Blood Count 3.09 MIL/MM3 (4.00-5.30) 3.12 MIL/MM3 (4.00-5.30) Hemoglobin 8.6 GM/DL (11.6-15.3) 8.9 GM/DL (11.6-15.3) Hematocrit 25.0 % (35.0-46.0) 25.3 % (35.0-46.0) Red Cell Distribution Width 19.8 % (11.6-17.2) 20.3 % (11.6-17.2) Monocytes (%) (Auto) 8.9 % (0.0-8.0) 8.3 % (0.0-8.0) Monocytes # (Auto) 1.0 TH/MM3 (0-0.9) 1.0 TH/MM3 (0-0.9) Eosinophils # (Auto) 0.5 TH/MM3 (0-0.4) 0.6 TH/MM3 (0-0.4) Activated Partial Thromboplast Time 31.4 SEC (24.3-30.1) Blood Urea Nitrogen 5 MG/DL (7-18) 5 MG/DL (7-18) Random Glucose 162 MG/DL (74-106) 155 MG/DL (74-106) Eosinophils (%) (Auto) 4.8 % (0.0-4.0) Imaging Last Impressions Vena Cavagram 04/21/172005 Signed Impressions: Service Date/Time: Friday, April 21, 2017 11:33 - CONCLUSION: 1. 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 No collateral circulation. 2. 18 mm balloon angioplasty of the same stenosis with some interval improvement. Christo Glover MD CT Angiography 04/20/17 0000 Signed Impressions: Service Date/Time: Thursday, April 20, 2017 15:39 - CONCLUSION: 1. There is a single filling defect in the right lower lobar pulmonary artery characteristic of acute PE. No other PE is visualized. 2. Main pulmonary arteries are at the upper limits for normal in size. 3. 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 Sam Arroyo MD Chest X-Ray 04/18/17 0000 Signed Impressions: Service Date/Time: Tuesday, April 18, 2017 19:53 - CONCLUSION: No acute disease. Antonio Bunch MD PE at Discharge GENERAL: This is a well-nourished, well-developed patient, in no apparent distress. CARDIOVASCULAR: Regular rate and regular rhythm without murmurs, gallops, or rubs. RESPIRATORY: Clear to auscultation. Breath sounds equal bilaterally. No wheezes , rales, or rhonchi. GASTROINTESTINAL: Abdomen soft, non-tender, nondistended. Normal, active bowel sounds MUSCULOSKELETAL: right arm with improved swelling and tenderness NEURO: Alert & Oriented x4 to person, place, time, situation. Moves all ext x4 Hospital Course - SVC syndrome s/p angioplasty. continue with pain control. previously d/w and patient cleared for discharge. -acute PE started on eliquis- keep on oxygen to keep O2 sat > 90%. hematology signed off- failed the walk test and needs home oxygen. -sickle cell disease continue Hydroxyurea and pain control with methadone. f/u with hematology as outpatient. -DVT prophylaxis;on Heparin drip. Pt Condition on Discharge: Fair Discharge Disposition: Disch w/ Home Health Serv Discharge Time: > 30 minutes Discharge Instructions DIET: Follow Instructions for: Heart Healthy Diet Activities you can perform: Regular-No Restrictions Follow up Referrals: Oncology PCP Follow-up New Medications: Oxygen (O2) (Oxygen (O2)) Device LITER SANDRA.CANULA CONTINUOUS for Prevent Hypoxemia, #2 Oxygen Concentrator Portable Gaseous 2 L/min via Nasal Canula Continuous For 99 months Apixaban (Eliquis) 2.5 Mg Tab 5 MG PO DIRECTED for blood clot for 30 Days, TAB 0 Refills 10 mg po twice daily till 04/29/17- then 5 mg po twice daily. Continued Medications: Amitriptyline (Amitriptyline) 25 Mg Tab 25 MG PO HS for Control Depression, #30 TAB 0 Refills Hydroxyurea (Hydrea) 500 Mg Cap 500 MG PO DAILY, CAP 0 Refills Methadone (Methadone) 10 Mg Tab 10 MG PO DAILY, TAB 0 Refills Oxycodone (Oxycodone) 5 Mg Cap 5 MG PO BID PRN for PAIN, #10 CAP 0 Refills (This prescription has been renewed) Promethazine (Phenergan) 25 Mg Tablet 25 MG PO Q6H PRN for NAUSEA OR VOMITING, TAB 0 Refills Discontinued Medications: Nitrofurantoin Monohydrate Macrocrystals (Macrobid) 100 Mg Capsule 100 MG PO BID for Infection for 10 Days, #20 CAP 0 Refills Juan Salinas MD Apr 23, 2017 08:06
--- NOTE | 2017-04-23 09:08 | PD.ONC.PN ---
Subjective Subjective Remarks Afebrile overnight. Patient resting in bed in nad. No complaints. Swelling improving in arms. Feels ready to go home. Objective Data Date Time Temp Pulse Resp B/P (MAP) Pulse Ox O2 Delivery O2 Flow Rate FiO2 04/23/17 04:06 20 04/23/17 04:00 101 04/23/17 04:00 97 Nasal Cannula 2.00 04/23/17 04:00 98.2 115 18 130/72 (91) 97 04/23/17 00:00 98 04/23/17 00:00 98.2 76 18 116/71 (86) 98 04/23/17 00:00 98 Nasal Cannula 2.00 04/22/17 20:00 100 Nasal Cannula 2.00 04/22/17 20:00 98.6 94 18 102/65 (77) 100 04/22/17 20:00 95 04/22/17 12:27 98.7 90 14 122/71 (88) 04/22/17 10:28 3.00 04/22/17 10:13 96 Nasal Cannula 2.00 04/23/17 04/23/17 04/23/17 07:00 15:00 23:00 Intake Total 1341 ml Balance 1341 ml Result Diagram: 04/23/17 0457 04/23/17 0457 Laboratory Results Laboratory Tests Test 04/23/17 04:57 White Blood Count 12.7 TH/MM3 Red Blood Count 3.12 MIL/MM3 Hemoglobin 8.9 GM/DL Hematocrit 25.3 % Mean Corpuscular Volume 81.0 FL Mean Corpuscular Hemoglobin 28.5 PG Mean Corpuscular Hemoglobin Concent 35.2 % Red Cell Distribution Width 20.3 % Platelet Count 399 TH/MM3 Mean Platelet Volume 8.3 FL Neutrophils (%) (Auto) 59.7 % Lymphocytes (%) (Auto) 26.0 % Monocytes (%) (Auto) 8.3 % Eosinophils (%) (Auto) 4.8 % Basophils (%) (Auto) 1.2 % Neutrophils # (Auto) 7.6 TH/MM3 Lymphocytes # (Auto) 3.3 TH/MM3 Monocytes # (Auto) 1.0 TH/MM3 Eosinophils # (Auto) 0.6 TH/MM3 Basophils # (Auto) 0.2 TH/MM3 CBC Comment DIFF FINAL Differential Comment Blood Urea Nitrogen 5 MG/DL Creatinine 0.87 MG/DL Random Glucose 155 MG/DL Calcium Level 8.6 MG/DL Lactate Dehydrogenase 206 U/L Sodium Level 137 MEQ/L Potassium Level 4.3 MEQ/L Chloride Level 103 MEQ/L Carbon Dioxide Level 25.6 MEQ/L Anion Gap 8 MEQ/L Estimat Glomerular Filtration Rate 91 ML/MIN Administered Medications Medications (Trade) Dose Ordered Sig/Evi Route PRN Reason Start Time Stop Time Status Last Admin Dose Admin Diphenhydramine HCl (Benadryl Inj) 25 mg Q4H PRN IV PUSH ITCHING 04/18/17 19:30 04/23/17 07:37 Amitriptyline HCl (Elavil) 25 mg HS PO 04/18/17 21:00 04/22/17 21:00 Hydroxyurea (Hydrea) 500 mg DAILY PO 04/19/17 09:00 04/23/17 07:38 Methadone HCl (Dolophine) 10 mg DAILY PO 04/19/17 09:00 04/23/17 07:39 Sodium Chloride 1,000 ml @ 100 mls/hr Q10H IV 04/18/17 19:30 04/23/17 05:53 Sodium Chloride (NS Flush) 2 ml UNSCH PRN IV FLUSH FLUSH AFTER USING IV ACCESS 04/18/17 19:30 04/22/17 14:07 Sodium Chloride (NS Flush) 2 ml BID IV FLUSH 04/18/17 21:00 04/23/17 07:40 Senna/Docusate Sodium (Mirna-Colace) 1 tab BID PO 04/18/17 21:00 04/23/17 07:39 Promethazine HCl (Phenergan Inj) 25 mg Q4H PRN IM NAUSEA/VOMITING 04/18/17 19:30 04/23/17 07:37 Hydromorphone HCl (Dilaudid Pf Inj) 2 mg Q3H PRN IV PAIN 6-10 04/21/17 12:00 04/23/17 07:40 Apixaban (Eliquis) 10 mg BID PO 04/22/17 12:00 04/29/17 08:59 04/23/17 07:39 Objective Remarks GENERAL: Young woman, sitting up in bed in nad. On 2L O2 via NC SKIN: Warm and dry. HEAD: Normocephalic. EYES: No injection or drainage. NECK: Supple, trachea midline. CARDIOVASCULAR: Regular rate and rhythm RESPIRATORY: Breath sounds equal bilaterally. No accessory muscle use. GASTROINTESTINAL: Abdomen soft, non-tender, nondistended. EXTREMITIES: No cyanosis NEUROLOGICAL: No obvious focal deficit. Awake, alert, and oriented x3. Assessment/Plan Problem List: (1) SVC syndrome ICD Codes: I87.1 - SVC syndrome Status: Acute Plan: 04/23: continue Eliquis. clear for d/c home. 04/22: start Eliquis. ok to d/c home when home arrangements for O2 made. 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 --(previous hospitalization) underwent angioplasty by the interventional radiologist. no significant change noted. --also evaluated by vascular surgeon Dr. Solano (past hospitalization). patient was recommended for observation. (2) Sickle cell anemia ICD Codes: D57.1 - Sickle cell anemia Status: Acute Plan: --on hydrea Assessment 31y/o female with sickle-cell anemia admitted with swelling of the right upper extremity. h/o Glaucoma. Plan 1. continue Eliquis 2. follow up in clinic. Problem Qualifiers (1) Sickle cell anemia: Qualified Codes: D57.1 - Sickle-cell disease without crisis Crystal Mora Apr 23, 2017 09:08
[2017-04-23 12:00] VITALS: BP 144/63; PULSE 97; RESP 16; TEMP 98; O2SAT 100
[2017-04-23 20:00] VITALS: BP 124/68; PULSE 89; PULSE 98; RESP 14; TEMP 99.4; O2SAT 98
[2017-04-23 21:05] VITALS: O2SAT 100
[2017-04-23] MEDS: AMITRIPTYLINE HCL 25 MG TAB PO SCH (22:16)
[2017-04-24] VITALS: BP 121/64; PULSE 94; RESP 14; TEMP 99.5; O2SAT 97
[2017-04-24] MEDS: SODIUM CHLOR 0.9% 1000 ML INJ 1,000 ML IV SCH (02:45)
[2017-04-24] MEDS: diphenhydrAMINE HCL 50 MG/ML VIAL IV PUSH PRN ×3 (02:49→14:16)
[2017-04-24] MEDS: HYDROmorphone HCL PF 2 MG/ML VIAL IV PRN ×3 (02:50→14:17)
[2017-04-24] MEDS: PROMETHAZINE INJ 25 MG/ML VIAL IM PRN ×3 (02:52→14:16)
[2017-04-24 04:00] VITALS: BP 124/69; PULSE 94; RESP 14; TEMP 97.9; O2SAT 96
--- NOTE | 2017-04-24 07:54 | HHI.PR ---
Subjective Remarks in no acute distress. no chest pain and looks fairly comfortable. pain and swelling of the right arm is better. no new complaints. Objective Vitals Vital Signs Date Time Temp Pulse Resp B/P (MAP) Pulse Ox O2 Delivery O2 Flow Rate FiO2 04/24/17 04:00 97.9 94 14 124/69 (87) 96 04/24/17 00:00 99.5 94 14 121/64 (83) 97 04/23/17 21:05 100 Nasal Cannula 2.00 04/23/17 20:00 89 04/23/17 20:00 Nasal Cannula 2.00 04/23/17 20:00 99.4 98 14 124/68 (86) 98 04/23/17 16:49 18 04/23/17 12:00 98.0 97 16 144/63 (90) 100 04/23/17 09:05 16 04/23/17 08:00 99.2 116 16 144/85 (104) 98 I/O 04/23/17 04/23/17 04/23/17 04/24/17 04/24/17 04/24/17 07:00 15:00 23:00 07:00 15:00 23:00 Intake Total 1341 ml 1440 ml 3023 ml Output Total 2 ml Balance 1341 ml 1440 ml 3021 ml Intake Oral 480 ml 1440 ml 960 ml IV Total 861 ml 2063 ml Stool Total 2 ml # Voids 2 6 3 Result Diagram: 04/23/177 04/23/177 Imaging Last Impressions [facility] Cav[facility] 04/21/172005 Signed Impressions: Service Date/Time: Friday, April 21, 2017 11:33 - CONCLUSION: 1. 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 No collateral circulation. 2. 18 mm balloon angioplasty of the same stenosis with some interval improvement. Christo Glover MD CT Angiography 04/20/17 0000 Signed Impressions: Service Date/Time: Thursday, April 20, 2017 15:39 - CONCLUSION: 1. There is a single filling defect in the right lower lobar pulmonary artery characteristic of acute PE. No other PE is visualized. 2. Main pulmonary arteries are at the upper limits for normal in size. 3. 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 Sam Arroyo MD Chest X-Ray 04/18/17 0000 Signed Impressions: Service Date/Time: Tuesday, April 18, 2017 19:53 - CONCLUSION: No acute disease. Antonio Bunch MD Objective Remarks GENERAL: This is a well-nourished, well-developed patient, in no apparent distress. CARDIOVASCULAR: Regular rate and regular rhythm without murmurs, gallops, or rubs. RESPIRATORY: Clear to auscultation. Breath sounds equal bilaterally. No wheezes , rales, or rhonchi. GASTROINTESTINAL: Abdomen soft, non-tender, nondistended. Normal, active bowel sounds MUSCULOSKELETAL: right arm with improved swelling and tenderness NEURO: Alert & Oriented x4 to person, place, time, situation. Moves all ext x4 Procedures angioplasty Medications and IVs Current Medications Hydromorphone HCl (Dilaudid Pf Inj) 1 mg ONCE ONCE IV PUSH Last administered on 04/18/17 18:45; Start 04/18/17 at 18:45; Stop 04/18/17 at 18:46; Status DC Promethazine HCl (Phenergan Inj) 25 mg ONCE ONCE IM Last administered on 04/18 18:44; Start 04/18/17 at 18:45; Stop 04/18/17 at 18:46; Status DC Diphenhydramine HCl (Benadryl Inj) 25 mg ONCE ONCE IV PUSH Last administered on 04/18/17 18:44; Start 04/18/17 at 18:45; Stop 04/18/17 at 18:46; Status DC Diphenhydramine HCl (Benadryl Inj) 25 mg Q4H PRN IV PUSH ITCHING Last administered on 04/24/17 02:49; Start 04/18/17 at 19:30 Amitriptyline HCl (Elavil) 25 mg HS PO Last administered on 04/23/17 22:16; Start 04/18/17 at 21:00 Hydroxyurea (Hydrea) 500 mg DAILY PO Last administered on 04/23/17 07:38; Start 04/19/17 at 09:00 Methadone HCl (Dolophine) 10 mg DAILY PO Last administered on 04/23/17 07:39 ; Start 04/19/17 at 09:00 Sodium Chloride 1,000 ml @ 100 mls/hr Q10H IV Last administered on 04/24/17 02:45; Start 04/18/17 at 19:30 Sodium Chloride (NS Flush) 2 ml UNSCH PRN IV FLUSH FLUSH AFTER USING IV ACCESS Last administered on 04/22/17 14:07; Start 04/18/17 at 19:30 Sodium Chloride (NS Flush) 2 ml BID IV FLUSH Last administered on 04/23/17 07 :40; Start 04/18/17 at 21:00 Acetaminophen (Tylenol) 650 mg Q6H PRN PO FEVER/PAIN SCALE 1 TO 2; Start 04/18 at 19:30 Hydromorphone HCl (Dilaudid Pf Inj) 1 mg Q3H PRN IV PUSH Pain 3-5 Last administered on 04/18/17 22:49; Start 04/18/17 at 19:30; Stop 04/21/17 at 11 :44; Status DC Hydromorphone HCl (Dilaudid Pf Inj) 2 mg Q3H PRN IV PUSH Pain 6-10 Last administered on 04/21/17 07:26; Start 04/18/17 at 19:30; Stop 04/21/17 at 11 :45; Status DC Senna/Docusate Sodium (Mirna-Colace) 1 tab BID PO Last administered on 22:16; Start 04/18/17 at 21:00 Magnesium Hydroxide (Milk Of Magnesia Liq) 30 ml Q12H PRN PO Mild constipation ; Start 04/18/17 at 19:30 Sennosides (Senokot) 17.2 mg Q12H PRN PO Moderate constipation; Start at 19:30 Bisacodyl (Dulcolax Supp) 10 mg DAILY PRN RECTAL SEVERE CONSITIPATION; Start 04/18/17 at 19:30 Lactulose (Lactulose Liq) 30 ml DAILY PRN PO SEVERE CONSITIPATION; Start 04/18 at 19:30 Promethazine HCl (Phenergan Inj) 25 mg Q4H PRN IM NAUSEA/VOMITING Last administered on 04/24/17 02:52; Start 04/18/17 at 19:30 Albuterol Sulfate (Albuterol Neb) 0.63 mg Q4HR NEB PRN NEB SHORTNESS OF BREATH ; Start 04/20/17 at 08:45 Iohexol (Omnipaque 350 Inj) 50 ml STK-MED ONCE IVCONTRAST Last administered on 04/20/17 15:52; Start 04/20/17 at 15:52; Stop 04/20/17 at 15:53; Status DC Heparin Sodium (Porcine) (Heparin Inj) 9,000 units NOW ONCE IV ; Start at 18:30; Stop 04/20/17 at 18:31; Status DC Heparin Sodium (Porcine) (Heparin Inj) 8,000 units ONCE ONCE IV PUSH Last administered on 04/20/17 21:13; Start 04/20/17 at 19:00; Stop 04/20/17 at 19 :18; Status DC Heparin Sodium/ Dextrose 250 ml @ 18 mls/hr TITRATE PRN IV Coagulation management Last administered on 04/21/17 00:02; Start 04/20/17 at 19:00; Stop 04/22/17 at 10:12; Status DC Midazolam HCl (Versed Inj) 5 mg STK-MED ONCE .ROUTE Last administered on 11:55; Start 04/21/17 at 11:34; Stop 04/21/17 at 11:35; Status DC Fentanyl Citrate (fentaNYL INJ) 200 mcg STK-MED ONCE .ROUTE Last administered on 04/21/17 11:55; Start 04/21/17 at 11:35; Stop 04/21/17 at 11:36; Status DC Hydromorphone HCl (Dilaudid Pf Inj) 1 mg Q3H PRN IV PAIN 3-5; Start 04/21/17 at 11:45 Hydromorphone HCl (Dilaudid Pf Inj) 2 mg Q3H PRN IV PAIN 6-10 Last administered on 04/24/17 02:50; Start 04/21/17 at 12:00 Iohexol (Omnipaque 350 Inj) 20 ml STK-MED ONCE OTHER Last administered on 04/21 12:15; Start 04/21/17 at 13:38; Stop 04/21/17 at 13:39; Status DC Apixaban (Eliquis) 10 mg BID PO Last administered on 04/23/17 22:16; Start 04/22/17 at 12:00; Stop 04/29/17 at 08:59 Apixaban (Eliquis) 5 mg BID PO ; Start 04/29/17 at 09:00 A/P Problem List: (1) 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 continue with pain control. previously d/w and patient cleared for discharge. -acute PE started on eliquis- keep on oxygen to keep O2 sat > 90%. hematology signed off- failed the walk test and needs home oxygen. -sickle cell disease continue Hydroxyurea and pain control with methadone. f/u with hematology as outpatient. Discharge Planning dc home with home oxygen today. f/u; pcp and hematology. d/w the patient and hematology. previously d/w . time spent 31 min. Juan Salinas MD Apr 24, 2017 07:54
[2017-04-24 08:00] VITALS: PULSE 94
[2017-04-24 09:07] VITALS: BP 108/59; PULSE 89; RESP 18; TEMP 99; O2SAT 97
[2017-04-24] MEDS: APIXABAN 5 MG TABLET PO SCH (09:11)
[2017-04-24] MEDS: METHADONE HCL 10 MG TAB PO SCH (09:11)
[2017-04-24] MEDS: DOCUSATE SODIUM 50 MG/SENNA 8.6 MG TAB PO SCH (09:11)
[2017-04-24] MEDS: HYDROXYUREA 500 MG CAP PO SCH (09:16)
[2017-04-24 10:00] VITALS: O2SAT 95
[2017-04-24 12:00] VITALS: BP 136/60; PULSE 89; PULSE 96; TEMP 98.9
[2017-04-29] MEDS ORDERED: APIXABAN 2.5 MG TABLET PO SCH (09:00)
== END 2017-04-24 16:37 | disposition home health service (06) | DRG 252 ==
LOC: PHED 15:25 → PHEDA 19:19 → HCIS 04-19 00:36
PROVIDERS: ADMIT Internal Medicine; ATTEND Internal Medicine
PROC: 027V3ZZ Dilation of Superior Vena Cava, Percutaneous Approach (ICD-10-PCS; principal; 2017-04-21)
DX: I87.1 Compression of vein (principal); I26.99 Other pulmonary embolism without acute cor pulmonale; D57.1 Sickle-cell disease without crisis; F41.9 Anxiety disorder, unspecified; H40.9 Unspecified glaucoma; M19.90 Unspecified osteoarthritis, unspecified site; D72.829 Elevated white blood cell count, unspecified; R50.9 Fever, unspecified; R00.0 Tachycardia, unspecified; G89.29 Other chronic pain; Z86.14 Personal history of Methicillin resistant Staphylococcus aureus infection; Z86.711 Personal history of pulmonary embolism; Z79.01 Long term (current) use of anticoagulants
CPT/HCPCS: 36010; 37248; 71010; 71275; 75827; 76937; 80048; 80053; 81001; 83615; 84702; 85007; 85025; 85027; 85044; 85610; 85730; 87641; 94620; 96372; 96374; 96375; 99152; 99153; C1725; C1769; C1894; J1170; J1200; J1644; J2250; J2550; J3010; J7030; Q9967

== ENCOUNTER 2017-05-24 15:39 | Emergency (ER) | payer MEDICARE, OTHER ==
[~2017-05-24] VITALS: Ht 170.2 cm; Wt 108.0 kg
[~2017-05-24 15:39] MED LIST changes: +APIX2.5T PO; +HYDR500C PO; -MACR100C2 PO; +OXYGENDME NAS.CANULA
[2017-05-24 15:50] VITALS: BP 147/80; PULSE 112; RESP 16; TEMP 99.4; O2SAT 93
[2017-05-24] MEDS ORDERED: SODIUM CHLOR 0.9% 1000 ML INJ 1,000 ML IV ONE (15:58)
[2017-05-24] MEDS ORDERED: ONDANSETRON HCL 4 MG/2 ML VIAL IVP ONE (16:00)
[2017-05-24] MEDS ORDERED: SODIUM CHLORIDE 0.9% FLUSH 10 ML FLUSH IVF PRN (16:00)
--- NOTE | 2017-05-24 16:00 | PD ---
HPI Chief Complaint: Sickle Cell Time Seen by Provider: 15:54 Travel History International Travel<30 days: No Contact w/Intl Traveler<30days: No Traveled to known affect area: No History of Present Illness HPI Patient presents for sickle cell crisis times one day. Reports whole body discomfort. Normally receives Dilaudid Phenergan Benadryl and fluids. Her port is not working. Denies any shortness of breath urinary or bowel symptoms. Denies . PFSH Past Medical History Hx Anticoagulant Therapy: Yes (XARELTO - PE) Asthma: No Autoimmune Disease: No Blood Disorders: Yes (SICKLE CELL) Anxiety: Yes Depression: No Heart Rhythm Problems: No Cancer: No Cardiac Catheterization: Yes Cardiovascular Problems: Yes (heart murmur) High Cholesterol: No Chemotherapy: No Chest Pain: No Congestive Heart Failure: No COPD: No Cerebrovascular Accident: No Diabetes: No Diminished Hearing: No Endocrine: No Gastrointestinal Disorders: Yes (HX GALLSTONES--CHOLECYSTECTOMY) Genetic Disorder: Yes (SICKLE CELL) GERD: No Glaucoma: Yes Genitourinary: No Headaches: Yes Hepatitis: No Hiatal Hernia: No Heparin Induced Thrombocytopen: No Hypertension: No Immune Disorder: No Implanted Vascular Access Dvce: Yes (RIGHT CHEST INFUSAPORT: SEPTEMBER 2014 REMOVED ) Kidney Stones: No Medical other: Yes (SICKLE CELL ANEMIA) Musculoskeletal: Yes (ARTHRITIS) Neurologic: No Psychiatric: No Reproductive: No Respiratory: Yes (PULMONARY EMBOLISM) Immunizations Current: Yes Migraines: No Myocardial Infarction: No Pneumonia: Yes Radiation Therapy: No Renal Failure: No Seizures: No Sickle Cell Disease: Yes Sleep Apnea: No Thyroid Disease: No Ulcer: No Tetanus Vaccination: < 5 Years Influenza Vaccination: Yes ?: Not : 10 Para: 4 Miscarriage: 6 : 0 Ectopic : No Ovarian Cysts: No Tubal Ligation: Yes Past Surgical History Abdominal Surgery: Yes (cholecystectomy ) AICD: No Arteriovenous Shunt: No Body Medical Devices: RIGHT INFUSAPORT (REMOVED 2012), LEFT REMOVED 2014 Cardiac Surgery: No Section: Yes (x2) Cholecystectomy: Yes Ear Surgery: No Endocrine Surgery: No Eye Surgery: Yes (CORRECTIVE EYE SURGERY-LEFT) Genitourinary Surgery: No Gynecologic Surgery: Yes ( X 2, 2007 AND 2012) Hysterectomy: No Insulin Pump: No Joint Replacement: No Neurologic Surgery: No Oral Surgery: No Pacemaker: No Thoracic Surgery: Yes (MRSA INFUSAPORT R SIDE REMOVED 05/2013, L SIDE INFUSAPORT REMOVED 07/20) Other Surgery: Yes (Angioplasty ) Social History Alcohol Use: Yes (occas. wine) Tobacco Use: No Substance Use: No Allergies-Medications (Allergen,Severity, Reaction): Coded Allergies: ketorolac (Verified Allergy, Severe, RASH, 05/24/17) metoclopramide (Verified Allergy, Severe, RASH, 05/24/17) morphine (Verified Allergy, Severe, RASH, 05/24/17) ondansetron (Verified Allergy, Severe, RASH,ITCH, 05/24/17) Uncoded Allergies: CEFEPIME (Allergy, Severe, Hives., 08/09/16) . Reported Meds & Prescriptions Reported Meds & Active Scripts Active Oxycodone (Oxycodone HCl) 5 Mg Cap 5 Mg PO BID PRN Eliquis (Apixaban) 2.5 Mg Tab 5 Mg PO DIRECTED 30 Days 10 mg po twice daily till 04/29/17- then 5 mg po twice daily. Oxygen (O2) Device Liter SANDRA.CANULA CONTINUOUS Oxygen Concentrator Portable Gaseous 2 L/min via Nasal Canula Continuous For 99 months Reported Hydrea (Hydroxyurea) 500 Mg Cap 500 Mg PO DAILY Phenergan (Promethazine HCl) 25 Mg Tablet 25 Mg PO Q6H PRN Amitriptyline (Amitriptyline HCl) 25 Mg Tab 25 Mg PO HS Methadone (Methadone HCl) 10 Mg Tab 10 Mg PO DAILY Review of Systems General / Constitutional: No: Fever Eyes: No: Visual changes HENT: No: Headaches Cardiovascular: No: Chest Pain or Discomfort Respiratory: No: Shortness of Breath Gastrointestinal: No: Abdominal Pain Genitourinary: No: Dysuria Musculoskeletal: No: Pain Skin: No Rash Neurologic: No: Weakness Psychiatric: No: Depression Endocrine: No: Polydipsia Hematologic/Lymphatic: No: Easy Bruising Physical Exam Narrative GENERAL: Well-nourished, well-developed patient. SKIN: Focused skin assessment warm/dry. HEAD: Normocephalic. EYES: No scleral icterus. No injection or drainage. NECK: Supple, trachea midline. No JVD or lymphadenopathy. CARDIOVASCULAR: Regular rate and rhythm without murmurs, gallops, or rubs. RESPIRATORY: Breath sounds equal bilaterally. No accessory muscle use. GASTROINTESTINAL: Abdomen soft, non-tender, nondistended. MUSCULOSKELETAL: No cyanosis, or edema. BACK: Nontender without obvious deformity. No CVA tenderness. Data Data Last Documented VS Vital Signs Date Time Temp Pulse Resp B/P (MAP) Pulse Ox O2 Delivery O2 Flow Rate FiO2 05/24/17 16:12 98 Nasal Cannula 2.00 05/24/17 15:50 99.4 112 16 Orders Orders Complete Blood Count With Diff (05/24/17 15:58) Ecg Monitoring (05/24/17 15:58) Iv Access Insert/Monitor (05/24/17 15:58) Oximetry (05/24/17 15:58) Hydromorphone Pf Inj (Dilaudid Pf Inj) (05/24/17 16:00) Ondansetron Inj (Zofran Inj) (05/24/17 16:00) Sodium Chloride 0.9% Flush (Ns Flush) (05/24/17 16:00) Sodium Chlor 0.9% 1000 Ml Inj (Ns 1000 M (05/24/17 15:58) Diphenhydramine Inj (Benadryl Inj) (05/24/17 16:00) Promethazine Inj (Phenergan Inj) (05/24/17 16:30) Vascular Access Team Consult/P PRN (05/24/17 17:02) Vascular Poc Ultrasound (05/24/17 ) Vascular Poc Ultrasound (05/24/17 ) Labs Laboratory Tests Test 05/24/17 16:05 White Blood Count 13.3 TH/MM3 Red Blood Count 3.48 MIL/MM3 Hemoglobin 10.3 GM/DL Hematocrit 32.2 % Mean Corpuscular Volume 92.6 FL Mean Corpuscular Hemoglobin 29.7 PG Mean Corpuscular Hemoglobin Concent 32.0 % Red Cell Distribution Width 22.2 % Platelet Count 399 TH/MM3 Mean Platelet Volume 8.3 FL CBC Comment AUTO DIFF Differential Total Cells Counted 100 Neutrophils % (Manual) 45 % Lymphocytes % 46 % Monocytes % 5 % Eosinophils % 3 % Basophils % 1 % Neutrophils # (Manual) 6.0 TH/MM3 Nucleated Red Blood Cells 1 /100 WBC Differential Comment FINAL DIFF MANUAL Target Cells 3+ MDM Medical Decision Making Medical Screen Exam Complete: Yes Emergency Medical Condition: Yes Differential Diagnosis Sickle cell crisis, malingering, dehydration Narrative Course Assessment and plan discussed with patient. Patient received Phenergan, 3 attempts were made with ultrasound one was successful prior for approximately 20 minutes before it blew. Orders placed for vascular access. Procedures Procedure Narrative 1.8 inch 20 gauge IV placed under U/S guided surveillance, neuro vascular intact , patient tolerated procedure well. Physician Communication Physician Communication Case discussed and care transferred to John Rios MD May 24, 2017 16:00
[2017-05-24 16:12] VITALS: O2SAT 98
[2017-05-24 16:27] LABS: HEMATOCRIT 32.2 % (35.0-46.0); MEAN CELL VOLUME 92.6 FL (80.0-100.0); MEAN CORPUSCULAR HEMOGLOBIN 29.7 PG (27.0-34.0); PLATELET COUNT 399 TH/MM3 (150-450); RED BLOOD COUNT 3.48 MIL/MM3 (4.00-5.30); RED CELL DISTRIBUTION WIDTH 22.2 % (11.6-17.2); WHITE BLOOD COUNT 13.3 TH/MM3 (4.0-11.0)
[2017-05-24] MEDS ORDERED: PROMETHAZINE INJ 25 MG/ML VIAL IM ONE (16:30)
[2017-05-24 16:40] LABS: HEMO FLAGS AUTO DIFF
[2017-05-24] MEDS: diphenhydrAMINE HCL 50 MG/ML VIAL IV PUSH ONE ×2 (16:53→18:44)
[2017-05-24] MEDS: HYDROmorphone HCL PF 2 MG/ML VIAL IVS ONE ×2 (16:54→18:45)
[2017-05-24 17:13] LABS: BASOPHILS 1 % (0-2); CORRECTED NUCLEATED RBC 1 /100 WBC (0-0); EOSINOPHILS 3 % (0-4); POLYS (SEG NEUTROPHILS) 45 % (16-70); SCAN/DIFF FINAL DIFF MANUAL; TARGET CELLS 3+ (NORMAL); WBC DIFF SAMPLE 100
[2017-05-24] MEDS ORDERED: HYDROmorphone HCL PF 1 MG/ML VIAL IV PUSH ONE (19:45)
[2017-05-24] MEDS ORDERED: HYDROmorphone HCL PF 0.5 MG/0.5 ML SYRINGE IV PUSH ONE (20:00)
[2017-05-24] MEDS ORDERED: HYDROmorphone HCL PF 2 MG/ML VIAL IV PUSH ONE (20:00)
[2017-05-24] MEDS ORDERED: PERC5TAB12 PO (20:10)
--- NOTE | 2017-05-24 20:10 | PD ---
Physical Exam Date Seen by Provider: May 24, 2017 Time Seen by Provider: 19:30 Narrative Patient initially seen by Dr. Mcmillan, please see Dr. Mcmillan's note for further details. She has history of sickle cell disease, is having sickle cell crisis, and has been ordered for IV fluids, pain medications, nausea medications, and lab work. Laboratory Tests Test 05/24/17 16:05 White Blood Count 13.3 TH/MM3 (4.0-11.0) Red Blood Count 3.48 MIL/MM3 (4.00-5.30) Hemoglobin 10.3 GM/DL (11.6-15.3) Hematocrit 32.2 % (35.0-46.0) Red Cell Distribution Width 22.2 % (11.6-17.2) Lymphocytes % 46 % (9-44) Nucleated Red Blood Cells 1 /100 WBC (0-0) Target Cells 3+ (NORMAL) Vital Signs Date Time Temp Pulse Resp B/P (MAP) Pulse Ox O2 Delivery O2 Flow Rate FiO2 05/24/17 16:12 98 Nasal Cannula 2.00 05/24/17 15:56 93 Room Air 05/24/17 15:54 (102) 05/24/17 15:50 99.4 112 16 147/80 (102) 93 Room Air Vital signs are stable in the ER. She was given 2 doses of Dilaudid at request , and lab work was reviewed, shows no significant anemia. White count is mildly elevated, likely secondary to do marginalization. Patient has not reported any fevers. At this point, on reevaluation at 8 PM, she is feeling much improved and my plan would be to release her with follow-up to primary care physician. Return for worsening in symptoms as necessary. The plan has discussed with her and she states understanding. Data Data Last Documented VS Vital Signs Date Time Temp Pulse Resp B/P (MAP) Pulse Ox O2 Delivery O2 Flow Rate FiO2 05/24/17 16:12 98 Nasal Cannula 2.00 05/24/17 15:50 99.4 112 16 Orders Orders Complete Blood Count With Diff (05/24/17 15:58) Ecg Monitoring (05/24/17 15:58) Iv Access Insert/Monitor (05/24/17 15:58) Oximetry (05/24/17 15:58) Hydromorphone Pf Inj (Dilaudid Pf Inj) (05/24/17 16:00) Ondansetron Inj (Zofran Inj) (05/24/17 16:00) Sodium Chloride 0.9% Flush (Ns Flush) (05/24/17 16:00) Sodium Chlor 0.9% 1000 Ml Inj (Ns 1000 M (05/24/17 15:58) Diphenhydramine Inj (Benadryl Inj) (05/24/17 16:00) Promethazine Inj (Phenergan Inj) (05/24/17 16:30) Vascular Access Team Consult/P PRN (05/24/17 17:02) Vascular Poc Ultrasound (05/24/17 ) Hydromorphone Pf Inj (Dilaudid Pf Inj) (05/24/17 20:00) Ed Discharge Order (05/24/17 20:06) Labs Laboratory Tests Test 05/24/17 16:05 White Blood Count 13.3 TH/MM3 Red Blood Count 3.48 MIL/MM3 Hemoglobin 10.3 GM/DL Hematocrit 32.2 % Mean Corpuscular Volume 92.6 FL Mean Corpuscular Hemoglobin 29.7 PG Mean Corpuscular Hemoglobin Concent 32.0 % Red Cell Distribution Width 22.2 % Platelet Count 399 TH/MM3 Mean Platelet Volume 8.3 FL CBC Comment AUTO DIFF Differential Total Cells Counted 100 Neutrophils % (Manual) 45 % Lymphocytes % 46 % Monocytes % 5 % Eosinophils % 3 % Basophils % 1 % Neutrophils # (Manual) 6.0 TH/MM3 Nucleated Red Blood Cells 1 /100 WBC Differential Comment FINAL DIFF MANUAL Target Cells 3+ MDM Medical Record Reviewed: Yes Supervised Visit with HÉCTOR: No Diagnosis Primary Impression: Sickle cell anemia with crisis Med/Other Pt SpecificInfo: Prescription(s) given Scripts Oxycodone-Acetaminophen (Percocet) 5-325 mg Tab 1-2 TAB PO Q6H Y for PAIN, #12 TAB 0 Refills Prov: Radha Padilla MD 05/24/17 Disposition: 01 DISCHARGE HOME Condition: Stable Radha Padilla MD May 24, 2017 20:10
[2017-05-24 20:42] VITALS: RESP 20
[2017-05-24 20:45] VITALS: BP 109/60
== END 2017-05-24 20:49 | disposition home or self-care (01) ==
LOC: PHED 15:39
DX: D57.00 Hb-SS disease with crisis, unspecified (principal)
CPT/HCPCS: 85007; 85027; 96361; 96372; 96374; 96375; 99285; J1170; J1200; J2550; J7030

== ENCOUNTER 2017-06-07 18:30 | Emergency (ER) | payer MEDICARE, OTHER ==
[~2017-06-07] VITALS: Ht 170.2 cm; Wt 108.0 kg
[~2017-06-07 18:30] MED LIST changes: +PERC5TAB12 PO
[2017-06-07 18:35] VITALS: BP 125/73; PULSE 108; RESP 16; TEMP 99.4; O2SAT 95
[2017-06-07] MEDS ORDERED: SODIUM CHLOR 0.9% 1000 ML INJ 1,000 ML IV ONE (19:14)
[2017-06-07] MEDS ORDERED: PROMETHAZINE INJ 25 MG/ML VIAL IM ONE (19:15)
[2017-06-07] MEDS ORDERED: SODIUM CHLORIDE 0.9% FLUSH 10 ML FLUSH IVF PRN (19:15)
[2017-06-07] MEDS ORDERED: HYDROmorphone HCL PF 1 MG/ML VIAL IVS ONE (19:15)
[2017-06-07] MEDS ORDERED: diphenhydrAMINE HCL 50 MG/ML VIAL IV PUSH ONE (19:15)
[2017-06-07 19:26] LABS: BLOOD, URINE TRACE (NEG); GLUCOSE,URINE NEG (NEG); KETONE, URINE NEG (NEG); NITRITE,URINE POS (NEG)
[2017-06-07 19:32] LABS: METHOD OF COLLECTION VOIDED; URINE COLOR YELLOW (YELLW/STRAW)
[2017-06-07 19:33] LABS: WBC, URINE INNUM /hpf (0-5)
[2017-06-07 19:34] LABS: BACTERIA, URINE MANY /hpf; COMMENT (UR) CULTURE INDICATED; CULTURE IF INDICATED CULTURE INDICATED; SQUAMOUS EPITHELIAL CELL URINE 0-1 /hpf (0-5)
--- NOTE | 2017-06-07 19:50 | PD ---
HPI Chief Complaint: Sickle Cell Time Seen by Provider: 19:21 Travel History International Travel<30 days: No Contact w/Intl Traveler<30days: No Traveled to known affect area: No History of Present Illness HPI 31-year-old female presents to the emergency department by private transportation for complaint of sickle cell crisis. Patient is been seen numerous times in this emergency department. Patient states that she has been out of her maintenance pain medication Thursday and Thursday. Patient was seen by her novelty worker Dr. Silver on Thursday and had a prescription refilled could not fill the prescription due to reported pharmacy complications. Patient denies any fever or chills. Patient's had no nausea or vomiting. Patient denies any chest pain or shortness of breath abdominal pain. Patient is concerned she may have a urinary tract infection. Patient describes her sickle pain as generalized and involving the entire body. Patient rates her overall discomfort as 8/10. Last ER visit was at the beginning of May and has done fairly well with her outpatient medication regimen until running out of her medication yesterday. 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; no tobacco; nursing notes reviewed Hx Anticoagulant Therapy: Yes (XARELTO - PE) Asthma: No Autoimmune Disease: No Blood Disorders: Yes (SICKLE CELL) Anxiety: Yes Depression: No Heart Rhythm Problems: No Cancer: No Cardiac Catheterization: Yes Cardiovascular Problems: Yes (heart murmur, svc) High Cholesterol: No Chemotherapy: No Chest Pain: No Congestive Heart Failure: No COPD: No Cerebrovascular Accident: No Diabetes: No Diminished Hearing: No Endocrine: No Gastrointestinal Disorders: Yes (HX GALLSTONES--CHOLECYSTECTOMY) Genetic Disorder: Yes (SICKLE CELL) GERD: No Glaucoma: Yes Genitourinary: No Headaches: Yes Hepatitis: No Hiatal Hernia: No Heparin Induced Thrombocytopen: No Hypertension: No Immune Disorder: No Implanted Vascular Access Dvce: Yes (RIGHT CHEST INFUSAPORT: SEPTEMBER 2014 REMOVED ) Kidney Stones: No Medical other: Yes (SICKLE CELL ANEMIA) Musculoskeletal: Yes (ARTHRITIS) Neurologic: No Psychiatric: No Reproductive: No Respiratory: Yes (PULMONARY EMBOLISM) Immunizations Current: Yes Migraines: No Myocardial Infarction: No Pneumonia: Yes Radiation Therapy: No Renal Failure: No Seizures: No Sickle Cell Disease: Yes Sleep Apnea: No Thyroid Disease: No Ulcer: No Influenza Vaccination: No ?: Not LMP: 2 WEEKS : 10 Para: 4 Miscarriage: 6 : 0 Ectopic : No Ovarian Cysts: No Tubal Ligation: Yes Past Surgical History Abdominal Surgery: Yes (cholecystectomy ) AICD: No Arteriovenous Shunt: No Body Medical Devices: RIGHT INFUSAPORT (REMOVED 2012), LEFT REMOVED 2014 Cardiac Surgery: No Section: Yes (x2) Cholecystectomy: Yes Ear Surgery: No Endocrine Surgery: No Eye Surgery: Yes (CORRECTIVE EYE SURGERY-LEFT) Genitourinary Surgery: No Gynecologic Surgery: Yes ( X 2, 2007 AND 2012) Hysterectomy: No Insulin Pump: No Joint Replacement: No Neurologic Surgery: No Oral Surgery: No Pacemaker: No Thoracic Surgery: Yes (MRSA INFUSAPORT R SIDE REMOVED 05/2013, L SIDE INFUSAPORT REMOVED 07/20) Other Surgery: Yes (Angioplasty ) Social History Alcohol Use: Yes (occas. wine) Tobacco Use: No Substance Use: No Allergies-Medications (Allergen,Severity, Reaction): Coded Allergies: ketorolac (Verified Allergy, Severe, RASH, 06/07/17) metoclopramide (Verified Allergy, Severe, RASH, 06/07/17) morphine (Verified Allergy, Severe, RASH, 06/07/17) ondansetron (Verified Allergy, Severe, RASH,ITCH, 06/07/17) Uncoded Allergies: CEFEPIME (Allergy, Severe, Hives., 08/09/16) . Reported Meds & Prescriptions Reported Meds & Active Scripts Active Oxycodone (Oxycodone HCl) 5 Mg Cap 5 Mg PO BID PRN Eliquis (Apixaban) 2.5 Mg Tab 5 Mg PO DIRECTED 30 Days 10 mg po twice daily till 04/29/17- then 5 mg po twice daily. Oxygen (O2) Device Liter SANDRA.CANULA CONTINUOUS Oxygen Concentrator Portable Gaseous 2 L/min via Nasal Canula Continuous For 99 months Reported Hydrea (Hydroxyurea) 500 Mg Cap 500 Mg PO DAILY Phenergan (Promethazine HCl) 25 Mg Tablet 25 Mg PO Q6H PRN Amitriptyline (Amitriptyline HCl) 25 Mg Tab 25 Mg PO HS Methadone (Methadone HCl) 10 Mg Tab 10 Mg PO DAILY Review of Systems Except as stated in HPI: all other systems reviewed are Neg General / Constitutional: No: Fever, Chills HENT: No: Congestion Cardiovascular: No: Chest Pain or Discomfort Respiratory: No: Pleuritic Pain Gastrointestinal: No: Nausea, Vomiting, Abdominal Pain Genitourinary: Positive: Frequency, Dysuria, No: Flank Pain Musculoskeletal: Positive: Myalgias, Arthralgias, Pain ('typical generalized sickle crisis pain') Skin: No Rash Neurologic: No: Weakness Psychiatric: No: Anxiety Hematologic/Lymphatic: No: Lymph Node Enlargement Physical Exam Narrative GENERAL: Well-developed well-nourished female in no acute distress no respiratory distress SKIN: Warm and dry. HEAD: Normocephalic. EYES: No scleral icterus. No injection or drainage. NECK: Supple, trachea midline. No JVD or lymphadenopathy. CARDIOVASCULAR: Regular rate and rhythm without murmurs, gallops, or rubs. RESPIRATORY: Breath sounds equal bilaterally. No accessory muscle use. GASTROINTESTINAL: Abdomen soft, non-tender, nondistended. MUSCULOSKELETAL: No cyanosis, or edema. BACK: Nontender without obvious deformity. No CVA tenderness. Data Data Last Documented VS Vital Signs Date Time Temp Pulse Resp B/P (MAP) Pulse Ox O2 Delivery O2 Flow Rate FiO2 06/07/17 20:00 99.2 95 20 143/67 (92) 97 Nasal Cannula 2.00 Orders Orders Basic Metabolic Panel (Bmp) (06/07/17 19:14) Complete Blood Count With Diff (06/07/17 19:14) Retic Count (06/07/17 19:14) Urinalysis - C+S If Indicated (06/07/17 19:14) Ecg Monitoring (06/07/17 19:14) Iv Access Insert/Monitor (06/07/17 19:14) Oximetry (06/07/17 19:14) Sodium Chloride 0.9% Flush (Ns Flush) (06/07/17 19:15) Sodium Chlor 0.9% 1000 Ml Inj (Ns 1000 M (06/07/17 19:14) Hydromorphone Pf Inj (Dilaudid Pf Inj) (06/07/17 19:15) Diphenhydramine Inj (Benadryl Inj) (06/07/17 19:15) Promethazine Inj (Phenergan Inj) (06/07/17 19:15) Urine Culture (06/07/17 19:23) Hydromorphone Pf Inj (Dilaudid Pf Inj) (06/07/17 21:15) Nitrofurantoin Monohyd Macrocr (Macrobid (06/07/17 21:30) Phenazopyridine (Pyridium) (06/07/17 21:30) Labs Laboratory Tests Test 06/07/17 19:23 06/07/17 19:40 Urine Collection Type VOIDED Urine Color YELLOW Urine Turbidity CLOUDY Urine pH 7.0 Urine Specific [place] 1.008 Urine Protein NEG mg/dL Urine Glucose (UA) NEG mg/dL Urine Ketones NEG mg/dL Urine Occult Blood TRACE Urine Nitrite POS Urine Bilirubin NEG Urine Leukocyte Esterase LARGE Urine WBC INNUM /hpf Urine WBC Clumps FEW Urine Squamous Epithelial Cells 0-1 /hpf Urine Bacteria MANY /hpf Microscopic Urinalysis Comment CULTURE INDICATED White Blood Count 10.9 TH/MM3 Red Blood Count 3.32 MIL/MM3 Hemoglobin 10.0 GM/DL Hematocrit 30.5 % Mean Corpuscular Volume 91.8 FL Mean Corpuscular Hemoglobin 30.2 PG Mean Corpuscular Hemoglobin Concent 32.9 % Red Cell Distribution Width 19.4 % Platelet Count 493 TH/MM3 Mean Platelet Volume 7.7 FL Neutrophils (%) (Auto) 68.4 % Lymphocytes (%) (Auto) 26.0 % Monocytes (%) (Auto) 2.8 % Eosinophils (%) (Auto) 1.9 % Basophils (%) (Auto) 0.9 % Neutrophils # (Auto) 7.5 TH/MM3 Lymphocytes # (Auto) 2.8 TH/MM3 Monocytes # (Auto) 0.3 TH/MM3 Eosinophils # (Auto) 0.2 TH/MM3 Basophils # (Auto) 0.1 TH/MM3 CBC Comment AUTO DIFF Differential Comment AUTO DIFF CONFIRMED Platelet Estimate HIGH Platelet Morphology Comment NORMAL Target Cells 3+ Ovalocytes 1+ Keratocytes 1+ Reticulocyte Count 3.8 % Absolute Reticulocyte Count 122.1 MIL/L Blood Urea Nitrogen 7 MG/DL Creatinine 0.85 MG/DL Random Glucose 107 MG/DL Calcium Level 8.7 MG/DL Sodium Level 141 MEQ/L Potassium Level 4.0 MEQ/L Chloride Level 109 MEQ/L Carbon Dioxide Level 26.0 MEQ/L Anion Gap 6 MEQ/L Estimat Glomerular Filtration Rate 94 ML/MIN [facility] Medical Decision Making Medical Screen Exam Complete: Yes Emergency Medical Condition: Yes Medical Record Reviewed: Yes Interpretation(s) UA: Positive leukocyte Estrace positive white blood cells positive bacteria culture is indicated Vital Signs Date Time Temp Pulse Resp B/P (MAP) Pulse Ox O2 Delivery O2 Flow Rate FiO2 06/07/17 20:00 99.2 95 20 143/67 (92) 97 Nasal Cannula 2.00 06/07/17 18:46 99 Nasal Cannula 2.00 06/07/17 18:45 95 Room Air 06/07/17 18:35 99.4 108 16 125/73 (90) 95 CBC & BMP Diagram 06/07/17 19:40 Calcium Level 8.7 Differential Diagnosis Sickle crisis vaso-occlusive crisis dehydration narcotic withdrawal anemia aplastic anemia UTI Narrative Course Peripheral IV access was obtained specimens collected and sent for resulting patient administered Dilaudid 1 mg IV Benadryl 25 mg IV and Phenergan 25 mg IM as well as 1 L normal saline At 9:30 PM patient is reassessed and clinically improved she is informed that she has a urinary tract infection and reports that she responds well to Macrobid for her urinary tract infections therefore given first dose of oral antibiotic and Pyridium in the emergency department. Patient stable for outpatient management and follow-up with her novelty worker on Thursday. Diagnosis Primary Impression: Sickle cell anemia Additional Impression: UTI (urinary tract infection) Referrals: Carline Silver MD call for appointment Patient Instructions: General Instructions, Narcotic given in the ED Additional Instructions: Increase fluid hydration Take medications as prescribed by your novelty worker Return to the emergency department for any concerns or change in condition Complete course of antibiotic as prescribed Monitor temperature for fever and take as tolerated acetaminophen/Tylenol every 4 hours for fever 100.4F or greater Follow-up with your novelty worker Dr. Silver call office in a.m. to schedule follow-up appointment Med/Other Pt SpecificInfo: Prescription(s) given Scripts Phenazopyridine (Pyridium) 100 Mg Tab 100 MG PO Q8H Y for DYSURIA, #6 TAB 0 Refills Prov: Ting Woo MD 06/07/17 Nitrofurantoin Monohydrate Macrocrystals (Macrobid) 100 Mg Cap 100 MG PO BID for Infection for 10 Days, #20 CAP 0 Refills Prov: Ting Woo MD 06/07/17 Disposition: 01 DISCHARGE HOME Condition: Stable Ting Woo MD Jun 07, 2017 19:50
[2017-06-07 19:52] LABS: AUTOMATED NEUTROPHIL # 7.5 TH/MM3 (1.8-7.7); BASOPHIL # 0.1 TH/MM3 (0-0.2); BASOPHIL % 0.9 % (0.0-2.0); EOSINOPHIL # 0.2 TH/MM3 (0-0.4); EOSINOPHIL % 1.9 % (0.0-4.0); HEMATOCRIT 30.5 % (35.0-46.0); LYMPHOCYTE # 2.8 TH/MM3 (1.0-4.8); MEAN CELL VOLUME 91.8 FL (80.0-100.0); MEAN CORPUSCULAR HEMOGLOBIN 30.2 PG (27.0-34.0); MEAN CORPUSCULAR HGB CONC 32.9 % (32.0-36.0); MONO % 2.8 % (0.0-8.0); NEUT % 68.4 % (16.0-70.0); PLATELET COUNT 493 TH/MM3 (150-450); RED BLOOD COUNT 3.32 MIL/MM3 (4.00-5.30); RED CELL DISTRIBUTION WIDTH 19.4 % (11.6-17.2); WHITE BLOOD COUNT 10.9 TH/MM3 (4.0-11.0)
[2017-06-07 19:58] LABS: HEMO FLAGS AUTO DIFF
[2017-06-07 20:00] VITALS: BP 143/67; PULSE 95; RESP 20; TEMP 99.2; O2SAT 97
[2017-06-07 20:39] LABS: TARGET CELLS 3+ (NORMAL)
[2017-06-07 20:41] LABS: KERATOCYTES 1+ (NORMAL); OVALOCYTES 1+ (NORMAL)
[2017-06-07 20:43] LABS: PLATELET ESTIMATE SMEAR HIGH (NORMAL); PLATELET MORPHOLOGY NORMAL (NORMAL); SCAN/DIFF AUTO DIFF CONFIRMED
[2017-06-07 21:09] VITALS: BP 106/52; PULSE 85
[2017-06-07] MEDS ORDERED: HYDROmorphone HCL PF 1 MG/ML VIAL IV PUSH ONE (21:15)
[2017-06-07 21:23] LABS: RETIC % 3.8 % (0.4-3.0); REVIEW FLAG FINAL
[2017-06-07] MEDS ORDERED: PHENAZOPYRIDINE HCL 100 MG TAB PO ONE (21:30)
[2017-06-07] MEDS ORDERED: NITROFURANTOIN MONOHYD MACROCR 100 MG CAP PO ONE (21:30)
[2017-06-07] MEDS ORDERED: MACR100C2 PO (21:32)
[2017-06-07] MEDS ORDERED: PHEN0.4T PO (21:32)
[2017-06-07 21:41] VITALS: BP 94/52; PULSE 86; RESP 16; O2SAT 96
== END 2017-06-07 21:53 | disposition home or self-care (01) ==
LOC: PHED 18:30
DX: D57.1 Sickle-cell disease without crisis (principal); N39.0 Urinary tract infection, site not specified; B96.20 Unspecified Escherichia coli [E. coli] as the cause of diseases classified elsewhere; Z99.81 Dependence on supplemental oxygen; Z88.5 Allergy status to narcotic agent; Z79.899 Other long term (current) drug therapy
CPT/HCPCS: 80048; 81001; 85025; 85044; 87077; 87086; 87186; 96361; 96372; 96374; 96375; 96376; 99284; J1170; J1200; J2550; J7030

== ENCOUNTER 2017-07-06 15:15 | Emergency (ER) | payer MEDICARE, OTHER ==
[~2017-07-06] VITALS: Ht 170.2 cm; Wt 108.0 kg
[~2017-07-06 15:15] MED LIST changes: +MACR100C2 PO; -PERC5TAB12 PO; +PHEN0.4T PO
[2017-07-06 15:21] VITALS: BP 137/73; PULSE 112; RESP 16; TEMP 99.3; O2SAT 97
--- NOTE | 2017-07-06 15:24 | PD ---
HPI Chief Complaint: Sickle Cell Time Seen by Provider: 15:23 Travel History International Travel<30 days: No Contact w/Intl Traveler<30days: No Traveled to known affect area: No History of Present Illness HPI 31-year-old female came to the emergency room with history of body right pain which she calls sickle cell crisis. Patient has history of sickle cell disease. She is on medications for sickle cell disease as well as methadone and oxycodone. She says her head porter baggage Dr. Silver prescribes her. Her last blood transfusion was more than a year ago. She was lightheaded tachycardic when she came in. She does not appear to be in significant distress. No aggravating or relieving factors of the pain identified. [facility] Past Medical History Narrative Medical List of her past medical, surgical, social and family history is reviewed from the nursing note. Hx Anticoagulant Therapy: Yes (XARELTO - PE) Asthma: No Autoimmune Disease: No Blood Disorders: Yes (SICKLE CELL) Anxiety: Yes Depression: No Heart Rhythm Problems: No Cancer: No Cardiac Catheterization: Yes Cardiovascular Problems: Yes (heart murmur, svc) High Cholesterol: No Chemotherapy: No Chest Pain: No Congestive Heart Failure: No COPD: No Cerebrovascular Accident: No Diabetes: No Diminished Hearing: No Endocrine: No Gastrointestinal Disorders: Yes (HX GALLSTONES--CHOLECYSTECTOMY) Genetic Disorder: Yes (SICKLE CELL) GERD: No Glaucoma: Yes Genitourinary: No Headaches: Yes Hepatitis: No Hiatal Hernia: No Heparin Induced Thrombocytopen: No Hypertension: No Immune Disorder: No Implanted Vascular Access Dvce: Yes (RIGHT CHEST INFUSAPORT: SEPTEMBER 2014 REMOVED ) Kidney Stones: No Musculoskeletal: Yes (ARTHRITIS) Neurologic: No Psychiatric: No Reproductive: No Respiratory: Yes (PULMONARY EMBOLISM) Immunizations Current: Yes Migraines: No Myocardial Infarction: No Pneumonia: Yes Radiation Therapy: No Renal Failure: No Seizures: No Sickle Cell Disease: Yes Sleep Apnea: No Thyroid Disease: No Ulcer: No ?: Not : 10 Para: 4 Miscarriage: 6 : 0 Ectopic : No Ovarian Cysts: No Tubal Ligation: Yes Past Surgical History Abdominal Surgery: Yes (cholecystectomy ) AICD: No Arteriovenous Shunt: No Body Medical Devices: RIGHT INFUSAPORT (REMOVED 2012), LEFT REMOVED 2014 Cardiac Surgery: No Section: Yes (x2) Cholecystectomy: Yes Ear Surgery: No Endocrine Surgery: No Eye Surgery: Yes (CORRECTIVE EYE SURGERY-LEFT) Genitourinary Surgery: No Gynecologic Surgery: Yes ( X 2, 2007 AND 2012) Hysterectomy: No Insulin Pump: No Joint Replacement: No Neurologic Surgery: No Oral Surgery: No Pacemaker: No Thoracic Surgery: Yes (MRSA INFUSAPORT R SIDE REMOVED 05/2013, L SIDE INFUSAPORT REMOVED 07/20) Other Surgery: Yes (Angioplasty ) Social History Alcohol Use: Yes (occas. wine) Tobacco Use: No Substance Use: No Allergies-Medications (Allergen,Severity, Reaction): Coded Allergies: ketorolac (Verified Allergy, Severe, RASH, 07/09/17) metoclopramide (Verified Allergy, Severe, RASH, 07/09/17) morphine (Verified Allergy, Severe, RASH, 07/09/17) ondansetron (Verified Allergy, Severe, RASH,ITCH, 07/09/17) Uncoded Allergies: CEFEPIME (Allergy, Severe, Hives., 08/09/16) . Comments List of her allergies reviewed from the nursing note. Reported Meds & Prescriptions Reported Meds & Active Scripts Active Macrobid (Nitrofurantoin Monoh/Nitrofur Macro) 100 Mg Cap 100 Mg PO BID 7 Days Oxycodone (Oxycodone HCl) 5 Mg Cap 5 Mg PO BID PRN Eliquis (Apixaban) 2.5 Mg Tab 5 Mg PO DIRECTED 30 Days 10 mg po twice daily till 04/29/17- then 5 mg po twice daily. Reported Promethazine (Promethazine HCl) 12.5 Mg Tab 25 Mg PO Q4H PRN Hydrea (Hydroxyurea) 500 Mg Cap 500 Mg PO DAILY Amitriptyline (Amitriptyline HCl) 25 Mg Tab 25 Mg PO HS Methadone (Methadone HCl) 10 Mg Tab 10 Mg PO DAILY Narrative Medication List of her home medications reviewed from the nursing note. Review of Systems Except as stated in HPI: all other systems reviewed are Neg Physical Exam Narrative GENERAL: Awake, alert, no obvious distress, morbidly obese SKIN: Focused skin assessment warm/dry. HEAD: Atraumatic. Normocephalic. EYES: Right eye appears to be normal. Left eye has significant corneal opacity which is old ENT: No nasal bleeding or discharge. Mucous membranes pink and moist. NECK: Trachea midline. No JVD. CARDIOVASCULAR: Regular rate and rhythm. No murmur appreciated. RESPIRATORY: No accessory muscle use. Clear to auscultation. Breath sounds equal bilaterally. GASTROINTESTINAL: Abdomen soft, non-tender, nondistended. Hepatic and splenic margins not palpable. MUSCULOSKELETAL: No obvious deformities. No clubbing. No cyanosis. No edema. NEUROLOGICAL: Awake and alert. No obvious cranial nerve deficits. Motor grossly within normal limits. Normal speech. PSYCHIATRIC: Appropriate mood and affect; insight and judgment normal. Data Data Last Documented VS Orders Orders Complete Blood Count With Diff (07/06/17 15:47) Sodium Chlor 0.9% 1000 Ml Inj (Ns 1000 M (07/06/17 16:00) Oxycodone-Acetamin 5-325 Mg (Percocet (07/06/17 16:00) Urinalysis - C+S If Indicated (07/06/17 17:15) Urine Culture (07/06/17 17:30) Nitrofurantoin Monohyd Macrocr (Macrobid (07/06/17 18:00) Ed Discharge Order (07/06/17 17:56) Labs Laboratory Tests Test 07/06/17 16:00 07/06/17 17:30 White Blood Count 11.3 TH/MM3 Red Blood Count 3.46 MIL/MM3 Hemoglobin 10.1 GM/DL Hematocrit 31.1 % Mean Corpuscular Volume 90.2 FL Mean Corpuscular Hemoglobin 29.1 PG Mean Corpuscular Hemoglobin Concent 32.3 % Red Cell Distribution Width 17.4 % Platelet Count 448 TH/MM3 Mean Platelet Volume 8.3 FL Neutrophils (%) (Auto) 66.7 % Lymphocytes (%) (Auto) 25.7 % Monocytes (%) (Auto) 4.2 % Eosinophils (%) (Auto) 2.8 % Basophils (%) (Auto) 0.6 % Neutrophils # (Auto) 7.5 TH/MM3 Lymphocytes # (Auto) 2.9 TH/MM3 Monocytes # (Auto) 0.5 TH/MM3 Eosinophils # (Auto) 0.3 TH/MM3 Basophils # (Auto) 0.1 TH/MM3 CBC Comment AUTO DIFF Differential Total Cells Counted 100 Neutrophils % (Manual) 55 % Lymphocytes % 32 % Monocytes % 6 % Eosinophils % 7 % Neutrophils # (Manual) 6.2 TH/MM3 Nucleated Red Blood Cells 2 /100 WBC Differential Comment FINAL DIFF MANUAL Platelet Estimate NORMAL Platelet Morphology Comment NORMAL Spherocytes OCC Sickle Cells 1+ Target Cells 2+ Ovalocytes 1+ Rouleau PRESENT Keratocytes 1+ Urine Collection Type CLEAN CATCH Urine Color YELLOW Urine Turbidity MOD Urine pH 7.5 Urine Specific [place] 1.009 Urine Protein NEG mg/dL Urine Glucose (UA) NEG mg/dL Urine Ketones NEG mg/dL Urine Occult Blood NEG Urine Nitrite NEG Urine Bilirubin NEG Urine Leukocyte Esterase SMALL Urine WBC 20-24 /hpf Urine WBC Clumps MOD Urine Squamous Epithelial Cells > 8 /hpf Urine Amorphous Sediment FEW Urine Bacteria MANY /hpf Microscopic Urinalysis Comment CULTURE INDICATED Urine Collection Time 1730 MDM Medical Decision Making Medical Screen Exam Complete: Yes Emergency Medical Condition: Yes Medical Record Reviewed: Yes Differential Diagnosis Painful crisis, sickle cell disease, chronic pain Narrative Course 5:21 PM blood test result is back and patient's hemoglobin is good. She does not require blood transfusion. She was given 1 L of IV fluid bolus. Given all her allergies I have given her 3 pills of 5 mg of oxycodone. I just reassessed her and her heart rate is down to 92. She says she feels better. Awaiting for the UA and she'll be discharged home after that. Procedures EKG Prior to Arrival: No Diagnosis Primary Impression: Sickle cell disease Qualified Codes: D57.00 - Hb-SS disease with crisis, unspecified Additional Impressions: Sickle cell pain crisis UTI (urinary tract infection) Qualified Codes: N39.0 - Urinary tract infection, site not specified Referrals: Primary Care Physician Additional Instructions: Please return to the ER if the condition worsens or any other new concerns. Otherwise follow-up with your primary care next couple days. Continue taking the medications like is supposed to. Take the medication as per the prescription direction. Med/Other Pt SpecificInfo: Prescription(s) given Scripts Nitrofurantoin Monohydrate Macrocrystals (Macrobid) 100 Mg Cap 100 MG PO BID for Infection for 7 Days, #14 CAP 0 Refills Prov: Su Quinones MD 07/06/17 Disposition: 01 DISCHARGE HOME Condition: Stable Su Quinones MD Jul 06, 2017 15:24
[2017-07-06] MEDS ORDERED: SODIUM CHLOR 0.9% 1000 ML INJ 1,000 ML IV ONE (16:00)
[2017-07-06] MEDS ORDERED: oxyCODONE/ACETAMINOPHEN 5 MG/325 MG TAB PO ONE (16:00)
[2017-07-06 16:21] LABS: AUTOMATED NEUTROPHIL # 7.5 TH/MM3 (1.8-7.7); BASOPHIL # 0.1 TH/MM3 (0-0.2); BASOPHIL % 0.6 % (0.0-2.0); EOSINOPHIL # 0.3 TH/MM3 (0-0.4); EOSINOPHIL % 2.8 % (0.0-4.0); HEMATOCRIT 31.1 % (35.0-46.0); HEMOGLOBIN 10.1 GM/DL (11.6-15.3); LYMPH % 25.7 % (9.0-44.0); LYMPHOCYTE # 2.9 TH/MM3 (1.0-4.8); MEAN CELL VOLUME 90.2 FL (80.0-100.0); MEAN CORPUSCULAR HEMOGLOBIN 29.1 PG (27.0-34.0); MEAN CORPUSCULAR HGB CONC 32.3 % (32.0-36.0); MEAN PLATELET VOLUME 8.3 FL (7.0-11.0); MONO % 4.2 % (0.0-8.0); MONOCYTE # 0.5 TH/MM3 (0-0.9); NEUT % 66.7 % (16.0-70.0); PLATELET COUNT 448 TH/MM3 (150-450); RED BLOOD COUNT 3.46 MIL/MM3 (4.00-5.30); RED CELL DISTRIBUTION WIDTH 17.4 % (11.6-17.2); WHITE BLOOD COUNT 11.3 TH/MM3 (4.0-11.0)
[2017-07-06 16:45] LABS: CORRECTED NUCLEATED RBC 2 /100 WBC (0-0); LYMPHOCYTES 32 % (9-44); MONOCYTES 6 % (0-8); NEUTROPHIL # MANUAL DIFF 6.2 TH/MM3 (1.8-7.7); NUCLEATED RED BLOOD CELL 2 (0-0); POLYS (SEG NEUTROPHILS) 55 % (16-70)
[2017-07-06 16:46] LABS: KERATOCYTES 1+ (NORMAL); OVALOCYTES 1+ (NORMAL); SICKLE CELLS 1+ (NORMAL); TARGET CELLS 2+ (NORMAL)
[2017-07-06 16:47] LABS: ROULEAUX PRESENT (NORMAL); SPHEROCYTES OCC (NORMAL)
[2017-07-06 17:19] VITALS: PULSE 92
[2017-07-06 17:41] LABS: BILIRUBIN, URINE NEG (NEG); BLOOD, URINE NEG (NEG); GLUCOSE,URINE NEG (NEG); KETONE, URINE NEG (NEG); NITRITE,URINE NEG (NEG); PH, URINE 7.5 (5.0-8.5); URINE LEUKOCYTE ESTERASE SMALL (NEG)
[2017-07-06 17:46] LABS: URINE COLOR YELLOW (YELLW/STRAW)
[2017-07-06 17:47] LABS: AMORPHOUS SEDIMENT, URINE FEW; BACTERIA, URINE MANY /hpf; SQUAMOUS EPITHELIAL CELL URINE > 8 /hpf (0-5); WHITE BLOOD CELL CLUMPS MOD
[2017-07-06] MEDS ORDERED: MACR100C2 PO (17:57)
[2017-07-06] MEDS ORDERED: NITROFURANTOIN MONOHYD MACROCR 100 MG CAP PO ONE (18:00)
[2017-07-06 18:11] VITALS: BP 117/72; PULSE 97; RESP 16; O2SAT 99
== END 2017-07-06 18:27 | disposition home or self-care (01) ==
LOC: PHED 15:15
DX: D57.00 Hb-SS disease with crisis, unspecified (principal); N39.0 Urinary tract infection, site not specified; B96.20 Unspecified Escherichia coli [E. coli] as the cause of diseases classified elsewhere; F41.9 Anxiety disorder, unspecified; Z79.01 Long term (current) use of anticoagulants; Z86.79 Personal history of other diseases of the circulatory system; Z86.69 Personal history of other diseases of the nervous system and sense organs; Z87.39 Personal history of other diseases of the musculoskeletal system and connective tissue; Z86.711 Personal history of pulmonary embolism
CPT/HCPCS: 81001; 85007; 85027; 87077; 87086; 87186; 96360; 99284; J7030

== ENCOUNTER 2017-07-09 22:17 | Emergency (ER) | payer MEDICARE, OTHER ==
[~2017-07-09] VITALS: Ht 170.2 cm; Wt 106.4 kg
[~2017-07-09 22:17] MED LIST changes: -PHEN0.4T PO; -PROM25TA10 PO
[2017-07-09 22:20] VITALS: BP 140/83; PULSE 120; RESP 20; TEMP 99.6; O2SAT 97
[2017-07-09] MEDS ORDERED: PROM12.54 PO (22:59)
--- NOTE | 2017-07-09 23:06 | PD ---
HPI Chief Complaint: Sickle Cell Time Seen by Provider: 22:57 Travel History International Travel<30 days: No Contact w/Intl Traveler<30days: No Traveled to known affect area: No History of Present Illness HPI The patient is a 31-year-old female that comes in the emergency department with sickle cell pain crisis and vomiting. The vomiting started today. She was just here on the first of this month and blood work looked very good. Her hemoglobin was 10.1. She states she usually gets IV Dilaudid, Benadryl and the Phenergan shot. She states she has had a tubal ligation and there is no possibility of . She is on sickle cell medications as a bolus methadone and oxycodone. Dr. Traylor is her pool hand. PFSH Past Medical History Hx Anticoagulant Therapy: Yes (ELAQUIS) Asthma: No Autoimmune Disease: No Blood Disorders: Yes (SICKLE CELL) Anxiety: Yes Depression: No Heart Rhythm Problems: No Cancer: No Cardiac Catheterization: Yes Cardiovascular Problems: Yes (heart murmur, svc) High Cholesterol: No Chemotherapy: No Chest Pain: No Congestive Heart Failure: No COPD: No Cerebrovascular Accident: No Diabetes: No Diminished Hearing: No Endocrine: No Gastrointestinal Disorders: Yes (HX GALLSTONES--CHOLECYSTECTOMY) Genetic Disorder: Yes (SICKLE CELL) GERD: No Glaucoma: Yes Genitourinary: No Headaches: Yes Hepatitis: No Hiatal Hernia: No Heparin Induced Thrombocytopen: No Hypertension: No Immune Disorder: No Implanted Vascular Access Dvce: Yes (RIGHT CHEST INFUSAPORT: SEPTEMBER 2014 REMOVED ) Kidney Stones: No Medical other: Yes (SICKLE CELL ANEMIA) Musculoskeletal: Yes (ARTHRITIS) Neurologic: No Psychiatric: No Reproductive: No Respiratory: Yes (PULMONARY EMBOLISM) Immunizations Current: Yes Migraines: No Myocardial Infarction: No Pneumonia: Yes Radiation Therapy: No Renal Failure: No Seizures: No Sickle Cell Disease: Yes Sleep Apnea: No Thyroid Disease: No Ulcer: No ?: Not LMP: NOW - STARTED 07/07/17 : 10 Para: 4 Miscarriage: 6 : 0 Ectopic : No Ovarian Cysts: No Tubal Ligation: Yes Past Surgical History Abdominal Surgery: Yes (cholecystectomy ) AICD: No Arteriovenous Shunt: No Body Medical Devices: RIGHT INFUSAPORT (REMOVED 2012), LEFT REMOVED 2014 Cardiac Surgery: No Section: Yes (x2) Cholecystectomy: Yes Ear Surgery: No Endocrine Surgery: No Eye Surgery: Yes (CORRECTIVE EYE SURGERY-LEFT) Genitourinary Surgery: No Gynecologic Surgery: Yes ( X 2, 2007 AND 2012) Hysterectomy: No Insulin Pump: No Joint Replacement: No Neurologic Surgery: No Oral Surgery: No Pacemaker: No Thoracic Surgery: Yes (MRSA INFUSAPORT R SIDE REMOVED 05/2013, L SIDE INFUSAPORT REMOVED 07/20) Other Surgery: Yes (Angioplasty ) Social History Alcohol Use: Yes (occas. wine) Tobacco Use: No Substance Use: No Allergies-Medications (Allergen,Severity, Reaction): Coded Allergies: ketorolac (Verified Allergy, Severe, RASH, 07/09/17) metoclopramide (Verified Allergy, Severe, RASH, 07/09/17) morphine (Verified Allergy, Severe, RASH, 07/09/17) ondansetron (Verified Allergy, Severe, RASH,ITCH, 07/09/17) Uncoded Allergies: CEFEPIME (Allergy, Severe, Hives., 08/09/16) . Reported Meds & Prescriptions Reported Meds & Active Scripts Active Macrobid (Nitrofurantoin Monoh/Nitrofur Macro) 100 Mg Cap 100 Mg PO BID 7 Days Oxycodone (Oxycodone HCl) 5 Mg Cap 5 Mg PO BID PRN Eliquis (Apixaban) 2.5 Mg Tab 5 Mg PO DIRECTED 30 Days 10 mg po twice daily till 04/29/17- then 5 mg po twice daily. Reported Promethazine (Promethazine HCl) 12.5 Mg Tab 25 Mg PO Q4H PRN Hydrea (Hydroxyurea) 500 Mg Cap 500 Mg PO DAILY Amitriptyline (Amitriptyline HCl) 25 Mg Tab 25 Mg PO HS Methadone (Methadone HCl) 10 Mg Tab 10 Mg PO DAILY Review of Systems Except as stated in HPI: all other systems reviewed are Neg Physical Exam Narrative GENERAL: The patient is alert, oriented 3 in slight apparent distress with her sickle cell pain crisis. SKIN: Focused skin assessment warm/dry. HEAD: Atraumatic. Normocephalic. EYES: Pupils equal and round. No scleral icterus. No injection or drainage. ENT: No nasal bleeding or discharge. Mucous membranes pink and moist. NECK: Trachea midline. No JVD. CARDIOVASCULAR: Regular rate and rhythm. No murmur appreciated. RESPIRATORY: No accessory muscle use. Clear to auscultation. Breath sounds equal bilaterally. GASTROINTESTINAL: Abdomen soft, non-tender, nondistended. Hepatic and splenic margins not palpable. No guarding or rebound is present. MUSCULOSKELETAL: No obvious deformities. No clubbing. No cyanosis. No edema. NEUROLOGICAL: Awake and alert. No obvious cranial nerve deficits. Motor grossly within normal limits. Normal speech. PSYCHIATRIC: Appropriate mood and affect; insight and judgment normal. Data Data Last Documented VS Vital Signs Date Time Temp Pulse Resp B/P (MAP) Pulse Ox O2 Delivery O2 Flow Rate FiO2 07/09/17 23:54 100 96 Room Air 07/09/17 22:20 99.6 20 140/83 (102) Orders Orders Diphenhydramine Inj (Benadryl Inj) (07/09/17 23:15) Promethazine Inj (Phenergan Inj) (07/09/17 23:15) Hydromorphone Pf Inj (Dilaudid Pf Inj) (07/09/17 23:15) Sodium Chlor 0.9% 1000 Ml Inj (Ns 1000 M (07/09/17 23:15) Hydromorphone Pf Inj (Dilaudid Pf Inj) (07/10/17 00:30) Diphenhydramine Inj (Benadryl Inj) (07/10/17 00:30) Promethazine Inj (Phenergan Inj) (07/10/17 00:30) MDM Medical Decision Making Medical Screen Exam Complete: Yes Emergency Medical Condition: Yes Medical Record Reviewed: Yes Differential Diagnosis Sickle cell pain crisis, narcotic seeking behavior, chronic pain, nausea/ vomiting, dehydration Narrative Course It is now 0030 a.m. and the patient appears comfortable. However, she states she wants one more dose of Dilaudid before she goes. She will get 1 mg IV and she will need to follow-up with her primary care physician/oncologist as soon as possible. She needs to increase her liquid intake. Impression: Sickle cell pain crisis Diagnosis Primary Impression: Vaso-occlusive sickle cell crisis Additional Instructions: As we discussed, increase liquid intake. Follow-up with your primary care physician/Dr. Dr. Silver as soon as possible. Disposition: 01 DISCHARGE HOME Condition: Stable Stone Tapia MD Jul 09, 2017 23:06
[2017-07-09] MEDS ORDERED: diphenhydrAMINE HCL 50 MG/ML VIAL IV PUSH ONE (23:15)
[2017-07-09] MEDS ORDERED: SODIUM CHLOR 0.9% 1000 ML INJ 1,000 ML IV SCH (23:15)
[2017-07-09] MEDS ORDERED: HYDROmorphone HCL PF 2 MG/ML VIAL IV PUSH ONE (23:15)
[2017-07-09] MEDS ORDERED: PROMETHAZINE INJ 25 MG/ML VIAL IM ONE (23:15)
[2017-07-09 23:54] VITALS: PULSE 100; O2SAT 96
[2017-07-10] MEDS ORDERED: HYDROmorphone HCL PF 2 MG/ML VIAL IV PUSH ONE (00:30)
[2017-07-10] MEDS ORDERED: diphenhydrAMINE HCL 50 MG/ML VIAL IV PUSH ONE (00:30)
[2017-07-10] MEDS ORDERED: PROMETHAZINE INJ 25 MG/ML VIAL IM ONE (00:30)
[2017-07-10 01:02] VITALS: BP 125/57
== END 2017-07-10 01:04 | disposition home or self-care (01) ==
LOC: PHED 22:17
DX: D57.00 Hb-SS disease with crisis, unspecified (principal); R11.10 Vomiting, unspecified; F41.9 Anxiety disorder, unspecified; H40.9 Unspecified glaucoma; Z86.711 Personal history of pulmonary embolism; Z79.899 Other long term (current) drug therapy; Z88.5 Allergy status to narcotic agent; Z88.8 Allergy status to other drugs, medicaments and biological substances
CPT/HCPCS: 96361; 96372; 96374; 96375; 96376; 99284; J1170; J1200; J2550; J7030

== ENCOUNTER 2017-08-18 14:22 | Inpatient (IN) | payer MEDICARE, OTHER ==
[~2017-08-18] VITALS: Ht 170.2 cm; Wt 116.9 kg
[2017-08-18] VITALS (9 sets, daily range): BP systolic 113–155; BP diastolic 60–86; PULSE 86–126; RESP 16–20; TEMP 99.2; O2SAT 94–96
[~2017-08-18 14:22] MED LIST changes: -OXYGENDME NAS.CANULA; +PROM12.54 PO
[2017-08-18] MEDS ORDERED: NAPR500 PO (14:43)
[2017-08-18] MEDS ORDERED: SODIUM CHLORIDE 0.9% FLUSH 10 ML FLUSH IVF PRN (14:45)
[2017-08-18] MEDS ORDERED: diphenhydrAMINE HCL 50 MG/ML VIAL IV PUSH ONE (14:45)
[2017-08-18] MEDS ORDERED: HYDROmorphone HCL PF 1 MG/ML VIAL IVS ONE (14:45)
[2017-08-18] MEDS ORDERED: SODIUM CHLOR 0.9% 1000 ML INJ 1,000 ML IV ONE ×2 (14:45→17:00)
[2017-08-18 15:02] LABS: AUTOMATED NEUTROPHIL # 9.4 TH/MM3 (1.8-7.7); BASOPHIL # 0.1 TH/MM3 (0-0.2); BASOPHIL % 0.8 % (0.0-2.0); EOSINOPHIL # 0.8 TH/MM3 (0-0.4); EOSINOPHIL % 5.9 % (0.0-4.0); HEMOGLOBIN 9.9 GM/DL (11.6-15.3); LYMPH % 22.8 % (9.0-44.0); LYMPHOCYTE # 3.2 TH/MM3 (1.0-4.8); MEAN CELL VOLUME 87.3 FL (80.0-100.0); MEAN CORPUSCULAR HEMOGLOBIN 27.8 PG (27.0-34.0); MEAN CORPUSCULAR HGB CONC 31.8 % (32.0-36.0); MEAN PLATELET VOLUME 8.3 FL (7.0-11.0); MONO % 3.2 % (0.0-8.0); MONOCYTE # 0.4 TH/MM3 (0-0.9); NEUT % 67.3 % (16.0-70.0); PLATELET COUNT 472 TH/MM3 (150-450); RED BLOOD COUNT 3.55 MIL/MM3 (4.00-5.30); RED CELL DISTRIBUTION WIDTH 18.2 % (11.6-17.2); WHITE BLOOD COUNT 13.9 TH/MM3 (4.0-11.0)
[2017-08-18 15:06] LABS: BILIRUBIN, URINE NEG (NEG); BLOOD, URINE NEG (NEG); GLUCOSE,URINE NEG (NEG); KETONE, URINE NEG (NEG); NITRITE,URINE NEG (NEG); PH, URINE 8.5 (5.0-8.5); URINE LEUKOCYTE ESTERASE MOD (NEG)
[2017-08-18 15:14] LABS: CHLORIDE 103 MEQ/L (98-107); SODIUM (NA) 135 MEQ/L (136-145)
[2017-08-18 15:15] LABS: URINE COLOR YELLOW (YELLW/STRAW)
[2017-08-18] MEDS ORDERED: HYDROmorphone HCL PF 2 MG/ML VIAL IV PUSH ONE ×2 (15:15→19:00)
[2017-08-18 15:16] LABS: BACTERIA, URINE MANY /hpf; SQUAMOUS EPITHELIAL CELL URINE > 8 /hpf (0-5); WHITE BLOOD CELL CLUMPS FEW
[2017-08-18 15:18] LABS: ALBUMIN 3.8 GM/DL (3.4-5.0); BICARBONATE 24.3 MEQ/L (21.0-32.0); BLOOD UREA NITROGEN 8 MG/DL (7-18); CALCIUM 8.4 MG/DL (8.5-10.1); GLUCOSE,RANDOM 191 MG/DL (74-106)
[2017-08-18 15:21] LABS: ALT (GPT) 26 U/L (10-53); AST (GOT) 36 U/L (15-37); CREATININE 0.93 MG/DL (0.50-1.00); GLOMERULAR FILTRATION RATE 85 ML/MIN (>89)
[2017-08-18 15:23] LABS: TOTAL BILIRUBIN ADULT 0.9 MG/DL (0.2-1.0)
[2017-08-18 15:24] LABS: ALKALINE PHOSPHATASE 119 U/L (45-117)
[2017-08-18] MEDS ORDERED: CIPROFLOXACIN 500 MG TAB PO ONE (15:30)
[2017-08-18 15:32] LABS: OVALOCYTES 1+ (NORMAL); TARGET CELLS 2+ (NORMAL)
[2017-08-18 15:33] LABS: KERATOCYTES OCC (NORMAL)
--- NOTE | 2017-08-18 15:37 | PD ---
HPI Chief Complaint: Sickle Cell Time Seen by Provider: 14:45 Travel History International Travel<30 days: No Contact w/Intl Traveler<30days: No Traveled to known affect area: No History of Present Illness HPI 31-year-old female complains of chest pain consistent with sickle cell disease. Symptoms started about an hour prior to ER arrival with moderate chest pain, onset at rest without pleuritic or exertional component. No radiation. Prior to that there was a sickle cell crisis type of pain involving the femurs and the back. Patient states typically her sickle cell exacerbations severity and in terms of pain location however can involve any body part. Occasional cough reported. Compliance with Eliquis is reported. PFSH Past Medical History Hx Anticoagulant Therapy: Yes (ELAQUIS) Asthma: No Autoimmune Disease: No Blood Disorders: Yes (SICKLE CELL) Anxiety: Yes Depression: No Heart Rhythm Problems: No Cancer: No Cardiac Catheterization: Yes Cardiovascular Problems: Yes (heart murmur, svc) High Cholesterol: No Chemotherapy: No Chest Pain: No Congestive Heart Failure: No COPD: No Cerebrovascular Accident: No Diabetes: No Diminished Hearing: No Endocrine: No Gastrointestinal Disorders: Yes (HX GALLSTONES--CHOLECYSTECTOMY) Genetic Disorder: Yes (SICKLE CELL) GERD: No Glaucoma: Yes Genitourinary: No Headaches: Yes Hepatitis: No Hiatal Hernia: No Heparin Induced Thrombocytopen: No Hypertension: No Immune Disorder: No Implanted Vascular Access Dvce: Yes (RIGHT CHEST INFUSAPORT: SEPTEMBER 2014 REMOVED ) Kidney Stones: No Medical other: Yes (SICKLE CELL ANEMIA) Musculoskeletal: Yes (ARTHRITIS) Neurologic: No Psychiatric: No Reproductive: No Respiratory: Yes (PULMONARY EMBOLISM) Immunizations Current: Yes Migraines: No Myocardial Infarction: No Pneumonia: Yes Radiation Therapy: No Renal Failure: No Seizures: No Sickle Cell Disease: Yes Sleep Apnea: No Thyroid Disease: No Ulcer: No ?: Not : 10 Para: 4 Miscarriage: 6 : 0 Ectopic : No Ovarian Cysts: No Tubal Ligation: Yes Past Surgical History Abdominal Surgery: Yes (cholecystectomy ) AICD: No Arteriovenous Shunt: No Body Medical Devices: RIGHT INFUSAPORT (REMOVED 2012), LEFT REMOVED 2014 Cardiac Surgery: No Section: Yes (x2) Cholecystectomy: Yes Ear Surgery: No Endocrine Surgery: No Eye Surgery: Yes (CORRECTIVE EYE SURGERY-LEFT) Genitourinary Surgery: No Gynecologic Surgery: Yes ( X 2, 2007 AND 2012) Hysterectomy: No Insulin Pump: No Joint Replacement: No Neurologic Surgery: No Oral Surgery: No Pacemaker: No Thoracic Surgery: Yes (MRSA INFUSAPORT R SIDE REMOVED 05/2013, L SIDE INFUSAPORT REMOVED 07/20) Other Surgery: Yes (Angioplasty ) Social History Alcohol Use: Yes (occas. wine) Tobacco Use: No Substance Use: No Allergies-Medications (Allergen,Severity, Reaction): Coded Allergies: ketorolac (Verified Allergy, Severe, RASH, 08/18/17) metoclopramide (Verified Allergy, Severe, RASH, 08/18/17) morphine (Verified Allergy, Severe, RASH, 08/18/17) ondansetron (Verified Allergy, Severe, RASH,ITCH, 08/18/17) Uncoded Allergies: CEFEPIME (Allergy, Severe, Hives., 08/09/16) . Reported Meds & Prescriptions Reported Meds & Active Scripts Active Cipro (Ciprofloxacin HCl) 500 Mg Tab 500 Mg PO BID 5 Days Oxycodone (Oxycodone HCl) 5 Mg Cap 5 Mg PO BID PRN Eliquis (Apixaban) 2.5 Mg Tab 5 Mg PO DIRECTED 30 Days 10 mg po twice daily till 04/29/17- then 5 mg po twice daily. Reported Naprosyn (Naproxen) 500 Mg Tab 500 Mg PO BID Amitriptyline (Amitriptyline HCl) 25 Mg Tab 25 Mg PO HS Methadone (Methadone HCl) 10 Mg Tab 10 Mg PO DAILY Review of Systems Except as stated in HPI: all other systems reviewed are Neg General / Constitutional: No: Fever Physical Exam Narrative GENERAL: 31 yo female mild distress Vital Signs Date Time Temp Pulse Resp B/P (MAP) Pulse Ox O2 Delivery O2 Flow Rate FiO2 08/18/17 15:13 110 20 113/60 (77) 95 08/18/17 15:03 96 08/18/17 14:34 99.2 126 16 155/81 (105) 94 SKIN: Warm and dry. HEAD: Atraumatic. Normocephalic. EYES: Pupils equal and round. No scleral icterus. No injection or drainage. ENT: No nasal bleeding or discharge. Mucous membranes pink and moist. NECK: Trachea midline. No JVD. CARDIOVASCULAR: Regular rate and rhythm. RESPIRATORY: No accessory muscle use. Clear to auscultation. Breath sounds equal bilaterally. GASTROINTESTINAL: Abdomen soft, non-tender, nondistended. Hepatic and splenic margins not palpable. MUSCULOSKELETAL: Extremities without clubbing, cyanosis, or edema. No obvious deformities. NEUROLOGICAL: Awake and alert. No obvious cranial nerve deficits. Motor grossly within normal limits. Five out of 5 muscle strength in the arms and legs. Normal speech. PSYCHIATRIC: Appropriate mood and affect; insight and judgment normal. Data Data Last Documented VS Vital Signs Date Time Temp Pulse Resp B/P (MAP) Pulse Ox O2 Delivery O2 Flow Rate FiO2 08/18/17 18:09 92 20 125/85 (98) 95 08/18/17 14:34 99.2 Orders Orders Complete Blood Count With Diff (08/18/17 14:45) Comprehensive Metabolic Panel (08/18/17 14:45) Retic Count (08/18/17 14:45) Urinalysis - C+S If Indicated (08/18/17 14:45) Chest, Single Ap (08/18/17 14:45) Ecg Monitoring (08/18/17 14:45) Iv Access Insert/Monitor (08/18/17 14:45) Oximetry (08/18/17 14:45) Sodium Chloride 0.9% Flush (Ns Flush) (08/18/17 14:45) Sodium Chlor 0.9% 1000 Ml Inj (Ns 1000 M (08/18/17 14:45) Diphenhydramine Inj (Benadryl Inj) (08/18/17 14:45) Electrocardiogram (08/18/17 ) Hydromorphone Pf Inj (Dilaudid Pf Inj) (08/18/17 15:15) Urine Culture (08/18/17 14:55) Ciprofloxacin (Cipro) (08/18/17 15:30) Troponin I (08/18/17 15:57) Sodium Chlor 0.9% 1000 Ml Inj (Ns 1000 M (08/18/17 17:00) Hydromorphone Pf Inj (Dilaudid Pf Inj) (08/18/17 17:15) Ed Discharge Order (08/18/17 18:05) Labs Laboratory Tests Test 08/18/17 14:55 White Blood Count 13.9 TH/MM3 Red Blood Count 3.55 MIL/MM3 Hemoglobin 9.9 GM/DL Hematocrit 31.0 % Mean Corpuscular Volume 87.3 FL Mean Corpuscular Hemoglobin 27.8 PG Mean Corpuscular Hemoglobin Concent 31.8 % Red Cell Distribution Width 18.2 % Platelet Count 472 TH/MM3 Mean Platelet Volume 8.3 FL Neutrophils (%) (Auto) 67.3 % Lymphocytes (%) (Auto) 22.8 % Monocytes (%) (Auto) 3.2 % Eosinophils (%) (Auto) 5.9 % Basophils (%) (Auto) 0.8 % Neutrophils # (Auto) 9.4 TH/MM3 Lymphocytes # (Auto) 3.2 TH/MM3 Monocytes # (Auto) 0.4 TH/MM3 Eosinophils # (Auto) 0.8 TH/MM3 Basophils # (Auto) 0.1 TH/MM3 CBC Comment AUTO DIFF Differential Comment AUTO DIFF CONFIRMED Target Cells 2+ Ovalocytes 1+ Keratocytes OCC Reticulocyte Count 4.0 % Absolute Reticulocyte Count 136.5 MIL/L Urine Color YELLOW Urine Turbidity CLOUDY Urine pH 8.5 Urine Specific [place] 1.011 Urine Protein NEG mg/dL Urine Glucose (UA) NEG mg/dL Urine Ketones NEG mg/dL Urine Occult Blood NEG Urine Nitrite NEG Urine Bilirubin NEG Urine Leukocyte Esterase MOD Urine WBC 50-99 /hpf Urine WBC Clumps FEW Urine Squamous Epithelial Cells > 8 /hpf Urine Bacteria MANY /hpf Microscopic Urinalysis Comment CULTURE INDICATED Blood Urea Nitrogen 8 MG/DL Creatinine 0.93 MG/DL Random Glucose 191 MG/DL Total Protein 8.0 GM/DL Albumin 3.8 GM/DL Calcium Level 8.4 MG/DL Alkaline Phosphatase 119 U/L Aspartate Amino Transf (AST/SGOT) 36 U/L Alanine Aminotransferase (ALT/SGPT) 26 U/L Total Bilirubin 0.9 MG/DL Sodium Level 135 MEQ/L Potassium Level 4.2 MEQ/L Chloride Level 103 MEQ/L Carbon Dioxide Level 24.3 MEQ/L Anion Gap 8 MEQ/L Estimat Glomerular Filtration Rate 85 ML/MIN Troponin I LESS THAN 0.02 NG/ML MDM Medical Decision Making Medical Screen Exam Complete: Yes Emergency Medical Condition: Yes Medical Record Reviewed: Yes Differential Diagnosis Pulmonary embolism, pneumonia, acute chest syndrome, sickle cell crisis Narrative Course CBC & BMP Diagram 08/18/17 14:55 Total Protein 8.0, Albumin 3.8, Calcium Level 8.4 L, Alkaline Phosphatase 119 H , Aspartate Amino Transf (AST/SGOT) 36, Alanine Aminotransferase (ALT/SGPT) 26, Total Bilirubin 0.9 UA: UTI present Last 24 hours Impressions Chest X-Ray 08/18/17 1445 Signed Impressions: Service Date/Time: Friday, August 18, 2017 15:21 - CONCLUSION: No acute disease. Shailesh Sanchez Jr., MD Patient received IV fluids Benadryl and reports about a 40% improvement. We'll give a second dose of Dilaudid and additional IV fluids. The workup today is reassuring and the patient will follow with Dr Silver in two days time. Return precuations discussed. CIpro script for UTI. UTI likely etiology of sickle cell pain for today's visit. Diagnosis Primary Impression: UTI (urinary tract infection) Qualified Codes: N30.01 - Acute cystitis with hematuria Referrals: Carline Silver MD 2 days Med/Other Pt SpecificInfo: Prescription(s) given Scripts Ciprofloxacin (Cipro) 500 Mg Tab 500 MG PO BID for Infection for 5 Days, #10 TAB 0 Refills Prov: Adria Amezcua MD 08/18/17 Disposition: 01 DISCHARGE HOME Condition: Stable Adria Amezcua MD Aug 18, 2017 15:37
--- NOTE | 2017-08-18 15:55 | RADRPT ---
EXAM DATE/TIME: 08/18/2017 15:21 [place] COMPARISON: CHEST SINGLE AP, April 18, 2017, 19:53. INDICATIONS : Cough and short of breath for several days. MEDICAL HISTORY : Sickle Cell disease. Heart murmur. SVC. Pulmonary embolism. SURGICAL HISTORY : Cholecystectomy. ENCOUNTER: Initial ACUITY: 3 days PAIN SCORE: 0/10 LOCATION: Bilateral chest FINDINGS: A single view of the chest demonstrates the lungs to be symmetrically aerated without evidence of mas s, infiltrate or effusion. The cardiomediastinal contours are unremarkable. Osseous structures are intact. CONCLUSION: No acute disease. Shailesh Sanchez Jr., MD on August 18, 2017 at 15:52 Board Certified Radiologist. This report was verified electronically.
[2017-08-18 16:35] LABS: RETIC # 136.5 MIL/L (20.0-150.0)
[2017-08-18] MEDS ORDERED: HYDROmorphone HCL PF 1 MG/ML VIAL IV PUSH ONE ×2 (17:00→18:45)
[2017-08-18] MEDS ORDERED: HYDROmorphone HCL PF 2 MG/ML VIAL IV ONE (17:15)
[2017-08-18] MEDS ORDERED: CIPR-9 PO (17:19)
[2017-08-18] MEDS: SODIUM CHLOR 0.9% 1000 ML INJ 1,000 ML IV SCH (19:42)
[2017-08-18] MEDS ORDERED: NALOXONE HCL 0.4 MG/ML AMP IV PUSH PRN (19:45)
[2017-08-18] MEDS ORDERED: SODIUM CHLORIDE 0.9% FLUSH 10 ML FLUSH IV FLUSH PRN (19:45)
[2017-08-18] MEDS: SODIUM CHLORIDE 0.9% FLUSH 10 ML FLUSH IV FLUSH SCH (21:00)
[2017-08-18 22:36] LABS: TROPONIN I LESS THAN 0.02 NG/ML (0.02-0.05)
[2017-08-18] MEDS: APIXABAN 5 MG TABLET PO SCH (23:15)
[2017-08-18] MEDS: HYDROmorphone HCL PF 2 MG/ML VIAL IV PRN (23:16)
[2017-08-19] VITALS (9 sets, daily range): BP systolic 114–125; BP diastolic 64–72; PULSE 83–99; RESP 20–22; TEMP 97–98.6; O2SAT 94–98
[2017-08-19] MEDS: HYDROmorphone HCL PF 2 MG/ML VIAL IV PRN ×5 (03:38→22:34)
[2017-08-19] MEDS: SODIUM CHLOR 0.9% 1000 ML INJ 1,000 ML IV SCH ×4 (03:45→21:51)
[2017-08-19 04:26] LABS: TROPONIN I LESS THAN 0.02 NG/ML (0.02-0.05)
[2017-08-19 08:36] LABS: AUTOMATED NEUTROPHIL # 7.9 TH/MM3 (1.8-7.7); BASOPHIL # 0.1 TH/MM3 (0-0.2); BASOPHIL % 0.7 % (0.0-2.0); EOSINOPHIL # 0.7 TH/MM3 (0-0.4); EOSINOPHIL % 5.2 % (0.0-4.0); HEMATOCRIT 27.4 % (35.0-46.0); HEMOGLOBIN 9.4 GM/DL (11.6-15.3); LYMPH % 29.6 % (9.0-44.0); LYMPHOCYTE # 3.8 TH/MM3 (1.0-4.8); MEAN CELL VOLUME 86.7 FL (80.0-100.0); MEAN CORPUSCULAR HEMOGLOBIN 29.7 PG (27.0-34.0); MEAN CORPUSCULAR HGB CONC 34.3 % (32.0-36.0); MEAN PLATELET VOLUME 8.4 FL (7.0-11.0); MONO % 3.7 % (0.0-8.0); MONOCYTE # 0.5 TH/MM3 (0-0.9); NEUT % 60.8 % (16.0-70.0); PLATELET COUNT 397 TH/MM3 (150-450); RED BLOOD COUNT 3.16 MIL/MM3 (4.00-5.30); RED CELL DISTRIBUTION WIDTH 18.3 % (11.6-17.2)
[2017-08-19 08:41] LABS: CALCIUM 8.1 MG/DL (8.5-10.1)
[2017-08-19 08:45] LABS: CREATININE 0.78 MG/DL (0.50-1.00)
[2017-08-19] MEDS: APIXABAN 5 MG TABLET PO SCH ×2 (08:58→21:50)
[2017-08-19] MEDS: CIPROFLOXACIN 500 MG TAB PO SCH ×2 (08:59→21:50)
[2017-08-19] MEDS: diphenhydrAMINE HCL 50 MG/ML VIAL IV PUSH PRN ×4 (08:59→22:34)
[2017-08-19] MEDS: SODIUM CHLORIDE 0.9% FLUSH 10 ML FLUSH IV FLUSH SCH ×2 (09:00→21:50)
[2017-08-19 09:20] LABS: TARGET CELLS 1+ (NORMAL)
[2017-08-19 09:34] LABS: KERATOCYTES OCC (NORMAL); OVALOCYTES 1+ (NORMAL); SICKLE CELLS 1+ (NORMAL)
--- NOTE | 2017-08-19 10:24 | HHI.HP ---
[facility] Primary Care Physician Carline Silver MD Admission Diagnosis Sickle Cell Disease with Painful Crisis, Chest Pain Diagnoses: Chief Complaint: Chest pain, sickle crisis Travel History International Travel<30 Days: No Contact w/Intl Traveler <30 Da: No Traveled to Known Affected Are: No History of Present Illness 31 years old female with history of sickle cell disease presented with to the ED with a complaint of chest pain 8 out of 10 started Thursday along with nausea no vomiting no diarrhea but rather constipation, she denied having cough headache or dizziness, patient has a history of DVT and SVC syndrome, stated the pain is better with the medication dropped to 6 out of 10, patient denied smoking she is shows socially drinks alcohol Review of Systems All systems reviewed and was positive for what is mentioned in history of present illness otherwise negative Past Family Social History Past Medical History Sickle cell disease History of DVT History of SVC syndrome Allergies: Coded Allergies: ketorolac (Verified Allergy, Severe, RASH, 08/18/17) metoclopramide (Verified Allergy, Severe, RASH, 08/18/17) morphine (Verified Allergy, Severe, RASH, 08/18/17) ondansetron (Verified Allergy, Severe, RASH,ITCH, 08/18/17) Uncoded Allergies: CEFEPIME (Allergy, Severe, Hives., 08/09/16) . Family History Mother had sickle cell as well Social History Drink alcohol socially no tobacco or illicit drug abuse Physical Exam Vital Signs Vital Signs Date Time Temp Pulse Resp B/P (MAP) Pulse Ox O2 Delivery O2 Flow Rate FiO2 08/19/17 07:50 97.9 91 20 125/64 (84) 98 08/19/17 04:00 97.0 96 20 114/71 (85) 96 08/19/17 00:15 89 08/19/17 00:00 97.6 83 20 118/71 (87) 96 08/18/17 23:28 78 18 96 08/18/17 22:53 86 18 120/86 (97) 96 Room Air 08/18/17 21:30 86 18 122/82 (95) 96 Room Air 08/18/17 19:26 88 18 126/80 (95) 96 Room Air 08/18/17 18:09 92 20 125/85 (98) 95 08/18/17 16:20 104 20 124/72 (89) 95 08/18/17 15:13 110 20 113/60 (77) 95 08/18/17 15:03 96 08/18/17 14:34 99.2 126 16 155/81 (105) 94 Physical Exam GENERAL: This is a well-nourished, well-developed patient, in no apparent distress. SKIN: No rashes, warm and dry HEAD: Atraumatic. Normocephalic. EYES: Pupils equal round and reactive. Extraocular motions intact. No scleral icterus. ENT: Nose without bleeding, or drainage, Airway patent. NECK: Trachea midline. Supple CARDIOVASCULAR: Regular rate and rhythm without murmurs, gallops, or rubs. RESPIRATORY: Fair air entry bilaterally. No wheezes, rales, or rhonchi. GASTROINTESTINAL: Abdomen soft, non-tender, nondistended. Positive bowel sounds MUSCULOSKELETAL: Extremities without clubbing, cyanosis, or edema. Pedal pulses appreciated NEUROLOGICAL: Awake and alert. Moves all extremity. Normal speech.no focal neurological deficit Laboratory Laboratory Tests Test 08/18/17 14:55 08/18/17 22:11 08/19/17 03:50 08/19/17 08:05 White Blood Count 13.9 13.0 Red Blood Count 3.55 3.16 Hemoglobin 9.9 9.4 Hematocrit 31.0 27.4 Mean Corpuscular Volume 87.3 86.7 Mean Corpuscular Hemoglobin 27.8 29.7 Mean Corpuscular Hemoglobin Concent 31.8 34.3 Red Cell Distribution Width 18.2 18.3 Platelet Count 472 397 Mean Platelet Volume 8.3 8.4 Neutrophils (%) (Auto) 67.3 60.8 Lymphocytes (%) (Auto) 22.8 29.6 Monocytes (%) (Auto) 3.2 3.7 Eosinophils (%) (Auto) 5.9 5.2 Basophils (%) (Auto) 0.8 0.7 Neutrophils # (Auto) 9.4 7.9 Lymphocytes # (Auto) 3.2 3.8 Monocytes # (Auto) 0.4 0.5 Eosinophils # (Auto) 0.8 0.7 Basophils # (Auto) 0.1 0.1 CBC Comment AUTO DIFF AUTO DIFF Differential Comment AUTO DIFF CONFIRMED AUTO DIFF CONFIRMED Target Cells 2+ 1+ Ovalocytes 1+ 1+ Keratocytes OCC OCC Reticulocyte Count 4.0 Absolute Reticulocyte Count 136.5 Urine Color YELLOW Urine Turbidity CLOUDY Urine pH 8.5 Urine Specific [place] 1.011 Urine Protein NEG Urine Glucose (UA) NEG Urine Ketones NEG Urine Occult Blood NEG Urine Nitrite NEG Urine Bilirubin NEG Urine Leukocyte Esterase MOD Urine WBC 50-99 Urine WBC Clumps FEW Urine Squamous Epithelial Cells > 8 Urine Bacteria MANY Microscopic Urinalysis Comment CULTURE INDICATED Blood Urea Nitrogen 8 5 Creatinine 0.93 0.78 Random Glucose 191 161 Total Protein 8.0 Albumin 3.8 Calcium Level 8.4 8.1 Alkaline Phosphatase 119 Aspartate Amino Transf (AST/SGOT) 36 Alanine Aminotransferase (ALT/SGPT) 26 Total Bilirubin 0.9 Sodium Level 135 139 Potassium Level 4.2 4.0 Chloride Level 103 106 Carbon Dioxide Level 24.3 28.0 Anion Gap 8 5 Estimat Glomerular Filtration Rate 85 104 Troponin I LESS THAN 0.02 LESS THAN 0.02 LESS THAN 0.02 Total Creatine Kinase 119 113 Platelet Estimate NORMAL Platelet Morphology Comment NORMAL Sickle Cells 1+ Date/Time Source Procedure Growth Status 08/18/17 14:55 Urine Clean Catch Urine Culture Pending Received Result Diagram: 08/19/17 0808/19/17 0805 Imaging Last Impressions Chest X-Ray 08/18/17 1445 Signed Impressions: Service Date/Time: Friday, August 18, 2017 15:21 - CONCLUSION: No acute disease. Shailesh Sanchez Jr., MD Caprini VTE Risk Assessment Caprini VTE Risk Assessment: Mod/High Risk (score >= 2) Caprini Risk Assessment Model Point Value = 1 Point Value = 2 Point Value = 3 Point Value = 5 Age 41-60 Minor surgery BMI > 25 kg/m2 Swollen legs Varicose veins or History of unexplained or recurrent spontaneous Oral contraceptives or hormone replacement Sepsis (< 1 month) Serious lung disease, including pneumonia (< 1 month) Abnormal pulmonary function Acute myocardial infarction Congestive heart failure (< 1 month) History of inflammatory bowel disease Medical patient at bed rest Age 61-74 Arthroscopic surgery Major open surgery (> 45 min) Laparoscopic surgery (> 45 min) Malignancy Confined to bed (> 72 hours) Immobilizing plaster cast Central venous access Age >= 75 History of VTE Family history of VTE Factor V Leiden Prothrombin [id number] Lupus anticoagulant Anticardiolipin antibodies Elevated serum homocysteine Heparin-induced thrombocytopenia Other congenital or acquired thrombophilia Stroke (< 1 month) Elective arthroplasty Hip, pelvis, or leg fracture Acute spinal cord injury (< 1 month) Prophylaxis Regimen Total Risk Factor Score Risk Level Prophylaxis Regimen 0-1 Low Early ambulation 2 Moderate Order ONE of the following: *Sequential Compression Device (SCD) *Heparin 5000 units SQ BID 3-4 Higher Order ONE of the following medications: *Heparin 5000 units SQ TID *Enoxaparin/Lovenox 40 mg SQ daily (WT < 150 kg, CrCl > 30 mL/min) *Enoxaparin/Lovenox 30 mg SQ daily (WT < 150 kg, CrCl > 10-29 mL/min) *Enoxaparin/Lovenox 30 mg SQ BID (WT < 150 kg, CrCl > 30 mL/min) AND/OR *Sequential Compression Device (SCD) 5 or more Highest Order ONE of the following medications: *Heparin 5000 units SQ TID (Preferred with Epidurals) *Enoxaparin/Lovenox 40 mg SQ daily (WT < 150 kg, CrCl > 30 mL/min) *Enoxaparin/Lovenox 30 mg SQ daily (WT < 150 kg, CrCl > 10-29 mL/min) *Enoxaparin/Lovenox 30 mg SQ BID (WT < 150 kg, CrCl > 30 mL/min) AND *Sequential Compression Device (SCD) Assessment and Plan Assessment and Plan 31 years old female with history of sickle cell disease admitted with Acute chest pain rule out sickle chest syndrome versus new PE Leukocytosis Chronic anemia with increased reticulocyte count History of PE and SVC syndrome patient on Eliquis UTI DVT prophylaxis Plan: Admit to inpatient General is hydration with IV fluid Pain management with Dilaudid Cipro for UTI, follow urine culture I will do ultrasound of the lower extremity with VQ scan to assess for underlying new PE Discussed Condition With Patient Yeison Serna MD Aug 19, 2017 10:24
--- NOTE | 2017-08-19 11:18 | RADRPT ---
EXAM DATE/TIME: 08/19/2017 10:46 [facility] COMPARISON: No previous studies available for comparison. INDICATIONS : Bilateral leg pain. Chest pain. MEDICAL HISTORY : Left eye blindness. Heart murmur. PE. Kidney stones. Sickle cell. Upper extremity DVT. SURGICAL HISTORY : Cardiac catheterization. Infusaport. Cholecystectomy. section. ENCOUNTER: Subsequent ACUITY: 1 day PAIN SCORE: 7/10 LOCATION: Bilateral leg. TECHNIQUE: Venous ultrasound of the left and right leg was performed from the inguinal ligament to the proximal calf. Real-time, color Doppler and spectral tracing, compression and augmentation techniques were us ed. FINDINGS: RIGHT LEG: There is normal compressibility of the deep venous system from the inguinal region to the proximal ca lf. No echogenic clot is seen in the lumen of the common femoral, femoral, popliteal, and posterior tibial veins. There is a normal response of the venous system to proximal and distal augmentation an d respiration. LEFT LEG: There is normal compressibility of the deep venous system from the inguinal region to the proximal ca lf. No echogenic clot is seen in the lumen of the common femoral, femoral, popliteal, and posterior tibial veins. There is a normal response of the venous system to proximal and distal augmentation an d respiration. CONCLUSION: Negative for deep venous thrombosis. Kyle Peace MD FACR on August 19, 2017 at 11:15 Board Certified Radiologist. This report was verified electronically.
--- NOTE | 2017-08-19 15:22 | RADRPT ---
EXAM DATE/TIME: 08/19/2017 12:35 [facility] COMPARISON: CT PULMONARY ANGIOGRAM, April 20, 2017, 15:39. CHEST SINGLE AP, August 18, 2017, 15:21. INDICATIONS : Shortness of breath with chest pain for one day. DOSE: 8.7 mCi Tc99m MAA IV 0.73 mCi Tc99m DTPA aerosol MEDICAL HISTORY : Sickle cell disease. SURGICAL HISTORY : Cholecystectomy. ENCOUNTER: Initial ACUITY: 1 day PAIN SCALE: 3/10 LOCATION: Bilateral chest TECHNIQUE: Following five minutes of tidal breathing of DTPA aerosol, planar images of the lungs were performed in eight projections. The patient was then injected with MAA, and eight-view perfusion scan was perf ormed. FINDINGS: There is a homogeneous pattern of aerosol delivery to the periphery of both lungs. No focal ventilat ory defects are seen. The perfusion lung scan demonstrates a single dumbbell shaped defect in the left lung best seen on th e LPO projection. This does not extend to the cortical surface suggesting a prominent central hilum b ut this does represent a perfusion mismatch when compared to the corresponding ventilatory projection . No focal abnormality in this location on the most recent plain film of the chest. CONCLUSION: 1. Unusual dumbbell shaped defect in the left lung that does not have the classic findings of a wedge -shaped defect as there is no extension to the cortical surface. 2. However, patient has a history of pulmonary embolus and this does represent a perfusion mismatch a s the corresponding ventilatory image is normal in this location. 3. Intermediate probability for pulmonary embolus. Christo Glover MD on August 19, 2017 at 15:04 Board Certified Radiologist. This report was verified electronically.
--- NOTE | 2017-08-19 21:18 | EKG ---
Date Performed: 08/19/2017 Time Performed: 02:53:56 PTAGE: 31 years EKG: Sinus rhythm NORMAL ECG PREVIOUS TRACING : 08/18/2017 21.36 Since the prior tracing, there has been no significant cabrera DOCTOR: Sathish Singleton Interpretating Date/Time 08/19/2017 21:16:50
--- NOTE | 2017-08-19 21:32 | EKG ---
Date Performed: 08/18/2017 Time Performed: 21:36:09 PTAGE: 31 years EKG: Sinus rhythm NORMAL ECG PREVIOUS TRACING : 08/18/2017 15.06 Since the prior tracing, there has been no significant cabrera DOCTOR: Sathish Singleton Interpretating Date/Time 08/19/2017 21:32:08
--- NOTE | 2017-08-19 21:58 | EKG ---
Date Performed: 08/18/2017 Time Performed: 15:06:02 PTAGE: 31 years EKG: SINUS TACHYCARDIA NONSPECIFIC T-WAVE ABNORMALITY ABNORMAL RHYTHM ECG PREVIOUS TRACING : 05/29/2015 12.02 Since the prior tracing, there has been no significant cabrera DOCTOR: Sathish Singleton Interpretating Date/Time 08/19/2017 21:56:47
[2017-08-20] VITALS (8 sets, daily range): BP systolic 109–129; BP diastolic 64–86; PULSE 81–97; RESP 16–21; TEMP 97.4–98.3; O2SAT 91–97
[2017-08-20] MEDS: HYDROmorphone HCL PF 2 MG/ML VIAL IV PRN ×5 (03:50→20:23)
[2017-08-20] MEDS: diphenhydrAMINE HCL 50 MG/ML VIAL IV PUSH PRN ×3 (03:51→20:22)
[2017-08-20] MEDS: CIPROFLOXACIN 500 MG TAB PO SCH ×2 (08:06→20:22)
[2017-08-20] MEDS: APIXABAN 5 MG TABLET PO SCH (08:07)
[2017-08-20] MEDS: SODIUM CHLORIDE 0.9% FLUSH 10 ML FLUSH IV FLUSH SCH ×2 (08:08→20:23)
[2017-08-20] MEDS: SODIUM CHLOR 0.9% 1000 ML INJ 1,000 ML IV SCH ×2 (12:07→16:15)
--- NOTE | 2017-08-20 13:07 | HHI.PR ---
Subjective Remarks Patient reported chest anus slightly better today, no fever or chills VQ scan showed moderate probability with uncommon mismatch wedge-shaped Objective Vitals Vital Signs Date Time Temp Pulse Resp B/P (MAP) Pulse Ox O2 Delivery O2 Flow Rate FiO2 08/20/17 07:50 98.1 85 20 109/77 (88) 92 08/20/17 05:14 98.0 88 16 124/78 (93) 97 08/20/17 01:23 98.3 81 18 129/86 (100) 97 08/19/17 20:20 98.6 99 22 119/71 (87) 98 08/19/17 20:05 97 08/19/17 15:50 98.6 97 20 114/68 (83) 94 08/19/17 14:14 20 I/O 08/19/17 08/19/17 08/19/17 08/20/17 08/20/17 08/20/17 07:00 15:00 23:00 07:00 15:00 23:00 Intake Total 480 ml 1120 ml 748 ml 252 ml Output Total 900 ml Balance 480 ml -900 ml 1120 ml 748 ml 252 ml Intake Oral 480 ml 120 ml IV Total 1000 ml 748 ml 252 ml Output Urine Total 900 ml # Voids 2 2 1 # Bowel Movements 0 Result Diagram: 08/19/1780408/19/17804 Objective Remarks GENERAL: This is a well-nourished, well-developed patient, in no apparent distress. SKIN: No rashes, warm and dry HEAD: Atraumatic. Normocephalic. EYES: Pupils equal round and reactive. Extraocular motions intact. No scleral icterus. ENT: Nose without bleeding, or drainage, Airway patent. NECK: Trachea midline. Supple CARDIOVASCULAR: Regular rate and rhythm without murmurs, gallops, or rubs. RESPIRATORY: Fair air entry bilaterally. No wheezes, rales, or rhonchi. GASTROINTESTINAL: Abdomen soft, non-tender, nondistended. Positive bowel sounds MUSCULOSKELETAL: Extremities without clubbing, cyanosis, or edema. Pedal pulses appreciated NEUROLOGICAL: Awake and alert. Moves all extremity. Normal speech.no focal neurological deficit A/P Assessment and Plan 31 years old female with history of sickle cell disease admitted with Acute chest pain rule out sickle chest syndrome versus new PE Leukocytosis Chronic anemia with increased reticulocyte count History of PE and SVC syndrome patient on Eliquis UTI DVT prophylaxis Plan: Admit to inpatient General is hydration with IV fluid Pain management with Dilaudid Cipro for UTI, follow urine culture ultrasound of the lower extremity negative however VQ scan showed uncommon wedge-shaped mismatch, we'll consult hematology, continue [email or web address] currently Yeison Serna MD Aug 20, 2017 13:07
[2017-08-20] MEDS ORDERED: IOHEXOL 350 MG/ML 10 ML VIAL (for RAD DIAG) IVCONTRAST ONE (18:03)
--- NOTE | 2017-08-20 18:21 | RADRPT ---
EXAM DATE/TIME: 08/20/2017 17:53 [facility] COMPARISON: No previous studies available for comparison. INDICATIONS : Left chest pain. Short of breath. Abnormal VQ scan. IV CONTRAST: 85 cc Omnipaque 350 (iohexol) IV RADIATION DOSE: 21.44 CTDIvol (mGy) MEDICAL HISTORY : Cardiovascular disease. Sickle Cell disease. Renal calculi.Pulmonary embolism. SURGICAL HISTORY : Cholecystectomy. section.Tubal ligation. ENCOUNTER: Initial ACUITY: 2 days PAIN SCALE: 7/10 LOCATION: Left chest TECHNIQUE: Volumetric scanning of the chest was performed using a pulmonary embolism protocol MIP images were re constructed. Using automated exposure control and adjustment of the mA and/or kV according to patien t size, radiation dose was kept as low as reasonably achievable to obtain optimal diagnostic quality images. DICOM format image data is available electronically for review and comparison. Follow-up recommendations for detected pulmonary nodules are based at a minimum on nodule size and pa tient risk factors according to Fleischner Society Guidelines. FINDINGS: PULMONARY ARTERIES: There is a single lower lobe posterior segmental vessel on the right side containing a filling defect consistent with clot. The pulmonary vessels are otherwise patent. LUNGS: Patchy atelectasis and groundglass parenchymal opacities bilaterally, somewhat worse on the right jonnie n the left. PLEURAE: Mild anterior lateral right chest pleural thickening and some fissural fluid or thickening MEDIASTINUM: There is good visualization of the great vessels of the middle mediastinum. No evidence of mediastin al or hilar adenopathy/mass. MUSCULOSKELETAL: Within normal limits for patient age. MISCELLANEOUS: The visualized upper abdominal organs demonstrate no acute abnormality. CONCLUSION: Minimal right lower lobe pulmonary embolus. Patchy mild to moderate parenchymal lung disease Sam Medina MD on August 20, 2017 at 18:04 Board Certified Radiologist. This report was verified electronically.
[2017-08-20] MEDS: ENOXAPARIN SODIUM 120 MG/0.8 ML SYRINGE SQ SCH (20:22)
--- NOTE | 2017-08-20 20:57 | MB ---
cc: LAKESHA ECHEVARRIA MD DATE OF CONSULTATION 08/20/17 CHIEF COMPLAINT Chest pain. ATTENDING PHYSICIAN Dr. 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 She described it as sharp pain, rated 8/10. She has shortness of breath associated with it. She stated that her pain is also worse when she takes a deep breath. She had a pulmonary embolism involving the right lung in April 2017. She was on Xarelto and subsequently switched to Eliquis. 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 The patient stated that her previous pulmonary embolism did not cause her to have any chest pain. She usually also does not have chest pain with her pain crises. She denies any cough. Denies any fever or chills. She has nausea without vomiting. She has constipation. She had no diarrhea. She denies any dysuria or hematuria. PAST MEDICAL HISTORY 1. 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 2. SVC syndrome. 3. Right lung pulmonary embolism April 2017 4. Glaucoma 5. Chronic pain. 6. Obesity. 7. Left eye blindness. PAST SURGICAL HISTORY 1. Cholecystectomy, 2. 3. Port placement 4. Angioplasty. FAMILY HISTORY Positive for sickle-cell disease. SOCIAL HISTORY No tobacco or alcohol use. ALLERGIES CEFEPIME KETORALAC METOCLOPRAMIDE MORPHINE ONDANSETRON MEDICATIONS Current, 1. Cipro 2. Eliquis REVIEW OF SYSTEMS CONSTITUTIONAL: as above EYES: As above. ENT: Negative. CARDIOVASCULAR: As above. RESPIRATORY: As above. GI: Had nausea without vomiting, denies any abdominal pain. : Denies dysuria or hematuria. MUSCULOSKELETAL: She has chronic pain. HEMATOLOGY: As above. ENDOCRINE: Negative DERMATOLOGY: Negative. PSYCHIATRIC: Negative. NEUROLOGIC: Negative. PHYSICAL EXAMINATION VITAL SIGNS: Temperature 97.7, blood pressure 109/64, O2 saturation 94% two liters nasal cannula. GENERAL: She is alert and oriented x3 in no acute distress. She is obese. HEENT: Cloudiness of the left eye noted. Oropharynx dry mucosa. NECK: No thyromegaly. No palpable mass. LYMPHATICS: No palpable cervical, clavicular, axillary or inguinal lymph node CARDIOVASCULAR: Regular S1, S2, no murmur. LUNGS: Clear to auscultation bilaterally. ABDOMEN: Soft, nontender. I Could not palpate liver or spleen. EXTREMITIES: No cyanosis, clubbing, no significant edema, no calf tenderness. BACK: No paravertebral tenderness SKIN: No rash or petechiae. NEUROLOGIC: Nonfocal. LABORATORY DATA Hemoglobin 9.4, WBC 13, platelet count 397. Creatinine of 0.78. ASSESSMENT 1. Acute mid sternal chest pain started this past Thursday. She described it as sharp pain with no radiation. The pain is somewhat pleuritic in nature. She also has associated shortness of breath with the chest pain. She has a prior history of right lung pulmonary embolism in April 2017. She has been on Eliquis. She stated that she takes her Eliquis daily and did not miss any dose. She has no lower extremity edema and ultrasound of the lower extremity did not show any deep venous thrombosis. She had a VQ scan which showed dumbbell shaped perfusion defect in the left lung with normal ventilation scan. The radiologist felt that this is an intermediate risk VQ scan. It is unclear if the patient indeed has recurrent pulmonary embolism while on Eliquis. Her chest pain is rather atypical for pulmonary embolism. However, given her history and hypercoagulable state, I am going to switch her to Lovenox for now. We will get a CT angiogram for further evaluation. If she does not have clear evidence of recurrent pulmonary embolism, then she could be resumed on Eliquis. 2. Sickle-cell hemoglobin SC disease. She has frequent vasoocclusive pain crises. At this point, she is not complaining of other pain except the chest pain. Hemoglobin is baseline and does not appear to have significant vasoocclusive pain crisis at this time. 3. Chronic pain syndrome. 4. Glaucoma 5. Obesity 6. Recent SVC syndrome status post angioplasty. She is on anticoagulation as above. RECOMMENDATIONS 1. Switch her to Lovenox. 2. Get a CT angiogram of the chest 3. Continue supportive care. Thank you, Dr. Serna, for asking me to see this patient. MD NICHELLE Tolentino/ /4:51 PM /8:23 PM MTDEne
[2017-08-21] VITALS (7 sets, daily range): BP systolic 117–140; BP diastolic 69–84; PULSE 70–91; RESP 16–19; TEMP 97.9–98.8; O2SAT 92–96
[2017-08-21] MEDS: HYDROmorphone HCL PF 2 MG/ML VIAL IV PRN ×5 (01:09→21:12)
[2017-08-21] MEDS: diphenhydrAMINE HCL 50 MG/ML VIAL IV PUSH PRN ×5 (01:09→21:13)
[2017-08-21] MEDS: SODIUM CHLOR 0.9% 1000 ML INJ 1,000 ML IV SCH ×3 (02:47→16:02)
[2017-08-21] MEDS: CIPROFLOXACIN 500 MG TAB PO SCH (08:58)
[2017-08-21] MEDS: ENOXAPARIN SODIUM 120 MG/0.8 ML SYRINGE SQ SCH (08:58)
[2017-08-21] MEDS: SODIUM CHLORIDE 0.9% FLUSH 10 ML FLUSH IV FLUSH SCH ×2 (08:58→21:00)
--- NOTE | 2017-08-21 11:18 | HHI.PR ---
Subjective Remarks Patient seen and examined today for follow-up on sickle cell crisis, chest pain. Patient states that she still have been more pain than she usually does. IV Dilaudid seems to help with her pain, review of records indicates that she does not require it every 4 hours as ordered. Discussed with her of adding by mouth medications for better control of pain. Objective Vitals Vital Signs Date Time Temp Pulse Resp B/P (MAP) Pulse Ox O2 Delivery O2 Flow Rate FiO2 08/21/17 08:00 97.9 91 18 133/82 (99) 93 08/21/17 07:54 18 08/21/17 05:09 98.0 89 18 117/70 (86) 96 08/21/17 00:00 98.1 90 19 122/69 (86) 95 08/20/17 20:30 91 08/20/17 20:00 98.3 92 21 119/66 (83) 94 08/20/17 15:58 97.7 84 20 109/64 (79) 94 08/20/17 11:50 97.4 97 20 122/78 (93) 91 I/O 08/20/17 08/20/17 08/20/17 08/21/17 08/21/17 08/21/17 07:00 15:00 23:00 07:00 15:00 23:00 Intake Total 748 ml 252 ml 1063 ml 1159 ml Balance 748 ml 252 ml 1063 ml 1159 ml Intake Oral 120 ml IV Total 748 ml 252 ml 943 ml 1159 ml # Voids 1 4 2 Result Diagram: 08/19/1780408/19/17 0805 Objective Remarks GENERAL: Well-developed, well-nourished, in no acute distress. alert and orientated HEENT: Head is normocephalic without any lesions or masses noted. Facial features are symmetric. NECK: Supple without any masses. Trachea midline no deviation. No JVD CARDIAC: Regular rhythm, regular rate. S1/S2 are heard. No murmurs gallops or rubs. LUNGS: Clear to auscultation bilaterally. No wheeze, rhonchi or rales. No use of accessory muscles on inspiration or expiration. ABDOMEN: Soft, nontender. Nondistended. Bowel sounds heard in all 4 quadrants. No organomegaly or masses. Negative rebound, negative guarding EXTREMITIES: No edema, pulses are equal bilaterally. No cyanosis or clubbing NEUROLOGY: Mood and affect appear appropriate. Cranial nerves II through XII grossly intact. Moving all extremities, speech is clear Urinary Catheter: No Vascular Central Line Catheter: No A/P Assessment and Plan Acute chest pain Patient has been ruled out for acute coronary event with serial cardiac enzymes remain negative Patient had been ruled out for acute chest syndrome secondary to sickle cell However, pulmonary angiogram does indicate pulmonary emboli Right lower lobe pulmonary emboli, Patient was already anticoagulated on Eliquis because of right lung pulmonary emboli diagnosed on April 20, 2017 Hematology discontinue Eliquis and started patient on Lovenox 110 mg every 12 hours Hematology indicated and documentation that if there is not any clear evidence of recurrent pulmonary emboli and she can be resumed on Eliquis Sickle cell anemia, possible crisis Continue IV fluids Hemoglobin is stable and does not require any transfusion at this time Will resume patient's home pain medication. Will change to IV Dilaudid for breakthrough pain Hematology following the patient and indicates from clinical presentation and objective findings of the patient is not in any significant vaso-occlusive pain crisis at this time. Leukocytosis, appears to be chronic CT scan does indicate mild to moderate parenchymal lung disease Continue monitor CBC Urinary tract infection Urine culture with Escherichia coli which is resistant to Cipro Will discontinue Cipro. Records indicate patient is allergic to cefepime with hives. We'll start Macrobid DVT prevention Lovenox Carlos Tapia Aug 21, 2017 11:18
[2017-08-21] MEDS: METHADONE HCL 10 MG TAB PO SCH (16:01)
[2017-08-21] MEDS: NITROFURANTOIN MONOHYD MACROCR 100 MG CAP PO SCH ×2 (16:01→17:10)
--- NOTE | 2017-08-21 19:08 | PD.ONC.PN ---
Subjective Subjective Remarks "The pain was on the left side, started all of the sudden" and..."could you adjust my pain medicine, 0.5mg doesn't work" Objective Data Date Time Temp Pulse Resp B/P (MAP) Pulse Ox O2 Delivery O2 Flow Rate FiO2 08/21/17 17:48 18 08/21/17 17:05 20 08/21/17 16:00 98.3 85 18 140/84 (102) 94 08/21/17 12:00 97.9 89 18 123/78 (93) 94 08/21/17 08:00 97.9 91 18 133/82 (99) 93 08/21/17 05:09 98.0 89 18 117/70 (86) 96 08/21/17 00:00 98.1 90 19 122/69 (86) 95 08/20/17 20:30 91 08/20/17 20:00 98.3 92 21 119/66 (83) 94 08/21/17 08/21/17 08/21/17 07:00 15:00 23:00 Intake Total 1159 ml 480 ml Balance 1159 ml 480 ml Result Diagram: 08/19/17 0808/19/17 0805 Administered Medications Medications (Trade) Dose Ordered Sig/Evi Route PRN Reason Start Time Stop Time Status Last Admin Dose Admin Sodium Chloride (NS Flush) 2 ml UNSCH PRN IV FLUSH FLUSH AFTER USING IV ACCESS 08/18/17 19:45 08/19/17 03:38 Sodium Chloride (NS Flush) 2 ml BID IV FLUSH 08/18/17 21:00 08/21/17 08:58 Hydromorphone HCl (Dilaudid Pf Inj) 0.5 mg Q4H PRN IV BREAKTHROUGH PAIN 08/18/17 20:00 08/21/17 17:11 Sodium Chloride 1,000 ml @ 125 mls/hr Q8H IV 08/18/17 19:45 08/21/17 16:02 Diphenhydramine HCl (Benadryl Inj) 25 mg Q4H PRN IV PUSH itching 08/18/17 19:45 08/21/17 17:11 Enoxaparin Sodium (Lovenox Inj) 110 mg Q12H SQ 08/20/17 21:00 08/21/17 08:58 Nitrofurantoin Macrocrystals (Macrobid) 100 mg BIDPC PO 08/21/17 13:30 08/21/17 17:10 Methadone HCl (Dolophine) 10 mg DAILY PO 08/21/17 13:30 08/21/17 16:01 Objective Remarks GENERAL: Well-nourished, well-developed patient. SKIN: Warm and dry. HEAD: Normocephalic. EYES: No scleral icterus. No injection or drainage. NECK: Supple, trachea midline. No JVD or lymphadenopathy. LYMPHATIC: No adenopathy. CARDIOVASCULAR: Regular rate and rhythm without murmurs. RESPIRATORY: Breath sounds equal bilaterally. No accessory muscle use. GASTROINTESTINAL: Abdomen soft, non-tender, nondistended. EXTREMITIES: No cyanosis, or edema. MUSCULOSKELETAL: Adequate muscle tone. NEUROLOGICAL: No obvious focal deficit. Awake, alert, and oriented x3. PSYCHIATRIC: Appropriate mood and affect; insight and judgment normal. Assessment/Plan Problem List: (1) Pulmonary embolism ICD Codes: I26.99 - Other pulmonary embolism without acute cor pulmonale Status: Chronic Plan: CTA compared to previous, PE remain on R side. No new lesions. US LE negative. Pt report compliance with Eliquis. VQ scan abn finding dumbel shape lesion not found on CTA. Trial nebulizer for CP/SOB. Troponin neg. Discussed findings, recommend continue Eliquis when DC home. She does not have progression of PE or failure of Eliquis based on recent CTA. Discussed option to continue on LMWH, pt prefer the Eliquis. Follow up in clinic when DC. (2) Vaso-occlusive sickle cell crisis ICD Codes: D57.00 - Hb-SS disease with crisis, unspecified Status: Acute Plan: SC disease. Frequent vasoocclusive pain crisis. Chronic pain on chronic methadone, no changes in baseline pain medication regimen. Discussed optimizing breakthrough meds, plan ultimately to taper and return to oral regimen when she is DC. Discussed risk of dependency, tolerance with narcotics. Continue supportive tx. IVF hydration, pain medication, no transfusion needed. Carline Silver MD Aug 21, 2017 19:08
[2017-08-21] MEDS ORDERED: RESP: ALBUTEROL 2.5 MG/IPRATROPIUM 0.5 MG NEB (PRN) NEB (19:15)
[2017-08-21] MEDS: RESP: ALBUTEROL CONC 2.5 MG/0.5 ML NEB NEB SCH (20:51)
[2017-08-21] MEDS ORDERED: AMITRIPTYLINE HCL 25 MG TAB PO SCH (21:00)
[2017-08-21] MEDS: ENOXAPARIN SODIUM 100 MG/ML SYRINGE SQ SCH (21:12)
[2017-08-22 01:24] VITALS: BP 122/70; PULSE 76; RESP 18; TEMP 97.9; O2SAT 94
[2017-08-22] MEDS: diphenhydrAMINE HCL 50 MG/ML VIAL IV PUSH PRN ×3 (03:09→11:45)
[2017-08-22] MEDS: HYDROmorphone HCL PF 2 MG/ML VIAL IV PRN ×2 (03:10→07:42)
[2017-08-22] MEDS: SODIUM CHLOR 0.9% 1000 ML INJ 1,000 ML IV SCH ×2 (03:14→11:15)
[2017-08-22] MEDS: RESP: ALBUTEROL CONC 2.5 MG/0.5 ML NEB NEB SCH ×2 (03:24→11:12)
[2017-08-22 05:12] VITALS: BP 117/79; PULSE 92; RESP 18; TEMP 98.7; O2SAT 97
[2017-08-22] MEDS: SODIUM CHLORIDE 0.9% FLUSH 10 ML FLUSH IV FLUSH SCH (07:43)
[2017-08-22] MEDS: METHADONE HCL 10 MG TAB PO SCH (07:44)
[2017-08-22] MEDS: NITROFURANTOIN MONOHYD MACROCR 100 MG CAP PO SCH (07:44)
[2017-08-22] MEDS: ENOXAPARIN SODIUM 100 MG/ML SYRINGE SQ SCH (07:45)
[2017-08-22 08:00] VITALS: BP 127/79; PULSE 96; RESP 20; TEMP 98.6; O2SAT 97
--- NOTE | 2017-08-22 09:08 | HHI.PR ---
Subjective Remarks Patient seen and examined today for follow-up on sickle cell anemia. Patient states that her pain is improved after the use of nebulizer treatment. However , patient has not been using when necessary medications. She has been getting breakthrough Dilaudid medication instead. She discussed with hematology to increase her Dilaudid pain medication last night. Discussed with her today that we need to wean off of the IV pain medication. That she needs to take her oral medication to see if we need to make adjustments to control her pain upon discharge. Objective Vitals Vital Signs Date Time Temp Pulse Resp B/P (MAP) Pulse Ox O2 Delivery O2 Flow Rate FiO2 08/22/17 08:00 98.6 96 20 127/79 (95) 97 08/22/17 05:12 98.7 92 18 117/79 (92) 97 08/22/17 01:24 97.9 76 18 122/70 (87) 94 08/21/17 21:08 98.8 90 16 126/76 (93) 92 08/21/17 20:00 70 08/21/17 17:48 18 08/21/17 17:05 20 08/21/17 16:00 98.3 85 18 140/84 (102) 94 08/21/17 12:00 97.9 89 18 123/78 (93) 94 I/O 08/21/17 08/21/17 08/21/17 08/22/17 08/22/17 08/22/17 07:00 15:00 23:00 07:00 15:00 23:00 Intake Total 1159 ml 480 ml 1000 ml 1000 ml Balance 1159 ml 480 ml 1000 ml 1000 ml Intake Oral 480 ml IV Total 1159 ml 1000 ml 1000 ml # Voids 2 3 3 # Bowel Movements 0 Result Diagram: 08/19/17 0808/19/17 0805 Objective Remarks GENERAL: Well-developed, well-nourished, in no acute distress. alert and orientated HEENT: Head is normocephalic without any lesions or masses noted. Facial features are symmetric. NECK: Supple without any masses. Trachea midline no deviation. No JVD CARDIAC: Regular rhythm, regular rate. S1/S2 are heard. No murmurs gallops or rubs. LUNGS: Clear to auscultation bilaterally. No wheeze, rhonchi or rales. No use of accessory muscles on inspiration or expiration. ABDOMEN: Soft, nontender. Nondistended. Bowel sounds heard in all 4 quadrants. No organomegaly or masses. Negative rebound, negative guarding EXTREMITIES: No edema, pulses are equal bilaterally. No cyanosis or clubbing NEUROLOGY: Mood and affect appear appropriate. Cranial nerves II through XII grossly intact. Moving all extremities, speech is clear Urinary Catheter: No Vascular Central Line Catheter: No A/P Assessment and Plan Acute chest pain Patient has been ruled out for acute coronary event with serial cardiac enzymes remain negative Patient had been ruled out for acute chest syndrome secondary to sickle cell However, pulmonary angiogram does indicate pulmonary emboli CT scan does indicate patchy atelectasis and groundglass parenchymal opacity bilaterally Duo neb started, patient did indicate improvement with DuoNeb Start incentive spirometry Right lower lobe pulmonary emboli, Patient was already anticoagulated on Eliquis because of right lung pulmonary emboli diagnosed on April 20, 2017 Hematology discontinue Eliquis and started patient on Lovenox 110 mg every 12 hours Hematology indicated and documentation that if there is not any clear evidence of recurrent pulmonary emboli and she can be resumed on Eliquis Hematology indicates resumption of Eliquis upon discharge Sickle cell anemia, possible crisis Continue IV fluids Hemoglobin is stable and does not require any transfusion at this time Resumed patient's home pain medication, adjust as needed. We'll wean off of IV Dilaudid Hematology following the patient and indicates from clinical presentation and objective findings of the patient is not in any significant vaso-occlusive pain crisis at this time. Leukocytosis, appears to be chronic CT scan does indicate mild to moderate parenchymal lung disease Continue monitor CBC Urinary tract infection Urine culture with Escherichia coli which is resistant to Cipro Will discontinue Cipro. Records indicate patient is allergic to cefepime with hives. We'll start Macrobid DVT prevention Lovenox Discharge Planning Anticipate discharge once weaned off of IV pain medication Carlos Tapia Aug 22, 2017 09:08
[2017-08-22 12:00] VITALS: BP 134/73; PULSE 92; RESP 18; TEMP 97.3; O2SAT 96
[2017-08-22] MEDS ORDERED: NITR100C4 PO (14:06)
--- NOTE | 2017-08-22 14:07 | HHI.DCPOC ---
Discharge Care Plan Diagnosis: (1) Sickle cell anemia (2) UTI (urinary tract infection) (3) Pulmonary embolism Goals to Promote Your Health * To prevent worsening of your condition and complications * To maintain your health at the optimal level Directions to Meet Your Goals Take your medications as prescribed Follow your dietary instruction Follow activity as directed Keep your appointments as scheduled Take your immunizations and boosters as scheduled If your symptoms worsen call your PCP, if no PCP go to Urgent Care Center or Emergency Room Smoking is Dangerous to Your Health. Avoid second hand smoke Call the 24-hour hour crisis hotline for domestic abuse at Carlos Tapia Aug 22, 2017 14:07
--- NOTE | 2017-08-22 14:22 | HHI.DS ---
Discharge Summary Admission Date Aug 19, 2017 at 10:27 Discharge Date: Aug 22, 2017 Admitting Diagnosis Sickle Cell Disease with Painful Crisis, Chest Pain (1) Sickle cell disease ICD Code: D57.1 - Sickle cell disease Status: Chronic (2) UTI (urinary tract infection) ICD Code: N39.0 - Urinary tract infection, site not specified Status: Acute (3) Chest pain ICD Code: R07.9 - Chest pain Status: Acute Procedures None Brief History - From Admission 31 years old female with history of sickle cell disease presented with to the ED with a complaint of chest pain 8 out of 10 started Thursday along with nausea no vomiting no diarrhea but rather constipation, she denied having cough headache or dizziness, patient has a history of DVT and SVC syndrome, stated the pain is better with the medication dropped to 6 out of 10, patient denied smoking she is shows socially drinks alcohol CBC/BMP: 08/19/17 0805 08/19/[address] Angiography 08/20/17 0000 Signed Impressions: Service Date/Time: August 17:53 - CONCLUSION: Minimal right lower lobe pulmonary embolus. Patchy mild to moderate parenchymal lung disease Sam Medina MD Lung Scan-V Nuclear Medicine 08/19/17 0000 Signed Impressions: Service Date/Time: Saturday, August 19, 2017 12:35 - CONCLUSION: 1. Unusual dumbbell shaped defect in the left lung that does not have the classic findings of a wedge-shaped defect as there is no extension to the cortical surface. 2. However, patient has a history of pulmonary embolus and this does represent a perfusion mismatch as the corresponding ventilatory image is normal in this location. 3. Intermediate probability for pulmonary embolus. Christo Glover MD Lower Extremity Ultrasound 08/19/17 0000 Signed Impressions: Service Date/Time: Saturday, August 19, 2017 10:46 - CONCLUSION: Negative for deep venous thrombosis. Kyle Peace MD FACR Chest X-Ray 08/18/17 1445 Signed Impressions: Service Date/Time: Friday, August 18, 2017 15:21 - CONCLUSION: No acute disease. Shailesh Sanchez Jr., MD PE at Discharge GENERAL: Well-developed, well-nourished, in no acute distress. alert and orientated HEENT: Head is normocephalic without any lesions or masses noted. Facial features are symmetric. NECK: Supple without any masses. Trachea midline no deviation. No JVD CARDIAC: Regular rhythm, regular rate. S1/S2 are heard. No murmurs gallops or rubs. LUNGS: Clear to auscultation bilaterally. No wheeze, rhonchi or rales. No use of accessory muscles on inspiration or expiration. ABDOMEN: Soft, nontender. Nondistended. Bowel sounds heard in all 4 quadrants. No organomegaly or masses. Negative rebound, negative guarding EXTREMITIES: No edema, pulses are equal bilaterally. No cyanosis or clubbing NEUROLOGY: Mood and affect appear appropriate. Cranial nerves II through XII grossly intact. Moving all extremities, speech is clear Hospital Course This is a 31-year-old female with known history of sickle cell disease, pulmonary emboli who presented to hospital because of chest discomfort. Patient had chest x-ray performed which did not indicate any acute abnormality. She is admitted the hospital for pain control, further evaluation. Patient did have cardiac enzymes trended which did not indicate any acute coronary event. Patient did undergo VQ study which did show a wedge-shaped deformity. Hematology follow patient during her stay in the hospital. As indicated that patient was not in a vaso-occlusive crisis by hematology. Patient continued on pain control. Did undergo a CTA of the chest which patient did have previous history of pulmonary emboli and May, was evaluating for recurrent or failed treatment of pulmonary emboli. However there is pulmonary emboli on CTA in the right lower lung which was in the same area as to previous portable emboli. Patient will be continued on Eliquis at the hematology's request. Patient was started back on her home by mouth medications and pain is controlled at this time. Patient clinically stable. No indication of any acute chest syndrome. No indication of acute vaso-occlusive crisis. Patient be discharged home in stable condition with outpatient follow-up. Pt Condition on Discharge: Stable Discharge Disposition: Discharge Home Discharge Time: > 30 minutes Discharge Instructions DIET: Follow Instructions for: As Tolerated, No Restrictions Activities you can perform: Regular-No Restrictions Follow up Referrals: PCP Follow-up - 1 Week New Medications: Nitrofurantoin Monohydrate Macrocrystals (Nitrofurantoin Monohydrate Macrocrystals) 100 Mg Cap 100 MG PO BIDPC for Infection for 5 Days, CAP Continued Medications: Amitriptyline (Amitriptyline) 25 Mg Tab 25 MG PO HS for Control Depression, #30 TAB 0 Refills Apixaban (Eliquis) 2.5 Mg Tab 5 MG PO DIRECTED for blood clot for 30 Days, TAB 0 Refills 10 mg po twice daily till 04/29/17- then 5 mg po twice daily. Methadone (Methadone) 10 Mg Tab 10 MG PO DAILY, TAB 0 Refills Naproxen (Naprosyn) 500 Mg Tab 500 MG PO BID, #60 TAB 0 Refills Oxycodone (Oxycodone) 5 Mg Cap 5 MG PO BID PRN for PAIN, #10 CAP 0 Refills Discontinued Medications: Ciprofloxacin (Cipro) 500 Mg Tab 500 MG PO BID for Infection for 5 Days, #10 TAB 0 Refills Carlos Tapia Aug 22, 2017 14:22
== END 2017-08-22 15:30 | disposition home or self-care (01) | DRG 175 ==
LOC: PHED 14:22 → PHEDA 19:02 → PH3A 23:05 → OBSVTOIN 08-19 10:27
PROVIDERS: ADMIT Hospitalist; ATTEND Hospitalist
DX: I26.99 Other pulmonary embolism without acute cor pulmonale (principal); D57.219 Sickle-cell/Hb-C disease with crisis, unspecified; D68.59 Other primary thrombophilia; N30.01 Acute cystitis with hematuria; Z86.711 Personal history of pulmonary embolism; Z79.01 Long term (current) use of anticoagulants; Z86.718 Personal history of other venous thrombosis and embolism; K59.00 Constipation, unspecified; H40.9 Unspecified glaucoma; E66.9 Obesity, unspecified; H54.62 Unqualified visual loss, left eye, normal vision right eye; G89.4 Chronic pain syndrome; B96.20 Unspecified Escherichia coli [E. coli] as the cause of diseases classified elsewhere; Z16.23 Resistance to quinolones and fluoroquinolones
CPT/HCPCS: 71045; 71275; 78582; 80048; 80053; 81001; 82550; 84484; 84703; 85025; 85044; 87077; 87086; 87186; 93005; 93970; 94150; 94640; 94664; 96361; 96374; 96375; 96376; A9540; A9567; G0378; J1170; J1200; J1650; J7030; J7611; Q9967

== ENCOUNTER 2017-09-24 19:38 | Emergency (ER) | payer MEDICARE, OTHER ==
[~2017-09-24] VITALS: Ht 170.2 cm; Wt 105.0 kg
[~2017-09-24 19:38] MED LIST changes: -HYDR500C PO; -MACR100C2 PO; +NAPR500 PO; +NITR100C4 PO; -PROM12.54 PO
[2017-09-24 19:50] VITALS: BP 122/73; PULSE 90; RESP 18; TEMP 99.5; O2SAT 96
[2017-09-25 01:04] VITALS: BP 107/67; PULSE 76; RESP 18; O2SAT 98
--- NOTE | 2017-09-25 01:44 | RADRPT ---
EXAM DATE/TIME: 09/25/2017 01:19 [facility] COMPARISON: CHEST PA & LAT, June 17, 2015, 18:12. INDICATIONS : Sickle cell crisis MEDICAL HISTORY : Sickle Cell disease. SURGICAL HISTORY : None. ENCOUNTER: Initial ACUITY: 2 days PAIN SCORE: 10/10 LOCATION: Bilateral chest FINDINGS: PA and lateral views of the chest demonstrate the lungs to be symmetrically aerated without evidence of mass, consolidative infiltrate or effusion. Mild streaky opacity is present in both perihilar marbella ons. The cardiomediastinal contours are unremarkable. Osseous structures are intact. CONCLUSION: Mild streaky opacity in both perihilar regions with no focal consolidation. At least a portion of this may represent scarring and/or atelectasis. Chuy Li MD on September 25, 2017 at 1:41 Board Certified Radiologist. This report was verified electronically.
[2017-09-25] MEDS ORDERED: SODIUM CHLOR 0.9% 1000 ML INJ 1,000 ML IV ONE (01:57)
[2017-09-25 02:00] VITALS: O2SAT 98
[2017-09-25] MEDS ORDERED: SODIUM CHLORIDE 0.9% FLUSH 10 ML FLUSH IVF PRN (02:00)
[2017-09-25] MEDS ORDERED: PROMETHAZINE INJ 25 MG/ML VIAL IM ONE (02:00)
[2017-09-25] MEDS ORDERED: diphenhydrAMINE HCL 50 MG/ML VIAL IV PUSH ONE ×2 (02:00→03:15)
[2017-09-25] MEDS ORDERED: HYDROmorphone HCL PF 2 MG/ML VIAL IV PUSH ONE ×2 (02:00→03:15)
--- NOTE | 2017-09-25 02:14 | PD ---
HPI Chief Complaint: Sickle Cell Time Seen by Provider: 01:57 Travel History International Travel<30 days: No Contact w/Intl Traveler<30days: No Traveled to known affect area: No History of Present Illness HPI 31-year-old female presents to the emergency department for complaint of exacerbation of her sickle cell disease. Patient states that she has been seen once this week already by her cook candy for outpatient management with fluid hydration and pain management. Due to persistent symptoms patient presents now for her typical sickle cell crisis pain involving her chest back and extremities. Patient denies any new pain or worsening pain just states pain is not resolved. Patient denies any fever or chills. Patient said no nausea or vomiting. Patient typically requires administration of IV fluids Dilaudid Benadryl and Phenergan. Patient is currently on Eliquis due to history of subclavian vein thrombosis. Patient no longer has a port due to complications with Cedpxu-r-Aavo and requires peripheral access for IV administration of medications. Patient said no fever no chills no nausea no vomiting no shortness of breath no pleuritic pain no headache no sore throat no sinus pressure drainage no neck stiffness no flank pain no abdominal pain. Patient denies . Patient rates pain as moderate to severe. Patient denies recent injury or fall. PFSH Past Medical History Narrative Medical Sickle cell anxiety heart murmur subclavian vein thrombosis UTI PE pneumonia cholecystectomy blindness left eye tubal ligation [id number]-c-[id number] no tobacco use nursing notes reviewed Hx Anticoagulant Therapy: Yes (ELAQUIS) Asthma: No Autoimmune Disease: No Blood Disorders: Yes (SICKLE CELL) Anxiety: Yes Depression: No Heart Rhythm Problems: No Cancer: No Cardiac Catheterization: Yes Cardiovascular Problems: Yes (heart murmur, svc) High Cholesterol: No Chemotherapy: No Chest Pain: No Congestive Heart Failure: No COPD: No Cerebrovascular Accident: No Diabetes: No Diminished Hearing: No Endocrine: No Gastrointestinal Disorders: Yes (HX GALLSTONES--CHOLECYSTECTOMY) Genetic Disorder: Yes (SICKLE CELL) GERD: No Glaucoma: Yes Genitourinary: Yes Headaches: Yes Hepatitis: No Hiatal Hernia: No Heparin Induced Thrombocytopen: No Hypertension: No Immune Disorder: No Implanted Vascular Access Dvce: No (RIGHT CHEST INFUSAPORT: SEPTEMBER 2014 REMOVED) Kidney Stones: No Medical other: Yes (SICKLE CELL ANEMIA) Musculoskeletal: Yes (ARTHRITIS IN SPINE AND HANDS ) Neurologic: No Psychiatric: No Reproductive: No Respiratory: Yes (PULMONARY EMBOLISM) Immunizations Current: Yes Migraines: No Myocardial Infarction: No Pneumonia: Yes Radiation Therapy: No Renal Failure: No Seizures: No Sickle Cell Disease: Yes Sleep Apnea: No Thyroid Disease: No Ulcer: No Tetanus Vaccination: < 5 Years Influenza Vaccination: Yes ?: Unknown LMP: 09/05/17 : 10 Para: 4 Miscarriage: 6 : 0 Ectopic : No Ovarian Cysts: No Tubal Ligation: Yes Past Surgical History Abdominal Surgery: Yes (cholecystectomy ) AICD: No Arteriovenous Shunt: No Body Medical Devices: RIGHT INFUSAPORT (REMOVED 2012), LEFT REMOVED 2014 Cardiac Surgery: No Section: Yes (x2) Cholecystectomy: Yes Ear Surgery: No Endocrine Surgery: No Eye Surgery: Yes (CORRECTIVE EYE SURGERY-LEFT) Genitourinary Surgery: No Gynecologic Surgery: Yes ( X 2, 2007 AND 2012) Hysterectomy: No Insulin Pump: No Joint Replacement: No Neurologic Surgery: No Oral Surgery: No Pacemaker: No Thoracic Surgery: Yes (MRSA INFUSAPORT R SIDE REMOVED 05/2013, L SIDE INFUSAPORT REMOVED 07/20) Other Surgery: Yes (Angioplasty ) Social History Alcohol Use: Yes (occas. wine) Tobacco Use: No Substance Use: No Allergies-Medications (Allergen,Severity, Reaction): Coded Allergies: ketorolac (Verified Allergy, Severe, RASH, 09/24/17) metoclopramide (Verified Allergy, Severe, RASH, 09/24/17) morphine (Verified Allergy, Severe, RASH, 09/24/17) ondansetron (Verified Allergy, Severe, RASH,ITCH, 09/24/17) Uncoded Allergies: CEFEPIME (Allergy, Severe, Hives., 08/09/16) . Reported Meds & Prescriptions Reported Meds & Active Scripts Active Macrobid (Nitrofurantoin Monoh/Nitrofur Macro) 100 Mg Cap 100 Mg PO BID 10 Days Oxycodone (Oxycodone HCl) 5 Mg Cap 5 Mg PO BID PRN Eliquis (Apixaban) 2.5 Mg Tab 5 Mg PO DIRECTED 30 Days 10 mg po twice daily till 04/29/17- then 5 mg po twice daily. Reported Naprosyn (Naproxen) 500 Mg Tab 500 Mg PO BID Amitriptyline (Amitriptyline HCl) 25 Mg Tab 25 Mg PO HS Methadone (Methadone HCl) 10 Mg Tab 10 Mg PO DAILY Review of Systems Except as stated in HPI: all other systems reviewed are Neg HENT: No: Congestion Cardiovascular: Positive: Chest Pain or Discomfort Respiratory: No: Shortness of Breath Gastrointestinal: No: Nausea, Vomiting Genitourinary: No: Dysuria, Decreased Urinary Output Musculoskeletal: No: Myalgias, Arthralgias Skin: No Rash Neurologic: No: Weakness, Dizziness, Syncope Psychiatric: No: Anxiety Hematologic/Lymphatic: No: Easy Bruising Physical Exam Narrative GENERAL: Well-developed well-nourished female no acute distress or respiratory distress SKIN: Warm and dry. HEAD: Normocephalic. EYES: No scleral icterus. No injection or drainage. NECK: Supple, trachea midline. No JVD or lymphadenopathy. CARDIOVASCULAR: Regular rate and rhythm without murmurs, gallops, or rubs. RESPIRATORY: Breath sounds equal bilaterally. No accessory muscle use. GASTROINTESTINAL: Abdomen soft, non-tender, nondistended. MUSCULOSKELETAL: No cyanosis, or edema. BACK: Nontender without obvious deformity. No CVA tenderness. Data Data Last Documented VS Vital Signs Date Time Temp Pulse Resp B/P (MAP) Pulse Ox O2 Delivery O2 Flow Rate FiO2 09/25/17 04:46 82 18 98 09/25/17 04:45 Room Air 09/24/17 19:50 99.5 Orders Orders Complete Blood Count With Diff (09/25/17 01:09) Retic Count (09/25/17 01:09) Blood Culture (09/25/17 01:09) Iv Access Insert/Monitor (09/25/17 01:09) Chest, Pa & Lat (09/25/17 01:09) Comprehensive Metabolic Panel (09/25/17 01:57) Ecg Monitoring (09/25/17 01:57) Oximetry (09/25/17 01:57) Sodium Chloride 0.9% Flush (Ns Flush) (09/25/17 02:00) Sodium Chlor 0.9% 1000 Ml Inj (Ns 1000 M (09/25/17 01:57) Diphenhydramine Inj (Benadryl Inj) (09/25/17 02:00) Troponin I (09/25/17 01:57) Ed Urine Pregnancytest Poc (09/25/17 01:57) Promethazine Inj (Phenergan Inj) (09/25/17 02:00) Hydromorphone Pf Inj (Dilaudid Pf Inj) (09/25/17 02:00) Urinalysis - C+S If Indicated (09/25/17 01:57) Electrocardiogram (09/25/17 ) Urine Culture (09/25/17 02:00) Hydromorphone Pf Inj (Dilaudid Pf Inj) (09/25/17 03:15) Diphenhydramine Inj (Benadryl Inj) (09/25/17 03:15) Nitrofurantoin Monohyd Macrocr (Macrobid (09/25/17 04:15) Ed Discharge Order (09/25/17 04:44) Labs Laboratory Tests Test 09/25/17 02:00 White Blood Count 15.8 TH/MM3 Red Blood Count 3.83 MIL/MM3 Hemoglobin 10.6 GM/DL Hematocrit 33.7 % Mean Corpuscular Volume 88.0 FL Mean Corpuscular Hemoglobin 27.7 PG Mean Corpuscular Hemoglobin Concent 31.4 % Red Cell Distribution Width 18.4 % Platelet Count 446 TH/MM3 Mean Platelet Volume 8.5 FL CBC Comment AUTO DIFF Differential Total Cells Counted 100 Neutrophils % (Manual) 66 % Lymphocytes % 28 % Monocytes % 5 % Eosinophils % 1 % Neutrophils # (Manual) 10.4 TH/MM3 Differential Comment FINAL DIFF MANUAL Platelet Estimate NORMAL Platelet Morphology Comment NORMAL Sickle Cells 1+ Target Cells 2+ Ovalocytes 1+ Urine Color YELLOW Urine Turbidity CLOUDY Urine pH 6.0 Urine Specific [place] 1.020 Urine Protein NEG mg/dL Urine Glucose (UA) NEG mg/dL Urine Ketones NEG mg/dL Urine Occult Blood TRACE Urine Nitrite NEG Urine Bilirubin NEG Urine Urobilinogen 0.2 MG/DL Urine Leukocyte Esterase MOD Urine RBC 3-5 /hpf Urine WBC 50-99 /hpf Urine Squamous Epithelial Cells 6-8 /hpf Urine Bacteria MANY /hpf Microscopic Urinalysis Comment CULTURE INDICATED Blood Urea Nitrogen 6 MG/DL Creatinine 0.90 MG/DL Random Glucose 87 MG/DL Total Protein 8.4 GM/DL Albumin 4.3 GM/DL Calcium Level 9.0 MG/DL Alkaline Phosphatase 84 U/L Aspartate Amino Transf (AST/SGOT) 12 U/L Alanine Aminotransferase (ALT/SGPT) 18 U/L Total Bilirubin 1.7 MG/DL Sodium Level 138 MEQ/L Potassium Level 4.0 MEQ/L Chloride Level 105 MEQ/L Carbon Dioxide Level 26.8 MEQ/L Anion Gap 6 MEQ/L Estimat Glomerular Filtration Rate 88 ML/MIN Troponin I LESS THAN 0.02 NG/ML MDM Medical Decision Making Medical Screen Exam Complete: Yes Emergency Medical Condition: Yes Medical Record Reviewed: Yes Interpretation(s) EKG: Normal sinus rhythm rate [address] elevation injury pattern or ectopy noted Last Impressions Chest X-Ray 09/25/17 0109 Signed Impressions: Service Date/Time: Monday, September 25, 2017 01:19 - CONCLUSION: Mild streaky opacity in both perihilar regions with no focal consolidation. At least a portion of this may represent scarring and/or atelectasis. Chuy Li MD Vital Signs Date Time Temp Pulse Resp B/P (MAP) Pulse Ox O2 Delivery O2 Flow Rate FiO2 09/25/17 01:04 98 Room Air 09/25/17 01:04 76 18 107/67 (80) 98 Room Air 09/24/17 19:50 99.5 90 18 122/73 (89) 96 CBC & BMP Diagram 09/25/17 02:00 Total Protein 8.4 H, Albumin 4.3, Calcium Level 9.0, Alkaline Phosphatase 84, Aspartate Amino Transf (AST/SGOT) 12 L, Alanine Aminotransferase (ALT/SGPT) 18, Total Bilirubin 1.7 H Urinalysis: positive for bacteria positive for white blood cells and positive leukocyte esterase; culture indicated [id number] hCG: Negative Troponin I: Less than 0.02, not elevated Differential Diagnosis Vaso-occlusive crisis, anemia, sickle cell pain, UTI, pneumonia, [place] Narrative Course IV access obtained specimens collected and sent for resulting patient administered IV fluid bolus of normal saline along with Dilaudid 1 mg IV Benadryl 25 mg IV and Phenergan 25 mg IM Patient given additional dose of Dilaudid and additional dose of normal saline Lab values found to be grossly at baseline are grossly within normal range except for urinalysis many bacteria white blood cells and leukocyte esterase review of medical records identifies recent hospitalization 08/2017 with abnormal urinalysis and culture was positive for E. coli resistant to Cipro and Bactrim and doxycycline however sensitive to penicillin and cephalosporins however patient has allergy to cephalosporins with severe hives therefore will not administer cephalosporin or penicillin; patient will receive first dose of antibiotic Macrobid. Patient aware of lab results and clinically and symptomatically improved Diagnosis Primary Impression: UTI (urinary tract infection) Additional Impressions: Sickle cell anemia Sickle cell anemia with crisis Referrals: Carline Silver MD call for appointment Patient Instructions: General Instructions, Narcotic given in the ED Additional Instructions: Increase fluid hydration Complete course of antibiotic as prescribed Follow-up with your cook candy Return the emergency department for any concerns or change in condition Take as tolerated acetaminophen/Tylenol for fever 100.4F or greater Continue chronic medications as chronically prescribed Med/Other Pt SpecificInfo: Prescription(s) given Scripts Nitrofurantoin Monohydrate Macrocrystals (Macrobid) 100 Mg Cap 100 MG PO BID for Infection for 10 Days, #20 CAP 0 Refills Prov: Ting Woo MD 09/25/17 Disposition: 01 DISCHARGE HOME Condition: Stable Ting Woo MD Sep 25, 2017 02:14
[2017-09-25 02:17] LABS: HEMATOCRIT 33.7 % (35.0-46.0); HEMOGLOBIN 10.6 GM/DL (11.6-15.3); MEAN CORPUSCULAR HEMOGLOBIN 27.7 PG (27.0-34.0); MEAN CORPUSCULAR HGB CONC 31.4 % (32.0-36.0); MEAN PLATELET VOLUME 8.5 FL (7.0-11.0); PLATELET COUNT 446 TH/MM3 (150-450); RED BLOOD COUNT 3.83 MIL/MM3 (4.00-5.30); RED CELL DISTRIBUTION WIDTH 18.4 % (11.6-17.2); WHITE BLOOD COUNT 15.8 TH/MM3 (4.0-11.0)
[2017-09-25 02:23] LABS: CHLORIDE 105 MEQ/L (98-107); SODIUM (NA) 138 MEQ/L (136-145)
[2017-09-25 02:27] LABS: ALBUMIN 4.3 GM/DL (3.4-5.0); BICARBONATE 26.8 MEQ/L (21.0-32.0); BLOOD UREA NITROGEN 6 MG/DL (7-18); GLUCOSE,RANDOM 87 MG/DL (74-106)
[2017-09-25 02:30] LABS: ALT (GPT) 18 U/L (10-53); AST (GOT) 12 U/L (15-37); GLOMERULAR FILTRATION RATE 88 ML/MIN (>89)
[2017-09-25 02:32] VITALS: BP 109/65; PULSE 80; RESP 18; O2SAT 98
[2017-09-25 02:32] LABS: BILIRUBIN, URINE NEG (NEG); BLOOD, URINE TRACE (NEG); GLUCOSE,URINE NEG (NEG); KETONE, URINE NEG (NEG); NITRITE,URINE NEG (NEG); TOTAL BILIRUBIN ADULT 1.7 MG/DL (0.2-1.0); TOTAL PROTEIN 8.4 GM/DL (6.4-8.2); URINE COLOR YELLOW (YELLW/STRAW); URINE LEUKOCYTE ESTERASE MOD (NEG)
[2017-09-25 02:33] LABS: ALKALINE PHOSPHATASE 84 U/L (45-117)
[2017-09-25 02:34] LABS: LYMPHOCYTES 28 % (9-44); MONOCYTES 5 % (0-8); NEUTROPHIL # MANUAL DIFF 10.4 TH/MM3 (1.8-7.7); OVALOCYTES 1+ (NORMAL); POLYS (SEG NEUTROPHILS) 66 % (16-70); SICKLE CELLS 1+ (NORMAL); TARGET CELLS 2+ (NORMAL)
[2017-09-25 02:35] LABS: TROPONIN I LESS THAN 0.02 NG/ML (0.02-0.05)
[2017-09-25 02:38] LABS: BACTERIA, URINE MANY /hpf
[2017-09-25 03:36] VITALS: BP 111/59; PULSE 82; RESP 18; O2SAT 97
[2017-09-25] MEDS ORDERED: MACR100C2 PO (04:06)
[2017-09-25] MEDS ORDERED: NITROFURANTOIN MONOHYD MACROCR 100 MG CAP PO ONE (04:15)
[2017-09-25 04:45] VITALS: BP 110/62; PULSE 78; RESP 18; O2SAT 98
[2017-09-25 06:50] LABS: RETIC # 127.8 MIL/L (20.0-150.0); RETIC % 3.5 % (0.4-3.0)
--- NOTE | 2017-09-25 20:02 | EKG ---
Date Performed: 09/25/2017 Time Performed: 02:07:49 PTAGE: 31 years EKG: Sinus rhythm Since previous tracing, no significant change noted NORMAL ECG PREVIOUS TRACING : 08/19/2017 02.53 DOCTOR: Ranjan Clarke Interpretating Date/Time 09/25/2017 19:57:51
== END 2017-09-25 05:00 | disposition home or self-care (01) ==
LOC: PHED 19:38
DX: N39.0 Urinary tract infection, site not specified (principal); D57.00 Hb-SS disease with crisis, unspecified; B96.20 Unspecified Escherichia coli [E. coli] as the cause of diseases classified elsewhere; Z16.23 Resistance to quinolones and fluoroquinolones; Z16.29 Resistance to other single specified antibiotic; F41.9 Anxiety disorder, unspecified; Z86.79 Personal history of other diseases of the circulatory system; Z87.448 Personal history of other diseases of urinary system; Z87.39 Personal history of other diseases of the musculoskeletal system and connective tissue
CPT/HCPCS: 71046; 80053; 81001; 84484; 84703; 85007; 85027; 85044; 87040; 87077; 87086; 87186; 93005; 96361; 96372; 96374; 96375; 96376; 99285; J1170; J1200; J2550; J7030

== ENCOUNTER 2017-10-23 08:20 | Inpatient (IN) | payer MEDICARE, OTHER ==
[2017-10-23] VITALS (7 sets, daily range): BP systolic 102–149; BP diastolic 56–77; PULSE 105–134; RESP 16–18; TEMP 98.8–102.8; O2SAT 91–98
[~2017-10-23] VITALS: Ht 170.2 cm; Wt 110.2 kg
[~2017-10-23 08:20] MED LIST changes: +MACR100C2 PO; -NITR100C4 PO
--- NOTE | 2017-10-23 08:34 | PD ---
HPI Chief Complaint: Sickle Cell Time Seen by Provider: 08:34 Travel History International Travel<30 days: No Contact w/Intl Traveler<30days: No Traveled to known affect area: No History of Present Illness HPI 31-year-old female came to the emergency room with history of sore throat, fever and myalgia. Patient says all the symptoms started last night. Patient also happens to be a sickle cell disease patient. Says she has been having generalized aches and pain as well. Temperature in triage was 102.8. Patient was tachycardic and appeared to be in moderate distress. She is able to talk and answer questions appropriately. No significant respiratory distress. No known sick contacts. The throat hurts worse when she tries to swallow. Patient took some Tylenol last night but nothing this morning. [facility] Past Medical History Narrative Medical List of her past medical, surgical, social and family history reviewed from the nursing note Hx Anticoagulant Therapy: Yes (ELIQUIS) Asthma: No Autoimmune Disease: No Blood Disorders: Yes (SICKLE CELL) Anxiety: Yes Depression: No Heart Rhythm Problems: No Cancer: No Cardiac Catheterization: Yes Cardiovascular Problems: Yes (heart murmur, svc) High Cholesterol: No Chemotherapy: No Chest Pain: No Congestive Heart Failure: No COPD: No Cerebrovascular Accident: No Diabetes: No Diminished Hearing: No Endocrine: No Gastrointestinal Disorders: Yes (HX GALLSTONES--CHOLECYSTECTOMY) Genetic Disorder: Yes (SICKLE CELL) GERD: No Glaucoma: Yes Genitourinary: Yes Headaches: Yes Hepatitis: No Hiatal Hernia: No Heparin Induced Thrombocytopen: No Hypertension: No Immune Disorder: No Implanted Vascular Access Dvce: No (RIGHT CHEST INFUSAPORT: SEPTEMBER 2014 REMOVED) Kidney Stones: No Musculoskeletal: Yes (ARTHRITIS IN SPINE AND HANDS ) Neurologic: No Psychiatric: No Reproductive: No Respiratory: Yes (PULMONARY EMBOLISM) Immunizations Current: Yes Migraines: No Myocardial Infarction: No Pneumonia: Yes Radiation Therapy: No Renal Failure: No Seizures: No Sickle Cell Disease: Yes Sleep Apnea: No Thyroid Disease: No Ulcer: No ?: Not : 10 Para: 4 Miscarriage: 6 : 0 Ectopic : No Ovarian Cysts: No Tubal Ligation: Yes Past Surgical History Abdominal Surgery: Yes (cholecystectomy ) AICD: No Arteriovenous Shunt: No Body Medical Devices: RIGHT INFUSAPORT (REMOVED 2012), LEFT REMOVED 2014 Cardiac Surgery: No Section: Yes (x2) Cholecystectomy: Yes Ear Surgery: No Endocrine Surgery: No Eye Surgery: Yes (CORRECTIVE EYE SURGERY-LEFT) Genitourinary Surgery: No Gynecologic Surgery: Yes ( X 2, 2007 AND 2012) Hysterectomy: No Insulin Pump: No Joint Replacement: No Neurologic Surgery: No Oral Surgery: No Pacemaker: No Thoracic Surgery: Yes (MRSA INFUSAPORT R SIDE REMOVED 05/2013, L SIDE INFUSAPORT REMOVED 07/20) Other Surgery: Yes (Angioplasty ) Social History Alcohol Use: Yes (occas. wine) Tobacco Use: No Substance Use: No Allergies-Medications (Allergen,Severity, Reaction): Coded Allergies: ketorolac (Verified Allergy, Severe, RASH, 10/23/17) metoclopramide (Verified Allergy, Severe, RASH, 10/23/17) morphine (Verified Allergy, Severe, RASH, 10/23/17) ondansetron (Verified Allergy, Severe, RASH,ITCH, 10/23/17) Uncoded Allergies: CEFEPIME (Allergy, Severe, Hives., 08/09/16) . Comments List of her allergies reviewed from the nursing note. Reported Meds & Prescriptions Reported Meds & Active Scripts Active Oxycodone (Oxycodone HCl) 5 Mg Cap 5 Mg PO BID PRN Eliquis (Apixaban) 2.5 Mg Tab 5 Mg PO DIRECTED 30 Days 10 mg po twice daily till 04/29/17- then 5 mg po twice daily. Reported Naprosyn (Naproxen) 500 Mg Tab 500 Mg PO BID Amitriptyline (Amitriptyline HCl) 25 Mg Tab 25 Mg PO HS Methadone (Methadone HCl) 10 Mg Tab 10 Mg PO DAILY Narrative Medication List of her home medications reviewed from the nursing note. Review of Systems Except as stated in HPI: all other systems reviewed are Neg General / Constitutional: Positive: Fever, Chills HENT: Positive: Sore Throat Musculoskeletal: Positive: Myalgias Physical Exam Narrative GENERAL: Awake, alert, obese, moderate distress SKIN: Focused skin assessment warm/dry. HEAD: Atraumatic. Normocephalic. EYES: Pupils equal and round. No scleral icterus. No injection or drainage. Left eye congenital blindness ENT: No nasal bleeding or discharge. Mucous membranes pink and moist. Pharynx and tonsils erythematous with exudates. Tonsil is 3+ swollen NECK: Trachea midline. No JVD. CARDIOVASCULAR: Regular rate and rhythm. No murmur appreciated. RESPIRATORY: No accessory muscle use. Clear to auscultation. Breath sounds equal bilaterally. GASTROINTESTINAL: Abdomen soft, non-tender, nondistended. Hepatic and splenic margins not palpable. MUSCULOSKELETAL: No obvious deformities. No clubbing. No cyanosis. No edema. NEUROLOGICAL: Awake and alert. No obvious cranial nerve deficits. Motor grossly within normal limits. Normal speech. PSYCHIATRIC: Appropriate mood and affect; insight and judgment normal. Data Data Last Documented VS Vital Signs Date Time Temp Pulse Resp B/P (MAP) Pulse Ox O2 Delivery O2 Flow Rate FiO2 10/23/17 10:09 108 18 98 Nasal Cannula 2.00 10/23/17 10:08 101.0 102/57 (72) Orders Orders Sepsis Workup Initiated (10/23/17 ) Complete Blood Count With Diff (10/23/17 08:37) Comprehensive Metabolic Panel (10/23/17 08:37) Lactic Acid Sepsis Protocol (10/23/17 08:37) Urinalysis - C+S If Indicated (10/23/17 08:37) Influenzae A/B Antigen (10/23/17 08:37) Blood Culture (10/23/17 08:37) Chest, Single Ap (10/23/17 08:37) Blood Glucose (10/23/17 08:37) Ecg Monitoring (10/23/17 08:37) Iv Access Insert/Monitor (10/23/17 08:37) Oximetry (10/23/17 08:37) Oxygen Administration (10/23/17 08:37) Sodium Chlor 0.9% 1000 Ml Inj (Ns 1000 M (10/23/17 08:37) Sodium Chlor 0.9% 1000 Ml Inj (Ns 1000 M (10/23/17 08:37) Sodium Chlor 0.9% 1000 Ml Inj (Ns 1000 M (10/23/17 08:37) Sodium Chlor 0.9% 1000 Ml Inj (Ns 1000 M (10/23/17 08:37) Acetaminophen (Tylenol) (10/23/17 08:45) Group A Rapid Strep Screen (10/23/17 08:37) Retic Count (10/23/17 08:50) Ceftriaxone Inj (Rocephin Inj) (10/23/17 09:45) Azithromycin Inj (Zithromax Inj) (10/23/17 09:45) Admit Order (Ed Use Only) (10/23/17 10:26) Labs Laboratory Tests Test 10/23/17 08:58 White Blood Count 30.6 TH/MM3 Red Blood Count 3.44 MIL/MM3 Hemoglobin 10.6 GM/DL Hematocrit 30.0 % Mean Corpuscular Volume 87.4 FL Mean Corpuscular Hemoglobin 30.8 PG Mean Corpuscular Hemoglobin Concent 35.2 % Red Cell Distribution Width 17.3 % Platelet Count 480 TH/MM3 Mean Platelet Volume 8.2 FL CBC Comment AUTO DIFF Differential Total Cells Counted 100 Neutrophils % (Manual) 78 % Band Neutrophils % 8 % Lymphocytes % 7 % Monocytes % 7 % Neutrophils # (Manual) 26.3 TH/MM3 Differential Comment FINAL DIFF MANUAL Platelet Estimate NORMAL Platelet Morphology Comment NORMAL Sickle Cells Ovalocytes 1+ Reticulocyte Count 4.7 % Absolute Reticulocyte Count 165.5 MIL/L Blood Urea Nitrogen 9 MG/DL Creatinine 1.10 MG/DL Random Glucose 148 MG/DL Total Protein 8.8 GM/DL Albumin 4.0 GM/DL Calcium Level 8.8 MG/DL Alkaline Phosphatase 114 U/L Aspartate Amino Transf (AST/SGOT) 37 U/L Alanine Aminotransferase (ALT/SGPT) 36 U/L Total Bilirubin 1.3 MG/DL Sodium Level 136 MEQ/L Potassium Level 4.3 MEQ/L Chloride Level 103 MEQ/L Carbon Dioxide Level 25.3 MEQ/L Anion Gap 8 MEQ/L Estimat Glomerular Filtration Rate 70 ML/MIN Lactic Acid Level 1.4 mmol/L [facility] Medical Decision Making Medical Screen Exam Complete: Yes Emergency Medical Condition: Yes Medical Record Reviewed: Yes Differential Diagnosis Strep throat, pneumonia, influenza, viral illness, sepsis Narrative Course 10:07 AM blood test results are back. Patient has significant leukocytosis which could be partly from reticulocytosis. Rapid strep was positive for group A strep. Influenza was negative. Lactic acid is within normal limits. Patient is getting IV fluids as per sepsis protocol. She was given Tylenol and heart rate has come down to 107. I have started her on IV Rocephin and IV Zithromax since the chest x-ray is read as early right lower lobe pneumonia. Given all these findings and the fact that patient is sickle cell disease with autosplenectomy I would like to admit the patient. Awaiting for the hospitalist to call back. Hemoglobin and hematocrit is within acceptable range from sickle cell disease point of view. Critical Care Narrative Aggregate critical care time was 30 minutes. Time to perform other separately billable procedures was not included in the critical care time. My time did not include minutes spent treating any other patients simultaneously or on activities that did not directly contribute to the patient's treatment. The services I provided to this patient were to treat and/or prevent clinically significant deterioration that could result in: Fluid resuscitation as per sepsis protocol I provided critical care services requiring my management, as noted below: Chart data review, documentation time, medication orders and management, vital sign assessments/reviewing monitor data, ordering and reviewing lab tests, ordering and interpreting/reviewing x-rays and diagnostic studies, care of the patient and discussion of the patient with the admitting physicians. Procedures EKG Prior to Arrival: No Diagnosis Primary Impression: SIRS (systemic inflammatory response syndrome) Additional Impressions: Strep throat Pneumonia Qualified Codes: J18.1 - Lobar pneumonia, unspecified organism Sickle cell disease Qualified Codes: D57.00 - Hb-SS disease with crisis, unspecified Admitting Information Admitting Physician Requests: Admit Scripts Clindamycin (Clindamycin) 300 Mg Cap 600 MG PO Q8H for Infection, #9 CAP 0 Refills Prov: Socorro Donato MD 10/26/17 Su Quinones MD Oct 23, 2017 08:34
[2017-10-23] MEDS ORDERED: SODIUM CHLOR 0.9% 1000 ML INJ 300 ML IV ONE (08:37)
[2017-10-23] MEDS ORDERED: SODIUM CHLOR 0.9% 1000 ML INJ 1,000 ML IV ONE ×3 (08:37)
[2017-10-23] MEDS ORDERED: ACETAMINOPHEN 325 MG TAB PO ONE (08:45)
[2017-10-23 09:10] LABS: HEMOGLOBIN 10.6 GM/DL (11.6-15.3); MEAN CELL VOLUME 87.4 FL (80.0-100.0); MEAN CORPUSCULAR HEMOGLOBIN 30.8 PG (27.0-34.0); MEAN CORPUSCULAR HGB CONC 35.2 % (32.0-36.0); MEAN PLATELET VOLUME 8.2 FL (7.0-11.0); PLATELET COUNT 480 TH/MM3 (150-450); RED BLOOD COUNT 3.44 MIL/MM3 (4.00-5.30); RED CELL DISTRIBUTION WIDTH 17.3 % (11.6-17.2); WHITE BLOOD COUNT 30.6 TH/MM3 (4.0-11.0)
--- NOTE | 2017-10-23 09:36 | RADRPT ---
EXAM DATE/TIME: 10/23/2017 09:20 [place] COMPARISON: CHEST SINGLE AP, August 18, 2017, 15:21. INDICATIONS : Fever, sore throat, sickle cell. MEDICAL HISTORY : Renal calculi. Left eye blindness. Heart murmur. Sickle cell. Upper extremity DVT. SURGICAL HISTORY : Cholecystectomy. section. Cardiac cath. Infusaport. ENCOUNTER: Initial ACUITY: 1 day PAIN SCORE: 9/10 LOCATION: all over FINDINGS: Increasing bibasilar parenchymal changes with probable early infiltrate right base. Mild prominent c ardiac silhouette. No pleural effusion. CONCLUSION: Probable early infiltrate right base. The Kyle Peace MD FACR on October 23, 2017 at 9:33 Board Certified Radiologist. This report was verified electronically.
[2017-10-23] MEDS ORDERED: cefTRIAXone INJ 1,000 MG in SODIUM CHLORIDE 0.9% INJ 100 ML IV ONE (09:45)
[2017-10-23] MEDS ORDERED: AZITHROMYCIN INJ 500 MG in SODIUM CHLOR 0.9% 250 ML INJ 250 ML IV ONE (09:45)
[2017-10-23 09:49] LABS: BANDS 8 % (0-6); LYMPHOCYTES 7 % (9-44); MONOCYTES 7 % (0-8); NEUTROPHIL # MANUAL DIFF 26.3 TH/MM3 (1.8-7.7); OVALOCYTES 1+ (NORMAL); POLYS (SEG NEUTROPHILS) 78 % (16-70)
[2017-10-23 09:53] LABS: CALCIUM 8.8 MG/DL (8.5-10.1)
[2017-10-23 09:54] LABS: BICARBONATE 25.3 MEQ/L (21.0-32.0); BLOOD UREA NITROGEN 9 MG/DL (7-18); GLUCOSE,RANDOM 148 MG/DL (74-106)
[2017-10-23 09:55] LABS: CHLORIDE 103 MEQ/L (98-107); SODIUM (NA) 136 MEQ/L (136-145)
[2017-10-23 09:57] LABS: ALT (GPT) 36 U/L (10-53); AST (GOT) 37 U/L (15-37); GLOMERULAR FILTRATION RATE 70 ML/MIN (>89)
[2017-10-23 09:58] LABS: TOTAL BILIRUBIN ADULT 1.3 MG/DL (0.2-1.0); TOTAL PROTEIN 8.8 GM/DL (6.4-8.2)
[2017-10-23 10:03] LABS: ALKALINE PHOSPHATASE 114 U/L (45-117)
[2017-10-23 10:20] LABS: RETIC # 165.5 MIL/L (20.0-150.0); RETIC % 4.7 % (0.4-3.0)
[2017-10-23] MEDS: LACTATED RINGER'S 1000 ML INJ 1,000 ML IV SCH ×2 (10:39→13:44)
[2017-10-23] MEDS ORDERED: ACETAMINOPHEN 325 MG TAB PO PRN (10:45)
[2017-10-23] MEDS ORDERED: NALOXONE HCL 0.4 MG/ML AMP IV PUSH PRN (10:45)
[2017-10-23] MEDS ORDERED: MAGNESIUM HYDROXIDE SUSP 30 ML CUP PO PRN (10:45)
[2017-10-23] MEDS ORDERED: BENZOCAINE-MENTHOL (SUGAR FREE) 15 MG-3.6 MG LOZENGE BUCCAL PRN (13:45)
--- NOTE | 2017-10-23 13:54 | HHI.HP ---
[facility] Carline Silver MD Admission Diagnosis SIRS, group A strep, pneumonia, sickle cell Diagnoses: Chief Complaint: Sore throat Travel History International Travel<30 Days: No Contact w/Intl Traveler <30 Da: No Traveled to Known Affected Are: No History of Present Illness This patient is a 31-year-old female with a history of sickle cell disease which is well controlled as an outpatient who had an acute 1 day onset of severe throat pain accompanied by fever and chills and cough. She came to the emergency room for further evaluation is found to have group A strep positive throat cultures as well as acute pneumonia. She denies chest pain or shortness of breath. She has taken Tylenol at home without relief. She is septic with tachycardia, leukocytosis and fever. Patient is admitted to the hospital for further evaluation and treatment. She denies sick contacts. Review of Systems Constitutional: COMPLAINS OF: Fatigue, Fever, Chills, Change in appetite, DENIES: Diaphoretic episodes, Weight gain, Weight loss, Dizziness, Night Sweats Endocrine: DENIES: Abnorml menstrual pattern, Heat/cold intolerance, Polydipsia , Polyuria, Polyphagia Eyes: DENIES: Blurred vision, Diplopia, Eye inflammation, Eye pain, Vision loss , Photosensitivity, Double Vision Ears, nose, mouth, throat: COMPLAINS OF: Throat pain, DENIES: Tinnitus, Hearing loss, Vertigo, Nasal discharge, Oral lesions, Hoarseness, Ear Pain, Running Nose, Epistaxis, Sinus Pain, Toothache, Odynophagia Respiratory: COMPLAINS OF: Cough, DENIES: Apneas, Snoring, Wheezing, Hemoptysis , Sputum production, Shortness of breath Cardiovascular: DENIES: Chest pain, Palpitations, Syncope, Dyspnea on Exertion , PND, Lower Extremity Edema, Orthopnea, Claudication Gastrointestinal: COMPLAINS OF: Difficulty Swallowing, Anorexia, DENIES: Abdominal pain, Black stools, Bloody stools, Constipation, Diarrhea, Nausea, Vomiting Genitourinary: DENIES: Abnormal vaginal bleeding, Dysmenorrhea, Dyspareunia, Sexual dysfunction, Urinary frequency, Urinary incontinence, Urgency, Hematuria , Dysuria, Nocturia, Vaginal discharge Musculoskeletal: DENIES: Joint pain, Muscle aches, Stiffness, Joint Swelling, Back pain, Neck pain Integumentary: DENIES: Abnormal pigmentation, Pruritus, Rash, Nail changes, Breast masses, Breast skin changes, Nipple discharge Hematologic/lymphatic: DENIES: Bruising, Lymphadenopathy Immunologic/allergic: DENIES: Eczema, Urticaria Neurologic: DENIES: Abnormal gait, Headache, Localized weakness, Paresthesias, Seizures, Speech Problems, Tremor, Poor Balance Psychiatric: DENIES: Anxiety, Confusion, Mood changes, Depression, Hallucinations, Agitation, Suicidal Ideation, Homicidal Ideation, Delusions Except as stated in HPI: all other systems reviewed are Neg Past Family Social History Past Medical History pulmonary embolism Sickle cell disease Chronic narcotic therapy on methadone History of gallstones status post cholecystectomy Past Surgical History Port placement Cholecystectomy Eye surgery 2 Reported Medications Reviewed in the EMR Allergies: Coded Allergies: ketorolac (Verified Allergy, Severe, RASH, 10/23/17) metoclopramide (Verified Allergy, Severe, RASH, 10/23/17) morphine (Verified Allergy, Severe, RASH, 10/23/17) ondansetron (Verified Allergy, Severe, RASH,ITCH, 10/23/17) Uncoded Allergies: CEFEPIME (Allergy, Severe, Hives., 08/09/16) . Active Ordered Medications Reviewed in the EMR Family History Diabetes Social History No current tobacco or alcohol dependency, with several children independent with ADLs Physical Exam Vital Signs Vital Signs Date Time Temp Pulse Resp B/P (MAP) Pulse Ox O2 Delivery O2 Flow Rate FiO2 10/23/17 11:48 99.9 108 18 110/59 (76) 98 2.00 10/23/17 10:09 108 18 98 Nasal Cannula 2.00 10/23/17 10:08 101.0 108 18 102/57 (72) 98 Nasal Cannula 2.00 10/23/17 09:17 91 Nasal Cannula 2.00 10/23/17 09:17 91 10/23/17 08:22 102.8 134 18 149/77 (101) 97 Physical Exam GENERAL: This is a well-nourished, well-developed patient, complaining of sore throat and who feels ill SKIN: No rashes, ecchymoses or lesions. Cool and dry. HEAD: Atraumatic. Normocephalic. No temporal or scalp tenderness. EYES: Left eye sclerosis from previous surgery. Extraocular motions intact. No scleral icterus. No injection or drainage. ENT: Nose without bleeding, purulent drainage or septal hematoma. There is erythematous throat with bilateral tonsillar exudate. Uvula midline. Airway patent. NECK: Trachea midline. There is anterior chain lymphadenopathy. Supple, nontender, no meningeal signs. CARDIOVASCULAR: Regular rate and rhythm without appreciable murmur RESPIRATORY: Decreased breath sounds bilaterally worse on the right but shallow his ventilatory effort GASTROINTESTINAL: Abdomen soft, non-tender, nondistended. No hepato-splenomegaly , or palpable masses. No guarding. MUSCULOSKELETAL: Extremities without clubbing, cyanosis, or edema. No joint tenderness, effusion, or edema noted. No calf tenderness. Negative Homans sign bilaterally. NEUROLOGICAL: Awake and alert. Cranial nerves II through XII intact. Motor and sensory grossly within normal limits. Five out of 5 muscle strength in all muscle groups. Normal speech. Laboratory Laboratory Tests Test 10/23/17 08:58 White Blood Count 30.6 Red Blood Count 3.44 Hemoglobin 10.6 Hematocrit 30.0 Mean Corpuscular Volume 87.4 Mean Corpuscular Hemoglobin 30.8 Mean Corpuscular Hemoglobin Concent 35.2 Red Cell Distribution Width 17.3 Platelet Count 480 Mean Platelet Volume 8.2 CBC Comment AUTO DIFF Differential Total Cells Counted 100 Neutrophils % (Manual) 78 Band Neutrophils % 8 Lymphocytes % 7 Monocytes % 7 Neutrophils # (Manual) 26.3 Differential Comment FINAL DIFF MANUAL Platelet Estimate NORMAL Platelet Morphology Comment NORMAL Sickle Cells Ovalocytes 1+ Reticulocyte Count 4.7 Absolute Reticulocyte Count 165.5 Blood Urea Nitrogen 9 Creatinine 1.10 Random Glucose 148 Total Protein 8.8 Albumin 4.0 Calcium Level 8.8 Alkaline Phosphatase 114 Aspartate Amino Transf (AST/SGOT) 37 Alanine Aminotransferase (ALT/SGPT) 36 Total Bilirubin 1.3 Sodium Level 136 Potassium Level 4.3 Chloride Level 103 Carbon Dioxide Level 25.3 Anion Gap 8 Estimat Glomerular Filtration Rate 70 Lactic Acid Level 1.4 Date/Time Source Procedure Growth Status 10/23/17 09:03 Blood Peripheral Aerobic Blood Culture Pending Received 10/23/17 09:03 Blood Peripheral Anaerobic Blood Culture Pending Received 10/23/17 08:45 Nasal Aspirate Influenza Types A,B Antigen (ROLAND) - Final NEGATIVE FOR FLU A AND B ANTIGEN.... Complete Result Diagram: 10/23/1785710/23/17857 Imaging Last Impressions Chest X-Ray 10/23/17836 Signed Impressions: Service Date/Time: Monday, October 23, 2017 09:20 - CONCLUSION: Probable early infiltrate right base. The Kyle Peace MD FACR Septic Shock Reassessment Septic shock perfusion: reassessment completed Caprini VTE Risk Assessment Caprini VTE Risk Assessment: Mod/High Risk (score >= 2) Caprini Risk Assessment Model Point Value = 1 Point Value = 2 Point Value = 3 Point Value = 5 Age 41-60 Minor surgery BMI > 25 kg/m2 Swollen legs Varicose veins or History of unexplained or recurrent spontaneous Oral contraceptives or hormone replacement Sepsis (< 1 month) Serious lung disease, including pneumonia (< 1 month) Abnormal pulmonary function Acute myocardial infarction Congestive heart failure (< 1 month) History of inflammatory bowel disease Medical patient at bed rest Age 61-74 Arthroscopic surgery Major open surgery (> 45 min) Laparoscopic surgery (> 45 min) Malignancy Confined to bed (> 72 hours) Immobilizing plaster cast Central venous access Age >= 75 History of VTE Family history of VTE Factor V Leiden Prothrombin [id number] Lupus anticoagulant Anticardiolipin antibodies Elevated serum homocysteine Heparin-induced thrombocytopenia Other congenital or acquired thrombophilia Stroke (< 1 month) Elective arthroplasty Hip, pelvis, or leg fracture Acute spinal cord injury (< 1 month) Prophylaxis Regimen Total Risk Factor Score Risk Level Prophylaxis Regimen 0-1 Low Early ambulation 2 Moderate Order ONE of the following: *Sequential Compression Device (SCD) *Heparin 5000 units SQ BID 3-4 Higher Order ONE of the following medications: *Heparin 5000 units SQ TID *Enoxaparin/Lovenox 40 mg SQ daily (WT < 150 kg, CrCl > 30 mL/min) *Enoxaparin/Lovenox 30 mg SQ daily (WT < 150 kg, CrCl > 10-29 mL/min) *Enoxaparin/Lovenox 30 mg SQ BID (WT < 150 kg, CrCl > 30 mL/min) AND/OR *Sequential Compression Device (SCD) 5 or more Highest Order ONE of the following medications: *Heparin 5000 units SQ TID (Preferred with Epidurals) *Enoxaparin/Lovenox 40 mg SQ daily (WT < 150 kg, CrCl > 30 mL/min) *Enoxaparin/Lovenox 30 mg SQ daily (WT < 150 kg, CrCl > 10-29 mL/min) *Enoxaparin/Lovenox 30 mg SQ BID (WT < 150 kg, CrCl > 30 mL/min) AND *Sequential Compression Device (SCD) Assessment and Plan Problem List: (1) Sickle cell disease ICD Code: D57.1 - Sickle cell disease Status: Chronic Plan: Overall very stable as an outpatient and follow with Dr. Traylor which we will consult for further evaluation Continue IV hydration Pain management as needed No evidence of acute chest syndrome or sickle cell (2) Sepsis ICD Code: A41.9 - Sepsis Status: Acute Plan: Multifactorial secondary to strep pneumonia probably and group a strep pharyngitis in a patient who is has no spleen (3) Strep throat ICD Code: J02.0 - Streptococcal pharyngitis Status: Acute Plan: Continue clindamycin, liquid diet Supportive care May need steroids if continues to have severe inflammation (4) Pneumonia ICD Code: J18.9 - Pneumonia Status: Acute Plan: Likely due to group A strep, continue broad-spectrum coverage along with group A strep coverage follow clinically Follow respiratory status Continue oxygen as needed (5) History of pulmonary embolism ICD Code: Z86.711 - Personal history of pulmonary embolism Plan: Continue Eliquis Physician Certification 2 Midnight Certification Type: Admission for Inpatient Services Order for Inpatient Services The services are ordered in accordance with Medicare regulations or non- Medicare payer requirements, as applicable. In the case of services not specified as inpatient-only, they are appropriately provided as inpatient services in accordance with the 2-midnight benchmark. Estimated LOS (days): 3 3 days is the estimated time the patient will need to remain in the hospital, assuming treatment plan goals are met and no additional complications. Post-Hospital Plan: Home Problem Qualifiers (1) Sickle cell disease: Qualified Codes: D57.00 - Hb-SS disease with crisis, unspecified (2) Pneumonia: Qualified Codes: J18.1 - Lobar pneumonia, unspecified organism Socorro Donato MD Oct 23, 2017 13:54
[2017-10-23] MEDS: CLINDAMYCIN 600 MG/NS PREMIX 50 ML IV SCH ×2 (14:00→20:34)
[2017-10-23] MEDS: METHADONE HCL 10 MG TAB PO SCH (18:05)
[2017-10-23] MEDS: SODIUM CHLORIDE 0.9% FLUSH 10 ML FLUSH IV FLUSH SCH (20:22)
[2017-10-23] MEDS: APIXABAN 5 MG TABLET PO SCH (20:34)
[2017-10-23] MEDS: HYDROmorphone HCL PF 2 MG/ML VIAL IV PUSH SCH (20:35)
[2017-10-23] MEDS ORDERED: NAPROXEN 500 MG TAB PO SCH ×2 (21:00)
[2017-10-24] VITALS (7 sets, daily range): BP systolic 103–114; BP diastolic 56–67; PULSE 97–119; RESP 18–20; TEMP 96.8–100.4; O2SAT 90–94
[2017-10-24] MEDS: HYDROmorphone HCL PF 2 MG/ML VIAL IV PUSH SCH ×5 (01:29→16:18)
[2017-10-24] MEDS: CLINDAMYCIN 600 MG/NS PREMIX 50 ML IV SCH ×3 (04:59→21:39)
[2017-10-24 08:14] LABS: AUTOMATED NEUTROPHIL # 34.7 TH/MM3 (1.8-7.7); BASOPHIL # 0.2 TH/MM3 (0-0.2); BASOPHIL % 0.5 % (0.0-2.0); EOSINOPHIL # 0.2 TH/MM3 (0-0.4); EOSINOPHIL % 0.4 % (0.0-4.0); LYMPH % 6.2 % (9.0-44.0); LYMPHOCYTE # 2.4 TH/MM3 (1.0-4.8); MEAN CELL VOLUME 88.3 FL (80.0-100.0); MEAN CORPUSCULAR HEMOGLOBIN 30.4 PG (27.0-34.0); MEAN CORPUSCULAR HGB CONC 34.4 % (32.0-36.0); MEAN PLATELET VOLUME 8.7 FL (7.0-11.0); MONO % 3.2 % (0.0-8.0); MONOCYTE # 1.2 TH/MM3 (0-0.9); NEUT % 89.7 % (16.0-70.0); PLATELET COUNT 356 TH/MM3 (150-450); RED BLOOD COUNT 2.83 MIL/MM3 (4.00-5.30); RED CELL DISTRIBUTION WIDTH 17.8 % (11.6-17.2); WHITE BLOOD COUNT 38.7 TH/MM3 (4.0-11.0)
[2017-10-24 08:15] LABS: HEMOGLOBIN 8.6 GM/DL (11.6-15.3)
[2017-10-24 08:32] LABS: BICARBONATE 21.9 MEQ/L (21.0-32.0); CALCIUM 8.1 MG/DL (8.5-10.1)
[2017-10-24 08:36] LABS: CREATININE 0.87 MG/DL (0.50-1.00)
[2017-10-24] MEDS ORDERED: methylPREDNISolone SOD SUCC 40 MG/1 ML VIAL IV PUSH ONE (08:45)
[2017-10-24 08:46] LABS: BANDS 8 % (0-6); LYMPHOCYTES 13 % (9-44); MONOCYTES 5 % (0-8); NEUTROPHIL # MANUAL DIFF 31.7 TH/MM3 (1.8-7.7); POLYS (SEG NEUTROPHILS) 74 % (16-70)
[2017-10-24 08:47] LABS: KERATOCYTES OCC (NORMAL); OVALOCYTES 1+ (NORMAL); ROULEAUX PRESENT (NORMAL); TARGET CELLS 1+ (NORMAL)
[2017-10-24] MEDS ORDERED: METHADONE HCL 10 MG TAB PO SCH (09:00)
[2017-10-24] MEDS: NAPROXEN 500 MG TAB PO SCH ×2 (09:01→21:39)
[2017-10-24] MEDS: APIXABAN 5 MG TABLET PO SCH ×2 (09:01→21:39)
[2017-10-24] MEDS: METHADONE HCL 10 MG TAB PO SCH (09:02)
[2017-10-24] MEDS: SODIUM CHLORIDE 0.9% FLUSH 10 ML FLUSH IV FLUSH SCH ×2 (09:04→21:39)
[2017-10-24 09:59] LABS: BILIRUBIN, URINE NEG (NEG); BLOOD, URINE NEG (NEG); GLUCOSE,URINE NEG (NEG); KETONE, URINE NEG (NEG); NITRITE,URINE NEG (NEG); URINE COLOR YELLOW (YELLW/STRAW); URINE LEUKOCYTE ESTERASE SMALL (NEG)
[2017-10-24 10:12] LABS: AMORPHOUS SEDIMENT, URINE FEW; BACTERIA, URINE FEW /hpf; SQUAMOUS EPITHELIAL CELL URINE > 8 /hpf (0-5); WHITE BLOOD CELL CLUMPS FEW
--- NOTE | 2017-10-24 10:22 | PD.PN.STU ---
Subjective Remarks 31 yo female with sickle cell diseases admitted for sepsis, pneumonia and strep pharyngitis. She is having increased difficulty and pain with swallowing. Her myalgias are worse today and she is requesting increased pain management. Objective Vitals Vital Signs Date Time Temp Pulse Resp B/P (MAP) Pulse Ox O2 Delivery O2 Flow Rate FiO2 10/24/17 08:00 100.4 110 18 103/56 (72) 94 10/24/17 07:45 92 10/24/17 00:00 98.3 119 20 103/66 (78) 93 10/23/17 20:55 96 21 10/23/17 20:20 98.8 105 16 109/56 (73) 96 10/23/17 19:14 18 10/23/17 16:54 18 10/23/17 14:28 97 21 10/23/17 13:55 18 10/23/17 11:48 99.9 108 18 110/59 (76) 98 2.00 I/O 10/23/17 10/23/17 10/23/17 10/24/17 10/24/17 10/24/17 07:00 15:00 23:00 07:00 15:00 23:00 Intake Total 6200 ml 960 ml Balance 6200 ml 960 ml Intake Oral 960 ml IV Total 6200 ml # Voids 3 Result Diagram: 10/24/17 0715 10/24/17 0715 Other Results Laboratory Tests Test 10/24/17 07:15 10/24/17 09:30 White Blood Count 38.7 TH/MM3 Red Blood Count 2.83 MIL/MM3 Hemoglobin 8.6 GM/DL Hematocrit 25.0 % Mean Corpuscular Volume 88.3 FL Mean Corpuscular Hemoglobin 30.4 PG Mean Corpuscular Hemoglobin Concent 34.4 % Red Cell Distribution Width 17.8 % Platelet Count 356 TH/MM3 Mean Platelet Volume 8.7 FL Neutrophils (%) (Auto) 89.7 % Lymphocytes (%) (Auto) 6.2 % Monocytes (%) (Auto) 3.2 % Eosinophils (%) (Auto) 0.4 % Basophils (%) (Auto) 0.5 % Neutrophils # (Auto) 34.7 TH/MM3 Lymphocytes # (Auto) 2.4 TH/MM3 Monocytes # (Auto) 1.2 TH/MM3 Eosinophils # (Auto) 0.2 TH/MM3 Basophils # (Auto) 0.2 TH/MM3 CBC Comment AUTO DIFF Differential Total Cells Counted 100 Neutrophils % (Manual) 74 % Band Neutrophils % 8 % Lymphocytes % 13 % Monocytes % 5 % Neutrophils # (Manual) 31.7 TH/MM3 Differential Comment FINAL DIFF MANUAL Platelet Estimate NORMAL Platelet Morphology Comment NORMAL Target Cells 1+ Ovalocytes 1+ Rouleau PRESENT Keratocytes OCC Blood Urea Nitrogen 5 MG/DL Creatinine 0.87 MG/DL Random Glucose 93 MG/DL Calcium Level 8.1 MG/DL Sodium Level 136 MEQ/L Potassium Level 4.2 MEQ/L Chloride Level 106 MEQ/L Carbon Dioxide Level 21.9 MEQ/L Anion Gap 8 MEQ/L Estimat Glomerular Filtration Rate 91 ML/MIN Urine Color YELLOW Urine Turbidity SL CLOUDY Urine pH 6.0 Urine Specific [place] 1.010 Urine Protein NEG mg/dL Urine Glucose (UA) NEG mg/dL Urine Ketones NEG mg/dL Urine Occult Blood NEG Urine Nitrite NEG Urine Bilirubin NEG Urine Urobilinogen 2.0 MG/DL Urine Leukocyte Esterase SMALL Urine WBC 20-24 /hpf Urine WBC Clumps FEW Urine Squamous Epithelial Cells > 8 /hpf Urine Amorphous Sediment FEW Urine Bacteria FEW /hpf Microscopic Urinalysis Comment CULTURE INDICATED Urine Collection Time 0930 Imaging Last Impressions Chest X-Ray 10/23/17 0837 Signed Impressions: Service Date/Time: Monday, October 23, 2017 09:20 - CONCLUSION: Probable early infiltrate right base. The Kyle Peace MD FACR Objective Remarks GENERAL: This is a well-nourished, well-developed patient, appears uncomfortable. HEENT: Edema noted of the face, right side greater than the left. Tonsils enlarged greater than previous, erythematous and with exudate. Anterior cervical lymphadenopathy. CARDIOVASCULAR: Regular rate and rhythm without murmurs appreciated; no gallops or rubs. RESPIRATORY: Decreased breath sounds bilaterally with poor inspiratory effort. No wheezes, rhonchi or rales. GASTROINTESTINAL: Abdomen soft, non-tender, nondistended. Normal active bowel sounds MUSCULOSKELETAL: Extremities without clubbing, cyanosis. NEURO: Alert & Oriented x4 to person, place, time, situation. Moves all ext x4 A/P Assessment and Plan Problem List: (1) Sickle cell disease ICD Code: D57.1 - Sickle cell disease Status: Chronic Plan: Overall very stable as an outpatient and follow with Dr. Silver which we will consult for further evaluation Continue IV hydration Pain management as needed No evidence of acute chest syndrome or sickle cell 10/24 Myalgia/pain increased. Dr. Silver recommend increasing pain management, started IV Dilaudid/Benadryl with Phenergan. (2) Sepsis ICD Code: A41.9 - Sepsis Status: Acute Plan: Multifactorial secondary to strep pneumonia probably and group a strep pharyngitis in a patient who is has no spleen. 10/24 WBC trending up, hypotensive and tachycardic still. Will continue current medication regiment and follow. (3) Strep throat ICD Code: J02.0 - Streptococcal pharyngitis Status: Acute Plan: Continue clindamycin, liquid diet Supportive care May need steroids if continues to have severe inflammation 10/24 In significant pain and tonsils enlarged further. Start steroids and Neck CT for airway safety. Continue IV medications. (4) Pneumonia ICD Code: J18.9 - Pneumonia Status: Acute Plan: Likely due to group A strep, continue broad-spectrum coverage along with group A strep coverage follow clinically Follow respiratory status Continue oxygen as needed 10/24 continue current management. (5) History of pulmonary embolism ICD Code: Z86.711 - Personal history of pulmonary embolism Plan: Continue Eliquis 6. SVC syndrome Facial edema prominent on the right. She has good PO intake of fluids. Will discontinue IV fluids and transition to maintenance dose. Medical Decision Making Impression and Plan Patient seen in room in follow-up for strep pharyngitis and for likely due to streptococcal versus other community acquired organisms. Doing well with broad- spectrum antibiotics however still appears septic with hypotension and leukocytosis. Patient's pain is somewhat improved on IV Dilaudid. Care plan discussed with hematology yesterday. Patient appears more edematous especially in on the right face. She still complaining of difficulty swallowing and throat pain. GENERAL: This is a well-nourished, well-developed patient, who is hoarse with an hot potato voice CARDIOVASCULAR: Regular rate and rhythm without murmurs, gallops, or rubs., There is some right-sided facial swelling RESPIRATORY: Clear to auscultation. Breath sounds equal bilaterally. No wheezes , rales, or rhonchi. GASTROINTESTINAL: Abdomen soft, non-tender, nondistended. Normal active bowel sounds MUSCULOSKELETAL: Extremities without clubbing, cyanosis, or edema. NEURO: Alert & Oriented x4 to person, place, time, situation. Moves all ext x4 Assessment plan 1. Pharyngitis and pneumonia Continue current antibiotics Follow-up CT of the neck rule out abscess Supportive care 2. Sickle cell disease, no acute crisis at this point. We will continue aggressive management of fluids and pain control 3. Superior vena cava syndrome, currently managed as outpatient with plans for improved collateralization. Decrease IV fluids while patient able to tolerate fluids orally Danyell Ruiz Oct 24, 2017 10:22 Socorro Donato MD Oct 24, 2017 10:49
--- NOTE | 2017-10-24 10:45 | MB ---
cc: Carline Silver MD DATE: 10/23/2017 CHIEF COMPLAINT: Dr. Sewell requested consultation for Ms. Sullivan regarding sickle cell disease. 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 Her course is complicated by obesity, chronic pain, left eye opacity. She has frequent vasoocclusive pain symptoms, which we manage in the outpatient setting. 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 She is on Eliquis chronically. She describes becoming ill after eating her [employer] dinner the night prior to presentation. She developed sore throat pain. She developed progressive symptoms overnight until presenting to the emergency room with fevers. Her temperature is 102.8. She was cultured and positive for strep. She was started promptly on antibiotic therapy. She had some hypotension in the emergency room and was unable to receive IV pain medication. This concerned Ms. Sullivan and she called a clinic. She was seen in the afternoon. She has had several doses of antibiotic therapy and she is feeling better. She is able to talk. She has vasoocclusive pain symptoms. She denies any sick contact. She denies any changes in bowel habits. She has her typical chronic pain and vasoocclusive pain symptoms. Hematology/Oncology is consulted for sickle cell. PAST MEDICAL HISTORY: 1. Chronic anemia. 2. Hemoglobin SC disease. 3. Chronic pain. 4. Obesity. 5. Superior vena stenosis. PAST SURGICAL HISTORY: 1. delivery. 2. Cholecystectomy. 3. Angioplasty of superior vena cava stenosis. ALLERGIES: 1. CEFEPIME. 2. KETOROLAC. 3. MORPHINE. 4. REGLAN. 5. ZOFRAN. MEDICATIONS FROM HOME: 1. Amitriptyline. 2. Methadone 10 mg daily. 3. Oxycodone p.r.n. 4. Promethazine p.r.n. FAMILY HISTORY: Significant for hemoglobin S and hemoglobin C. SOCIAL HISTORY: She is , has 5 children. She denies any tobacco, alcohol or illicit drug use. PHYSICAL EXAMINATION: VITAL SIGNS: Temperature 99.9, heart rate 108, respiratory rate 18, blood pressure 110/59, saturation 98%. GENERAL: Ms. Sullivan is a well-developed, heavyset woman. She has chronic sickle cell pain. HEENT: Her right pupil is round, reactive. Left is opacified. LUNGS: Clear. CARDIOVASCULAR: Reveals tachycardia. ABDOMEN: Benign. MUSCULOSKELETAL: Lower extremities with no edema. She has mild swelling of the right arm, chest and neck. These are chronic. LABORATORY DATA: Significant for hemoglobin of 10.6; white blood cell count of 30,000; platelet count 480, some bandemia. BUN of 9, creatinine 1.1. 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 She is admitted, diagnosed with Streptococcus and acute exacerbation. She has sepsis syndrome. She has fevers, tachycardia and acute symptoms. We discussed plans to continue her chronic pain regimen with methadone 10 mg once a day. This has been a stable dose. She is on oxycodone for breakthrough just as she is at home. I will add Dilaudid 2 mg every 4 hours, reminding that her blood pressure may be decreased. She can refuse. It will switch to p.r.n. in 24 hours. She will be reassessed again. She has been using long-acting anti-inflammatory medication to assist with her pain. Naprosyn has been added. We will monitor closely as she needs to continue her Eliquis. So far, she has had no bleeding episode. IV access has been difficult. She does not have a port. Avoid central line if possible because of her superior vena stenosis. She may benefit from a midline pending if the peripheral access is needed. Her questions were answered to her satisfaction. Her case was discussed with Dr. Donato. MD JENNIFER Fierro/PAMELA , 10:14 AM , 10:44 AM
[2017-10-24] MEDS: PROMETHAZINE HCL 25 MG TAB PO PRN ×2 (11:37→21:46)
[2017-10-24] MEDS: diphenhydrAMINE HCL 50 MG/ML VIAL IV PUSH PRN ×2 (11:39→21:47)
[2017-10-24] MEDS: IOHEXOL 350 MG/ML 10 ML VIAL (for RAD DIAG) IVCONTRAST ONE (14:30)
[2017-10-24] MEDS ORDERED: IOHEXOL 350 MG/ML 10 ML VIAL (for RAD DIAG) IVCONTRAST ONE (14:32)
--- NOTE | 2017-10-24 16:18 | RADRPT ---
EXAM DATE/TIME: 10/24/2017 14:32 [facility] COMPARISON: No previous studies available for comparison. INDICATIONS : Septic, sore throat, sickle cell. IV CONTRAST: 75 cc Omnipaque 350 (iohexol) IV RADIATION DOSE: 16.17 CTDIvol (mGy) MEDICAL HISTORY : Sickle cell disease. Cough,fever chills. SURGICAL HISTORY : ENCOUNTER: Initial ACUITY: 2 days PAIN SCALE: 6/10 LOCATION: throat TECHNIQUE: Volumetric scanning of the neck was performed. Using automated exposure control and adjustment of th e mA and/or kV according to patient size, radiation dose was kept as low as reasonably achievable to obtain optimal diagnostic quality images. DICOM format image data is available electronically for r eview and comparison. FINDINGS: Comparison is September 2014. There is prominent lymphoid tissue in Waldeyer's ring which has increased i n size since 2014. There is also upper cervical adenopathy, worse on the right side with lymph nodes measuring up to almost 2 cm in diameter in the retromandibular region on the right around the right i nternal jugular vein. Lymph nodes on the left side are borderline enlarged. There are calcifications in the left lobe. No acute bony abnormalities. In the right upper lobe there is some focal dense consolidation posteriorly suspicious for pneumonia or aspiration. CONCLUSION: 1. Prominent lymphoid tissue in Waldeyer's ring with upper cervical adenopathy predominantly on the r ight. Differential diagnosis includes reactive changes secondary to infection. Cannot exclude other e tiologies such as lymphoma. 2. Dense consolidation posterior segment right upper lobe of the lung most characteristic of pneumoni a or aspiration. 3. Paranasal sinuses are clear. Robert Raza MD on October 24, 2017 at 16:09 Board Certified Radiologist. This report was verified electronically.
[2017-10-24] MEDS: HYDROmorphone HCL PF 2 MG/ML VIAL IV PUSH PRN (21:40)
[2017-10-25] VITALS (7 sets, daily range): BP systolic 115–133; BP diastolic 66–94; PULSE 90–99; RESP 18–21; TEMP 97.3–98; O2SAT 89–98
[2017-10-25] MEDS: CLINDAMYCIN 600 MG/NS PREMIX 50 ML IV SCH (05:46)
[2017-10-25] MEDS: PROMETHAZINE HCL 25 MG TAB PO PRN ×4 (06:29→23:59)
[2017-10-25] MEDS: diphenhydrAMINE HCL 50 MG/ML VIAL IV PUSH PRN ×3 (06:29→17:42)
[2017-10-25] MEDS: HYDROmorphone HCL PF 2 MG/ML VIAL IV PUSH PRN ×3 (06:30→17:43)
[2017-10-25] MEDS: SODIUM CHLORIDE 0.9% FLUSH 10 ML FLUSH IV FLUSH PRN (06:30)
[2017-10-25] MEDS ORDERED: methylPREDNISolone SOD SUCC 40 MG/1 ML VIAL IV PUSH ONE (08:00)
--- NOTE | 2017-10-25 08:41 | HHI.PR ---
Subjective Remarks Patient seen and evaluated today in follow-up for strep pharyngitis with pneumonia. Overall improved. Neck CT negative for abscess. Patient reports improvement and throat discomfort and would like to try to advance her diet. Steroids tolerated well. Pain is improved as well. Objective Vitals Vital Signs Date Time Temp Pulse Resp B/P (MAP) Pulse Ox O2 Delivery O2 Flow Rate FiO2 10/25/17 04:00 10/25/17 00:00 97.3 99 20 115/66 (82) 90 10/24/17 20:15 90 21 10/24/17 20:00 96.8 105 20 105/56 (72) 90 10/24/17 16:00 98.0 97 18 109/64 (79) 90 10/24/17 12:00 98.4 105 18 114/67 (83) 90 I/O 10/24/17 10/24/17 10/24/17 10/25/17 10/25/17 10/25/17 07:00 15:00 23:00 07:00 15:00 23:00 Intake Total 960 ml 840 ml 820 ml Output Total 3 ml Balance 960 ml 840 ml 817 ml Intake Oral 960 ml 840 ml 720 ml IV Total 100 ml Output Urine Total 3 ml # Voids 3 4 # Bowel Movements 1 Result Diagram: 10/24/17 0715 10/24/17 0715 Imaging Last Impressions Neck CT 10/24/17 0000 Signed Impressions: Service Date/Time: Tuesday, October 24, 2017 14:32 - CONCLUSION: 1. Prominent lymphoid tissue in Waldeyer's ring with upper cervical adenopathy predominantly on the right. Differential diagnosis includes reactive changes secondary to infection. Cannot exclude other etiologies such as lymphoma. 2. Dense consolidation posterior segment right upper lobe of the lung most characteristic of pneumonia or aspiration. 3. Paranasal sinuses are clear. Robert Raza MD Chest X-Ray 10/23/17 0837 Signed Impressions: Service Date/Time: Monday, October 23, 2017 09:20 - CONCLUSION: Probable early infiltrate right base. The Kyle Peace MD FACR Objective Remarks Tonsils improved edema and erythema, there is still some exudative debris GENERAL: This is a well-nourished, well-developed patient, in no apparent distress. CARDIOVASCULAR: Regular rate and rhythm without murmurs, gallops, or rubs. RESPIRATORY: Clear to auscultation. Breath sounds equal bilaterally. No wheezes , rales, or rhonchi. GASTROINTESTINAL: Abdomen soft, non-tender, nondistended. Normal active bowel sounds MUSCULOSKELETAL: Extremities without clubbing, cyanosis, or edema. NEURO: Alert & Oriented x4 to person, place, time, situation. Moves all ext x4 A/P Problem List: (1) Sickle cell disease ICD Code: D57.1 - Sickle cell disease Status: Chronic Plan: Hematology consult appreciated Continue IV hydration Pain management as needed No evidence of acute chest syndrome or sickle cell (2) Sepsis ICD Code: A41.9 - Sepsis Status: Acute Plan: Improving (3) Strep throat ICD Code: J02.0 - Streptococcal pharyngitis Status: Acute Plan: Continue clindamycin, advance diet Supportive care Steroids 2 doses (4) Pneumonia ICD Code: J18.9 - Pneumonia Status: Acute Plan: Likely due to group A strep, continue broad-spectrum coverage along with group A strep coverage follow clinically Follow respiratory status Continue oxygen as needed (5) History of pulmonary embolism ICD Code: Z86.711 - Personal history of pulmonary embolism Plan: Continue Eliquis Assessment and Plan Overall improved Likely discharge in a.m. if continues to improve Problem Qualifiers (1) Sickle cell disease: Qualified Codes: D57.00 - Hb-SS disease with crisis, unspecified (2) Pneumonia: Qualified Codes: J18.1 - Lobar pneumonia, unspecified organism Socorro Donato MD Oct 25, 2017 08:41
[2017-10-25] MEDS: APIXABAN 5 MG TABLET PO SCH ×2 (08:48→21:10)
[2017-10-25] MEDS: SODIUM CHLORIDE 0.9% FLUSH 10 ML FLUSH IV FLUSH SCH ×2 (08:48→21:10)
[2017-10-25] MEDS: NAPROXEN 500 MG TAB PO SCH ×2 (08:48→21:10)
[2017-10-25] MEDS: METHADONE HCL 10 MG TAB PO SCH (08:49)
[2017-10-25] MEDS ORDERED: AZITHROMYCIN INJ 500 MG in SODIUM CHLOR 0.9% 250 ML INJ 250 ML IV SCH (10:00)
[2017-10-25] MEDS ORDERED: cefTRIAXone INJ 1,000 MG in SODIUM CHLORIDE 0.9% INJ 100 ML IV SCH (11:00)
[2017-10-25 11:14] LABS: AUTOMATED NEUTROPHIL # 23.1 TH/MM3 (1.8-7.7); BASOPHIL # 0.1 TH/MM3 (0-0.2); BASOPHIL % 0.4 % (0.0-2.0); EOSINOPHIL # 0.4 TH/MM3 (0-0.4); EOSINOPHIL % 1.6 % (0.0-4.0); HEMATOCRIT 25.9 % (35.0-46.0); HEMOGLOBIN 8.6 GM/DL (11.6-15.3); LYMPH % 5.9 % (9.0-44.0); LYMPHOCYTE # 1.5 TH/MM3 (1.0-4.8); MEAN CELL VOLUME 87.6 FL (80.0-100.0); MEAN CORPUSCULAR HGB CONC 33.1 % (32.0-36.0); MEAN PLATELET VOLUME 8.6 FL (7.0-11.0); MONO % 3.7 % (0.0-8.0); NEUT % 88.4 % (16.0-70.0); PLATELET COUNT 381 TH/MM3 (150-450); RED BLOOD COUNT 2.95 MIL/MM3 (4.00-5.30); RED CELL DISTRIBUTION WIDTH 17.6 % (11.6-17.2); WHITE BLOOD COUNT 26.1 TH/MM3 (4.0-11.0)
[2017-10-25 11:27] LABS: BICARBONATE 28.3 MEQ/L (21.0-32.0); CALCIUM 8.3 MG/DL (8.5-10.1)
[2017-10-25 11:31] LABS: CREATININE 0.9 MG/DL (0.50-1.00)
[2017-10-25 11:48] LABS: BANDS 5 % (0-6); LYMPHOCYTES 9 % (9-44); MONOCYTES 5 % (0-8); NEUTROPHIL # MANUAL DIFF 22.4 TH/MM3 (1.8-7.7); POLYS (SEG NEUTROPHILS) 81 % (16-70); TARGET CELLS 1+ (NORMAL)
[2017-10-25 11:49] LABS: OVALOCYTES 1+ (NORMAL)
[2017-10-25 11:50] LABS: ROULEAUX PRESENT (NORMAL); SICKLE CELLS 1+ (NORMAL)
[2017-10-25] MEDS: CLINDAMYCIN PALMITATE SOLN 75 MG/5 ML 100 ML BTL PO SCH ×3 (12:22→23:54)
[2017-10-26] VITALS: BP 122/83; PULSE 87; RESP 18; TEMP 98.1; O2SAT 92
[2017-10-26] MEDS: HYDROmorphone HCL PF 2 MG/ML VIAL IV PUSH PRN ×3 (00:02→15:51)
[2017-10-26] MEDS: CLINDAMYCIN PALMITATE SOLN 75 MG/5 ML 100 ML BTL PO SCH ×3 (05:13→18:00)
[2017-10-26] MEDS: diphenhydrAMINE HCL 50 MG/ML VIAL IV PUSH PRN ×3 (06:09→11:56)
[2017-10-26] MEDS: PROMETHAZINE HCL 25 MG TAB PO PRN ×2 (06:10→11:57)
[2017-10-26 08:00] VITALS: BP 132/79; PULSE 95; RESP 19; TEMP 97.7; O2SAT 95; O2SAT 96
--- NOTE | 2017-10-26 08:45 | PD.PN.STU ---
Subjective Remarks Patient seen and evaluated today in follow-up for strep pharyngitis and pneumonia. Improved clinically with increased oral intake and pain reported per patient. Able to tolerate full diet. Cough is productive of yellow colored phlegm. Able to ambulate well without shortness of breath. Objective Vitals Vital Signs Date Time Temp Pulse Resp B/P (MAP) Pulse Ox O2 Delivery O2 Flow Rate FiO2 10/26/17 00:00 98.1 87 18 122/83 (96) 92 10/25/17 21:06 18 10/25/17 20:15 94 Nasal Cannula 2.00 10/25/17 20:00 98.0 92 21 124/87 (99) 97 10/25/17 16:00 98.0 93 18 121/84 (96) 89 10/25/17 12:00 97.7 94 18 133/94 (107) 95 10/25/17 09:48 18 10/25/17 09:48 18 10/25/17 09:24 97 Nasal Cannula 2.00 I/O 10/25/17 10/25/17 10/25/17 10/26/17 10/26/17 10/26/17 07:00 15:00 23:00 07:00 15:00 23:00 Intake Total 820 ml 250 ml 960 ml 1190 ml Output Total 3 ml Balance 817 ml 250 ml 960 ml 1190 ml Intake Oral 720 ml 960 ml 1190 ml IV Total 100 ml 250 ml Output Urine Total 3 ml # Voids 3 4 # Bowel Movements 1 2 1 Result Diagram: 10/25/17 1051 10/25/17 1051 Imaging Last Impressions Neck CT 10/24/17 0000 Signed Impressions: Service Date/Time: Tuesday, October 24, 2017 14:32 - CONCLUSION: 1. Prominent lymphoid tissue in Waldeyer's ring with upper cervical adenopathy predominantly on the right. Differential diagnosis includes reactive changes secondary to infection. Cannot exclude other etiologies such as lymphoma. 2. Dense consolidation posterior segment right upper lobe of the lung most characteristic of pneumonia or aspiration. 3. Paranasal sinuses are clear. Robert Raza MD Chest X-Ray 10/23/17 0837 Signed Impressions: Service Date/Time: Monday, October 23, 2017 09:20 - CONCLUSION: Probable early infiltrate right base. The Kyle Peace MD FACR Objective Remarks GENERAL: Well-nourished, well-developed patient. SKIN: Warm and dry. HEAD: Normocephalic. EYES: No scleral icterus. No injection or drainage. NECK: Supple, trachea midline. No JVD. Tender lymphadenopathy present. Throat: Erythema and edema improved; moderate exudate still present. CARDIOVASCULAR: Regular rate and rhythm without murmurs, gallops, or rubs. RESPIRATORY: Breath sounds equal bilaterally. No accessory muscle use. GASTROINTESTINAL: Abdomen soft, non-tender, nondistended. EXTREMITIES: No cyanosis, or edema. NEUROLOGICAL: Awake, alert, and oriented x 3. Non-focal. A/P Assessment and Plan Problem List: (1) Sickle cell disease No evidence of acute chest syndrome or sickle cell crisis. Continue pain management as needed. Will follow-up with heme/onc after discharge. (2) Sepsis Improving, wbc trending down. With good clinical improvement will discharge home today on PO Clindamycin (3) Strep throat Improving. Tolerating full diet this morning, will discharge home with PO Clindamycin. (4) Pneumonia Clinically improving. O2 96% on nasal cannula. Will discharge home with PO clindamycin. Danyell Ruiz M3 Oct 26, 2017 08:45
[2017-10-26] MEDS: METHADONE HCL 10 MG TAB PO SCH (09:01)
[2017-10-26] MEDS: NAPROXEN 500 MG TAB PO SCH (09:01)
[2017-10-26] MEDS: APIXABAN 5 MG TABLET PO SCH (09:02)
[2017-10-26] MEDS: SODIUM CHLORIDE 0.9% FLUSH 10 ML FLUSH IV FLUSH SCH (09:03)
[2017-10-26] MEDS ORDERED: CLIN300C5 PO (10:26)
--- NOTE | 2017-10-26 10:27 | HHI.DCPOC ---
Discharge Care Plan Diagnosis: (1) Sickle cell disease (2) Pneumonia (3) Strep throat Goals to Promote Your Health * To prevent worsening of your condition and complications * To maintain your health at the optimal level Directions to Meet Your Goals Take your medications as prescribed Follow your dietary instruction Follow activity as directed Keep your appointments as scheduled Take your immunizations and boosters as scheduled If your symptoms worsen call your PCP, if no PCP go to Urgent Care Center or Emergency Room Smoking is Dangerous to Your Health. Avoid second hand smoke Call the 24-hour hour crisis hotline for domestic abuse at Socorro Donato MD Oct 26, 2017 10:26
--- NOTE | 2017-10-26 10:31 | HHI.DS ---
cc: Carline Silver MD Discharge Summary Admission Date Oct 23, 2017 at 10:28 Discharge Date: Oct 26, 2017 Admitting Diagnosis SIRS, group A strep, pneumonia, sickle cell (1) Sickle cell disease ICD Code: D57.1 - Sickle cell disease Status: Chronic (2) Sepsis ICD Code: A41.9 - Sepsis Status: Acute (3) Strep throat ICD Code: J02.0 - Streptococcal pharyngitis Status: Acute (4) Pneumonia ICD Code: J18.9 - Pneumonia Status: Acute (5) History of pulmonary embolism ICD Code: Z86.711 - Personal history of pulmonary embolism Procedures None Brief History - From Admission This patient is a 31-year-old female with a history of sickle cell disease which is well controlled as an outpatient who had an acute 1 day onset of severe throat pain accompanied by fever and chills and cough. She came to the emergency room for further evaluation is found to have group A strep positive throat cultures as well as acute pneumonia. She denies chest pain or shortness of breath. She has taken Tylenol at home without relief. She is septic with tachycardia, leukocytosis and fever. Patient is admitted to the hospital for further evaluation and treatment. She denies sick contacts. CBC/BMP: 10/25/17 1051 10/25/17 1051 Significant Findings Laboratory Tests Test 10/24/17 07:15 10/24/17 09:30 10/25/17 10:51 White Blood Count 38.7 TH/MM3 (4.0-11.0) 26.1 TH/MM3 (4.0-11.0) Red Blood Count 2.83 MIL/MM3 (4.00-5.30) 2.95 MIL/MM3 (4.00-5.30) Hemoglobin 8.6 GM/DL (11.6-15.3) 8.6 GM/DL (11.6-15.3) Hematocrit 25.0 % (35.0-46.0) 25.9 % (35.0-46.0) Red Cell Distribution Width 17.8 % (11.6-17.2) 17.6 % (11.6-17.2) Neutrophils (%) (Auto) 89.7 % (16.0-70.0) 88.4 % (16.0-70.0) Lymphocytes (%) (Auto) 6.2 % (9.0-44.0) 5.9 % (9.0-44.0) Neutrophils # (Auto) 34.7 TH/MM3 (1.8-7.7) 23.1 TH/MM3 (1.8-7.7) Monocytes # (Auto) 1.2 TH/MM3 (0-0.9) 1.0 TH/MM3 (0-0.9) Neutrophils % (Manual) 74 % (16-70) 81 % (16-70) Band Neutrophils % 8 % (0-6) Neutrophils # (Manual) 31.7 TH/MM3 (1.8-7.7) 22.4 TH/MM3 (1.8-7.7) Target Cells 1+ (NORMAL) 1+ (NORMAL) Ovalocytes 1+ (NORMAL) 1+ (NORMAL) Rouleau PRESENT (NORMAL) PRESENT (NORMAL) Keratocytes OCC (NORMAL) Blood Urea Nitrogen 5 MG/DL (7-18) Calcium Level 8.1 MG/DL (8.5-10.1) 8.3 MG/DL (8.5-10.1) Urine Leukocyte Esterase SMALL (NEG) Urine WBC 20-24 /hpf (0-5) Urine WBC Clumps FEW (NONE) Urine Squamous Epithelial Cells > 8 /hpf (0-5) Urine Bacteria FEW /hpf (NONE) Sickle Cells 1+ (NORMAL) Random Glucose 185 MG/DL (74-106) Estimat Glomerular Filtration Rate 88 ML/MIN (>89) Imaging GENERAL: This is a well-nourished, well-developed patient, in no apparent distress. CARDIOVASCULAR: Regular rate and rhythm without murmurs, gallops, or rubs. RESPIRATORY: Clear to auscultation. Breath sounds equal bilaterally. No wheezes , rales, or rhonchi. GASTROINTESTINAL: Abdomen soft, non-tender, nondistended. Normal active bowel sounds MUSCULOSKELETAL: Extremities without clubbing, cyanosis, or edema. NEURO: Alert & Oriented x4 to person, place, time, situation. Moves all ext x4 PE at Discharge Tonsils improved edema and erythema, there is still some exudative debris GENERAL: This is a well-nourished, well-developed patient, in no apparent distress. CARDIOVASCULAR: Regular rate and rhythm without murmurs, gallops, or rubs. RESPIRATORY: Clear to auscultation. Breath sounds equal bilaterally. No wheezes , rales, or rhonchi. GASTROINTESTINAL: Abdomen soft, non-tender, nondistended. Normal active bowel sounds MUSCULOSKELETAL: Extremities without clubbing, cyanosis, or edema. NEURO: Alert & Oriented x4 to person, place, time, situation. Moves all ext x4 Pt update on day of discharge Please see daily progress note Hospital Course Patient is a 31-year-old female with sickle cell disease who presented to the ED with excruciating sore throat. She was subsequently found to be septic, strep positive and had an acute pneumonia. Over her 4 day stay she received IV antibiotics, IV hydration, oxygen as needed, IV steroids, and pain management. She was seen also in consultation by her primary service writer and no evidence of acute sickle cell crisis was noted. Patient had a CT of the neck which did not show any abscess. She continued to improve with medical management and was discharged home. Pt Condition on Discharge: Good Discharge Disposition: Discharge Home Discharge Time: <= 30 minutes Discharge Instructions DIET: Follow Instructions for: As Tolerated, No Restrictions Activities you can perform: Regular-No Restrictions Follow up Referrals: Oncology/Hematology with Carline Silver MD New Medications: Clindamycin (Clindamycin) 300 Mg Cap 600 MG PO Q8H for Infection, #9 CAP 0 Refills Continued Medications: Amitriptyline (Amitriptyline) 25 Mg Tab 25 MG PO HS for Control Depression, #30 TAB 0 Refills Apixaban (Eliquis) 2.5 Mg Tab 5 MG PO DIRECTED for blood clot for 30 Days, TAB 0 Refills 10 mg po twice daily till 04/29/17- then 5 mg po twice daily. Methadone (Methadone) 10 Mg Tab 10 MG PO DAILY, TAB 0 Refills Naproxen (Naprosyn) 500 Mg Tab 500 MG PO BID, #60 TAB 0 Refills Oxycodone (Oxycodone) 5 Mg Cap 5 MG PO BID PRN for PAIN, #10 CAP 0 Refills Discontinued Medications: Nitrofurantoin Monohydrate Macrocrystals (Macrobid) 100 Mg Cap 100 MG PO BID for Infection for 10 Days, #20 CAP 0 Refills Socorro Donato MD Oct 26, 2017 10:31
[2017-10-26] MEDS: SODIUM CHLORIDE 0.9% FLUSH 10 ML FLUSH IV FLUSH PRN ×2 (11:59→15:51)
[2017-10-26 15:40] VITALS: BP 119/73; PULSE 101; RESP 19; TEMP 98.3; O2SAT 95
[2017-10-26 16:21] VITALS: RESP 18
[2017-10-26] MEDS ORDERED: CLINDAMYCIN 150 MG CAP PO ONE ×2 (17:45)
== END 2017-10-26 19:08 | disposition home or self-care (01) | DRG 871 ==
LOC: PHED 08:20 → PHEDA 10:28 → PH3B 11:46
PROVIDERS: ADMIT Hospitalist; ATTEND Hospitalist
DX: A41.9 Sepsis, unspecified organism (principal); J15.4 Pneumonia due to other streptococci; D57.1 Sickle-cell disease without crisis; J02.0 Streptococcal pharyngitis; B95.0 Streptococcus, group A, as the cause of diseases classified elsewhere; G89.29 Other chronic pain; D64.9 Anemia, unspecified; E66.9 Obesity, unspecified; Z88.1 Allergy status to other antibiotic agents; Z86.711 Personal history of pulmonary embolism; Z88.8 Allergy status to other drugs, medicaments and biological substances; Z79.01 Long term (current) use of anticoagulants; Z79.891 Long term (current) use of opiate analgesic; Z79.899 Other long term (current) drug therapy; Z68.38 Body mass index [BMI] 38.0-38.9, adult
CPT/HCPCS: 70491; 71045; 80048; 80053; 81001; 83605; 85007; 85027; 85044; 87040; 87086; 87804; 87880; 96361; 96365; J0456; J0696; J1170; J1200; J2920; J7030; J7050; J7120; Q0169; Q9967

== ENCOUNTER 2017-12-04 16:01 | Emergency (ER) | payer MEDICARE, OTHER ==
[~2017-12-04] VITALS: Ht 170.2 cm; Wt 104.0 kg
[~2017-12-04 16:01] MED LIST changes: +CLIN300C5 PO; -MACR100C2 PO
[2017-12-04 16:04] VITALS: BP 123/77; PULSE 101; RESP 16; TEMP 98.7; O2SAT 98
--- NOTE | 2017-12-04 16:45 | PD ---
HPI Chief Complaint: Sickle Cell Time Seen by Provider: 16:45 Travel History International Travel<30 days: No Contact w/Intl Traveler<30days: No Traveled to known affect area: No History of Present Illness HPI 31-year-old female came to the emergency room with history of sickle cell crisis. She is well-known to the department. She has been in the ER for painful crisis multiple times. Patient says this time it has been there for past [address] Silver for her sickle cell disease and she says she last saw her on the . She tried calling the office today but could not get hold of anybody and hence came to the emergency room. Pain is generalized. Patient is mildly tachycardic but afebrile. She also complains of some blood in her stool 2 today. The blood is slight. She is not dizzy or lightheaded. Blood pressure is within normal range. Patient is on Eliquis. She is on methadone and oxycodone at home but ran out due to previous hospitalization. She says she would not get it refilled until next week. [facility] Past Medical History Narrative Medical List of her past medical, surgical, social and family history reviewed from the nursing note. Hx Anticoagulant Therapy: Yes (ELIQUIS) Asthma: No Autoimmune Disease: No Blood Disorders: Yes (SICKLE CELL) Anxiety: Yes Depression: No Heart Rhythm Problems: No Cancer: No Cardiac Catheterization: Yes Cardiovascular Problems: Yes (heart murmur, svc) High Cholesterol: No Chemotherapy: No Chest Pain: No Congestive Heart Failure: No COPD: No Cerebrovascular Accident: No Diabetes: No Diminished Hearing: No Endocrine: No Gastrointestinal Disorders: Yes (HX GALLSTONES--CHOLECYSTECTOMY) Genetic Disorder: Yes (SICKLE CELL) GERD: No Glaucoma: Yes Genitourinary: Yes Headaches: Yes Hepatitis: No Hiatal Hernia: No Heparin Induced Thrombocytopen: No Hypertension: No Immune Disorder: No Implanted Vascular Access Dvce: No (RIGHT CHEST INFUSAPORT: SEPTEMBER 2014 REMOVED) Kidney Stones: No Musculoskeletal: Yes (ARTHRITIS IN SPINE AND HANDS ) Neurologic: No Psychiatric: No Reproductive: No Respiratory: Yes (PULMONARY EMBOLISM) Immunizations Current: Yes Migraines: No Myocardial Infarction: No Pneumonia: Yes Radiation Therapy: No Renal Failure: No Seizures: No Sickle Cell Disease: Yes Sleep Apnea: No Thyroid Disease: No Ulcer: No ?: Not LMP: 11/29/17 : 10 Para: 4 Miscarriage: 6 : 0 Ectopic : No Ovarian Cysts: No Tubal Ligation: Yes Past Surgical History Abdominal Surgery: Yes (cholecystectomy ) AICD: No Arteriovenous Shunt: No Body Medical Devices: RIGHT INFUSAPORT (REMOVED 2012), LEFT REMOVED 2014 Cardiac Surgery: No Section: Yes (x2) Cholecystectomy: Yes Ear Surgery: No Endocrine Surgery: No Eye Surgery: Yes (CORRECTIVE EYE SURGERY-LEFT) Genitourinary Surgery: No Gynecologic Surgery: Yes ( X 2, 2007 AND 2012) Hysterectomy: No Insulin Pump: No Joint Replacement: No Neurologic Surgery: No Oral Surgery: No Pacemaker: No Thoracic Surgery: Yes (MRSA INFUSAPORT R SIDE REMOVED 05/2013, L SIDE INFUSAPORT REMOVED 07/20) Other Surgery: Yes (Angioplasty ) Social History Alcohol Use: Yes (occas. wine) Tobacco Use: No Substance Use: No Allergies-Medications (Allergen,Severity, Reaction): Coded Allergies: ketorolac (Verified Allergy, Severe, RASH, 10/23/17) metoclopramide (Verified Allergy, Severe, RASH, 10/23/17) morphine (Verified Allergy, Severe, RASH, 10/23/17) ondansetron (Verified Allergy, Severe, RASH,ITCH, 10/23/17) Uncoded Allergies: CEFEPIME (Allergy, Severe, Hives., 08/09/16) . Comments List of her allergies reviewed from the nursing note. Reported Meds & Prescriptions Reported Meds & Active Scripts Active Oxycodone (Oxycodone HCl) 5 Mg Cap 5 Mg PO BID PRN Eliquis (Apixaban) 2.5 Mg Tab 5 Mg PO DIRECTED 30 Days 10 mg po twice daily till 04/29/17- then 5 mg po twice daily. Reported Naprosyn (Naproxen) 500 Mg Tab 500 Mg PO BID Amitriptyline (Amitriptyline HCl) 25 Mg Tab 25 Mg PO HS Methadone (Methadone HCl) 10 Mg Tab 10 Mg PO DAILY Narrative Medication List of her home medications reviewed from the nursing note Review of Systems Except as stated in HPI: all other systems reviewed are Neg Gastrointestinal: Positive: Hematochezia Musculoskeletal: Positive: Pain Physical Exam Narrative GENERAL: Awake, alert, obese, mild distress SKIN: Focused skin assessment warm/dry. HEAD: Atraumatic. Normocephalic. EYES: Pupils equal and round. No scleral icterus. No injection or drainage. ENT: No nasal bleeding or discharge. Mucous membranes pink and moist. NECK: Trachea midline. No JVD. CARDIOVASCULAR: Regular rate and rhythm. No murmur appreciated. RESPIRATORY: No accessory muscle use. Clear to auscultation. Breath sounds equal bilaterally. GASTROINTESTINAL: Abdomen soft, non-tender, nondistended. Hepatic and splenic margins not palpable. MUSCULOSKELETAL: No obvious deformities. No clubbing. No cyanosis. No edema. NEUROLOGICAL: Awake and alert. No obvious cranial nerve deficits. Motor grossly within normal limits. Normal speech. PSYCHIATRIC: Appropriate mood and affect; insight and judgment normal. Data Data Last Documented VS Vital Signs Date Time Temp Pulse Resp B/P (MAP) Pulse Ox O2 Delivery O2 Flow Rate FiO2 12/04/17 20:17 12/04/17 19:30 83 16 99 Room Air 12/04/17 16:04 98.7 Orders Orders Complete Blood Count With Diff (12/04/17 17:05) Basic Metabolic Panel (Bmp) (12/04/17 17:05) Retic Count (12/04/17 17:05) Sodium Chlor 0.9% 1000 Ml Inj (Ns 1000 M (12/04/17 17:15) Morphine Inj (Morphine Inj) (12/04/17 17:15) Hydromorphone Pf Inj (Dilaudid Pf Inj) (12/04/17 17:45) Hydromorphone Pf Inj (Dilaudid Pf Inj) (12/04/17 18:00) Ed Discharge Order (12/04/17 20:04) Labs Laboratory Tests Test 12/04/17 18:00 White Blood Count 14.3 TH/MM3 Red Blood Count 3.29 MIL/MM3 Hemoglobin 9.5 GM/DL Hematocrit 28.6 % Mean Corpuscular Volume 86.9 FL Mean Corpuscular Hemoglobin 29.0 PG Mean Corpuscular Hemoglobin Concent 33.4 % Red Cell Distribution Width 18.2 % Platelet Count 491 TH/MM3 Mean Platelet Volume 8.5 FL Neutrophils (%) (Auto) 69.4 % Lymphocytes (%) (Auto) 22.2 % Monocytes (%) (Auto) 5.4 % Eosinophils (%) (Auto) 0.9 % Basophils (%) (Auto) 2.1 % Neutrophils # (Auto) 9.9 TH/MM3 Lymphocytes # (Auto) 3.2 TH/MM3 Monocytes # (Auto) 0.8 TH/MM3 Eosinophils # (Auto) 0.1 TH/MM3 Basophils # (Auto) 0.3 TH/MM3 CBC Comment AUTO DIFF Differential Total Cells Counted 100 Neutrophils % (Manual) 59 % Lymphocytes % 32 % Monocytes % 8 % Basophils % 1 % Neutrophils # (Manual) 8.4 TH/MM3 Nucleated Red Blood Cells 1 /100 WBC Differential Comment FINAL DIFF MANUAL Atypical Lymphocytes % Platelet Estimate HIGH Platelet Morphology Comment NORMAL Sickle Cells 1+ Target Cells 2+ Keratocytes OCC Reticulocyte Count 2.9 % Absolute Reticulocyte Count 97.4 MIL/L Blood Urea Nitrogen 6 MG/DL Creatinine 0.88 MG/DL Random Glucose 94 MG/DL Calcium Level 8.4 MG/DL Sodium Level 142 MEQ/L Potassium Level 3.5 MEQ/L Chloride Level 109 MEQ/L Carbon Dioxide Level 25.9 MEQ/L Anion Gap 7 MEQ/L Estimat Glomerular Filtration Rate 90 ML/MIN MDM Medical Decision Making Medical Screen Exam Complete: Yes Emergency Medical Condition: Yes Medical Record Reviewed: Yes Differential Diagnosis Sickle cell crisis, anemia, chronic pain disorder Narrative Course 6:10 PM awaiting for blood test results to come back. Patient is getting IV fluid bolus and pain medication. 7:17 PM awaiting for the reticulocyte count. Patient will be transferred to the oncoming ER physician. Procedures EKG Prior to Arrival: Su Mcgee MD Dec 04, 2017 16:45
[2017-12-04] MEDS ORDERED: MORPHINE SULFATE 8 MG/ML INJ IV PUSH ONE (17:15)
[2017-12-04] MEDS ORDERED: SODIUM CHLOR 0.9% 1000 ML INJ 1,000 ML IV ONE (17:15)
[2017-12-04] MEDS ORDERED: HYDROmorphone HCL PF 1 MG/ML VIAL IV PUSH ONE (17:45)
[2017-12-04] MEDS ORDERED: HYDROmorphone HCL PF 0.5 MG/0.5 ML SYRINGE IV PUSH ONE (18:00)
[2017-12-04 18:10] VITALS: BP 125/75; PULSE 85; RESP 18; O2SAT 97
[2017-12-04 18:14] LABS: AUTOMATED NEUTROPHIL # 9.9 TH/MM3 (1.8-7.7); BASOPHIL # 0.3 TH/MM3 (0-0.2); BASOPHIL % 2.1 % (0.0-2.0); EOSINOPHIL # 0.1 TH/MM3 (0-0.4); EOSINOPHIL % 0.9 % (0.0-4.0); HEMATOCRIT 28.6 % (35.0-46.0); HEMOGLOBIN 9.5 GM/DL (11.6-15.3); LYMPH % 22.2 % (9.0-44.0); LYMPHOCYTE # 3.2 TH/MM3 (1.0-4.8); MEAN CELL VOLUME 86.9 FL (80.0-100.0); MEAN CORPUSCULAR HGB CONC 33.4 % (32.0-36.0); MEAN PLATELET VOLUME 8.5 FL (7.0-11.0); MONO % 5.4 % (0.0-8.0); MONOCYTE # 0.8 TH/MM3 (0-0.9); NEUT % 69.4 % (16.0-70.0); PLATELET COUNT 491 TH/MM3 (150-450); RED BLOOD COUNT 3.29 MIL/MM3 (4.00-5.30); RED CELL DISTRIBUTION WIDTH 18.2 % (11.6-17.2); WHITE BLOOD COUNT 14.3 TH/MM3 (4.0-11.0)
[2017-12-04 18:20] LABS: CALCIUM 8.4 MG/DL (8.5-10.1)
[2017-12-04 18:21] LABS: BICARBONATE 25.9 MEQ/L (21.0-32.0)
[2017-12-04 18:24] LABS: CREATININE 0.88 MG/DL (0.50-1.00)
[2017-12-04 18:50] LABS: BASOPHILS 1 % (0-2); CORRECTED NUCLEATED RBC 1 /100 WBC (0-0); MONOCYTES 8 % (0-8); NEUTROPHIL # MANUAL DIFF 8.4 TH/MM3 (1.8-7.7); NUCLEATED RED BLOOD CELL 1 (0-0); POLYS (SEG NEUTROPHILS) 59 % (16-70)
[2017-12-04 18:51] LABS: LYMPHOCYTES 32 % (9-44)
[2017-12-04 18:52] LABS: TARGET CELLS 2+ (NORMAL)
[2017-12-04 18:53] LABS: KERATOCYTES OCC (NORMAL)
[2017-12-04 18:54] LABS: SICKLE CELLS 1+ (NORMAL)
[2017-12-04 19:26] LABS: RETIC # 97.4 MIL/L (20.0-150.0); RETIC % 2.9 % (0.4-3.0)
--- NOTE | 2017-12-04 19:29 | PD ---
Physical Exam Narrative Please see Dr. Quinones's note for full history and physical. I received signout to check for pending reticulocyte count. She presented to the emergency department complaining of sickle cell crisis and having an episode of bloody stool. She is afebrile with stable vital signs. Reticulocyte count of 2.9 and H&H is stable. Rectal exam was Hemoccult positive but with brown stool. She received IV fluids and 0.5 mg IV Dilaudid x 2 for pain. Will discharge with follow-up with surgery tech. Data Data Last Documented VS Vital Signs Date Time Temp Pulse Resp B/P (MAP) Pulse Ox O2 Delivery O2 Flow Rate FiO2 12/04/17 18:53 16 12/04/17 18:10 85 125/75 (92) 97 Room Air 12/04/17 16:04 98.7 Orders Orders Complete Blood Count With Diff (12/04/17 17:05) Basic Metabolic Panel (Bmp) (12/04/17 17:05) Retic Count (12/04/17 17:05) Sodium Chlor 0.9% 1000 Ml Inj (Ns 1000 M (12/04/17 17:15) Morphine Inj (Morphine Inj) (12/04/17 17:15) Hydromorphone Pf Inj (Dilaudid Pf Inj) (12/04/17 17:45) Hydromorphone Pf Inj (Dilaudid Pf Inj) (12/04/17 18:00) Labs Laboratory Tests Test 12/04/17 18:00 White Blood Count 14.3 TH/MM3 Red Blood Count 3.29 MIL/MM3 Hemoglobin 9.5 GM/DL Hematocrit 28.6 % Mean Corpuscular Volume 86.9 FL Mean Corpuscular Hemoglobin 29.0 PG Mean Corpuscular Hemoglobin Concent 33.4 % Red Cell Distribution Width 18.2 % Platelet Count 491 TH/MM3 Mean Platelet Volume 8.5 FL Neutrophils (%) (Auto) 69.4 % Lymphocytes (%) (Auto) 22.2 % Monocytes (%) (Auto) 5.4 % Eosinophils (%) (Auto) 0.9 % Basophils (%) (Auto) 2.1 % Neutrophils # (Auto) 9.9 TH/MM3 Lymphocytes # (Auto) 3.2 TH/MM3 Monocytes # (Auto) 0.8 TH/MM3 Eosinophils # (Auto) 0.1 TH/MM3 Basophils # (Auto) 0.3 TH/MM3 CBC Comment AUTO DIFF Differential Total Cells Counted 100 Neutrophils % (Manual) 59 % Lymphocytes % 32 % Monocytes % 8 % Basophils % 1 % Neutrophils # (Manual) 8.4 TH/MM3 Nucleated Red Blood Cells 1 /100 WBC Differential Comment FINAL DIFF MANUAL Atypical Lymphocytes % Platelet Estimate HIGH Platelet Morphology Comment NORMAL Sickle Cells 1+ Target Cells 2+ Keratocytes OCC Reticulocyte Count 2.9 % Absolute Reticulocyte Count 97.4 MIL/L Blood Urea Nitrogen 6 MG/DL Creatinine 0.88 MG/DL Random Glucose 94 MG/DL Calcium Level 8.4 MG/DL Sodium Level 142 MEQ/L Potassium Level 3.5 MEQ/L Chloride Level 109 MEQ/L Carbon Dioxide Level 25.9 MEQ/L Anion Gap 7 MEQ/L Estimat Glomerular Filtration Rate 90 ML/MIN MDM Supervised Visit with HÉCTOR: No Diagnosis Primary Impression: Sickle cell anemia Qualified Codes: D57.1 - Sickle-cell disease without crisis Additional Impression: Chronic pain Qualified Codes: G89.29 - Other chronic pain Patient Instructions: General Instructions, Sickle Cell Crisis (ED) Additional Instruction: 1. Take previously prescribed pain meds as directed. 2. Follow-up with surgery tech in 24-48 hours. 3. Return to the emergency department for fever, chest pain, shortness of breath, abdominal pain, pain not responding to pain medication, or any new/worrisome/worsening symptoms. Disposition: 01 DISCHARGE HOME Condition: Stable Debbi Hobbs MD Dec 04, 2017 19:29
[2017-12-04 19:30] VITALS: BP 123/82; PULSE 83; RESP 16; O2SAT 99
== END 2017-12-04 20:20 | disposition home or self-care (01) ==
LOC: PHED 16:01
DX: D57.00 Hb-SS disease with crisis, unspecified (principal); G89.29 Other chronic pain; F41.9 Anxiety disorder, unspecified; H40.9 Unspecified glaucoma
CPT/HCPCS: 80048; 85007; 85027; 85044; 96361; 96374; 99284; J1170; J7030

== ENCOUNTER 2017-12-19 19:45 | Inpatient (IN) | payer MEDICARE, OTHER ==
[~2017-12-19] VITALS: Ht 170.2 cm; Wt 111.0 kg
[~2017-12-19 19:45] MED LIST changes: -CLIN300C5 PO
[2017-12-19 19:48] VITALS: BP 128/78; PULSE 120; RESP 18; TEMP 99.6; O2SAT 99
[2017-12-19] MEDS ORDERED: OXYC1CAP PO (20:13)
[2017-12-19] MEDS ORDERED: HYDROmorphone HCL PF 1 MG/ML VIAL IV PUSH ONE (20:15)
[2017-12-19] MEDS ORDERED: SODIUM CHLOR 0.9% 1000 ML INJ 1,000 ML IV ONE (20:15)
[2017-12-19] MEDS ORDERED: PROMETHAZINE INJ 25 MG/ML VIAL IM ONE (20:15)
--- NOTE | 2017-12-19 20:22 | PD ---
HPI Chief Complaint: Sickle Cell Time Seen by Provider: 20:03 Travel History International Travel<30 days: No Contact w/Intl Traveler<30days: No Traveled to known affect area: No History of Present Illness HPI The patient was seen and examined in the presence of the nurse. This patient complains of sickle pain. She complains of diffuse pain everywhere. Duration 1 day. Severity is moderate. She also notes that she has had diarrhea 3 or 4 times today. No vomiting. No rectal bleeding. No alleviating factors. No exacerbating factors. PFSH Past Medical History Hx Anticoagulant Therapy: Yes (ELIQUIS) Arthritis: Yes (spine l4,l5,l7) Asthma: No Autoimmune Disease: No Blood Disorders: Yes (SICKLE CELL) Anxiety: Yes Depression: No Heart Rhythm Problems: No Cancer: No Cardiac Catheterization: Yes Cardiovascular Problems: Yes ("LEAKY VALVE") High Cholesterol: No Chemotherapy: No Chest Pain: No Congestive Heart Failure: No COPD: No Cerebrovascular Accident: No Diabetes: No Diminished Hearing: No Endocrine: No Gastrointestinal Disorders: Yes (HX GALLSTONES--CHOLECYSTECTOMY) Genetic Disorder: Yes (SICKLE CELL) GERD: No Glaucoma: Yes Genitourinary: Yes Headaches: Yes Hepatitis: No Hiatal Hernia: No Heparin Induced Thrombocytopen: No Hypertension: No Immune Disorder: No Implanted Vascular Access Dvce: No (RIGHT CHEST INFUSAPORT: SEPTEMBER 2014 REMOVED) Kidney Stones: No Musculoskeletal: Yes (ARTHRITIS IN SPINE AND HANDS ) Neurologic: No Psychiatric: No Reproductive: No Respiratory: Yes (PULMONARY EMBOLISM) Immunizations Current: Yes Migraines: No Myocardial Infarction: No Pneumonia: Yes Radiation Therapy: No Renal Failure: No Seizures: No Sickle Cell Disease: Yes Sleep Apnea: No Thyroid Disease: No Ulcer: No ?: Not LMP: NOW : 10 Para: 4 Miscarriage: 6 : 0 Ectopic : No Ovarian Cysts: No Tubal Ligation: Yes Past Surgical History Abdominal Surgery: Yes (cholecystectomy ) AICD: No Arteriovenous Shunt: No Body Medical Devices: RIGHT INFUSAPORT (REMOVED ), LEFT REMOVED Cardiac Surgery: No Section: Yes (x2) Cholecystectomy: Yes Ear Surgery: No Endocrine Surgery: No Eye Surgery: Yes (CORRECTIVE EYE SURGERY-LEFT) Genitourinary Surgery: No Gynecologic Surgery: Yes ( X 2, 2007 AND 2012) Hysterectomy: No Insulin Pump: No Joint Replacement: No Neurologic Surgery: No Oral Surgery: No Pacemaker: No Thoracic Surgery: Yes (MRSA INFUSAPORT R SIDE REMOVED 05/2013, L SIDE INFUSAPORT REMOVED 07/20) Other Surgery: Yes (Angioplasty. L Infusaport w MRSA removed, R infusaport and removal) Social History Alcohol Use: Yes (occas. wine) Tobacco Use: No Substance Use: No Allergies-Medications (Allergen,Severity, Reaction): Coded Allergies: ketorolac (Verified Allergy, Severe, RASH, 12/19/17) metoclopramide (Verified Allergy, Severe, RASH, 12/19/17) morphine (Verified Allergy, Severe, RASH, 12/19/17) ondansetron (Verified Allergy, Severe, RASH,ITCH, 12/19/17) Uncoded Allergies: CEFEPIME (Allergy, Severe, Hives., 08/09/16) . Reported Meds & Prescriptions Reported Meds & Active Scripts Active Eliquis (Apixaban) 2.5 Mg Tab 5 Mg PO DIRECTED 30 Days 10 mg po twice daily till 04/29/17- then 5 mg po twice daily. Reported Oxycodone (Oxycodone HCl) 5 Mg Cap 5 Mg PO DAILY Naprosyn (Naproxen) 500 Mg Tab 500 Mg PO BID Amitriptyline (Amitriptyline HCl) 25 Mg Tab 25 Mg PO HS Methadone (Methadone HCl) 10 Mg Tab 10 Mg PO DAILY Review of Systems General / Constitutional: No: Fever Eyes: No: Visual changes HENT: No: Headaches Cardiovascular: No: Chest Pain or Discomfort Respiratory: No: Shortness of Breath Gastrointestinal: Positive: Diarrhea Genitourinary: No: Dysuria Musculoskeletal: Positive: Pain Skin: No Rash Neurologic: No: Weakness Psychiatric: No: Depression Endocrine: No: Polydipsia Hematologic/Lymphatic: No: Easy Bruising Physical Exam Narrative GENERAL: Well-nourished, well-developed patient in no apparent distress. SKIN: Focused skin assessment reveals no rash and nodules. Skin is Warm and dry. HEAD: Atraumatic. Normocephalic. EYES: Pupil on the right is round and reactive. Cornea is clouded over on the left side. No scleral icterus. No injection or drainage. ENT: No nasal bleeding or discharge. Mucous membranes pink and moist. Oral cavity is clear NECK: Trachea midline. No JVD. No meningeal signs CARDIOVASCULAR: Regular rate and rhythm. No murmur appreciated. RESPIRATORY: No accessory muscle use. Clear to auscultation. Breath sounds equal bilaterally. GASTROINTESTINAL: Abdomen soft, non-tender, nondistended. Hepatic and splenic margins not palpable. MUSCULOSKELETAL: No obvious deformities. No clubbing. No cyanosis. No edema. NEUROLOGICAL: Awake and alert. No obvious cranial nerve deficits. Motor grossly within normal limits. Normal speech. PSYCHIATRIC: Appropriate mood and affect; insight and judgment normal. Data Data Last Documented VS Vital Signs Date Time Temp Pulse Resp B/P (MAP) Pulse Ox O2 Delivery O2 Flow Rate FiO2 12/19/17 21:22 104 18 125/61 (82) 98 Nasal Cannula 2.00 12/19/17 19:48 99.6 Orders Orders Iv Access Insert/Monitor (12/19/17 20:10) Complete Blood Count With Diff (12/19/17 20:10) Basic Metabolic Panel (Bmp) (12/19/17 20:10) Sodium Chlor 0.9% 1000 Ml Inj (Ns 1000 M (12/19/17 20:15) Hydromorphone Pf Inj (Dilaudid Pf Inj) (12/19/17 20:15) Promethazine Inj (Phenergan Inj) (12/19/17 20:15) Hydromorphone Pf Inj (Dilaudid Pf Inj) (12/19/17 20:45) Hydromorphone Pf Inj (Dilaudid Pf Inj) (12/19/17 20:45) Insulin Human Regular Inj (Novolin R Inj (12/19/17 21:15) Urinalysis - C+S If Indicated (12/19/17 21:02) Bedside Glucose LARA.CSUGAR (12/19/17 21:34) Blood Glucose Goal (Criteria) (12/19/17 21:34) Hypoglycemia 70 Mg/Dl Or < (12/19/17 21:34) Notify Dr: Other (12/19/17 21:34) Dextrose 50% In Ozzy (Vial) Inj (D50w (Vi (12/19/17 21:45) Glucagon Inj (Glucagon Inj) (12/19/17 21:45) Insulin Aspart Supplemtl Scale (Novolog (12/20/17 08:00) Hemoglobin (Hgb) A1c (12/20/17 06:00) Consult Freight Rate Specialist (12/19/17 ) Place In Observation (12/19/17 ) Vital Signs (Adult) Q4H (12/19/17 21:34) Activity Oob Ad Neyda (12/19/17 21:34) Intake + Output LARA.QSHIFT (12/19/17 21:34) Diet 1800 Ada Cons Carb (12/20/17 Breakfast) Sodium Chlor 0.9% 1000 Ml Inj (Ns 1000 M (12/19/17 21:34) Sodium Chloride 0.9% Flush (Ns Flush) (12/19/17 21:45) Sodium Chloride 0.9% Flush (Ns Flush) (12/20/17 09:00) Comprehensive Metabolic Panel (12/20/17 06:00) Complete Blood Count With Diff (12/20/17 06:00) Case Management Consult (12/19/17 21:34) Pharmacologic Contraindication (12/19/17 21:34) Acetaminophen (Tylenol) (12/19/17 21:45) Hydromorphone Pf Inj (Dilaudid Pf Inj) (12/19/17 21:45) Oxycodone (Roxicodone) (12/19/17 21:45) Docusate Sodium-Senna (Mirna-Colace) (12/20/17 09:00) Magnesium Hydroxide Liq (Milk Of Magnesi (12/19/17 21:45) Sennosides (Senokot) (12/19/17 21:45) Bisacodyl Supp (Dulcolax Supp) (12/19/17 21:45) Lactulose Liq (Lactulose Liq) (12/19/17 21:45) Prochlorperazine Inj (Compazine Inj) (12/19/17 21:45) Diphenhydramine Inj (Benadryl Inj) (12/19/17 21:45) Amitriptyline (Elavil) (12/19/17 21:45) Apixaban (Eliquis) (12/20/17 09:00) Methadone (Dolophine) (12/20/17 09:00) Oxycodone (Roxicodone) (12/20/17 09:00) Hydromorphone Pf Inj (Dilaudid Pf Inj) (12/19/17 22:00) Urine Culture (12/19/17 20:00) Admit Order (Ed Use Only) (12/19/17 22:28) Labs Laboratory Tests Test 12/19/17 20:00 12/19/17 20:20 Urine Color YELLOW Urine Turbidity CLOUDY Urine pH 6.0 Urine Specific [place] LESS/EQUAL 1.005 Urine Protein NEG mg/dL Urine Glucose (UA) 1000 OR GREATER mg/dL Urine Ketones NEG mg/dL Urine Occult Blood LARGE Urine Nitrite NEG Urine Bilirubin NEG Urine Urobilinogen 0.2 MG/DL Urine Leukocyte Esterase NEG Urine RBC 0-3 /hpf Urine WBC 9-14 /hpf Urine WBC Clumps FEW Urine Squamous Epithelial Cells 0-5 /hpf Urine Bacteria MANY /hpf Microscopic Urinalysis Comment CULTURE INDICATED White Blood Count 12.8 TH/MM3 Red Blood Count 3.61 MIL/MM3 Hemoglobin 10.3 GM/DL Hematocrit 31.8 % Mean Corpuscular Volume 88.1 FL Mean Corpuscular Hemoglobin 28.6 PG Mean Corpuscular Hemoglobin Concent 32.5 % Red Cell Distribution Width 17.9 % Platelet Count 441 TH/MM3 Mean Platelet Volume 8.8 FL CBC Comment AUTO DIFF Differential Total Cells Counted 100 Neutrophils % (Manual) 52 % Lymphocytes % 39 % Monocytes % 6 % Eosinophils % 3 % Neutrophils # (Manual) 6.7 TH/MM3 Differential Comment FINAL DIFF MANUAL Platelet Estimate HIGH Platelet Morphology Comment NORMAL Target Cells 1+ Tear Drop Cells 1+ Ovalocytes 1+ Blood Urea Nitrogen 5 MG/DL Creatinine 0.98 MG/DL Random Glucose 390 MG/DL Calcium Level 8.2 MG/DL Sodium Level 136 MEQ/L Potassium Level 4.2 MEQ/L Chloride Level 105 MEQ/L Carbon Dioxide Level 22.8 MEQ/L Anion Gap 8 MEQ/L Estimat Glomerular Filtration Rate 79 ML/MIN [facility] Medical Decision Making Medical Screen Exam Complete: Yes Emergency Medical Condition: Yes Medical Record Reviewed: Yes Differential Diagnosis Sickle pain, narcotic withdrawal, narcotic seeking behavior, gastroenteritis Narrative Course I have reviewed the patient's electronic medical record. Patient is a frequent visitor for sickle cell issues. 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 CBC is good for her with hemoglobin of 10.3 Metabolic studies reveal sugar of 390 which is unexpected. She has no history of diabetes. She has only eaten a bowl of cereal in the last 4 hours. We had a discussion. Not possible to diagnose diabetes definitively with one isolated sugar but this is very suspicious. She is frail with sickle cell and other chronic issues. She does not have a primary care physician to manage this. I gave her 8 units IV regular insulin and 1 L normal saline IV bolus I gave her medication for pain and nausea for her sickle cell I reviewed with the hospitalist and she will be in observation for new onset diabetes and sickle cell disease Diagnosis Primary Impression: New onset type 2 diabetes mellitus Additional Impression: Sickle cell anemia Qualified Codes: D57.1 - Sickle-cell disease without crisis Admitting Information Admitting Physician Requests: Observation Carlos Malagon MD Dec 19, 2017 20:22
[2017-12-19 20:32] LABS: HEMATOCRIT 31.8 % (35.0-46.0); HEMOGLOBIN 10.3 GM/DL (11.6-15.3); MEAN CELL VOLUME 88.1 FL (80.0-100.0); MEAN CORPUSCULAR HEMOGLOBIN 28.6 PG (27.0-34.0); MEAN CORPUSCULAR HGB CONC 32.5 % (32.0-36.0); MEAN PLATELET VOLUME 8.8 FL (7.0-11.0); PLATELET COUNT 441 TH/MM3 (150-450); RED BLOOD COUNT 3.61 MIL/MM3 (4.00-5.30); RED CELL DISTRIBUTION WIDTH 17.9 % (11.6-17.2); WHITE BLOOD COUNT 12.8 TH/MM3 (4.0-11.0)
[2017-12-19 20:35] VITALS: BP 128/66; PULSE 114; RESP 18; O2SAT 95
[2017-12-19 20:43] LABS: BICARBONATE 22.8 MEQ/L (21.0-32.0); CALCIUM 8.2 MG/DL (8.5-10.1)
[2017-12-19] MEDS ORDERED: HYDROmorphone HCL PF 0.5 MG/0.5 ML SYRINGE IV PUSH ONE ×2 (20:45)
[2017-12-19 20:47] LABS: CREATININE 0.98 MG/DL (0.50-1.00)
[2017-12-19] MEDS ORDERED: INSULIN HUMAN REGULAR 1,000 UNITS/10 ML VIAL IV PUSH ONE (21:15)
[2017-12-19 21:22] VITALS: BP 125/61; PULSE 104; RESP 18; O2SAT 98
[2017-12-19 21:27] LABS: LYMPHOCYTES 39 % (9-44); MONOCYTES 6 % (0-8); NEUTROPHIL # MANUAL DIFF 6.7 TH/MM3 (1.8-7.7); POLYS (SEG NEUTROPHILS) 52 % (16-70)
[2017-12-19 21:28] LABS: OVALOCYTES 1+ (NORMAL); TARGET CELLS 1+ (NORMAL); TEARDROP RBCS 1+ (NORMAL)
[2017-12-19] MEDS ORDERED: DEXTROSE 50% IN WATER 50 ML VIAL(D50) IV PUSH PRN (21:45)
[2017-12-19] MEDS ORDERED: HYDROmorphone HCL PF 1 MG/ML VIAL IV PUSH PRN (21:45)
[2017-12-19] MEDS ORDERED: MAGNESIUM HYDROXIDE SUSP 30 ML CUP PO PRN (21:45)
[2017-12-19] MEDS ORDERED: SENNOSIDES 8.6 MG TAB PO PRN (21:45)
[2017-12-19] MEDS ORDERED: LACTULOSE SYRUP 20 GM/30 ML CUP PO PRN (21:45)
[2017-12-19] MEDS ORDERED: BISACODYL 10 MG SUPP RECTAL PRN (21:45)
[2017-12-19] MEDS ORDERED: GLUCAGON 1 MG/ML VIAL OTHER PRN (21:45)
[2017-12-19] MEDS ORDERED: PROCHLORPERAZINE INJ 10 MG/2 ML VIAL IV PUSH PRN (21:45)
[2017-12-19 21:49] LABS: BILIRUBIN, URINE NEG (NEG); BLOOD, URINE LARGE (NEG); GLUCOSE,URINE 1000 OR GREATER mg/dL (NEG); KETONE, URINE NEG (NEG); NITRITE,URINE NEG (NEG); URINE COLOR YELLOW (YELLW/STRAW); URINE LEUKOCYTE ESTERASE NEG (NEG)
[2017-12-19] MEDS: SODIUM CHLOR 0.9% 1000 ML INJ 1,000 ML IV SCH (21:54)
[2017-12-19] MEDS: AMITRIPTYLINE HCL 25 MG TAB PO SCH (21:57)
[2017-12-19] MEDS: HYDROmorphone HCL PF 2 MG/ML VIAL IV PUSH PRN (21:57)
[2017-12-19 22:16] LABS: RBC, URINE 0-3 /hpf (0-3)
[2017-12-19 22:17] LABS: BACTERIA, URINE MANY /hpf; SQUAMOUS EPITHELIAL CELL URINE 0-5 /hpf (0-5); WHITE BLOOD CELL CLUMPS FEW
[2017-12-19 23:08] VITALS: BP 111/60; PULSE 94; O2SAT 99
[2017-12-19 23:45] VITALS: BP 103/55; PULSE 93; RESP 20; TEMP 97.5; O2SAT 100
[2017-12-20] VITALS (8 sets, daily range): BP systolic 93–121; BP diastolic 55–72; PULSE 91–116; RESP 18–20; TEMP 97.3–100.8; O2SAT 92–100
[2017-12-20] MEDS: diphenhydrAMINE HCL 50 MG/ML VIAL IV PUSH PRN ×5 (01:15→22:08)
[2017-12-20] MEDS: HYDROmorphone HCL PF 2 MG/ML VIAL IV PUSH PRN ×6 (01:17→22:08)
[2017-12-20] MEDS: SODIUM CHLOR 0.9% 1000 ML INJ 1,000 ML IV SCH ×2 (07:38→18:11)
[2017-12-20] MEDS: INSULIN ASPART SUPPLEMENTAL SCALE SQ SCH ×4 (07:39→21:04)
--- NOTE | 2017-12-20 07:39 | HHI.HP ---
HPI Service [facility] ([place], [place])ists Primary Care Physician Carline Silver MD Admission Diagnosis New onset DM, sickle cell Diagnoses: (1) New onset type 2 diabetes mellitus (2) Sickle cell anemia with crisis Chief Complaint: Diffuse pain Travel History International Travel<30 Days: No Contact w/Intl Traveler <30 Da: No Traveled to Known Affected Are: No History of Present Illness This is a pleasant 32-year-old female patient with a known medical history of sickle cell disease, history of PE on Eliquis who presented to the ED with complaints of diffuse pain. Patient states that she started her period yesterday and states that usually this can cause a crisis for her sickle cell. She does admit to diffuse pain, characterized as aching in nature. Also admits to several bouts of diarrhea yesterday. Does admit to dark colored urine. Is being managed by Dr. Silver for her sickle cell. Was last hospitalized end of October. Denies any changes to her medicines. Patient did present with a random glucose of 390. She denies ever having diabetes in the past. Does admit to a history of diabetes in her family. Denies any recent illness including fever, chills, cough, nausea, vomiting, dysuria. Review of Systems Constitutional: COMPLAINS OF: Fatigue, DENIES: Fever, Chills, Dizziness Eyes: DENIES: Diplopia Ears, nose, mouth, throat: DENIES: Vertigo Respiratory: DENIES: Cough, Sputum production, Shortness of breath Cardiovascular: DENIES: Chest pain Gastrointestinal: COMPLAINS OF: Diarrhea, DENIES: Black stools, Bloody stools, Constipation, Nausea, Vomiting Genitourinary: DENIES: Hematuria, Dysuria Hematologic/lymphatic: DENIES: Bruising Neurologic: DENIES: Abnormal gait Psychiatric: DENIES: Anxiety Except as stated in HPI: all other systems reviewed are Neg Past Family Social History Past Medical History History of pulmonary embolism on Eliquis Sickle cell disease Chronic narcotic therapy on methadone History of gallstones status post cholecystectomy Past Surgical History Port placement and removal in September 2014 Cholecystectomy Eye surgery 2 Reported Medications Active Eliquis (Apixaban) 2.5 Mg Tab 5 Mg PO DIRECTED 30 Days 10 mg po twice daily till 04/29/17- then 5 mg po twice daily. Reported Oxycodone (Oxycodone HCl) 5 Mg Cap 5 Mg PO DAILY Naprosyn (Naproxen) 500 Mg Tab 500 Mg PO BID Amitriptyline (Amitriptyline HCl) 25 Mg Tab 25 Mg PO HS Methadone (Methadone HCl) 10 Mg Tab 10 Mg PO DAILY Allergies: Coded Allergies: ketorolac (Verified Allergy, Severe, RASH, 12/19/17) metoclopramide (Verified Allergy, Severe, RASH, 12/19/17) morphine (Verified Allergy, Severe, RASH, 12/19/17) ondansetron (Verified Allergy, Severe, RASH,ITCH, 12/19/17) Uncoded Allergies: CEFEPIME (Allergy, Severe, Hives., 08/09/16) . Active Ordered Medications Current Medications Medications (Trade) Dose Ordered Sig/Evi Route Start Time Stop Time Status Last Admin (D50w (Vial) Inj) 50 ml UNSCH PRN IV PUSH 12/19/17 21:45 (Glucagon Inj) 1 mg UNSCH PRN OTHER 12/19/17 21:45 (NovoLOG SUPPLEMENTAL SCALE) 1 ACHS SLIDING SCALE SQ 12/20/17 08:00 12/20/17 07:39 Sodium Chloride 1,000 ml @ 100 mls/hr Q10H IV 12/19/17 21:34 12/20/17 07:38 (NS Flush) 2 ml UNSCH PRN IV FLUSH 12/19/17 21:45 (NS Flush) 2 ml BID IV FLUSH 12/20/17 09:00 12/20/17 09:18 (Tylenol) 650 mg Q6H PRN PO 12/19/17 21:45 (Roxicodone) 10 mg Q4H PRN PO 12/19/17 21:45 12/19/17 23:07 (Mirna-Colace) 1 tab BID PO 12/20/17 09:00 12/20/17 08:28 (Milk Of Magnesia Liq) 30 ml Q12H PRN PO 12/19/17 21:45 (Senokot) 17.2 mg Q12H PRN PO 12/19/17 21:45 (Dulcolax Supp) 10 mg DAILY PRN RECTAL 12/19/17 21:45 (Lactulose Liq) 30 ml DAILY PRN PO 12/19/17 21:45 (Compazine Inj) 10 mg Q6H PRN IV PUSH 12/19/17 21:45 12/20/17 01:16 (Benadryl Inj) 25 mg Q4H PRN IV PUSH 12/19/17 21:45 12/20/17 08:28 (Elavil) 25 mg HS PO 12/19/17 21:45 12/19/17 21:57 (Eliquis) 5 mg DAILY PO 12/20/17 09:00 12/20/17 09:17 (Dolophine) 10 mg DAILY PO 12/20/17 09:00 12/20/17 09:17 (Roxicodone) 5 mg DAILY PO 12/20/17 09:00 12/20/17 08:28 (Dilaudid Pf Inj) 1 mg Q3H PRN IV PUSH 12/19/17 22:00 12/20/17 07:39 Family History Mother has history of diabetes. Social History No current tobacco or alcohol dependency, with several children independent with ADLs Physical Exam Vital Signs Vital Signs Date Time Temp Pulse Resp B/P (MAP) Pulse Ox O2 Delivery O2 Flow Rate FiO2 12/20/17 07:30 97.4 93 20 116/72 (87) 97 12/20/17 04:00 97.3 91 20 93/65 (74) 97 12/19/17 23:45 97.5 93 20 103/55 (71) 100 12/19/17 23:31 12/19/17 23:08 94 111/60 (77) 99 Nasal Cannula 2.00 12/19/17 21:22 104 18 125/61 (82) 98 Nasal Cannula 2.00 12/19/17 20:35 114 18 128/66 (86) 95 Room Air 12/19/17 20:33 115 18 95 Room Air 12/19/17 19:48 99.6 120 18 128/78 (95) 99 Physical Exam GENERAL: Well-developed, well-nourished overweight female patient in [facility]. SKIN: Warm and dry. No rash. HEAD: Normocephalic. Atraumatic. EYES: Pupils equal and round. No scleral icterus. No injection or drainage. ENT: No nasal bleeding or discharge. Mucous membranes pink and moist. NECK: Supple. Trachea midline. CARDIOVASCULAR: Regular rate and rhythm. S1, S2 noted. No murmur appreciated. RESPIRATORY: No accessory muscle use. Clear to auscultation. Breath sounds equal bilaterally. GASTROINTESTINAL: Abdomen soft, non-tender, nondistended. Normoactive bowel sounds x4. MUSCULOSKELETAL: No obvious deformities. Extremities without clubbing, cyanosis , or edema. NEUROLOGICAL: Awake and alert. No obvious cranial nerve deficits. Motor grossly within normal limits. 5/5 muscle strength in bilateral upper and lower extremities. Normal speech. PSYCHIATRIC: Appropriate mood and affect; insight and judgment normal. Laboratory Laboratory Tests Test 12/19/17 20:00 12/19/17 20:20 Urine Color YELLOW Urine Turbidity CLOUDY Urine pH 6.0 Urine Specific [place] LESS/EQUAL 1.005 Urine Protein NEG Urine Glucose (UA) 1000 OR GREATER Urine Ketones NEG Urine Occult Blood LARGE Urine Nitrite NEG Urine Bilirubin NEG Urine Urobilinogen 0.2 Urine Leukocyte Esterase NEG Urine RBC 0-3 Urine WBC 9-14 Urine WBC Clumps FEW Urine Squamous Epithelial Cells 0-5 Urine Bacteria MANY Microscopic Urinalysis Comment CULTURE INDICATED White Blood Count 12.8 Red Blood Count 3.61 Hemoglobin 10.3 Hematocrit 31.8 Mean Corpuscular Volume 88.1 Mean Corpuscular Hemoglobin 28.6 Mean Corpuscular Hemoglobin Concent 32.5 Red Cell Distribution Width 17.9 Platelet Count 441 Mean Platelet Volume 8.8 CBC Comment AUTO DIFF Differential Total Cells Counted 100 Neutrophils % (Manual) 52 Lymphocytes % 39 Monocytes % 6 Eosinophils % 3 Neutrophils # (Manual) 6.7 Differential Comment FINAL DIFF MANUAL Platelet Estimate HIGH Platelet Morphology Comment NORMAL Target Cells 1+ Tear Drop Cells 1+ Ovalocytes 1+ Blood Urea Nitrogen 5 Creatinine 0.98 Random Glucose 390 Calcium Level 8.2 Sodium Level 136 Potassium Level 4.2 Chloride Level 105 Carbon Dioxide Level 22.8 Anion Gap 8 Estimat Glomerular Filtration Rate 79 Date/Time Source Procedure Growth Status 12/19/17 20:00 Urine Clean Catch Urine Culture Pending Received Result Diagram: 12/19/17201912/19/172019 Septic Shock Reassessment Septic shock perfusion: reassessment completed Caprini VTE Risk Assessment Caprini VTE Risk Assessment: No/Low Risk (score <= 1) Caprini Risk Assessment Model Point Value = 1 Point Value = 2 Point Value = 3 Point Value = 5 Age 41-60 Minor surgery BMI > 25 kg/m2 Swollen legs Varicose veins or History of unexplained or recurrent spontaneous Oral contraceptives or hormone replacement Sepsis (< 1 month) Serious lung disease, including pneumonia (< 1 month) Abnormal pulmonary function Acute myocardial infarction Congestive heart failure (< 1 month) History of inflammatory bowel disease Medical patient at bed rest Age 61-74 Arthroscopic surgery Major open surgery (> 45 min) Laparoscopic surgery (> 45 min) Malignancy Confined to bed (> 72 hours) Immobilizing plaster cast Central venous access Age >= 75 History of VTE Family history of VTE Factor V Leiden Prothrombin [id number] Lupus anticoagulant Anticardiolipin antibodies Elevated serum homocysteine Heparin-induced thrombocytopenia Other congenital or acquired thrombophilia Stroke (< 1 month) Elective arthroplasty Hip, pelvis, or leg fracture Acute spinal cord injury (< 1 month) Prophylaxis Regimen Total Risk Factor Score Risk Level Prophylaxis Regimen 0-1 Low Early ambulation 2 Moderate Order ONE of the following: *Sequential Compression Device (SCD) *Heparin 5000 units SQ BID 3-4 Higher Order ONE of the following medications: *Heparin 5000 units SQ TID *Enoxaparin/Lovenox 40 mg SQ daily (WT < 150 kg, CrCl > 30 mL/min) *Enoxaparin/Lovenox 30 mg SQ daily (WT < 150 kg, CrCl > 10-29 mL/min) *Enoxaparin/Lovenox 30 mg SQ BID (WT < 150 kg, CrCl > 30 mL/min) AND/OR *Sequential Compression Device (SCD) 5 or more Highest Order ONE of the following medications: *Heparin 5000 units SQ TID (Preferred with Epidurals) *Enoxaparin/Lovenox 40 mg SQ daily (WT < 150 kg, CrCl > 30 mL/min) *Enoxaparin/Lovenox 30 mg SQ daily (WT < 150 kg, CrCl > 10-29 mL/min) *Enoxaparin/Lovenox 30 mg SQ BID (WT < 150 kg, CrCl > 30 mL/min) AND *Sequential Compression Device (SCD) Assessment and Plan Problem List: (1) Sickle cell anemia with crisis ICD Code: D57.00 - Hb-SS disease with crisis Status: Acute (2) New onset type 2 diabetes mellitus ICD Code: E11.9 - Type 2 diabetes mellitus without complications Status: Acute Assessment and Plan This is a pleasant 32-year-old female patient with a known medical history of sickle cell disease, history of PE on Eliquis who presented to the ED with complaints of diffuse pain. Sickle cell anemia with crisis - Follows with Dr. Silver outpatient. - Continue IV hydration. Pain management as needed, Dilaudid IV for pain scale. Oxycodone her pain scale. Pain is well controlled at this time. - No evidence of acute chest syndrome. - Control nausea, compazine available as needed. - Supportive care. Elevated random glucose: Random glucose 390 on presentation. Was given IV insulin in ED. No history of diabetes. Will obtain hemoglobin A1c. Follow. Accu-Chek before meals at bedtime, sliding scale, cover as needed. ADA diet. Abnormal UA, patient was treated with Bactrim for outpatient UTI. Patient finished antibiotic on Thursday. Urine culture today showing presence of WBCs and bacteria. Will await urine culture. Start on prophylactic ABX. History of PE: Will continue home Eliquis. DVT prophylaxis: SCDs. Eliquis. Parris Martin Dec 20, 2017 07:39
[2017-12-20] MEDS: DOCUSATE SODIUM 50 MG/SENNA 8.6 MG TAB PO SCH ×2 (08:28→21:00)
[2017-12-20] MEDS: METHADONE HCL 10 MG TAB PO SCH (09:17)
[2017-12-20] MEDS: APIXABAN 2.5 MG TABLET PO SCH (09:17)
[2017-12-20] MEDS: SODIUM CHLORIDE 0.9% FLUSH 10 ML FLUSH IV FLUSH SCH ×2 (09:18→21:05)
[2017-12-20 09:40] LABS: AUTOMATED NEUTROPHIL # 6.5 TH/MM3 (1.8-7.7); BASOPHIL # 0.1 TH/MM3 (0-0.2); EOSINOPHIL # 0.5 TH/MM3 (0-0.4); EOSINOPHIL % 5.2 % (0.0-4.0); HEMATOCRIT 31.5 % (35.0-46.0); HEMOGLOBIN 9.9 GM/DL (11.6-15.3); LYMPH % 24.2 % (9.0-44.0); LYMPHOCYTE # 2.5 TH/MM3 (1.0-4.8); MEAN CELL VOLUME 89.4 FL (80.0-100.0); MEAN CORPUSCULAR HGB CONC 31.4 % (32.0-36.0); MEAN PLATELET VOLUME 8.8 FL (7.0-11.0); MONO % 7.3 % (0.0-8.0); MONOCYTE # 0.7 TH/MM3 (0-0.9); NEUT % 62.3 % (16.0-70.0); PLATELET COUNT 395 TH/MM3 (150-450); RED BLOOD COUNT 3.53 MIL/MM3 (4.00-5.30); WHITE BLOOD COUNT 10.3 TH/MM3 (4.0-11.0)
[2017-12-20 10:02] LABS: ALBUMIN 3.4 GM/DL (3.4-5.0); BICARBONATE 26.6 MEQ/L (21.0-32.0); CALCIUM 7.9 MG/DL (8.5-10.1); CHLORIDE 106 MEQ/L (98-107); SODIUM (NA) 140 MEQ/L (136-145)
[2017-12-20 10:10] LABS: ALKALINE PHOSPHATASE 93 U/L (45-117); ALT (GPT) 33 U/L (10-53); AST (GOT) 25 U/L (15-37); BLOOD UREA NITROGEN 3 MG/DL (7-18); CREATININE 0.71 MG/DL (0.50-1.00); GLOMERULAR FILTRATION RATE 115 ML/MIN (>89); GLUCOSE,RANDOM 160 MG/DL (74-106); TOTAL BILIRUBIN ADULT 0.8 MG/DL (0.2-1.0)
[2017-12-20 10:27] LABS: TARGET CELLS 3+ (NORMAL)
[2017-12-20] MEDS: cefTRIAXone INJ 1,000 MG in SODIUM CHLORIDE 0.9% INJ 100 ML IV SCH (11:35)
[2017-12-20] MEDS: AMITRIPTYLINE HCL 25 MG TAB PO SCH (21:05)
[2017-12-20] MEDS: ACETAMINOPHEN 325 MG TAB PO PRN (21:05)
[2017-12-20] MEDS: SODIUM CHLORIDE 0.9% FLUSH 10 ML FLUSH IV FLUSH PRN (22:09)
[2017-12-21] MEDS: HYDROmorphone HCL PF 2 MG/ML VIAL IV PUSH PRN ×4 (03:04→20:57)
[2017-12-21] MEDS: SODIUM CHLORIDE 0.9% FLUSH 10 ML FLUSH IV FLUSH PRN (03:05)
[2017-12-21] MEDS: diphenhydrAMINE HCL 50 MG/ML VIAL IV PUSH PRN ×4 (03:05→20:58)
[2017-12-21] MEDS: SODIUM CHLOR 0.9% 1000 ML INJ 1,000 ML IV SCH ×3 (03:11→20:54)
--- NOTE | 2017-12-21 07:59 | HHI.PR ---
Subjective Remarks Follow-up sickle cell crisis, elevated random glucose and UTI. Patient seen and examined, lying in bed awake, states she had a rough night with continued generalized pain. Pain is controlled when she receives the IV Dilaudid. States she did not sleep well. Eating well, denies any abdominal pain, nausea, vomiting or diarrhea. Denies any dysuria. TMAX overnight 100.8. Objective Vitals Vital Signs Date Time Temp Pulse Resp B/P (MAP) Pulse Ox O2 Delivery O2 Flow Rate FiO2 12/20/17 23:54 99.7 113 18 102/55 (71) 92 12/20/17 20:50 100.8 116 18 113/62 (79) 98 12/20/17 19:45 96 21 12/20/17 15:09 97.4 102 20 121/68 (85) 97 12/20/17 14:55 100 12/20/17 11:18 97.6 91 20 107/61 (76) 97 I/O 12/20/17 12/20/17 12/20/17 12/21/17 12/21/17 12/21/17 07:00 15:00 23:00 07:00 15:00 23:00 Intake Total 480 ml 960 ml 956 ml Balance 480 ml 960 ml 956 ml Intake Oral 480 ml 960 ml IV Total 956 ml # Voids 2 5 # Bowel Movements 0 Result Diagram: 12/20/1715 12/20/1715 Objective Remarks GENERAL: Well-developed, well-nourished overweight female patient in [facility]. C/o generalized pain SKIN: Warm and dry. No rash. HEAD: Normocephalic. Atraumatic. EYES: Pupils equal and round. No scleral icterus. No injection or drainage. ENT: No nasal bleeding or discharge. Mucous membranes pink and moist. NECK: Supple. Trachea midline. CARDIOVASCULAR: Regular rate and rhythm. S1, S2 noted. No murmur appreciated. RESPIRATORY: No accessory muscle use. Clear to auscultation. Breath sounds equal bilaterally. GASTROINTESTINAL: Abdomen soft, non-tender, nondistended. Normoactive bowel sounds x4. MUSCULOSKELETAL: No obvious deformities. Extremities without clubbing, cyanosis , or edema. NEUROLOGICAL: Awake and alert. No obvious cranial nerve deficits. Motor grossly within normal limits. 5/5 muscle strength in bilateral upper and lower extremities. Normal speech. PSYCHIATRIC: Appropriate mood and affect; insight and judgment normal. A/P Problem List: (1) Sickle cell anemia with crisis ICD Code: D57.00 - Hb-SS disease with crisis Status: Acute (2) New onset type 2 diabetes mellitus ICD Code: E11.9 - Type 2 diabetes mellitus without complications Status: Acute Assessment and Plan This is a pleasant 32-year-old female patient with a known medical history of sickle cell disease, history of PE on Eliquis who presented to the ED with complaints of diffuse pain. Sepsis Urinary tract infection, failed outpatient antibiotic therapy Community acquired pneumonia Meets criteria with fever, 100.8, tachycardia, leukocytosis WBC 12. 8 on presentation, source UTI and pneumonia. Lactic acid normal, 1.2. - Patient was treated with Bactrim for outpatient UTI. Finished antibiotic on Thursday. - Urine culture growing gram-negative renetta. Urine culture growing E. Coli. Sensitive to ceftriaxone. Continue. - WBC trending down today, 10.3. TMAX overnight 100.8. Blood cultures pending, follow growth. - Chest x-ray showing new mild infiltrate in the right upper lung. Will add Azithromycin. - Will continue IVF. Ensure hydration. Encourage PO intake. Sickle cell anemia with crisis - Follows with Dr. Silver outpatient. - Continue IV hydration. Pain management as needed, Dilaudid IV for pain scale. Oxycodone her pain scale. Pain is well controlled at this time. - No evidence of acute chest syndrome. - Control nausea, compazine available as needed. - Supportive care. Elevated random glucose - Random glucose 390 on presentation. - Was given IV insulin in ED. No history of diabetes. - Will obtain hemoglobin A1c, still pending. - Accu-Chek before meals at bedtime, sliding scale, cover as needed. - ADA diet. - Awaiting patient educator and dietitian today, input and recommendations pending. History of PE: Will continue home Eliquis. DVT prophylaxis: SCDs. Eliquis. Discharge Planning Awaiting clinical improvement of pain and resolution of fever., also pneumonia. Awaiting patient educator and dietitian today. Parris Martin Dec 21, 2017 07:59
[2017-12-21] MEDS: METHADONE HCL 10 MG TAB PO SCH (08:29)
[2017-12-21] MEDS: APIXABAN 2.5 MG TABLET PO SCH (08:29)
[2017-12-21] MEDS: ACETAMINOPHEN 325 MG TAB PO PRN (08:30)
[2017-12-21] MEDS: DOCUSATE SODIUM 50 MG/SENNA 8.6 MG TAB PO SCH ×2 (08:30→20:56)
[2017-12-21 08:58] VITALS: O2SAT 93
[2017-12-21] MEDS: SODIUM CHLORIDE 0.9% FLUSH 10 ML FLUSH IV FLUSH SCH ×2 (09:00→20:54)
[2017-12-21] MEDS: INSULIN ASPART SUPPLEMENTAL SCALE SQ SCH ×4 (10:52→20:58)
[2017-12-21] MEDS: cefTRIAXone INJ 1,000 MG in SODIUM CHLORIDE 0.9% INJ 100 ML IV SCH (10:55)
[2017-12-21 11:31] VITALS: BP 108/57; PULSE 105; RESP 18; TEMP 98.5; O2SAT 96
--- NOTE | 2017-12-21 12:43 | RADRPT ---
EXAM DATE: 12/21/2017 12:31 PM EDT AGE/SEX: 32 years / Female INDICATIONS: Chest pain. CLINICAL DATA: This is the patient's initial encounter. Patient reports that signs and symptoms have been present for 2 days and indicates a pain score of 7/10. MEDICAL/SURGICAL HISTORY: Sickle Cell disease. Diabetes mellitus type II. None. COMPARISON: [facility], CHEST SINGLE AP, 10/23/2017. . FINDINGS: New mild infiltrate in the right upper lung. Otherwise, the rest of the right lung is grossly clear. There is some mild linear atelectasis in the left lung base. No pleural effusions. The heart size is within normal limits. The bony structures are stable compared to the prior study. CONCLUSION: 1. New mild infiltrate in the right upper lung suggestive of pneumonia. 2. Mild platelike atelectasis in the left lung base. Electronically signed by: Swapnil Cortes MD 12/21/2017 12:42 PM EDT
[2017-12-21 15:58] VITALS: BP 123/70; PULSE 99; RESP 18; TEMP 98.1; O2SAT 95
[2017-12-21] MEDS ORDERED: AZITHROMYCIN INJ 500 MG in SODIUM CHLOR 0.9% 250 ML INJ 250 ML IV SCH (16:00)
[2017-12-21 19:55] VITALS: O2SAT 99
[2017-12-21 20:00] VITALS: BP 111/69; PULSE 97; RESP 20; TEMP 98.5; O2SAT 93
[2017-12-21] MEDS: AMITRIPTYLINE HCL 25 MG TAB PO SCH (20:56)
[2017-12-22] VITALS: BP 108/71; PULSE 107; RESP 20; TEMP 98.8; O2SAT 100
[2017-12-22] MEDS: HYDROmorphone HCL PF 2 MG/ML VIAL IV PUSH PRN ×2 (01:16→07:30)
[2017-12-22] MEDS: diphenhydrAMINE HCL 50 MG/ML VIAL IV PUSH PRN ×2 (01:16→07:33)
[2017-12-22] MEDS: SODIUM CHLORIDE 0.9% FLUSH 10 ML FLUSH IV FLUSH PRN (01:17)
[2017-12-22 03:50] VITALS: BP 119/67; PULSE 106; RESP 18; TEMP 99.8; O2SAT 92
[2017-12-22] MEDS: SODIUM CHLOR 0.9% 1000 ML INJ 1,000 ML IV SCH ×2 (07:37→16:58)
[2017-12-22 07:50] VITALS: BP 117/67; PULSE 102; RESP 18; TEMP 98.5; O2SAT 83; O2SAT 91
[2017-12-22] MEDS: INSULIN ASPART SUPPLEMENTAL SCALE SQ SCH ×4 (08:00→21:57)
[2017-12-22] MEDS: METHADONE HCL 10 MG TAB PO SCH (08:39)
[2017-12-22] MEDS: DOCUSATE SODIUM 50 MG/SENNA 8.6 MG TAB PO SCH ×2 (08:39→21:47)
[2017-12-22] MEDS: APIXABAN 2.5 MG TABLET PO SCH (08:40)
[2017-12-22] MEDS: SODIUM CHLORIDE 0.9% FLUSH 10 ML FLUSH IV FLUSH SCH ×2 (08:41→21:47)
[2017-12-22] MEDS: CEFUROXIME AXETIL 500 MG TAB PO SCH ×2 (09:49→21:47)
[2017-12-22] MEDS: AZITHROMYCIN 250 MG TAB PO SCH (09:49)
[2017-12-22 11:55] VITALS: BP 133/75; PULSE 112; RESP 18; TEMP 98.6
--- NOTE | 2017-12-22 13:16 | HHI.PR ---
Subjective Remarks Patient seen and examined today for follow-up on sickle cell, new onset diabetes. Patient resting comfortably in bed. Seems to be lethargic. Patient denies any new complaints. Patient is not wearing oxygen, O2 saturations appear to be doing well. Patient states that her right arm edema is typical since she had port placement. However she states that is larger than usual. Vital signs are stable, patient remains afebrile. Objective Vitals Vital Signs Date Time Temp Pulse Resp B/P (MAP) Pulse Ox O2 Delivery O2 Flow Rate FiO2 12/22/17 11:55 98.6 112 18 133/75 (94) 12/22/17 07:50 98.5 102 18 117/67 (84) 91 12/22/17 00:00 98.8 107 20 108/71 (83) 100 12/21/17 20:00 98.5 97 20 111/69 (83) 93 12/21/17 19:55 99 Nasal Cannula 2.00 12/21/17 15:58 98.1 99 18 123/70 (87) 95 I/O 12/21/17 12/21/17 12/21/17 12/22/17 12/22/17 12/22/17 07:00 15:00 23:00 07:00 15:00 23:00 Intake Total 956 ml 2 ml 840 ml 1106 ml Balance 956 ml 2 ml 840 ml 1106 ml Intake Oral 840 ml IV Total 956 ml 2 ml 1106 ml # Voids 3 3 # Bowel Movements 1 0 Result Diagram: 12/20/1715 12/20/17 0915 Objective Remarks GENERAL: Well-developed, well-nourished, in no acute distress. alert and orientated HEENT: Head is normocephalic without any lesions or masses noted. Facial features are symmetric. Eyes: Obvious abnormality of the left eye. Extraocular muscles are intact. NECK: Supple without any masses. Trachea midline no deviation. No JVD, CARDIAC: Regular rhythm, regular rate. S1/S2 are heard. No murmurs gallops or rubs. LUNGS: Clear to auscultation bilaterally. No wheeze, rhonchi or rales. No use of accessory muscles on inspiration or expiration. ABDOMEN: Soft, nontender. Nondistended. Bowel sounds heard in all 4 quadrants. No organomegaly or masses. Negative rebound, negative guarding EXTREMITIES: No edema, pulses are equal bilaterally. No cyanosis or clubbing. Right upper extremity does appear to be more edematous in the left upper extremity. NEUROLOGY: Mood and affect appear appropriate. Cranial nerves II through XII grossly intact. Moving all extremities, speech is clear Urinary Catheter: No Vascular Central Line Catheter: No A/P Assessment and Plan Sepsis, resolved -Patient met criteria with fever, tachycardia, leukocytosis, urinary tract infection, chest x-ray indicating right upper lung infiltrate -Patient was originally started on Rocephin, Zithromax -Blood cultures are negative for 1 day -Patient originally failed outpatient treatment for urinary tract infection with Bactrim, urine culture now with E. coli which Bactrim is resistant. New onset diabetes -Random glucose on presentation was 390 -Awaiting glycohemoglobin result for further treatment -Diabetic education, dietary consult have been performed -Diabetic diet -Accu-Cheks with sliding scale insulin Sickle cell anemia with possible crisis -Patient has not required any antiemetic for 2 days, she is tolerating diet. -Continue IV fluids -Discontinue IV pain medication -Continue patient's home medication methadone, oxycodone -Oxycodone as needed -Patient to follow-up with Dr. Silver upon discharge Right upper extremity edema -Patient does have history of pulmonary emboli and is on Eliquis -Patient indicates that she does get swelling in the right upper extremity secondary to her port placement -We will obtain ultrasound to rule out any further embolic event DVT prevention -Eliquis Discharge Planning Awaiting hemoglobin A1c for discharge planning. Carlos Tapia Dec 22, 2017 13:16
--- NOTE | 2017-12-22 15:55 | RADRPT ---
EXAM DATE: 12/22/2017 3:40 PM EDT AGE/SEX: 32 years / Female INDICATIONS: Right arm swelling. CLINICAL DATA: This is the patient's initial encounter. Patient reports that signs and symptoms have been present for 1 day and indicates a pain score of 0/10. MEDICAL/SURGICAL HISTORY: Sickle Cell disease. . Left eye vision loss. Glaucoma. Anti coagulant therapy. Pulmonary embolism. Pneumonia. Nephrolithiasis. MRSA. Arthritis. Blood transfusion . Cholecystectomy. section. Tubal ligation. Cardiac catheterization. Infusaport placemen t and removal. COMPARISON: No prior exams available for comparison. FINDINGS: The vessels are compressible and augmentation response is documented. No filling defects a re seen. The flow is phasic with respiration. Other: None. CONCLUSION: No venous thrombosis is identified in the right upper extremity. Electronically signed by: Sam Arroyo MD 12/22/2017 3:54 PM EDT
[2017-12-22 20:00] VITALS: BP 125/85; PULSE 98; RESP 20; TEMP 98.8; O2SAT 100
[2017-12-22 21:13] VITALS: O2SAT 93
[2017-12-22] MEDS: AMITRIPTYLINE HCL 25 MG TAB PO SCH (21:47)
[2017-12-23] VITALS: BP 119/81; PULSE 114; RESP 20; TEMP 97.1; O2SAT 96
[2017-12-23] MEDS: SODIUM CHLOR 0.9% 1000 ML INJ 1,000 ML IV SCH (05:04)
[2017-12-23 08:00] VITALS: BP 125/78; PULSE 76; RESP 18; TEMP 98.4; O2SAT 93
[2017-12-23] MEDS: INSULIN ASPART SUPPLEMENTAL SCALE SQ SCH (08:00)
[2017-12-23] MEDS: CEFUROXIME AXETIL 500 MG TAB PO SCH (08:09)
[2017-12-23] MEDS: AZITHROMYCIN 250 MG TAB PO SCH (08:10)
[2017-12-23] MEDS: APIXABAN 2.5 MG TABLET PO SCH (08:10)
[2017-12-23] MEDS: DOCUSATE SODIUM 50 MG/SENNA 8.6 MG TAB PO SCH (08:11)
[2017-12-23] MEDS: SODIUM CHLORIDE 0.9% FLUSH 10 ML FLUSH IV FLUSH SCH (08:11)
[2017-12-23] MEDS: METHADONE HCL 10 MG TAB PO SCH (08:11)
[2017-12-23] MEDS ORDERED: GLUCTES12 (08:25)
[2017-12-23] MEDS ORDERED: METF500T PO (08:25)
[2017-12-23] MEDS ORDERED: LANCETS1 MI1 (08:25)
[2017-12-23] MEDS ORDERED: CEFU1TAB20 PO (08:25)
[2017-12-23] MEDS ORDERED: AZIT250T3 PO (08:25)
--- NOTE | 2017-12-23 08:26 | HHI.DCPOC ---
Discharge Care Plan Diagnosis: (1) Sickle cell anemia (2) New onset type 2 diabetes mellitus (3) Pneumonia Goals to Promote Your Health * To prevent worsening of your condition and complications * To maintain your health at the optimal level Directions to Meet Your Goals Take your medications as prescribed Follow your dietary instruction Follow activity as directed Keep your appointments as scheduled Take your immunizations and boosters as scheduled If your symptoms worsen call your PCP, if no PCP go to Urgent Care Center or Emergency Room Smoking is Dangerous to Your Health. Avoid second hand smoke Call the 24-hour hour crisis hotline for domestic abuse at Carlos Tapia Dec 23, 2017 08:26
[2017-12-23 08:43] VITALS: O2SAT 95
--- NOTE | 2017-12-23 13:49 | HHI.DS ---
Discharge Summary Admission Date Dec 21, 2017 at 15:05 Discharge Date: Dec 23, 2017 Admitting Diagnosis New onset DM, sickle cell (1) Sickle cell anemia with crisis ICD Code: D57.00 - Hb-SS disease with crisis Status: Acute (2) New onset type 2 diabetes mellitus ICD Code: E11.9 - Type 2 diabetes mellitus without complications Status: Acute Procedures None Brief History - From Admission This is a pleasant 32-year-old female patient with a known medical history of sickle cell disease, history of PE on Eliquis who presented to the ED with complaints of diffuse pain. Patient states that she started her period yesterday and states that usually this can cause a crisis for her sickle cell. She does admit to diffuse pain, characterized as aching in nature. Also admits to several bouts of diarrhea yesterday. Does admit to dark colored urine. Is being managed by Dr. Silver for her sickle cell. Was last hospitalized end of October. Denies any changes to her medicines. Patient did present with a random glucose of 390. She denies ever having diabetes in the past. Does admit to a history of diabetes in her family. Denies any recent illness including fever, chills, cough, nausea, vomiting, dysuria. CBC/BMP: 12/20/17 0915 12/20/17 0915 Significant Findings Laboratory Tests Test 12/21/17 13:00 12/22/17 09:05 Imaging Last Impressions Upper Extremity Ultrasound 12/22/17 0000 Signed Impressions: CONCLUSION: No venous thrombosis is identified in the right upper extremity. Chest X-Ray 12/21/17 0000 Signed Impressions: CONCLUSION: 1. New mild infiltrate in the right upper lung suggestive of pneumonia. 2. Mild platelike atelectasis in the left lung base. PE at Discharge GENERAL: Well-developed, well-nourished, in no acute distress. alert and orientated HEENT: Head is normocephalic without any lesions or masses noted. Facial features are symmetric. Eyes: Obvious abnormality of the left eye. Extraocular muscles are intact. NECK: Supple without any masses. Trachea midline no deviation. No JVD, CARDIAC: Regular rhythm, regular rate. S1/S2 are heard. No murmurs gallops or rubs. LUNGS: Clear to auscultation bilaterally. No wheeze, rhonchi or rales. No use of accessory muscles on inspiration or expiration. ABDOMEN: Soft, nontender. Nondistended. Bowel sounds heard in all 4 quadrants. No organomegaly or masses. Negative rebound, negative guarding EXTREMITIES: No edema, pulses are equal bilaterally. No cyanosis or clubbing. Right upper extremity does appear to be more edematous in the left upper extremity. NEUROLOGY: Mood and affect appear appropriate. Cranial nerves II through XII grossly intact. Moving all extremities, speech is clear Hospital Course Is a 32-year-old female who is well-known to the hospital because of the recurrent admissions to the hospital for sickle cell complications. This time the patient did present to the emergency department because she has started her period the day before admissions and this usually caused her to go into sickle cell crisis. She started developing diffuse pain aching in nature with several bouts of diarrhea which are dark colored so he came to emergency department for evaluation. Patient had workup done in chest x-ray did indicate new right lung infiltrate. The patient was found to have a random glucose level 390. Because of the multiple abnormalities is recommended that the patient be admitted to the hospital for further evaluation and management. Patient was admitted with pain control to include her home medication methadone 10 mg daily and oxycodone 5 mg daily. Patient was also given additional oxycodone 10 mg every 4 hours as needed for pain. Patient did not require any medications for any nausea or vomiting. She tolerated a diet throughout her stay. Patient became very somnolent and lethargic with episodes of hypoxia secondary to the increase opiate medication. The as needed oxycodone was held with significant improvement of her respiratory status and mentation. The patient did have workup done for new onset diabetes, because of her sickle cell hemoglobin they were able to obtain a accurate hemoglobin A1c. Patient was counseled by dietary as well as fruit and vegetable parer. Patient only required minimal insulin during her stay in the hospital of 1 unit at a time. Patient be discharged home on metformin 500 mg twice daily. She is instructed to monitor her blood glucose before meals and at bedtime and keep a running log so she can presented to her primary medical doctor for any medication adjustments. Patient was started on empirical antibiotics include Rocephin and Zithromax for right upper lobe pneumonia. Patient tolerated treatment well and has been converted to p.o. medication Ceftin/Zithromax. Patient clinically stable this time and requesting discharge home. Patient is clinically stable we will plan discharge accordingly. Pt Condition on Discharge: Stable Discharge Disposition: Discharge Home Discharge Time: > 30 minutes Discharge Instructions DIET: Follow Instructions for: Diabetic Diet Activities you can perform: Regular-No Restrictions Follow up Referrals: Oncology/Hematology - 1 Week PCP Follow-up - 1 Week New Medications: Glucocom Test Strips (Glucocom Test Strips) 1 Judith Judith EA .XX DIRECTED for Blood Sugar Management, #1 Please check blood glucose beforemealsand at bedtime, document in log Lancets (Lancets) 1 Mis Mis EA .XX DIRECTED for Blood Sugar Management, #1 0 Refills Metformin (Metformin) 500 Mg Tab 500 MG PO BIDPC for Blood Sugar Management, #60 TAB 0 Refills Azithromycin (Azithromycin) 250 Mg Tab 500 MG PO DAILY for Infection for 5 Days, #10 TAB Cefuroxime (Cefuroxime) 500 Mg Tab 500 MG PO Q12HR for Infection for 7 Days, TAB Continued Medications: Amitriptyline (Amitriptyline) 25 Mg Tab 25 MG PO HS for Control Depression, #30 TAB 0 Refills Apixaban (Eliquis) 2.5 Mg Tab 5 MG PO DIRECTED for blood clot for 30 Days, TAB 0 Refills 10 mg po twice daily till 04/29/17- then 5 mg po twice daily. Methadone (Methadone) 10 Mg Tab 10 MG PO DAILY, TAB 0 Refills Naproxen (Naprosyn) 500 Mg Tab 500 MG PO BID, #60 TAB 0 Refills Oxycodone (Oxycodone) 5 Mg Cap 5 MG PO DAILY, CAP 0 Refills Carlos Tapia Dec 23, 2017 13:49
== END 2017-12-23 10:30 | disposition home or self-care (01) | DRG 871 ==
LOC: PHED 19:45 → PHEDA 22:30 → PH3B 23:40 → OBSVTOIN 12-21 15:05
PROVIDERS: ADMIT Hospitalist; ATTEND Hospitalist
DX: A41.9 Sepsis, unspecified organism (principal); J18.9 Pneumonia, unspecified organism; D57.00 Hb-SS disease with crisis, unspecified; N39.0 Urinary tract infection, site not specified; B96.20 Unspecified Escherichia coli [E. coli] as the cause of diseases classified elsewhere; E11.9 Type 2 diabetes mellitus without complications; H40.9 Unspecified glaucoma; R09.02 Hypoxemia; F41.9 Anxiety disorder, unspecified; M19.042 Primary osteoarthritis, left hand; M19.041 Primary osteoarthritis, right hand; R00.0 Tachycardia, unspecified; R11.0 Nausea; R60.0 Localized edema; Z83.3 Family history of diabetes mellitus; Z86.711 Personal history of pulmonary embolism; Z79.01 Long term (current) use of anticoagulants
CPT/HCPCS: 71045; 80048; 80053; 81001; 82948; 83036; 83605; 85007; 85025; 85027; 87040; 87077; 87086; 87186; 87205; 93971; J0456; J0696; J0780; J1170; J1200; J1815; J2550; J7030; J7050

== ENCOUNTER 2018-03-02 18:47 | Inpatient (IN) ==
[2018-03-02] MEDS ORDERED: HYDROmorphone PF Inj 2 MG/ML Vial IV.PUSH ONE (20:19)
[2018-03-02] MEDS ORDERED: Sodium Chlor 0.9% Inj 50 ML IV.SIG ONE (20:30)
[2018-03-02] MEDS ORDERED: Sod Chloride 0.9% Inj 1,000 ML IV.SIG SCH (20:30)
--- NOTE | 2018-03-02 20:34 | ED ---
HPI General Chief complaint: Sickle Cell Stated complaint: Sickle Cell/Back Pain x2days Time Seen by Provider: 03/02/18 20:31 Source: patient Mode of arrival: ambulatory Limitations: no limitations History of Present Illness Onset (ago): day(s) (2) Location: head, back and lower extremity (Both legs) Severity scale (1-10): 9 Quality: stabbing Pain Consistency: constant Relieving factors: none Exacerbating factors: none Associated symptoms: fever/chills Treatments prior to arrival: other (Methadone and oxycodone) Related Data Home Medications Medication Instructions Recorded Confirmed amitriptyline 25 mg PO HS 01/30/18 03/02/18 apixaban [Eliquis] 5 mg PO DAILY 01/30/18 03/02/18 metformin 500 mg PO BID 01/30/18 03/02/18 methadone 5 mg PO BID 01/30/18 03/02/18 oxycodone 5 mg PO BID 01/30/18 03/02/18 promethazine 25 mg PO Q4-6H PRN 01/30/18 03/02/18 Allergies Allergy/AdvReac Type Severity Reaction Status Date / Time ketorolac Allergy Severe RASH Verified 03/02/18 18:48 metoclopramide Allergy Severe RASH Verified 03/02/18 18:48 morphine Allergy Severe RASH Verified 03/02/18 18:48 ondansetron Allergy Severe RASH,ITCH Verified 03/02/18 18:48 CEFEPIME Allergy Severe Hives. Uncoded 03/02/18 18:48 Review of Systems ROS: all other systems reviewed are negative [facility] Medical History Medical History Diabetes mellitus (Acute) Heart murmur (Acute) History of blood product transfusion (Acute) Sickle cell anemia (Acute) Surgical History Surgical History H/O eye surgery (Acute) H/O tubal ligation (Acute) History of cholecystectomy (Acute) Previous section (Acute) Social History Social History Substance History: No History of Abuse Second Hand Smoke Exposure: No Smoking Status: Never smoker How Often Do You Have a Drink Containing Alcohol: Never Recent Travel in [facility] within the Last 8 Weeks: No Recent Out of Country Travel within the Last 8 Weeks: No Immunization History Tetanus Immunization: <5 Years Hx Influenza Vaccine This Season: No Exam Const General: cooperative, healthy appearing, comfortable, no acute distress and well developed Orientation: alert, awake and oriented x3 HENMT Head: normal to inspection, normocephalic and atraumatic Eyes Alignment and Position: alignment normal and position abnormal Conjunctivae: conjunctivae normal Sclera: sclerae normal Cornea: corneas abnormal (Left cornea is opaque) EOM: EOM intact bilaterally Neck Neck: normal visual inspection and full ROM Chest Chest: normal inspection of the chest Resp Effort & Inspection: normal respiratory effort and able to speak in complete sentences Auscultation: clear to auscultation bilaterally Cardio Rate: tachycardic Rhythm: regular rhythm GI Inspection: normal to inspection Palpation: soft Back/Spine/Pelvis Cervical Spine: cervical ROM normal and cervical muscular tenderness Thoracic/Lumbar Spine: thoraco-lumbar ROM normal and paraspinal tenderness Skin General: no rashes or lesions noted, turgor normal and dry skin Neuro General: alert, awake, oriented x3, moves all extremities and CN's II-XI intact bilaterally Extrem General: normal to inspection, full ROM and other (Diffuse tenderness to palpation of both lower extremities) Psych Appearance: grossly normal Mental Status: mental status grossly normal Speech and Movement: speech and movement normal Mood: congruent mood Affect: normal affect Attitude: cooperative Thought Process: normal Thought Content: normal Judgment: judgment good Course Consultations Consultation #1: Dr. Shahid Time: 22:12 Initial Documented Vital Signs Temperature 101.1 F H 03/02/18 18:48 Pulse Rate 116 H 03/02/18 18:48 Respiratory Rate 18 03/02/18 18:48 Blood Pressure 126/64 03/02/18 18:48 Pulse Oximetry 96 03/02/18 18:48 Last Documented Vital Signs Temperature 101.1 F H 03/02/18 18:48 Pulse Rate 116 H 03/02/18 18:48 Respiratory Rate 18 03/02/18 18:48 Blood Pressure 126/64 03/02/18 18:48 Pulse Oximetry 96 03/02/18 18:48 Medical Decision Making MDM Narrative Medical decision making narrative: This patient presents complaining with a 2 day history of sickle cell crisis. She was found to have a fever of 101 here. Chest x-ray and UA are pending as are her usual sickle cell crisis labs. She will be treated here with a fluid bolus. I have ordered Dilaudid 2 mg in a 50 cc bag over 30 minutes. She will be given Benadryl. Workup shows a leukocytosis, possible pneumonia and a urinary tract infection. She has been treated in the emergency department empirically with Rocephin and Zithromax. Medical Screen Exam Complete: Yes Emergency Medical Condition: Yes Differential Diagnosis Differential Diagnosis: My differential diagnosis of sickle cell disease includes but is not limited to vaso-occlusive crisis, acute chest syndrome, occult infection, electrolyte disturbance, drug-seeking behavior. Medical Records Medical records reviewed: Yes I reviewed the patient's medical records. In addition to sickle cell anemia, this patient has a history of diabetes and superior vena cava syndrome. She is on chronic anticoagulation with Eliquis. Lab Data Lab results reviewed: Yes I reviewed the patient's lab results. Result diagrams: 03/02/18 20:36 03/02/18 20:36 Lab Results 03/02/18 03/02/18 03/02/18 Range/Units 20:36 20:36 20:36 CBC w Diff Slide review pending WBC 18.9 H (4.0-11.0) th/mm3 RBC 3.74 L (4.00-5.30) mil/mm3 Hgb 10.4 L (11.6-15.3) gm/dL Hct 32.1 L (35.0-46.0) % MCV 85.9 (80.0-100.0) fL MCH 27.9 (27.0-34.0) pg MCHC 32.4 (32.0-36.0) % RDW 19.3 H (11.6-17.2) % Plt Count 478 H (150-450) th/mm3 MPV 8.3 (7.0-11.0) fL Neut % (Auto) 80.3 H (16.0-70.0) % Lymph % (Auto) 14.3 (9.0-44.0) % [place] % (Auto) 2.9 (0.0-8.0) % Eos % (Auto) 0.8 (0.0-4.0) % Baso % (Auto) 1.7 (0.0-2.0) % Neut # (Auto) 15.2 H (1.8-7.7) th/mm3 Lymph # (Auto) 2.7 (1.0-4.8) th/mm3 [place] # (Auto) 0.5 (0.0-0.9) th/mm3 Eos # (Auto) 0.2 (0.0-0.4) th/mm3 Baso # (Auto) 0.3 H (0.0-0.2) th/mm3 WBC Differential . Diff Scan Auto diff confirmed Differential Comment . Platelet Estimate High H (Normal) Platelet Morphology Normal (Normal) Target Cells 2+ H (None) Sodium 139 (136-145) meq/L Potassium 3.7 (3.5-5.1) meq/L Chloride 104 (98-107) meq/L Carbon Dioxide 30.4 (21.0-32.0) meq/L Anion Gap 5 (5-15) meq/L BUN 10 (7-18) mg/dL Creatinine 1.10 H (0.50-1.00) mg/dL Estimated GFR 69 L (>89) mL/min Random Glucose 82 (74-106) mg/dL Lactic Acid 1.0 (0.4-2.0) mmol/L Calcium 8.7 (8.5-10.1) mg/dL Total Bilirubin 1.7 H (0.2-1.0) mg/dL AST 23 (15-37) U/L ALT 31 (10-53) U/L Alkaline Phosphatase 108 (45-117) U/L Total Protein 8.5 H (6.4-8.2) g/dL Albumin 3.8 (3.4-5.0) g/dL Urine Color (Yellw/Straw) Urine Clarity (Clear) Urine pH (5.0-8.5) Ur Specific [place] (1.002-1.035) Urine Protein (Neg-Trace) mg/dL Urine Glucose (UA) (Negative) mg/dL Urine Ketones (Negative) mg/dL Urine Occult Blood (Negative) Urine Nitrate (Negative) Urine Bilirubin (Negative) Urine Urobilinogen (Less than 2) mg/dL Ur Leukocyte Esterase (Negative) Urine RBC (0-3) /hpf Urine WBC (0-5) /hpf Ur Squamous Epith Cells (0-5) /hpf Urine Bacteria (None) /hpf Micro UA Comment Ur Microscopic Review Urine Culture Comments 08/28/18 Range/Units 21:15 CBC w Diff WBC (4.0-11.0) th/mm3 RBC (4.00-5.30) mil/mm3 Hgb (11.6-15.3) gm/dL Hct (35.0-46.0) % MCV (80.0-100.0) fL MCH (27.0-34.0) pg MCHC (32.0-36.0) % RDW (11.6-17.2) % Plt Count (150-450) th/mm3 MPV (7.0-11.0) fL Neut % (Auto) (16.0-70.0) % Lymph % (Auto) (9.0-44.0) % [place] % (Auto) (0.0-8.0) % Eos % (Auto) (0.0-4.0) % Baso % (Auto) (0.0-2.0) % Neut # (Auto) (1.8-7.7) th/mm3 Lymph # (Auto) (1.0-4.8) th/mm3 [place] # (Auto) (0.0-0.9) th/mm3 Eos # (Auto) (0.0-0.4) th/mm3 Baso # (Auto) (0.0-0.2) th/mm3 WBC Differential Diff Scan Differential Comment Platelet Estimate (Normal) Platelet Morphology (Normal) Target Cells (None) Sodium (136-145) meq/L Potassium (3.5-5.1) meq/L Chloride (98-107) meq/L Carbon Dioxide (21.0-32.0) meq/L Anion Gap (5-15) meq/L BUN (7-18) mg/dL Creatinine (0.50-1.00) mg/dL Estimated GFR (>89) mL/min Random Glucose (74-106) mg/dL Lactic Acid (0.4-2.0) mmol/L Calcium (8.5-10.1) mg/dL Total Bilirubin (0.2-1.0) mg/dL AST (15-37) U/L ALT (10-53) U/L Alkaline Phosphatase (45-117) U/L Total Protein (6.4-8.2) g/dL Albumin (3.4-5.0) g/dL Urine Color Yellow (Yellw/Straw) Urine Clarity Cloudy H (Clear) Urine pH 6.0 (5.0-8.5) Ur Specific [place] 1.010 (1.002-1.035) Urine Protein Trace (Neg-Trace) mg/dL Urine Glucose (UA) Negative (Negative) mg/dL Urine Ketones Negative (Negative) mg/dL Urine Occult Blood Small H (Negative) Urine Nitrate Negative (Negative) Urine Bilirubin Negative (Negative) Urine Urobilinogen 0.2 (Less than 2) mg/dL Ur Leukocyte Esterase Moderate H (Negative) Urine RBC 0-3 (0-3) /hpf Urine WBC 51-189 H (0-5) /hpf Ur Squamous Epith Cells 0-5 (0-5) /hpf Urine Bacteria Many H (None) /hpf Micro UA Comment Culture indicated Ur Microscopic Review Microscopic reviewed Urine Culture Comments Culture indicated Imaging Data Attestation: I personally reviewed and interpreted this imaging study as follows : Radiologist's impression: Chest X-Ray 03/02/18 20:32 CONCLUSION: 1. Perihilar and bibasilar infiltrates are noted consistent with mild to moderate pulmonary vascular congestion versus pneumonia. Clinical correlation is recommended. 2. Mild cardiomegaly. 3. Sclerotic changes involving the humeral heads are again noted consistent with bony changes/infarcts related to sickle cell disease. Discharge Plan Discharge Disposition Patient Disposition: 30 Still Patient Discharge Details Diagnosis: Acute sickle cell crisis, Leukocytosis, Pneumonia, Urinary tract infection Physicians Team ED Provider: Rachel Baez Primary Care Provider: Carline Silver Rxs /Orders / Referrals /Forms Prescriptions: No Action metformin 500 mg Tablet 500 mg PO BID RF: 0 amitriptyline 25 mg Tablet 25 mg PO HS RF: 0 promethazine 25 mg Tablet 25 mg PO Q4-6H PRN (Reason: Nausea) RF: 0 methadone 5 mg Tablet 5 mg PO BID RF: 0 oxycodone 5 mg Tablet 5 mg PO BID RF: 0 apixaban [Eliquis] 5 mg Tablet 5 mg PO DAILY RF: 0 Status ED Status: With Doctor
[2018-03-02 20:57] LABS: Baso # (Auto) 0.3 th/mm3 (0.0-0.2); Baso % (Auto) 1.7 % (0.0-2.0); Eos # (Auto) 0.2 th/mm3 (0.0-0.4); Eos % (Auto) 0.8 % (0.0-4.0); Hematocrit 32.1 % (35.0-46.0); Hemoglobin 10.4 gm/dL (11.6-15.3); Lymph # (Auto) 2.7 th/mm3 (1.0-4.8); Lymph % (Auto) 14.3 % (9.0-44.0); Mean Corpuscular HGB Conc 32.4 % (32.0-36.0); Mean Corpuscular Hemoglobin 27.9 pg (27.0-34.0); Mean Corpuscular Volume 85.9 fL (80.0-100.0); Mean Platelet Volume 8.3 fL (7.0-11.0); Mono # (Auto) 0.5 th/mm3 (0.0-0.9); Mono % (Auto) 2.9 % (0.0-8.0); Neut # (Auto) 15.2 th/mm3 (1.8-7.7); Neut % (Auto) 80.3 % (16.0-70.0); Platelet Count 478 th/mm3 (150-450); Red Blood Count 3.74 mil/mm3 (4.00-5.30); Red Cell Distribution Width 19.3 % (11.6-17.2); White Blood Count 18.9 th/mm3 (4.0-11.0)
--- NOTE | 2018-03-02 20:59 | XR ---
EXAM DATE: 03/02/2018 8:54 PM EDT AGE/SEX: 32 years / Female INDICATIONS: . Short of breath. CLINICAL DATA: This is the patient's initial encounter. Patient reports that signs and symptoms have been present for 1 day and indicates a pain score of 0/10. MEDICAL/SURGICAL HISTORY: Diabetes mellitus type II. Sickle Cell disease. None. COMPARISON: . FINDINGS: Perihilar and bibasilar infiltrates are noted consistent with mild to moderate pulmonary vascular con gestion versus pneumonia. Clinical correlation is recommended. The heart is mildly prominent. Sclerot ic changes involving the humeral heads are again noted consistent with bony changes/infarcts related to sickle cell disease. CONCLUSION: 1. Perihilar and bibasilar infiltrates are noted consistent with mild to moderate pulmonary vascular congestion versus pneumonia. Clinical correlation is recommended. 2. Mild cardiomegaly. 3. Sclerotic changes involving the humeral heads are again noted consistent with bony changes/infarc ts related to sickle cell disease. Electronically signed by: James Robbins MD 03/02/2018 8:57 PM EDT
[2018-03-02 21:06] LABS: Chloride 104 meq/L (98-107); Potassium 3.7 meq/L (3.5-5.1); Sodium 139 meq/L (136-145)
[2018-03-02 21:09] LABS: Calcium 8.7 mg/dL (8.5-10.1)
[2018-03-02 21:10] LABS: Albumin 3.8 g/dL (3.4-5.0); Anion Gap 5 meq/L (5-15); Blood Urea Nitrogen 10 mg/dL (7-18); Carbon Dioxide 30.4 meq/L (21.0-32.0); Glucose,Random 82 mg/dL (74-106)
[2018-03-02 21:13] LABS: Alanine Aminotransferase 31 U/L (10-53); Aspartate Aminotransferase 23 U/L (15-37); Glomerular Filtration Rate 69 mL/min (>89)
[2018-03-02 21:14] LABS: Total Protein 8.5 g/dL (6.4-8.2)
[2018-03-02 21:16] LABS: Alkaline Phosphatase 108 U/L (45-117)
[2018-03-02 21:26] LABS: Target Cells 2+
[2018-03-02 21:27] LABS: Platelet Morphology Normal (Normal)
[2018-03-02] MEDS ORDERED: Azithromycin Inj 500 MG in Sodium Chlor 0.9% Inj 250 ML IV.SIG ONE (21:38)
[2018-03-02 21:57] LABS: Bilirubin,Urine Negative (Negative); Clarity,Urine Cloudy (Clear); Color,Urine Yellow (Yellw/Straw); Glucose,Urine (UA) Negative (Negative); Leukocyte Esterase,Urine Moderate (Negative); Nitrite,Urine Negative (Negative); Urobilinogen,Urine 0.2 mg/dL (Less than 2)
[2018-03-02 22:02] LABS: Bacteria,Urine Many /hpf; RBC,Urine 0-3 /hpf (0-3); Squamous Epithelial Cell,Urine 0-5 /hpf (0-5); WBC,Urine 51-189 /hpf (0-5)
[2018-03-02] MEDS ORDERED: Bisacodyl 10 MG Supp RECTAL PRN (22:19)
[2018-03-02 22:24] LABS: Reticulocyte Percent 4.8 % (0.4-3.0)
[2018-03-02] MEDS ORDERED: Naloxone Inj 0.4 MG/ML Vial IV.PUSH PRN (22:25)
[2018-03-02] MEDS: Sod Chloride 0.9% Inj 1,000 ML IV.CONT SCH (22:53)
[2018-03-03] MEDS: oxyCODONE/Acetaminophen 10/325 Tablet PO PRN ×4 (00:40→19:42)
[2018-03-03] MEDS: Methadone 10 MG Tablet PO SCH ×2 (08:31→20:45)
[2018-03-03] MEDS: Azithromycin 250 MG Tablet PO SCH (08:32)
[2018-03-03] MEDS: Sod Chloride 0.9% Inj 1,000 ML IV.CONT SCH ×3 (09:13→19:44)
--- NOTE | 2018-03-03 09:28 | P.HP ---
History of Present Illness Primary Care Physician: Carline Silver MD Chief Complaint: Generalized pain History of Present Illness: 32-year-old female with known history of sickle cell anemia, chronic narcotic use for pain management who presented to the hospital for evaluation of generalized pain. Patient states that it started 2 days ago and the pain progressively got worse she states that the pain is mainly located in her left lower back. Patient states that she did have some nausea without any vomiting. Denies any abdominal pain, diarrhea, constipation, melena, hematochezia. Patient had workup done emergency department and found multiple issues with sepsis, possible pneumonia, possible sickle cell crisis, urinary tract infection , patient was given Rocephin emergency department, started on IV fluids, pain control and recommended admission to the hospital for further evaluation and management. Upon seeing the patient this morning she is doing well. Resting in bed. She is eating breakfast without any nausea or vomiting. Patient denies any shortness of breath, difficulty breathing, fever, chills. Patient is requesting that we change her pain medication from Percocet to oxycodone. I did discuss with her that they are the same medication except for the addition of Tylenol. Notified her that she is getting 4 times the amount of oxycodone that she was in the outpatient setting. Patient does understand at this time. No further discussion was done after that. - Diagnosis (1) Sepsis (2) Acute sickle cell crisis (3) Leukocytosis (4) Pneumonia (5) Urinary tract infection Inpatient Certification: I certify that the inpatient services were ordered in accordance with Medicare regulations governing the order. This includes certification that hospital inpatient services are reasonable and necessary and in the case of services not specified as inpatient-only under 42 CFR 419.22(n), that they are appropriately provided as inpatient services in accordance to with the 2-midnight benchmark under 43 CFR 412.3(e) Estimated Total Length of Stay (Days): 3 Plans for Post Hospital Care: Home Review of Systems All other systems reviewed negative except as stated in HPI Cardiovascular: Reports chest pain Respiratory: Reports pain on inspiration PMFSH - History History Provided By: Patient - Medical History Medical History: Medical History (Last Updated 03/03/18 @ 09:38 by LILO Cabrales) Chronic narcotic use Glaucoma History of pulmonary embolism Mitral valve regurgitation Diabetes mellitus Heart murmur History of blood product transfusion Sickle cell anemia - Surgical History Surgical History: Surgical History (Last Updated 03/03/18 @ 09:38 by LILO Cabrales) History of D&C H/O eye surgery H/O tubal ligation History of cholecystectomy Previous section - Family History Family History: Family History (Last Updated 03/03/18 @ 09:46 by LILO Cabrales) Mother Family history of diabetes mellitus Other Family history of cancer - Tobacco History Second Hand Smoke Exposure: No Smoking Status: Never smoker - Alcohol History How Often Do You Have a Drink Containing Alcohol: Never - Substance Use History Substance History: No History of Abuse - Travel History Recent Travel in the [place] Within the Last 8 Weeks: No Recent Travel Out of the Country Within the Last 8 Weeks: No - Immunization History Tetanus Immunization: <5 Years Hx Influenza Vaccine This Season: No Medications and Allergies Active Medications: Active Medications Al Hydroxide/Mg Hydroxide (Milk Of Magnesia Liq) 30 ml PO Q12H PRN PRN Reason: Mild Constipation Amitriptyline HCl (Elavil) 25 mg PO HS [facility] Apixaban (Eliquis) 5 mg PO DAILY [facility] Last Admin: 03/03/18 08:32 Dose: 5 mg Azithromycin (Zithromax) 500 mg PO DAILY [facility] Last Admin: 03/03/18 08:32 Dose: 500 mg Bisacodyl (Dulcolax Supp) 10 mg RECTAL DAILY PRN PRN Reason: SEVERE CONSITIPATION Ceftriaxone Sodium 2,000 mg/ (Sodium Chloride) 100 mls @ 200 mls/hr IV.SIG Q24H [facility] Sodium Chloride (Ns Inj) 1,000 mls @ 150 mls/hr IV.CONT .Q6H40M [facility] Last Admin: 03/03/18 09:13 Dose: 100 mls/hr Lactulose (Lactulose Liq) 30 ml PO DAILY PRN PRN Reason: SEVERE CONSITIPATION Methadone HCl (Dolophine) 5 mg PO BID [facility] Last Admin: 03/03/18 08:31 Dose: 5 mg Naloxone HCl (Narcan Inj) 0.4 mg IV.PUSH UNSCH PRN PRN Reason: SEE LABEL COMMENTS Oxycodone/Acetaminophen (Percocet 10/325 Mg) 1 tab PO Q6H PRN PRN Reason: PAIN SCALE 6 TO 10 Last Admin: 03/03/18 06:37 Dose: 1 tab Oxycodone/Acetaminophen (Percocet 5/325 Mg) 1 tab PO Q6H PRN PRN Reason: PAIN SCALE 3 TO 5 Promethazine HCl (Phenergan) 25 mg PO Q4H PRN PRN Reason: Nausea Sennosides (Senokot) 17.2 mg PO Q12H PRN PRN Reason: Moderate Constipation Allergies Allergy/AdvReac Type Severity Reaction Status Date / Time ketorolac Allergy Severe RASH Verified 03/02/18 18:48 metoclopramide Allergy Severe RASH Verified 03/02/18 18:48 morphine Allergy Severe RASH Verified 03/02/18 18:48 ondansetron Allergy Severe RASH,ITCH Verified 03/02/18 18:48 CEFEPIME Allergy Severe Hives. Uncoded 03/02/18 18:48 Home Medications Medication Instructions Recorded Confirmed Type amitriptyline 25 mg PO HS 01/30/18 03/02/18 History apixaban [Eliquis] 5 mg PO DAILY 01/30/18 03/02/18 History metformin 500 mg PO BID 01/30/18 03/02/18 History methadone 5 mg PO BID 01/30/18 03/02/18 History oxycodone 5 mg PO BID 01/30/18 03/02/18 History promethazine 25 mg PO Q4-6H PRN 01/30/18 03/02/18 History Exam Vital signs: Vital Signs 03/02/18 18:48 03/02/18 22:41 03/03/18 00:00 Temperature 101.1 F H 99.9 F H Pulse Rate 116 H 92 H 91 H Respiratory Rate 18 20 16 Blood Pressure 126/64 106/58 L 101/56 L Pulse Oximetry 96 95 95 03/03/18 07:07 Temperature Pulse Rate Respiratory Rate 18 Blood Pressure Pulse Oximetry Intake & Output 03/02/18 03/03/18 03/03/18 18:59 06:59 18:59 Intake Total 1880 / 1880 1000 / 1000 Balance 1880 / 1880 1000 / 1000 Weight 105.8 kg 106.5 kg Intake: IV 1400 / 1400 1000 / 1000 NS Inj 1,000 ML @ 100 mls/hr IV 1000 / 1000 .CONT .Q10H PAT Rx#:[id number] Azithromycin Inj 500 MG In NS 250 / 250 Inj 250 ML @ 500 mls/hr IV.SIG ONCE ONE Rx#:[id number] NS Inj 1,000 ML @ 1000 mls/hr 1000 / 1000 IV.SIG .Q1H PAT Rx#:[id number] NS Inj 50 ML @ 100 mls/hr IV. 50 / 50 SIG ONCE ONE Rx#:[id number] Rocephin Inj 2,000 MG In NS Inj 100 / 100 100 ML @ 200 mls/hr IV.SIG ONCE ONE Rx#:[id number] Oral 480 / 480 Other: # Voids 3 Date of Last Bowel Movement 03/01/18 Weight On Admission 106.5 kg Narrative: GENERAL: Well-developed, well-nourished, in no acute distress. alert and orientated HEENT: Head is normocephalic without any lesions or masses noted. Facial features are symmetric. Eyes: Right pupil Pupils round reactive to light. Left pupil does have surgical abnormality. Extraocular muscles are intact. Conjunctivae were clear. Oropharyngeal: Pharynx without any erythema edema. Tongue is midline without deviation. Buccal mucosa is moist without any masses or lesions NECK: Supple without any masses. Trachea midline no deviation. No JVD, no bruits are appreciated CARDIAC: Regular rhythm, regular rate. S1/S2 are heard. No murmurs gallops or rubs. LUNGS: Clear to auscultation bilaterally. No wheeze, rhonchi or rales. No use of accessory muscles on inspiration or expiration. ABDOMEN: Soft, nontender. Nondistended. Bowel sounds heard in all 4 quadrants. No organomegaly or masses. Negative rebound, negative guarding EXTREMITIES: No edema, pulses are equal bilaterally. No cyanosis or clubbing NEUROLOGY: Mood and affect appear appropriate. Cranial nerves II through XII grossly intact. Muscle strength 5/5 in upper and lower extremities bilaterally. Deep tendon reflexes are 2+ in upper and lower extremities bilaterally. Results - Labs CBC & Chem 7: 03/02/18 20:36 03/02/18 20:36 Labs: Laboratory Results - last 24 hr 03/02/18 03/02/18 03/02/18 20:36 20:36 20:36 CBC w Diff Slide review pending WBC 18.9 H RBC 3.74 L Hgb 10.4 L Hct 32.1 L MCV 85.9 MCH 27.9 MCHC 32.4 RDW 19.3 H Plt Count 478 H MPV 8.3 Neut % (Auto) 80.3 H Lymph % (Auto) 14.3 [place] % (Auto) 2.9 Eos % (Auto) 0.8 Baso % (Auto) 1.7 Neut # (Auto) 15.2 H Lymph # (Auto) 2.7 [place] # (Auto) 0.5 Eos # (Auto) 0.2 Baso # (Auto) 0.3 H WBC Differential . Diff Scan Auto diff confirmed Differential Comment . Platelet Estimate High H Platelet Morphology Normal Target Cells 2+ H Retic Count 4.8 H Absolute Retic 174.5 H Sodium 139 Potassium 3.7 Chloride 104 Carbon Dioxide 30.4 Anion Gap 5 BUN 10 Creatinine 1.10 H Estimated GFR 69 L Random Glucose 82 Lactic Acid 1.0 Calcium 8.7 Total Bilirubin 1.7 H AST 23 ALT 31 Alkaline Phosphatase 108 Total Protein 8.5 H Albumin 3.8 Urine Color Urine Clarity Urine pH Ur Specific [place] Urine Protein Urine Glucose (UA) Urine Ketones Urine Occult Blood Urine Nitrate Urine Bilirubin Urine Urobilinogen Ur Leukocyte Esterase Urine RBC Urine WBC Ur Squamous Epith Cells Urine Bacteria Micro UA Comment Ur Microscopic Review Urine Culture Comments 03/02/18 21:15 CBC w Diff WBC RBC Hgb Hct MCV MCH MCHC RDW Plt Count MPV Neut % (Auto) Lymph % (Auto) [place] % (Auto) Eos % (Auto) Baso % (Auto) Neut # (Auto) Lymph # (Auto) [place] # (Auto) Eos # (Auto) Baso # (Auto) WBC Differential Diff Scan Differential Comment Platelet Estimate Platelet Morphology Target Cells Retic Count Absolute Retic Sodium Potassium Chloride Carbon Dioxide Anion Gap BUN Creatinine Estimated GFR Random Glucose Lactic Acid Calcium Total Bilirubin AST ALT Alkaline Phosphatase Total Protein Albumin Urine Color Yellow Urine Clarity Cloudy H Urine pH 6.0 Ur Specific [place] 1.010 Urine Protein Trace Urine Glucose (UA) Negative Urine Ketones Negative Urine Occult Blood Small H Urine Nitrate Negative Urine Bilirubin Negative Urine Urobilinogen 0.2 Ur Leukocyte Esterase Moderate H Urine RBC 0-3 Urine WBC 51-189 H Ur Squamous Epith Cells 0-5 Urine Bacteria Many H Micro UA Comment Culture indicated Ur Microscopic Review Microscopic reviewed Urine Culture Comments Culture indicated - Imaging Impressions Chest X-Ray 03/02/18 20:32 CONCLUSION: 1. Perihilar and bibasilar infiltrates are noted consistent with mild to moderate pulmonary vascular congestion versus pneumonia. Clinical correlation is recommended. 2. Mild cardiomegaly. 3. Sclerotic changes involving the humeral heads are again noted consistent with bony changes/infarcts related to sickle cell disease. Caprini VTE Risk Assessment Caprini VTE Risk Assessment: Moderate/High Risk (score >= 2) Caprini Risk Assessment Model: Point Value = 1 Point Value = 2 Point Value = 3 Point Value = 5 Age 41-60 Minor surgery BMI > 25 kg/m2 Swollen legs Varicose veins or History of unexplained or recurrent spontaneous Oral contraceptives or hormone replacement Sepsis (< 1 month) Serious lung disease, including pneumonia (< 1 month) Abnormal pulmonary function Acute myocardial infarction Congestive heart failure (< 1 month) History of inflammatory bowel disease Medical patient at bed rest Age 61-74 Arthroscopic surgery Major open surgery (> 45 min) Laparoscopic surgery (> 45 min) Malignancy Confined to bed (> 72 hours) Immobilizing plaster cast Central venous access Age >= 75 History of VTE Family history of VTE Factor V Leiden Prothrombin [id number] Lupus anticoagulant Anticardiolipin antibodies Elevated serum homocysteine Heparin-induced thrombocytopenia Other congenital or acquired thrombophilia Stroke (< 1 month) Elective arthroplasty Hip, pelvis, or leg fracture Acute spinal cord injury (< 1 month) Prophylaxis Regimen: Total Risk Factor Score Risk Level Prophylaxis Regimen 0-1 Low Early ambulation 2 Moderate Order ONE of the following: *Sequential Compression Device (SCD) *Heparin 5000 units SQ BID 3-4 Higher Order ONE of the following medications: *Heparin 5000 units SQ TID *Enoxaparin/Lovenox 40 mg SQ daily (WT < 150 kg, CrCl > 30 mL/min) *Enoxaparin/Lovenox 30 mg SQ daily (WT < 150 kg, CrCl > 10-29 mL/min) *Enoxaparin/Lovenox 30 mg SQ BID (WT < 150 kg, CrCl > 30 mL/min) AND/OR *Sequential Compression Device (SCD) 5 or more Highest Order ONE of the following medications: *Heparin 5000 units SQ TID (Preferred with Epidurals) *Enoxaparin/Lovenox 40 mg SQ daily (WT < 150 kg, CrCl > 30 mL/min) *Enoxaparin/Lovenox 30 mg SQ daily (WT < 150 kg, CrCl > 10-29 mL/min) *Enoxaparin/Lovenox 30 mg SQ BID (WT < 150 kg, CrCl > 30 mL/min) AND *Sequential Compression Device (SCD) Assessment and Plan - Assessment (1) Sepsis Code(s): A41.9 - Sepsis, unspecified organism Status: Acute (2) Acute sickle cell crisis Code(s): D57.00 - Hb-SS disease with crisis, unspecified Status: Acute (3) Leukocytosis Code(s): D72.829 - Elevated white blood cell count, unspecified Status: Acute (4) Pneumonia Code(s): J18.9 - Pneumonia, unspecified organism Status: Acute (5) Urinary tract infection Code(s): N39.0 - Urinary tract infection, site not specified Status: Acute - Plan Sepsis -Patient may criteria with leukocytosis, tachycardia, infection sources to include urinary tract infection and possible pneumonia -Blood cultures and urine culture are pending -Chest x-ray does indicate perihilar and bibasilar infiltrates -Patient started on Rocephin and Zithromax, which will cover for community acquired pneumonia as well as patient has history of E. coli urinary tract infections which are sensitive to Rocephin -Continue monitor CBC Sickle cell with possible exacerbation -Continue IV fluids -Continue pain control Chronic pain with narcotic use -Methadone was continued -Percocet every 6 hours as needed for pain DVT prevention -Patient is on Eliquis (3) Leukocytosis Qualifiers: Leukocytosis type: unspecified Qualified Code(s): D72.829 - Elevated white blood cell count, unspecified (4) Pneumonia Qualifiers: Pneumonia type: due to unspecified organism Laterality: bilateral Lung location: lower lobe of lung Qualified Code(s): J18.1 - Lobar pneumonia, unspecified organism (5) Urinary tract infection Qualifiers: Urinary tract infection type: site unspecified Hematuria presence: without hematuria Qualified Code(s): N39.0 - Urinary tract infection, site not specified
[2018-03-03 09:41] LABS: Baso # (Auto) 0.2 th/mm3 (0.0-0.2); Baso % (Auto) 1.2 % (0.0-2.0); Eos # (Auto) 0.2 th/mm3 (0.0-0.4); Eos % (Auto) 1.2 % (0.0-4.0); Hematocrit 26.4 % (35.0-46.0); Hemoglobin 9.1 gm/dL (11.6-15.3); Lymph # (Auto) 2.9 th/mm3 (1.0-4.8); Lymph % (Auto) 20.6 % (9.0-44.0); Mean Corpuscular HGB Conc 34.3 % (32.0-36.0); Mean Corpuscular Hemoglobin 28.8 pg (27.0-34.0); Mean Platelet Volume 8.4 fL (7.0-11.0); Mono # (Auto) 0.8 th/mm3 (0.0-0.9); Mono % (Auto) 5.9 % (0.0-8.0); Neut % (Auto) 71.1 % (16.0-70.0); Platelet Count 410 th/mm3 (150-450); Red Blood Count 3.14 mil/mm3 (4.00-5.30); Red Cell Distribution Width 19.3 % (11.6-17.2); White Blood Count 14.1 th/mm3 (4.0-11.0)
[2018-03-03 09:59] LABS: Chloride 107 meq/L (98-107); Potassium 3.6 meq/L (3.5-5.1); Sodium 141 meq/L (136-145)
[2018-03-03 10:00] LABS: Calcium 7.9 mg/dL (8.5-10.1)
[2018-03-03 10:01] LABS: Albumin 3.2 g/dL (3.4-5.0); Anion Gap 9 meq/L (5-15); Carbon Dioxide 25.5 meq/L (21.0-32.0)
[2018-03-03 10:09] LABS: Alanine Aminotransferase 25 U/L (10-53); Alkaline Phosphatase 100 U/L (45-117); Aspartate Aminotransferase 25 U/L (15-37); Blood Urea Nitrogen 8 mg/dL (7-18); Glomerular Filtration Rate 69 mL/min (>89); Glucose,Random 199 mg/dL (74-106); Total Protein 7.2 g/dL (6.4-8.2)
[2018-03-03 10:12] LABS: Ovalocytes 1+; Target Cells 2+
[2018-03-03] MEDS ORDERED: Amitriptyline 25 MG Tablet PO SCH (21:00)
--- NOTE | 2018-03-03 21:23 | ECG ---
Date Performed: 03/02/2018 Time Performed: 23:03:38 PTAGE: 32 years EKG: Sinus rhythm NONSPECIFIC T-WAVE ABNORMALITY BORDERLINE ECG PREVIOUS TRACING : 09/25/2017 02.07 Since the previous tracing, no significant change noted DOCTOR: Sathish Singleton Interpretating Date/Time 03/03/2018 21:22:07
[2018-03-04] MEDS: Sod Chloride 0.9% Inj 1,000 ML IV.CONT SCH ×3 (00:49→17:39)
[2018-03-04] MEDS: oxyCODONE/Acetaminophen 10/325 Tablet PO PRN ×3 (05:20→18:40)
[2018-03-04 06:32] LABS: Hematocrit 28.7 % (35.0-46.0); Hemoglobin 9.1 gm/dL (11.6-15.3); Mean Corpuscular HGB Conc 31.6 % (32.0-36.0); Mean Corpuscular Hemoglobin 27.3 pg (27.0-34.0); Mean Corpuscular Volume 86.5 fL (80.0-100.0); Mean Platelet Volume 8.7 fL (7.0-11.0); Platelet Count 409 th/mm3 (150-450); Red Blood Count 3.32 mil/mm3 (4.00-5.30); Red Cell Distribution Width 19.9 % (11.6-17.2); White Blood Count 11.9 th/mm3 (4.0-11.0)
[2018-03-04 06:42] LABS: Chloride 108 meq/L (98-107); Potassium 4.1 meq/L (3.5-5.1); Sodium 141 meq/L (136-145)
[2018-03-04 06:45] LABS: Calcium 8.2 mg/dL (8.5-10.1)
[2018-03-04 06:46] LABS: Anion Gap 7 meq/L (5-15); Blood Urea Nitrogen 6 mg/dL (7-18); Carbon Dioxide 26.3 meq/L (21.0-32.0); Glucose,Random 128 mg/dL (74-106)
[2018-03-04 06:49] LABS: Glomerular Filtration Rate Greater Than 89 mL/min (>89)
[2018-03-04 07:35] LABS: Eosinophils 8 % (0-4); Lymphocytes 49 % (9-44); Monocytes 4 % (0-8)
[2018-03-04 07:36] LABS: Platelet Estimate Normal (Normal); Platelet Morphology Normal (Normal)
[2018-03-04] MEDS: Methadone 10 MG Tablet PO SCH (09:15)
[2018-03-04] MEDS: Azithromycin 250 MG Tablet PO SCH (09:15)
--- NOTE | 2018-03-04 11:56 | P.PN ---
Subjective Interval history: 32-year-old female who is seen and examined today for follow-up on sickle cell, urinary tract infection, lung infiltrates. Patient is laying in bed comfortable. No longer requiring any oxygen. States that her pain is only as 6 out of 10 on a pain scale. Laboratory studies have improved. No significant change in hemoglobin. Urine culture has been resulted. Vital signs are stable. Patient remains afebrile. Physical Exam Vital signs: Vital Signs 03/03/18 12:00 03/03/18 12:54 03/03/18 16:00 Temperature 97.3 F L 97.1 F L Pulse Rate 80 77 Respiratory Rate 20 18 20 Blood Pressure 95/53 L 107/59 L Pulse Oximetry 94 L 100 03/03/18 20:00 03/03/18 22:00 03/04/18 00:00 Temperature 98.4 F 97.6 F 97.6 F Pulse Rate 79 133 H 82 Respiratory Rate 16 24 16 Blood Pressure 110/65 100/57 L 103/58 L Pulse Oximetry 95 87 L 93 L 03/04/18 08:00 Temperature 97.3 F L Pulse Rate 77 Respiratory Rate 20 Blood Pressure 110/68 Pulse Oximetry 97 Intake & Output 03/03/18 03/04/18 03/04/18 18:59 06:59 18:59 Intake Total 2461 / 2461 5100 / 5100 600 / 600 Output Total 400 / 400 Balance 2461 / 2461 5100 / 5100 200 / 200 Intake: IV 1999 / 1999 4100 / 4100 NS Inj 1,000 ML @ 150 mls/hr IV 1999 / 1999 4000 / 4000 .CONT .Q6H40M PAT Rx#: [id number] Rocephin Inj 2,000 MG In NS Inj 100 / 100 100 ML @ 200 mls/hr IV.SIG Q24H PAT Rx#:[id number] Oral 461 / 461 1000 / 1000 600 / 600 Output: Urine 400 / 400 Other: # Voids 2 2 Date of Last Bowel Movement 03/01/18 03/03/18 Narrative: GENERAL: Well-developed, well-nourished, in no acute distress. alert and orientated HEENT: Head is normocephalic without any lesions or masses noted. Facial features are symmetric. Eyes: Right pupil Pupils round reactive to light. Left pupil does have surgical abnormality. Extraocular muscles are intact. Conjunctivae were clear. NECK: Supple without any masses. Trachea midline no deviation. No JVD, CARDIAC: Regular rhythm, regular rate. S1/S2 are heard. No murmurs gallops or rubs. LUNGS: Clear to auscultation bilaterally. No wheeze, rhonchi or rales. No use of accessory muscles on inspiration or expiration. ABDOMEN: Soft, nontender. Nondistended. Bowel sounds heard in all 4 quadrants. No organomegaly or masses. Negative rebound, negative guarding EXTREMITIES: No edema, pulses are equal bilaterally. No cyanosis or clubbing NEUROLOGY: Mood and affect appear appropriate. Cranial nerves II through XII grossly intact. Moving all extremities, speech is clear Results - Labs CBC & Chem 7: 03/04/18 05:25 03/04/18 05:25 Laboratory Results - last 24 hr 03/02/18 03/04/18 03/04/18 21:15 05:25 05:25 CBC w Diff Slide review pending WBC 11.9 H RBC 3.32 L Hgb 9.1 L Hct 28.7 L MCV 86.5 MCH 27.3 MCHC 31.6 L RDW 19.9 H Plt Count 409 MPV 8.7 WBC Differential Manual diff final Seg Neuts % (Manual) 38 Lymphocytes % (Manual) 49 H Monocytes % (Manual) 4 Eosinophils % (Manual) 8 H Basophils % (Manual) 1 Abs Neuts (Manual) 4.5 Differential Comment . Platelet Estimate Normal Platelet Morphology Normal Sodium 141 Potassium 4.1 Chloride 108 H Carbon Dioxide 26.3 Anion Gap 7 BUN 6 L Creatinine 0.84 Estimated GFR Greater than 89 Random Glucose 128 H Calcium 8.2 L Urine Color Yellow Urine Clarity Cloudy H Urine pH 6.0 Ur Specific [place] 1.010 Urine Protein Trace Urine Glucose (UA) Negative Urine Ketones Negative Urine Occult Blood Small H Urine Nitrate Negative Urine Bilirubin Negative Urine Urobilinogen 0.2 Ur Leukocyte Esterase Moderate H Urine RBC 0-3 Urine WBC 51-189 H Ur Squamous Epith Cells 0-5 Urine Bacteria Many H Micro UA Comment Culture indicated Ur Microscopic Review Microscopic reviewed Urine Culture Comments Culture indicated Microbiology 03/02/18 20:36 Blood - Peripheral Aerobic Blood Culture - Preliminary No growth in 2 days 03/02/18 20:36 Blood - Peripheral Anaerobic Blood Culture - Preliminary No growth in 2 days 03/02/18 20:31 Blood - Peripheral Aerobic Blood Culture - Preliminary No growth in 2 days 03/02/18 20:31 Blood - Peripheral Anaerobic Blood Culture - Preliminary No growth in 2 days 03/02/18 21:15 Clean Catch Urine Urine Culture - Final Escherichia coli Multidrug Resistant Assessment and Plan - Assessment (1) Sepsis Code(s): A41.9 - Sepsis, unspecified organism Status: Acute (2) Acute sickle cell crisis Code(s): D57.00 - Hb-SS disease with crisis, unspecified Status: Acute (3) Leukocytosis Code(s): D72.829 - Elevated white blood cell count, unspecified Status: Acute (4) Pneumonia Code(s): J18.9 - Pneumonia, unspecified organism Status: Acute (5) Urinary tract infection Code(s): N39.0 - Urinary tract infection, site not specified Status: Acute - Plan Sepsis, resolved -Patient may criteria with leukocytosis, tachycardia, infection sources to include urinary tract infection and possible pneumonia -Blood cultures are negative -Urine culture indicating E. coli with multidrug resistance. -Chest x-ray does indicate perihilar and bibasilar infiltrates -Patient started on Rocephin and Zithromax, which will cover for community acquired pneumonia as well as patient has history of E. coli urinary tract infections which are sensitive to Rocephin -Continue monitor CBC, which leukocytosis has improved Sickle cell with possible exacerbation, improved -Continue IV fluids -Continue pain control Chronic pain with narcotic use -Methadone was continued -Percocet every 6 hours as needed for pain DVT prevention -Patient is on Eliquis Discharge Planning: Discharge home in stable condition Activity: Ad aguilar. Diet: Healthy heart diet Medication per medication reconciliation Follow-up with primary medical doctor in 1 week (3) Leukocytosis Qualifiers: Leukocytosis type: unspecified Qualified Code(s): D72.829 - Elevated white blood cell count, unspecified (4) Pneumonia Qualifiers: Pneumonia type: due to unspecified organism Laterality: bilateral Lung location: lower lobe of lung Qualified Code(s): J18.1 - Lobar pneumonia, unspecified organism (5) Urinary tract infection Qualifiers: Urinary tract infection type: site unspecified Hematuria presence: without hematuria Qualified Code(s): N39.0 - Urinary tract infection, site not specified
[2018-03-04 14:38] VITALS: RESP 19
[2018-03-04 18:19] VITALS: BP 115/65; PULSE 77; TEMP 98.7; O2SAT 96
== END 2018-03-04 20:11 | disposition home or self-care (01) ==
LOC: PHED 18:47 → PHEDA 22:19 → PH3 03-03 00:13
PROVIDERS: ADMIT Hospitalist; ATTEND Hospitalist

== ENCOUNTER 2018-06-15 09:31 | Inpatient (IN) ==
--- NOTE | 2018-06-15 10:04 | ED ---
HPI General Chief complaint: Sickle Cell Stated complaint: Sickle Cell x last night Time Seen by Provider: 06/15/18 09:50 History of Present Illness HPI narrative: Patient with hemoglobin SC disease, presents with increasing and severe generalized pain with fever over the past couple of days, along with sore throat, cough, congestion, and production of yellow to brownish intermittent sputum. This is worse than her typical pains, but she feels like she has flu symptoms, but she is hurting in her typical joints, primarily her lower back, abdomen, and lower extremities, but also has upper joint pain, neck pain, sore throat, along with cough and congestion. She has been having mild fever, only intermittently treated with [id number] antipyretics at home. She does not have any urinary symptoms. Related Data Home Medications Medication Instructions Recorded Confirmed amitriptyline 25 mg PO HS 01/30/18 06/15/18 apixaban [Eliquis] 5 mg PO DAILY 01/30/18 06/15/18 metformin 500 mg PO BID 01/30/18 06/15/18 methadone 5 mg PO BID 01/30/18 06/15/18 oxycodone 5 mg PO BID 01/30/18 06/15/18 promethazine 25 mg PO Q4-6H PRN 01/30/18 06/15/18 Allergies Allergy/AdvReac Type Severity Reaction Status Date / Time ketorolac Allergy Severe RASH Verified 06/15/18 09:56 metoclopramide Allergy Severe RASH Verified 06/15/18 09:56 morphine Allergy Severe RASH Verified 06/15/18 09:56 ondansetron Allergy Severe RASH,ITCH Verified 06/15/18 09:56 CEFEPIME Allergy Severe Hives. Uncoded 06/15/18 09:56 Review of Systems ROS: all other systems reviewed are negative Constitutional Reports as per HPI, Reports body ache(s), Reports chills, Reports fever(s), Reports headache(s), Reports lethargy, Reports malaise and Reports poor appetite ENT Denies sinus pain, Reports sore throat and Denies throat swelling Cardiovascular Denies chest pain and Denies dyspnea Respiratory Reports chest congestion, Denies dyspnea and Denies wheezing Gastrointestinal Reports abdominal pain, Denies melena and Reports nausea Genitourinary Denies dysuria Musculoskeletal Reports myalgias and Reports arthralgias Neurologic Reports system reviewed and no additional complaints, except as docu [facility] Social History Social History Substance History: No History of Abuse Second Hand Smoke Exposure: No Smoking Status: Never smoker How Often Do You Have a Drink Containing Alcohol: Never Recent Travel in [facility] within the Last 8 Weeks: No Recent Out of Country Travel within the Last 8 Weeks: No Exam Narrative Exam Narrative: GENERAL: Obese adult female, she is slightly diaphoretic and febrile, moderate acute distress, but resting quietly on stretcher, speaks easily, no respiratory distress. SKIN: Focused skin assessment warm/dry. HEAD: Atraumatic. Normocephalic. EYES: Pupils equal and round. No scleral icterus. No injection or drainage. ENT: No nasal bleeding or discharge. Mucous membranes pink and moist. NECK: Trachea midline. No JVD. CARDIOVASCULAR: Regular rate and rhythm. No murmur appreciated. RESPIRATORY: Lung sounds are essentially clear, with the exception of isolated right anterior and lateral inspiratory snaps, and occasional wheeze, no crackles. No accessory muscle use. Clear to auscultation. GASTROINTESTINAL: Abdomen soft, mild nonspecific soreness, but no localized pain , no rebound or guarding, nondistended. Hepatic and splenic margins not palpable. BACK: mild to moderate mid back discomfort to palpation, near CVA bilaterally MUSCULOSKELETAL: Generalized muscular tenderness to palpation all extremities no obvious deformities. No clubbing. No cyanosis. No edema. NEUROLOGICAL: Awake and alert. No obvious cranial nerve deficits. Motor grossly within normal limits. Normal speech. PSYCHIATRIC: Appropriate mood and affect; insight and judgment normal. Course Reevaluation(s) Reevaluation #1: Patient's labs are generally unremarkable, but still reports significant pain, with minimal relief after 2 rounds of Dilaudid. Oxygen saturation is stable, 95%, no respiratory distress, but with her history of pneumonia, I believe she will likely need hospitalization for IV antibiotics, rehydration, and pain control, as she is likely to fail outpatient treatment with oral therapy. Time: 12:07 Initial Documented Vital Signs Temperature 99.3 F 06/15/18 09:37 Pulse Rate 104 H 06/15/18 09:37 Respiratory Rate 18 06/15/18 09:37 Blood Pressure 151/98 H 06/15/18 09:37 Pulse Oximetry 97 06/15/18 09:37 Last Documented Vital Signs Temperature 99.3 F 06/15/18 09:37 Pulse Rate 80 06/15/18 13:09 Respiratory Rate 16 06/15/18 13:09 Blood Pressure 116/68 06/15/18 13:09 Pulse Oximetry 93 L 06/15/18 13:09 Medical Decision Making MDM Narrative Medical decision making narrative: Patient has sickle cell pain exacerbation, with findings compatible with right middle lobe pneumonia as well as UTI, and although labs are stable, patient has had poor control of pain, and will need hospitalization for IV antibiotics, and pain control, until she is more stable, and better pain control and can tolerate oral medications. Medical Screen Exam Complete: Yes Emergency Medical Condition: Yes Lab Data Result diagrams: 06/15/18 10:20 06/15/18 10:20 POC Results POC Urine Results Negative Lab Results 06/15/18 06/15/18 06/15/18 Range/Units 10:20 10:20 10:20 CBC w Diff Slide review pending WBC 14.3 H (4.0-11.0) th/mm3 RBC 3.56 L (4.00-5.30) mil/mm3 Hgb 10.1 L (11.6-15.3) gm/dL Hct 31.2 L (35.0-46.0) % MCV 87.7 (80.0-100.0) fL MCH 28.4 (27.0-34.0) pg MCHC 32.3 (32.0-36.0) % RDW 19.0 H (11.6-17.2) % Plt Count 566 H D (150-450) th/mm3 MPV 8.4 (7.0-11.0) fL WBC Differential Manual diff final Seg Neuts % (Manual) 55 (16-70) % Lymphocytes % (Manual) 33 (9-44) % Monocytes % (Manual) 9 H (0-8) % Eosinophils % (Manual) 3 (0-4) % Abs Neuts (Manual) 7.9 H (1.8-7.7) th/mm3 Nucleated RBCs/100 WBC 2 H (0-0) /100 WBC Differential Comment . Platelet Estimate High H (Normal) Platelet Morphology Normal (Normal) Sickle Cells 1+ H (None) Target Cells 2+ H (None) Tear Drop Cells 1+ H (None) Ovalocytes 1+ H (None) Acanthocytes (Spur) 1+ H (None) Sodium 141 (136-145) meq/L Potassium 4.0 (3.5-5.1) meq/L Chloride 108 H (98-107) meq/L Carbon Dioxide 24.4 (21.0-32.0) meq/L Anion Gap 9 (5-15) meq/L BUN 7 (7-18) mg/dL Creatinine 0.90 (0.50-1.00) mg/dL Estimated GFR 87 L (>89) mL/min Random Glucose 117 H (74-106) mg/dL Lactic Acid 1.3 (0.4-2.0) mmol/L Calcium 8.7 (8.5-10.1) mg/dL Total Bilirubin 0.7 (0.2-1.0) mg/dL AST 12 L (15-37) U/L ALT 21 (10-53) U/L Alkaline Phosphatase 108 (45-117) U/L Total Protein 8.6 H (6.4-8.2) g/dL Albumin 3.7 (3.4-5.0) g/dL Lipase 61 L (73-393) U/L Ur Collection Type Urine Color (Yellw/Straw) Urine Clarity (Clear) Urine pH (5.0-8.5) Ur Specific [place] (1.002-1.035) Urine Protein (Neg-Trace) mg/dL Urine Glucose (UA) (Negative) mg/dL Urine Ketones (Negative) mg/dL Urine Occult Blood (Negative) Urine Nitrate (Negative) Urine Bilirubin (Negative) Urine Urobilinogen (Less than 2) mg/dL Ur Leukocyte Esterase (Negative) Urine RBC (0-3) /hpf Urine WBC (0-5) /hpf Urine WBC Clumps (None) Ur Squamous Epith Cells (0-5) /hpf Urine Bacteria (None) /hpf Micro UA Comment Ur Microscopic Review Urine Culture Comments 06/15/18 Range/Units 11:58 CBC w Diff WBC (4.0-11.0) th/mm3 RBC (4.00-5.30) mil/mm3 Hgb (11.6-15.3) gm/dL Hct (35.0-46.0) % MCV (80.0-100.0) fL MCH (27.0-34.0) pg MCHC (32.0-36.0) % RDW (11.6-17.2) % Plt Count (150-450) th/mm3 MPV (7.0-11.0) fL WBC Differential Seg Neuts % (Manual) (16-70) % Lymphocytes % (Manual) (9-44) % Monocytes % (Manual) (0-8) % Eosinophils % (Manual) (0-4) % Abs Neuts (Manual) (1.8-7.7) th/mm3 Nucleated RBCs/100 WBC (0-0) /100 WBC Differential Comment Platelet Estimate (Normal) Platelet Morphology (Normal) Sickle Cells (None) Target Cells (None) Tear Drop Cells (None) Ovalocytes (None) Acanthocytes (Spur) (None) Sodium (136-145) meq/L Potassium (3.5-5.1) meq/L Chloride (98-107) meq/L Carbon Dioxide (21.0-32.0) meq/L Anion Gap (5-15) meq/L BUN (7-18) mg/dL Creatinine (0.50-1.00) mg/dL Estimated GFR (>89) mL/min Random Glucose (74-106) mg/dL Lactic Acid (0.4-2.0) mmol/L Calcium (8.5-10.1) mg/dL Total Bilirubin (0.2-1.0) mg/dL AST (15-37) U/L ALT (10-53) U/L Alkaline Phosphatase (45-117) U/L Total Protein (6.4-8.2) g/dL Albumin (3.4-5.0) g/dL Lipase (73-393) U/L Ur Collection Type Clean catch Urine Color Yellow (Yellw/Straw) Urine Clarity Slight H (Clear) Urine pH 6.0 (5.0-8.5) Ur Specific [place] 1.015 (1.002-1.035) Urine Protein Negative (Neg-Trace) mg/dL Urine Glucose (UA) Negative (Negative) mg/dL Urine Ketones Negative (Negative) mg/dL Urine Occult Blood Negative (Negative) Urine Nitrate Positive H (Negative) Urine Bilirubin Negative (Negative) Urine Urobilinogen 0.2 (Less than 2) mg/dL Ur Leukocyte Esterase Small H (Negative) Urine RBC 0-3 (0-3) /hpf Urine WBC 21-50 H (0-5) /hpf Urine WBC Clumps Few H (None) Ur Squamous Epith Cells 0-5 (0-5) /hpf Urine Bacteria Many H (None) /hpf Micro UA Comment Culture indicated Ur Microscopic Review Microscopic reviewed Urine Culture Comments Culture indicated Imaging Data Radiologist's impression: Chest X-Ray 06/15/18 09:57 CONCLUSION: Right midlung airspace disease. Scattered chronic changes. Sclerotic changes in both humeral heads characteristic of avascular process in this patient with a history of sickle cell. Discharge Plan Discharge Disposition Patient Disposition: ED Admit(ED Internal Use Only) Discharge Condition Condition: Stable Discharge Order Discharge Orders: ED Use Only Admit Order (Routine); Ordered 06/15/18 Ordered By: Vishal Salas Discharge Details Diagnosis: Pneumonia, Sickle cell crisis, Urinary tract infection Physicians Team ED Provider: Vishal Salas Primary Care Provider: Carline Silver Attending Provider: Chuy Child Status ED Status: Admitted Observation Patient
[2018-06-15] MEDS ORDERED: Acetaminophen 325 MG Tablet PO ONE (10:23)
--- NOTE | 2018-06-15 10:24 | XR ---
EXAM DATE: 06/15/2018 10:17 AM EST AGE/SEX: 32 years / Female INDICATIONS: Painful respirations. CLINICAL DATA: This is the patient's initial encounter. Patient reports that signs and symptoms have been present for 2 days and indicates a pain score of 7/10. MEDICAL/SURGICAL HISTORY: Sickle Cell disease. Left eye vision loss. Glaucoma. Anticoagulant th erapy. Pulmonary embolism. Heat murmur. Mitral valve regurgitation. Pneumonia. Nephrolithiasis. Arthr itis. Blood transfusion. Cholecystectomy. section. Tubal ligation. Cardiac catheterization. Infusaport placement and removal. . COMPARISON: [facility], CHEST 2V AP&LAT, 03/02/2018. . FINDINGS: Patchy airspace disease is identified in the right midlung. Scattered chronic appearing changes are i dentified. There is no evidence of pleural effusion. Heart and mediastinal structures are stable. Sclerotic changes are identified in both humeral heads. CONCLUSION: Right midlung airspace disease. Scattered chronic changes. Sclerotic changes in both humeral heads characteristic of avascular process in this patient with a hi story of sickle cell. Electronically signed by: Antonio Bunch MD 06/15/2018 10:23 AM EST
[2018-06-15 10:38] LABS: Hematocrit 31.2 % (35.0-46.0); Hemoglobin 10.1 gm/dL (11.6-15.3); Mean Corpuscular HGB Conc 32.3 % (32.0-36.0); Mean Corpuscular Hemoglobin 28.4 pg (27.0-34.0); Mean Corpuscular Volume 87.7 fL (80.0-100.0); Mean Platelet Volume 8.4 fL (7.0-11.0); Platelet Count 566 th/mm3 (150-450); Red Blood Count 3.56 mil/mm3 (4.00-5.30); White Blood Count 14.3 th/mm3 (4.0-11.0)
[2018-06-15 10:47] LABS: Chloride 108 meq/L (98-107); Sodium 141 meq/L (136-145)
[2018-06-15 10:50] LABS: Albumin 3.7 g/dL (3.4-5.0); Anion Gap 9 meq/L (5-15); Blood Urea Nitrogen 7 mg/dL (7-18); Calcium 8.7 mg/dL (8.5-10.1); Carbon Dioxide 24.4 meq/L (21.0-32.0); Glucose,Random 117 mg/dL (74-106); Lipase 61 U/L (73-393)
[2018-06-15] MEDS: HYDROmorphone PF Inj 2 MG/ML Vial IV.PUSH PRN ×8 (10:50→22:35)
[2018-06-15 10:53] LABS: Alanine Aminotransferase 21 U/L (10-53); Aspartate Aminotransferase 12 U/L (15-37); Glomerular Filtration Rate 87 mL/min (>89)
[2018-06-15 10:55] LABS: Total Protein 8.6 g/dL (6.4-8.2)
[2018-06-15 10:56] LABS: Alkaline Phosphatase 108 U/L (45-117)
[2018-06-15] MEDS ORDERED: Sod Chloride 0.9% Inj 1,000 ML IV.SIG ONE (11:03)
[2018-06-15 11:16] LABS: Eosinophils 3 % (0-4); Lymphocytes 33 % (9-44); Monocytes 9 % (0-8); Tallied Nucleated RBC 2 (0-0)
[2018-06-15 11:26] LABS: Acanthocytes 1+; Ovalocytes 1+; Target Cells 2+; Tear Drop Cells 1+
[2018-06-15 11:27] LABS: Platelet Morphology Normal (Normal); Sickle Cells 1+
[2018-06-15 12:14] LABS: Bilirubin,Urine Negative (Negative); Color,Urine Yellow (Yellw/Straw); Glucose,Urine (UA) Negative (Negative); Leukocyte Esterase,Urine Small (Negative); Nitrite,Urine Positive (Negative); Specific Gravity,Urine 1.015 (1.002-1.035); Urobilinogen,Urine 0.2 mg/dL (Less than 2)
[2018-06-15 12:20] LABS: Clarity,Urine Slight (Clear)
[2018-06-15 12:21] LABS: RBC,Urine 0-3 /hpf (0-3); Squamous Epithelial Cell,Urine 0-5 /hpf (0-5); WBC,Urine 21-50 /hpf (0-5)
[2018-06-15 12:22] LABS: Bacteria,Urine Many /hpf
[2018-06-15 13:44] LABS: Reticulocyte Percent 2.9 % (0.4-3.0)
[2018-06-15] MEDS ORDERED: Vancomycin Consult Pharmacy OTHER PRN (15:04)
[2018-06-15] MEDS: Sod Chloride 0.9% Inj 1,000 ML IV.CONT SCH (15:40)
[2018-06-15] MEDS ORDERED: Acetaminophen 325 MG Tablet PO PRN (16:00)
[2018-06-15] MEDS ORDERED: HYDROmorphone PF Inj 2 MG/ML Vial IV.PUSH PRN (16:00)
--- NOTE | 2018-06-15 16:21 | P.HPIM ---
History of Present Illness Primary Care Physician: Carline Silver MD Chief Complaint: Pain History of Present Illness: The patient is a 32-year-old female with a past medical history of sickle cell disease who is presenting to the hospital with generalized pain all over her body. She says she was last here in the hospital last month. She says this morning she developed worsening pain all over her body. She said she started throwing up this morning as well. She has had low-grade fevers. She has been experiencing a cough over the past week. She says her sputum has been green and brown in color. She says she normally has a pain medication regimen while in the hospital and is also on Benadryl for itching as she has a morphine allergy. She says she is on methadone on an outpatient basis. She would like to be seen by her spragger while here in the hospital. She says she is willing to try eating some food. She says she tried to deal with the pain at home but decided to come into the hospital for further management. Review of Systems All other systems reviewed negative except as stated in HPI PMFSH - History History Provided By: Patient - Medical History Medical History: Medical History (Last Updated 06/15/18 @ 16:12 by Chuy Child DO) Blind left eye Chronic narcotic use Diabetes mellitus Glaucoma Heart murmur History of blood product transfusion History of pulmonary embolism Mitral valve regurgitation Sickle cell anemia - Surgical History Surgical History: Surgical History (Last Reviewed 06/15/18 @ 16:12 by Chuy Child DO) H/O eye surgery H/O tubal ligation History of D&C History of cholecystectomy Previous section - Family History Family History: Family History (Last Reviewed 06/15/18 @ 16:12 by Chuy Child DO) Mother Family history of diabetes mellitus Other Family history of cancer - Social History I have reviewed the patient's Social History: Yes - Tobacco History Second Hand Smoke Exposure: No Smoking Status: Never smoker - Alcohol History How Often Do You Have a Drink Containing Alcohol: Never - Substance Use History Substance History: No History of Abuse - Travel History Recent Travel in the [facility] Within the Last 8 Weeks: No Recent Travel Out of the Country Within the Last 8 Weeks: No - Immunization History Tetanus Immunization: Unsure Medications and Allergies Active Medications: Active Medications Acetaminophen (Tylenol) 650 mg PO Q4H PRN PRN Reason: Temp > 100.4 Amitriptyline HCl (Elavil) 25 mg PO HS [facility] Apixaban (Eliquis) 5 mg PO DAILY [facility] Diphenhydramine HCl (Benadryl Inj) 25 mg IV.PUSH Q6H PRN PRN Reason: ITCHING Hydromorphone HCl (Dilaudid Pf Inj) 2 mg IV.PUSH Q2H PRN PRN Reason: BREAKTHROUGH PAIN Sodium Chloride (Ns Inj) 1,000 mls @ 100 mls/hr IV.CONT .Q10H [facility] Last Admin: 06/15/18 15:40 Dose: 100 mls/hr Piperacillin/Tazobactam/Dextrose (Zosyn 4.5 Gm Premix) 4.5 gm in 100 mls @ 200 mls/hr IV.SIG Q6H [facility] Pharmacy Profile Note (Vancomycin Consult Pharmacy) 1 each OTHER UNSCH PRN PRN Reason: Pharmacy to dose Senna/Docusate Sodium (Mirna-Colace) 1 tab PO BID [facility] Sodium Chloride (Ns Flush) 2 ml IV.FLUSH BID [facility] Sodium Chloride (Ns Flush) 2 ml IV.FLUSH PRN PRN PRN Reason: FLUSH AFTER USING IV ACCESS Allergies Allergy/AdvReac Type Severity Reaction Status Date / Time ketorolac Allergy Severe RASH Verified 06/15/18 09:56 metoclopramide Allergy Severe RASH Verified 06/15/18 09:56 morphine Allergy Severe RASH Verified 06/15/18 09:56 ondansetron Allergy Severe RASH,ITCH Verified 06/15/18 09:56 CEFEPIME Allergy Severe Hives. Uncoded 06/15/18 09:56 Home Medications Medication Instructions Recorded Confirmed Type amitriptyline 25 mg PO HS 01/30/18 06/15/18 History apixaban [Eliquis] 5 mg PO DAILY 01/30/18 06/15/18 History metformin 500 mg PO BID 01/30/18 06/15/18 History methadone 5 mg PO BID 01/30/18 06/15/18 History oxycodone 5 mg PO BID 01/30/18 06/15/18 History promethazine 25 mg PO Q4-6H PRN 01/30/18 06/15/18 History Exam Vital signs: Vital Signs 06/15/18 09:37 06/15/18 10:55 06/15/18 12:09 Temperature 99.3 F Pulse Rate 104 H 101 H 84 Respiratory Rate 18 18 18 Blood Pressure 151/98 H 116/83 116/83 Pulse Oximetry 97 93 L 96 06/15/18 13:09 06/15/18 14:28 Temperature Pulse Rate 80 84 Respiratory Rate 16 18 Blood Pressure 116/68 109/65 Pulse Oximetry 93 L 96 Intake & Output 06/14/18 06/15/18 06/15/18 18:59 06:59 18:59 Intake Total 1150 / 1150 Balance 1150 / 1150 Weight 105.5 kg Intake: IV 1150 / 1150 Levaquin 750 mg Premix Inj 150 150 / 150 ML @ 100 mls/hr IV.SIG ONCE ONE Rx#:[id number] NS Inj 1,000 ML @ Wide Open IV. 1000 / 1000 SIG BOLUS ONE Rx#:[id number] Narrative: GENERAL: NAD. SKIN: Focused skin assessment warm/dry. HEAD: Atraumatic. Normocephalic. EYES: Pupils equal and round. No scleral icterus. No injection or drainage. ENT: No nasal bleeding or discharge. Mucous membranes pink and moist. NECK: Trachea midline. No JVD. CARDIOVASCULAR: Regular rate and rhythm. No murmur appreciated. RESPIRATORY: Scattered rhonchi. GASTROINTESTINAL: Abdomen soft, no localized pain, no rebound or guarding, nondistended. Hepatic and splenic margins not palpable. MUSCULOSKELETAL: Generalized muscular tenderness to palpation all extremities, no obvious deformities. No clubbing. No cyanosis. TR edema. NEUROLOGICAL: Awake and alert. No obvious cranial nerve deficits. Motor grossly within normal limits. Normal speech. Results - Labs CBC & Chem 7: 06/15/18 10:20 06/15/18 10:20 Labs: Short CBC 06/15/18 Range/Units 10:20 WBC 14.3 H (4.0-11.0) th/mm3 Hgb 10.1 L (11.6-15.3) gm/dL Hct 31.2 L (35.0-46.0) % Plt Count 566 H D (150-450) th/mm3 BMP 06/15/18 10:20 Sodium 141 Potassium 4.0 Chloride 108 H Carbon Dioxide 24.4 BUN 7 Creatinine 0.90 Calcium 8.7 Liver Function 06/15/18 Range/Units 10:20 Total Bilirubin 0.7 (0.2-1.0) mg/dL AST 12 L (15-37) U/L ALT 21 (10-53) U/L Alkaline Phosphatase 108 (45-117) U/L Albumin 3.7 (3.4-5.0) g/dL Urine 06/15/18 Range/Units 11:58 Urine Color Yellow (Yellw/Straw) Urine Clarity Slight H (Clear) Urine pH 6.0 (5.0-8.5) Ur Specific [place] 1.015 (1.002-1.035) Urine Protein Negative (Neg-Trace) mg/dL Urine Glucose (UA) Negative (Negative) mg/dL - Imaging Impressions Chest X-Ray 06/15/18 09:57 CONCLUSION: Right midlung airspace disease. Scattered chronic changes. Sclerotic changes in both humeral heads characteristic of avascular process in this patient with a history of sickle cell. Caprini VTE Risk Assessment Caprini VTE Risk Assessment: Moderate/High Risk (score >= 2) Caprini Risk Assessment Model: Point Value = 1 Point Value = 2 Point Value = 3 Point Value = 5 Age 41-60 Minor surgery BMI > 25 kg/m2 Swollen legs Varicose veins or History of unexplained or recurrent spontaneous Oral contraceptives or hormone replacement Sepsis (< 1 month) Serious lung disease, including pneumonia (< 1 month) Abnormal pulmonary function Acute myocardial infarction Congestive heart failure (< 1 month) History of inflammatory bowel disease Medical patient at bed rest Age 61-74 Arthroscopic surgery Major open surgery (> 45 min) Laparoscopic surgery (> 45 min) Malignancy Confined to bed (> 72 hours) Immobilizing plaster cast Central venous access Age >= 75 History of VTE Family history of VTE Factor V Leiden Prothrombin [id number] Lupus anticoagulant Anticardiolipin antibodies Elevated serum homocysteine Heparin-induced thrombocytopenia Other congenital or acquired thrombophilia Stroke (< 1 month) Elective arthroplasty Hip, pelvis, or leg fracture Acute spinal cord injury (< 1 month) Prophylaxis Regimen: Total Risk Factor Score Risk Level Prophylaxis Regimen 0-1 Low Early ambulation 2 Moderate Order ONE of the following: *Sequential Compression Device (SCD) *Heparin 5000 units SQ BID 3-4 Higher Order ONE of the following medications: *Heparin 5000 units SQ TID *Enoxaparin/Lovenox 40 mg SQ daily (WT < 150 kg, CrCl > 30 mL/min) *Enoxaparin/Lovenox 30 mg SQ daily (WT < 150 kg, CrCl > 10-29 mL/min) *Enoxaparin/Lovenox 30 mg SQ BID (WT < 150 kg, CrCl > 30 mL/min) AND/OR *Sequential Compression Device (SCD) 5 or more Highest Order ONE of the following medications: *Heparin 5000 units SQ TID (Preferred with Epidurals) *Enoxaparin/Lovenox 40 mg SQ daily (WT < 150 kg, CrCl > 30 mL/min) *Enoxaparin/Lovenox 30 mg SQ daily (WT < 150 kg, CrCl > 10-29 mL/min) *Enoxaparin/Lovenox 30 mg SQ BID (WT < 150 kg, CrCl > 30 mL/min) AND *Sequential Compression Device (SCD) Assessment and Plan - Plan Sickle cell disease The patient has generalized pain all over her body. -Continue IV Dilaudid. -IV fluids. -Hematology consult pending. HCAP Imaging reveals right midlung airspace disease. -Continue IV vancomycin and Zosyn. -Incentive spirometry. -Oxygen and nebs as needed. -follow blood cultures and sputum culture. UTI UA indicative of an infection. -continue antibiotics as above and follow cultures. PPx: Sarah
[2018-06-15] MEDS: Piperacil/Tazo 4.5 GM Premix 4.5 GM/100 ML BAG IV.SIG SCH ×2 (17:08→22:35)
[2018-06-15] MEDS: Vancomycin Inj 1,750 MG in Sodium Chlor 0.9% Inj 500 ML IV.SIG SCH (17:41)
[2018-06-15] MEDS: Methadone 10 MG Tablet PO SCH (19:58)
[2018-06-15] MEDS: Senna/Docusate Sodium 8.6/50 MG Tablet PO SCH (20:03)
[2018-06-15] MEDS: Amitriptyline 25 MG Tablet PO SCH (20:03)
--- NOTE | 2018-06-15 20:35 | MB ---
cc: Carline Silver MD, Michael J DO DATE: 06/15/2018 REFERRING PHYSICIAN: Chuy Child DO CHIEF COMPLAINT: Dr. Child requests a consultation for Ms. Sullivan regarding vasoocclusive pain crisis associated with hemoglobin SE disease. HISTORY OF PRESENT ILLNESS: Ms. 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 Her MediPort has been removed. She remains on chronic anticoagulant therapy with Eliquis 5 mg b.i.d. Her course is further complicated by obesity and diabetes. She is on metformin. She has depression and on amitriptyline. She has frequent vasoocclusive pain symptoms that are managed at home. She has chronic pain for which she is on methadone and Dilaudid for breakthrough. She presented to the emergency room on 06/15/2018 with generalized pain, fever, cough, congestion. She has a daughter who is sick, who is in pre-K. Her daughter is in daycare and has frequent viral illnesses. She was also helping another sickle cell friend over the weekend. Chest x-ray from 06/15/2018 shows right mid lung airspace disease. She has scattered chronic changes. She has sclerotic changes in both humeral heads. She was admitted. Blood cultures were obtained. Results are still pending. She was started on antibiotic therapy. Labs on admission shows leukocytosis, hemoglobin of 10.3, platelet count of 410. Her platelet count increased to 566 during the admission. She denies any overt bleeding. She continues on Eliquis. She had her cycle end about 2 weeks ago. She says her vasoocclusive pain symptoms are starting to feel better since her admission. She was able to tolerate dinner. She denies any nausea or vomiting. She has no changes in bowel habits, no urinary complaints. PAST MEDICAL HISTORY: 1. Hemoglobin SE disease. 2. Chronic pain. 3. Obesity. 4. Diabetes. 5. Chronic anemia. 6. Reactive thrombocytosis. 7. Superior vena cava stenosis. PAST SURGICAL HISTORY: 1. Port placement and removal. 2. section. 3. Cholecystectomy. ALLERGIES: CEFEPIME, KETOROLAC, MORPHINE SULFATE, REGLAN, ZOFRAN MEDICATIONS FROM HOME: 1. Metformin. 2. Amitriptyline. 3. Folic acid. 4. Methadone 10 mg daily. 5. Oxycodone 5 mg p.o. q.6 hours p.r.n. pain. 6. Promethazine. CURRENT MEDICATIONS: 1. Tylenol p.r.n. 2. Amitriptyline. 3. Eliquis. 4. Benadryl p.r.n. 5. Dilaudid p.r.n. 6. Zosyn. 7. Vancomycin. PHYSICAL EXAMINATION: VITAL SIGNS: Temperature 97.5, heart rate 82, respiratory rate 19, blood pressure 114/76, saturation 92%. GENERAL: Ms. Sullivan is a well-developed, well-nourished, heavyset young woman. HEENT: Her pupils are round and reactive to light and accommodation. Sclerae are nonicteric. Oropharynx is clear. NECK: Supple. LUNGS: Clear. CARDIOVASCULAR: Reveals a normal rate and rhythm. ABDOMEN: Large and benign. EXTREMITIES: No edema. SKIN: She has dry skin. No periorbital edema. LABORATORY DATA: Significant for BUN of 7, creatinine 0.9, total protein 8.6. Hemoglobin 10.1, platelet count of 566. ASSESSMENT AND PLAN: Ms. Sullivan is a 32-year-old woman with hemoglobin SE disease and chronic pain. She is admitted with an acute vasoocclusive pain crisis associated with a pulmonary infection. She has a right lung infiltrate. Discussed at length her susceptibility for infection in light of her sickle cell. She has sick contacts with 4 sons and 1 daughter. She appears to be defervescing and improving on the antibiotic therapy. No red cell transfusion is needed. She typically maintains a good hemoglobin. She has reactive thrombocytosis. She has mild splenomegaly at times with a non-infarcted spleen from the SE disease. She has chronic pain, unfortunately. We have managed her pain with long-acting methadone with breakthrough. She is compliant about her followup at the oncology clinic. Unfortunately, we have been unable to wean her off of her pain medication. We discussed continuing supportive treatment with hydration. It is important that she continues her Eliquis 5 mg p.o. b.i.d. We are concerned about recurrence of her superior vena syndrome. We have avoided port placement in light of this problem. Her questions were answered to her satisfaction. She was reassured that her outpatient pain regimen will be provided for her and refills for her pain medication when she follows up in the clinic. In the meantime, I will resume her outpatient regimen of methadone 10 mg once a day. Her antibiotic therapy is per the primary team. She is clinically improving. She will follow up with [facility] on discharge. MD JENNIFER Fierro/homero , 06:36 PM , 06:52 PM
[2018-06-15] MEDS ORDERED: Methadone 10 MG Tablet PO SCH (21:00)
[2018-06-16] MEDS: HYDROmorphone PF Inj 2 MG/ML Vial IV.PUSH PRN ×6 (02:31→21:17)
[2018-06-16] MEDS: Sod Chloride 0.9% Inj 1,000 ML IV.CONT SCH ×3 (02:32→22:38)
[2018-06-16] MEDS: Piperacil/Tazo 4.5 GM Premix 4.5 GM/100 ML BAG IV.SIG SCH ×4 (03:59→21:15)
[2018-06-16] MEDS: Vancomycin Inj 1,750 MG in Sodium Chlor 0.9% Inj 500 ML IV.SIG SCH ×2 (05:36→16:12)
[2018-06-16 08:28] LABS: Baso # (Auto) 0.2 th/mm3 (0.0-0.2); Baso % (Auto) 1.4 % (0.0-2.0); Eos # (Auto) 0.4 th/mm3 (0.0-0.4); Eos % (Auto) 2.8 % (0.0-4.0); Hematocrit 29.4 % (35.0-46.0); Hemoglobin 9.6 gm/dL (11.6-15.3); Lymph # (Auto) 3.7 th/mm3 (1.0-4.8); Lymph % (Auto) 24.3 % (9.0-44.0); Mean Corpuscular HGB Conc 32.6 % (32.0-36.0); Mean Corpuscular Hemoglobin 28.1 pg (27.0-34.0); Mean Corpuscular Volume 86.4 fL (80.0-100.0); Mono # (Auto) 0.4 th/mm3 (0.0-0.9); Mono % (Auto) 2.4 % (0.0-8.0); Neut # (Auto) 10.6 th/mm3 (1.8-7.7); Neut % (Auto) 69.1 % (16.0-70.0); Platelet Count 532 th/mm3 (150-450); Red Blood Count 3.41 mil/mm3 (4.00-5.30); Red Cell Distribution Width 19.2 % (11.6-17.2); White Blood Count 15.3 th/mm3 (4.0-11.0)
[2018-06-16 08:48] LABS: Chloride 106 meq/L (98-107); Sodium 140 meq/L (136-145)
[2018-06-16 08:51] LABS: Albumin 3.2 g/dL (3.4-5.0); Anion Gap 7 meq/L (5-15); Calcium 8.1 mg/dL (8.5-10.1); Carbon Dioxide 27.2 meq/L (21.0-32.0); Glucose,Random 129 mg/dL (74-106)
[2018-06-16 08:52] LABS: Blood Urea Nitrogen 5 mg/dL (7-18)
[2018-06-16 08:55] LABS: Alanine Aminotransferase 17 U/L (10-53); Aspartate Aminotransferase 11 U/L (15-37); Glomerular Filtration Rate 79 mL/min (>89)
[2018-06-16 08:56] LABS: Total Protein 7.4 g/dL (6.4-8.2)
[2018-06-16 08:57] LABS: Alkaline Phosphatase 102 U/L (45-117)
[2018-06-16] MEDS: Senna/Docusate Sodium 8.6/50 MG Tablet PO SCH ×2 (09:04→20:09)
[2018-06-16 09:08] LABS: Target Cells 2+
[2018-06-16 09:09] LABS: Ovalocytes 1+; Platelet Morphology Normal (Normal); Sickle Cells 1+
[2018-06-16] MEDS ORDERED: Benzonatate 100 MG Capsule PO PRN (12:07)
--- NOTE | 2018-06-16 12:12 | P.PNIM ---
Subjective Interval history: The patient was feeling better. 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 She said her pain control was good. She said she was still having a persistent cough. No other acute complaints. Physical Exam Vital signs: Vital Signs 06/15/18 13:09 06/15/18 14:28 06/15/18 14:56 Temperature Pulse Rate 80 84 Respiratory Rate 16 18 18 Blood Pressure 116/68 109/65 Pulse Oximetry 93 L 96 06/15/18 16:00 06/15/18 16:01 06/15/18 16:33 Temperature 97.5 F L Pulse Rate 82 Respiratory Rate 19 18 18 Blood Pressure 114/76 Pulse Oximetry 92 L 06/15/18 17:35 06/15/18 20:00 06/16/18 00:00 Temperature 97.0 F L 97.7 F Pulse Rate 84 81 Respiratory Rate 18 18 19 Blood Pressure 128/72 116/72 Pulse Oximetry 99 93 L 06/16/18 08:00 Temperature 98.9 F Pulse Rate 105 H Respiratory Rate 16 Blood Pressure 122/64 Pulse Oximetry 92 L Intake & Output 06/15/18 06/16/18 06/16/18 18:59 06:59 18:59 Intake Total 1500 / 1500 1667.5 / 1667.5 1000 / 1000 Balance 1500 / 1500 1667.5 / 1667.5 1000 / 1000 Weight 106.7 kg Intake: IV 1250 / 1250 1667.5 / 1667.5 1000 / 1000 NS Inj 1,000 ML @ 100 mls/hr IV 950 / 950 1000 / 1000 .CONT .Q10H PAT Rx#:[id number] Levaquin 750 mg Premix Inj 150 150 / 150 ML @ 100 mls/hr IV.SIG ONCE ONE Rx#:[id number] Zosyn 4.5 GM Premix 4.5 gm In 100 / 100 200 / 200 100 ml @ 200 mls/hr IV.SIG Q6H PAT Rx#:[id number] NS Inj 1,000 ML @ Wide Open IV. 1000 / 1000 SIG BOLUS ONE Rx#:[id number] Vancomycin Inj 1,750 MG In NS 517.5 / 517.5 Inj 500 ML @ 250 mls/hr IV.SIG Q12H PAT Rx#:[id number] Oral 250 / 250 Other: Date of Last Bowel Movement 06/14/18 06/14/18 Weight On Admission 105.5 kg Narrative: GENERAL: NAD. SKIN: Focused skin assessment warm/dry. HEAD: Atraumatic. Normocephalic. EYES: Pupils equal and round. No scleral icterus. No injection or drainage. ENT: No nasal bleeding or discharge. Mucous membranes pink and moist. NECK: Trachea midline. No JVD. CARDIOVASCULAR: Regular rate and rhythm. No murmur appreciated. RESPIRATORY: Scattered rhonchi. GASTROINTESTINAL: Abdomen soft, no localized pain, no rebound or guarding, nondistended. Hepatic and splenic margins not palpable. MUSCULOSKELETAL: Generalized muscular tenderness to palpation all extremities, no obvious deformities. No clubbing. No cyanosis. TR edema. NEUROLOGICAL: Awake and alert. No obvious cranial nerve deficits. Motor grossly within normal limits. Normal speech. Results - Labs CBC & Chem 7: 06/16/18 08:20 06/16/18 08:20 Laboratory Results - last 24 hr 06/15/18 06/15/18 06/16/18 10:20 11:58 08:20 CBC w Diff Slide review pending WBC 15.3 H RBC 3.41 L Hgb 9.6 L Hct 29.4 L MCV 86.4 MCH 28.1 MCHC 32.6 RDW 19.2 H Plt Count 532 H MPV 8.0 Neut % (Auto) 69.1 Lymph % (Auto) 24.3 [place] % (Auto) 2.4 Eos % (Auto) 2.8 Baso % (Auto) 1.4 Neut # (Auto) 10.6 H Lymph # (Auto) 3.7 [place] # (Auto) 0.4 Eos # (Auto) 0.4 Baso # (Auto) 0.2 WBC Differential . Diff Scan Auto diff confirmed Differential Comment . Platelet Estimate High H Platelet Morphology Normal Sickle Cells 1+ H Target Cells 2+ H Ovalocytes 1+ H Keratocytes Occ H Retic Count 2.9 Absolute Retic 102.6 Sodium Potassium Chloride Carbon Dioxide Anion Gap BUN Creatinine Estimated GFR Random Glucose Calcium Total Bilirubin AST ALT Alkaline Phosphatase Total Protein Albumin Ur Collection Type Clean catch Urine Color Yellow Urine Clarity Slight H Urine pH 6.0 Ur Specific [place] 1.015 Urine Protein Negative Urine Glucose (UA) Negative Urine Ketones Negative Urine Occult Blood Negative Urine Nitrate Positive H Urine Bilirubin Negative Urine Urobilinogen 0.2 Ur Leukocyte Esterase Small H Urine RBC 0-3 Urine WBC 21-50 H Urine WBC Clumps Few H Ur Squamous Epith Cells 0-5 Urine Bacteria Many H Micro UA Comment Culture indicated Ur Microscopic Review Microscopic reviewed Urine Culture Comments Culture indicated 06/16/18 08:20 CBC w Diff WBC RBC Hgb Hct MCV MCH MCHC RDW Plt Count MPV Neut % (Auto) Lymph % (Auto) [place] % (Auto) Eos % (Auto) Baso % (Auto) Neut # (Auto) Lymph # (Auto) [place] # (Auto) Eos # (Auto) Baso # (Auto) WBC Differential Diff Scan Differential Comment Platelet Estimate Platelet Morphology Sickle Cells Target Cells Ovalocytes Keratocytes Retic Count Absolute Retic Sodium 140 Potassium 4.0 Chloride 106 Carbon Dioxide 27.2 Anion Gap 7 BUN 5 L Creatinine 0.98 Estimated GFR 79 L Random Glucose 129 H Calcium 8.1 L Total Bilirubin 0.6 AST 11 L ALT 17 Alkaline Phosphatase 102 Total Protein 7.4 D Albumin 3.2 L Ur Collection Type Urine Color Urine Clarity Urine pH Ur Specific [place] Urine Protein Urine Glucose (UA) Urine Ketones Urine Occult Blood Urine Nitrate Urine Bilirubin Urine Urobilinogen Ur Leukocyte Esterase Urine RBC Urine WBC Urine WBC Clumps Ur Squamous Epith Cells Urine Bacteria Micro UA Comment Ur Microscopic Review Urine Culture Comments Microbiology 06/15/18 12:30 Blood - Peripheral Aerobic Blood Culture - Preliminary No growth in 1 day 06/15/18 12:30 Blood - Peripheral Anaerobic Blood Culture - Preliminary No growth in 1 day 06/15/18 12:35 Blood - Peripheral Aerobic Blood Culture - Preliminary No growth in 1 day 06/15/18 12:35 Blood - Peripheral Anaerobic Blood Culture - Preliminary No growth in 1 day 06/15/18 11:00 Nasal Wash Influenza Types A,B Antigen - Final Negative for FLU A and B antigen Infection due to influenza A or B cannot be ruled out since the antigen present in the sample may be below the detection limit of the test. 06/15/18 11:00 Throat Group A Streptococcus Screen ([facility]) - Final Assessment and Plan - Plan Sickle cell disease The patient has generalized pain all over her body. -Continue IV Dilaudid and p.o. methadone. -IV fluids. -Hematology consult appreciated. HCAP Imaging reveals right midlung airspace disease. -Continue IV vancomycin and Zosyn. -Incentive spirometry. -Oxygen and nebs as needed. -follow blood cultures and sputum culture. -Encourage ambulation. -Tessalon Perles as needed for cough. UTI UA indicative of an infection. -continue antibiotics as above and follow cultures. PPx: Sarah
[2018-06-16] MEDS: Methadone 10 MG Tablet PO SCH (19:48)
[2018-06-16] MEDS: Amitriptyline 25 MG Tablet PO SCH (20:09)
[2018-06-17] MEDS: HYDROmorphone PF Inj 2 MG/ML Vial IV.PUSH PRN ×4 (00:52→17:43)
[2018-06-17] MEDS: Piperacil/Tazo 4.5 GM Premix 4.5 GM/100 ML BAG IV.SIG SCH ×2 (04:20→09:17)
[2018-06-17] MEDS ORDERED: Pharmacy Ordered Lab Info OTHER ONE (04:45)
[2018-06-17] MEDS: Vancomycin Inj 1,750 MG in Sodium Chlor 0.9% Inj 500 ML IV.SIG SCH (06:15)
[2018-06-17 09:14] LABS: Baso # (Auto) 0.1 th/mm3 (0.0-0.2); Baso % (Auto) 0.9 % (0.0-2.0); Eos # (Auto) 0.5 th/mm3 (0.0-0.4); Eos % (Auto) 4.5 % (0.0-4.0); Hematocrit 29.3 % (35.0-46.0); Hemoglobin 9.4 gm/dL (11.6-15.3); Lymph % (Auto) 25.3 % (9.0-44.0); Mean Corpuscular HGB Conc 32.2 % (32.0-36.0); Mean Corpuscular Hemoglobin 27.9 pg (27.0-34.0); Mean Corpuscular Volume 86.6 fL (80.0-100.0); Mean Platelet Volume 8.2 fL (7.0-11.0); Mono # (Auto) 0.4 th/mm3 (0.0-0.9); Mono % (Auto) 3.5 % (0.0-8.0); Neut # (Auto) 7.9 th/mm3 (1.8-7.7); Neut % (Auto) 65.8 % (16.0-70.0); Platelet Count 556 th/mm3 (150-450); Red Blood Count 3.39 mil/mm3 (4.00-5.30); Red Cell Distribution Width 19.3 % (11.6-17.2); White Blood Count 11.9 th/mm3 (4.0-11.0)
[2018-06-17] MEDS: Sod Chloride 0.9% Inj 1,000 ML IV.CONT SCH (09:14)
[2018-06-17] MEDS: Senna/Docusate Sodium 8.6/50 MG Tablet PO SCH ×2 (09:17→21:52)
[2018-06-17 09:49] LABS: RBC Morphology Normal (Normal)
[2018-06-17 09:50] LABS: Platelet Morphology Normal (Normal)
[2018-06-17 09:51] LABS: Calcium 8.1 mg/dL (8.5-10.1); Potassium 4.2 meq/L (3.5-5.1)
[2018-06-17 09:52] LABS: Carbon Dioxide 27.1 meq/L (21.0-32.0)
[2018-06-17] MEDS ORDERED: HYDROmorphone PF Inj 2 MG/ML Vial IV.PUSH PRN (12:36)
--- NOTE | 2018-06-17 12:40 | P.PNIM ---
Subjective Interval history: The patient was resting in bed. She felt like her right arm was swollen but it was not hurting. She says she has been trying to cough up the phlegm. She believes she will be ready to go home tomorrow morning. Physical Exam Vital signs: Vital Signs 06/16/18 16:00 06/16/18 20:00 06/17/18 00:00 Temperature 98.3 F 97.1 F L 98.6 F Pulse Rate 93 H 90 89 Respiratory Rate 20 20 20 Blood Pressure 125/76 119/79 123/63 Pulse Oximetry 94 L 94 L 94 L 06/17/18 06:46 06/17/18 08:00 06/17/18 09:51 Temperature 97.5 F L Pulse Rate 85 Respiratory Rate 18 21 18 Blood Pressure 126/74 Pulse Oximetry 96 Intake & Output 06/16/18 06/17/18 06/17/18 18:59 06:59 18:59 Intake Total 2049 / 2049 2920 / 2920 1857.5 / 1857.5 Balance 2049 / 2049 2920 / 2920 1857.5 / 1857.5 Weight 105.6 kg Intake: IV 1100 / 1100 2200 / 2200 1617.5 / 1617.5 NS Inj 1,000 ML @ 100 mls/hr IV 1000 / 1000 1000 / 1000 1000 / 1000 .CONT .Q10H PAT Rx#:[id number] Zosyn 4.5 GM Premix 4.5 gm In 100 / 100 200 / 200 100 / 100 100 ml @ 200 mls/hr IV.SIG Q6H PAT Rx#:[id number] Vancomycin Inj 1,750 MG In NS 1000 / 1000 517.5 / 517.5 Inj 500 ML @ 250 mls/hr IV.SIG Q12H PAT Rx#:[id number] Oral 950 / 950 720 / 720 240 / 240 Other: # Voids 5 2 Date of Last Bowel Movement 06/14/18 # Bowel Movements 0 Narrative: GENERAL: NAD. SKIN: Focused skin assessment warm/dry. HEAD: Atraumatic. Normocephalic. EYES: Pupils equal and round. No scleral icterus. No injection or drainage. ENT: No nasal bleeding or discharge. Mucous membranes pink and moist. NECK: Trachea midline. No JVD. CARDIOVASCULAR: Regular rate and rhythm. No murmur appreciated. RESPIRATORY: Scattered rhonchi. GASTROINTESTINAL: Abdomen soft, no localized pain, no rebound or guarding, nondistended. Hepatic and splenic margins not palpable. MUSCULOSKELETAL: Generalized muscular tenderness to palpation all extremities, no obvious deformities. No clubbing. No cyanosis. TR edema. Right arm with mild edema. NEUROLOGICAL: Awake and alert. No obvious cranial nerve deficits. Motor grossly within normal limits. Normal speech. Results - Labs CBC & Chem 7: 06/17/18 08:50 06/17/18 08:50 Laboratory Results - last 24 hr 06/17/18 06/17/18 08:50 08:50 CBC w Diff Slide review pending WBC 11.9 H RBC 3.39 L Hgb 9.4 L Hct 29.3 L MCV 86.6 MCH 27.9 MCHC 32.2 RDW 19.3 H Plt Count 556 H MPV 8.2 Neut % (Auto) 65.8 Lymph % (Auto) 25.3 [place] % (Auto) 3.5 Eos % (Auto) 4.5 H Baso % (Auto) 0.9 Neut # (Auto) 7.9 H Lymph # (Auto) 3.0 [place] # (Auto) 0.4 Eos # (Auto) 0.5 H Baso # (Auto) 0.1 WBC Differential . Diff Scan Auto diff confirmed Differential Comment . Platelet Estimate High H Platelet Morphology Normal RBC Morphology Normal Sodium 141 Potassium 4.2 Chloride 107 Carbon Dioxide 27.1 Anion Gap 7 BUN 4 L Creatinine 0.97 Estimated GFR 80 L Random Glucose 149 H Calcium 8.1 L Microbiology 06/15/18 12:30 Blood - Peripheral Aerobic Blood Culture - Preliminary No growth in 2 days 06/15/18 12:30 Blood - Peripheral Anaerobic Blood Culture - Preliminary No growth in 2 days 06/15/18 12:35 Blood - Peripheral Aerobic Blood Culture - Preliminary No growth in 2 days 06/15/18 12:35 Blood - Peripheral Anaerobic Blood Culture - Preliminary No growth in 2 days 06/15/18 11:00 Throat Group A Streptococcus Screen/Cult - Final No Beta Streptococci isolated. 06/15/18 11:58 Clean Catch Urine Urine Culture - Final Escherichia coli Assessment and Plan - Plan Sickle cell disease The patient has generalized pain all over her body. -Continue IV Dilaudid and p.o. methadone. -Discontinue IV fluids. -Hematology consult appreciated. HCAP Imaging reveals right midlung airspace disease. -Switch IV vancomycin and Zosyn to p.o. Augmentin. -Incentive spirometry. -Oxygen and nebs as needed. -follow blood cultures and sputum culture. -Encourage ambulation. -Tessalon Perles as needed for cough. UTI UA indicative of an infection. Urine culture grows E. coli. -continue antibiotics as above and follow cultures. PPx: Sarah
[2018-06-17] MEDS ORDERED: VANCOMYCIN TROUGH OTHER ONE (16:45)
[2018-06-17] MEDS: Amoxicillin/Clavulanate 875/125 MG Tablet PO SCH (21:52)
[2018-06-17] MEDS: Methadone 10 MG Tablet PO SCH (21:52)
[2018-06-17] MEDS: Amitriptyline 25 MG Tablet PO SCH (21:53)
[2018-06-18] MEDS: HYDROmorphone PF Inj 2 MG/ML Vial IV.PUSH PRN ×3 (00:59→09:46)
[2018-06-18] MEDS: Amoxicillin/Clavulanate 875/125 MG Tablet PO SCH (08:26)
[2018-06-18] MEDS: Senna/Docusate Sodium 8.6/50 MG Tablet PO SCH (08:26)
--- NOTE | 2018-06-18 09:19 | P.DS ---
Date of admission: 06/16/18 15:35 Primary care physician: Carline Silver MD Anticipated date of discharge: 06/18/18 Brief History from admission: The patient is a 32-year-old female with a past medical history of sickle cell disease who is presenting to the hospital with generalized pain all over her body. She says she was last here in the hospital last month. She says this morning she developed worsening pain all over her body. She said she started throwing up this morning as well. She has had low-grade fevers. She has been experiencing a cough over the past week. She says her sputum has been green and brown in color. She says she normally has a pain medication regimen while in the hospital and is also on Benadryl for itching as she has a morphine allergy. She says she is on methadone on an outpatient basis. She would like to be seen by her language translator while here in the hospital. She says she is willing to try eating some food. She says she tried to deal with the pain at home but decided to come into the hospital for further management. Patient update on day of discharge: The patient was resting in bed comfortably. She had no acute complaints. She was ready to go home. DS: Diagnosis - Discharge Diagnosis (1) Pneumonia Status: Acute (2) Urinary tract infection Status: Acute (3) Sickle cell crisis Status: Acute DS: Medications - Discharge Medications Prescriptions: amoxicillin-pot clavulanate 1 tab PO Q12HR #8 tab DS: Summary Hospital Course: Sickle cell disease The patient had generalized pain all over her body. We continued IV Dilaudid and p.o. methadone. She received IVFs. Hematology was consulted. Her symptoms improved. She will follow up with hematology as an outpt. HCAP Imaging revealed right midlung airspace disease. We started IV vancomycin and Zosyn which we switched to p.o. Augmentin. She received incentive spirometry. She received oxygen and nebs as needed. Blood cultures with NGTD. We encouraged ambulation. She received Tessalon Perles as needed for cough. UTI UA indicative of an infection. Urine culture grew E. coli. She will continue Augmentin to complete a course. - Time Spent with Patient Total time spent providing and/or coordinating discharge services: Less than 30 minutes - Quality: VTE Deep Vein Thrombosis/Pulmonary Embolism Present on Admission: No Exam Vital signs: Vital Signs 06/17/18 09:51 06/17/18 12:00 06/17/18 13:18 Temperature 98.3 F Pulse Rate 82 Respiratory Rate 18 20 18 Blood Pressure 117/59 L Pulse Oximetry 96 06/17/18 16:00 06/17/18 18:13 06/17/18 20:00 Temperature 98.5 F 99.2 F Pulse Rate 92 H 95 H Respiratory Rate 20 18 16 Blood Pressure 126/60 132/62 Pulse Oximetry 95 97 06/18/18 00:00 06/18/18 08:00 Temperature 98.9 F 98.1 F Pulse Rate 90 104 H Respiratory Rate 18 20 Blood Pressure 130/60 120/72 Pulse Oximetry 98 95 Intake & Output 06/17/18 06/18/18 06/18/18 18:59 06:59 18:59 Intake Total 3757.5 / 3757.5 120 / 120 480 / 480 Output Total 1000 / 1000 600 / 600 Balance 2757.5 / 2757.5 120 / 120 -120 / -120 Weight 103.5 kg Intake: IV 2017.5 / 2017.5 NS Inj 1,000 ML @ 100 mls/hr IV 1400 / 1400 .CONT .Q10H PAT Rx#:[id number] Zosyn 4.5 GM Premix 4.5 gm In 100 / 100 100 ml @ 200 mls/hr IV.SIG Q6H PAT Rx#:[id number] Vancomycin Inj 1,750 MG In NS 517.5 / 517.5 Inj 500 ML @ 250 mls/hr IV.SIG Q12H PAT Rx#:[id number] Oral 1740 / 1740 120 / 120 480 / 480 Output: Urine 1000 / 1000 600 / 600 Other: # Voids 2 3 Date of Last Bowel Movement 06/17/18 06/17/18 Narrative: GENERAL: NAD. SKIN: Focused skin assessment warm/dry. HEAD: Atraumatic. Normocephalic. EYES: Pupils equal and round. No scleral icterus. No injection or drainage. ENT: No nasal bleeding or discharge. Mucous membranes pink and moist. NECK: Trachea midline. No JVD. CARDIOVASCULAR: Regular rate and rhythm. No murmur appreciated. RESPIRATORY: CTAB. No W/R/R. GASTROINTESTINAL: Abdomen soft, no localized pain, no rebound or guarding, nondistended. Hepatic and splenic margins not palpable. MUSCULOSKELETAL: Generalized muscular tenderness to palpation all extremities, no obvious deformities. No clubbing. No cyanosis. TR edema. Right arm with mild edema. NEUROLOGICAL: Awake and alert. No obvious cranial nerve deficits. Motor grossly within normal limits. Normal speech. Results Procedures completed during hospitalization: None Labs on day of discharge: Labs from last 24 hours 06/17/18 06/17/18 08:50 08:50 WBC Differential . Diff Scan Auto diff confirmed Platelet Estimate High H Platelet Morphology Normal RBC Morphology Normal Sodium 141 Potassium 4.2 Chloride 107 Carbon Dioxide 27.1 Anion Gap 7 BUN 4 L Creatinine 0.97 Estimated GFR 80 L Random Glucose 149 H Calcium 8.1 L Preliminary micro results at discharge 06/15/18 12:30 Aerobic Blood Culture - Preliminary Blood - Peripheral No growth in 2 days Anaerobic Blood Culture - Preliminary No growth in 2 days 06/15/18 12:35 Aerobic Blood Culture - Preliminary Blood - Peripheral No growth in 2 days Anaerobic Blood Culture - Preliminary No growth in 2 days - Impressions ITS Impressions Chest X-Ray 06/15/18 09:57 CONCLUSION: Right midlung airspace disease. Scattered chronic changes. Sclerotic changes in both humeral heads characteristic of avascular process in this patient with a history of sickle cell. Discharge Plan - Discharge Disposition Patient Disposition: 01 Discharge Home - Discharge Condition Condition: Stable - Discharge Order Discharge Orders: Discharge Order (Routine); Ordered 06/18/18 Ordered By: Chuy Child - Discharge Details Anticipated Discharge Date: 06/18/18 - Physicians Team Primary Care Provider: Carline Silver Attending Provider: Chuy Child Other Providers: Carline Silver MD
== END 2018-06-18 10:56 | disposition home or self-care (01) ==
LOC: PHEDA 09:31 → PHED 09:31 → PH3 14:45
PROVIDERS: ADMIT Hospitalist; ATTEND Hospitalist